=== PATIENT | male | born 1975 | race Caucasian/White ===

== ENCOUNTER 2018-12-19 12:33 | Day surgery (SDC) | payer OTHER ==
[~2018-12-19] VITALS: Ht 167.6 cm; Wt 71.2 kg
[2018-12-19] VITALS (10 sets, daily range): BP systolic 102–141; BP diastolic 62–93
[2018-12-19] MEDS ORDERED: NS IV 1000 ML 1,000 ML ONE (12:42)
[2018-12-19] MEDS ORDERED: LIDOCAINE 1% INJ 20 ML 20 ML VIAL ONE (12:42)
[2018-12-19] MEDS ORDERED: HEParin (CATH LAB) 2,000 ML IV ONE (12:42)
[2018-12-19] MEDS ORDERED: NS IV 1000 ML 1,000 ML IV SCH ×2 (13:07→16:00)
--- OUTSIDE RECORDS SUMMARY | 2018-12-19 13:07 | XMS REPORT ---
Author Author FRANCIS TOMER [facility] Address [address] [place] [address] Care Team Providers Care Colored Liquid Plastic Applier Name Role Phone TOMER BLANCO Unavailable PROBLEMS Type Condition ICD9-CM Code FQR19-OY Code Onset Dates Condition Status SNOMED Code Problem Pain in right leg M79.604 Active 77827016475858951 Problem Pain of left leg M79.605 Active 557157329 Problem Tachycardia with heart rate 100-120 beats per minute R00.0 Active 2896737 Problem Type 2 diabetes mellitus with hyperglycemia, without long-term current use of insulin E11.65 Active 75314501 Problem Essential hypertension I10 Active 77777786 Problem Hyperlipidemia LDL goal <100 E78.5 Active [id number] ALLERGIES No Information ENCOUNTERS Encounter Location Date Diagnosis [facility] [id number], [place] [id number] Sep, [facility] [address] [id number], [place] [phone] Sep, Type 2 diabetes mellitus with hyperglycemia, without long-term current use of insulin E11.65 [facility] [address] [id number], [place] [id number] Aug, [facility] [id number][place] [id number] Aug, [facility] [id number], [place] [address] Aug, Type 2 diabetes mellitus with hyperglycemia, without long-term current use of insulin E11.65 ; Pain of left leg M79.605 and Pain in right leg M79.604 [facility] [address] [id number], [place] [address] Jul, Dental examination Z01.[address] [id number], [place] [address] Jul, Type 2 diabetes mellitus with hyperglycemia, without long-term current use of insulin E11.65 and Essential hypertension I10 [facility] [address] [facility] [id number] [place] [address] Jun, Type 2 diabetes mellitus with hyperglycemia, without long- term current use of insulin E11.[address] [id number], [place] [id number] Jun, Type 2 diabetes mellitus with hyperglycemia, without long-term current use of insulin E11.[address] [id number], [place] [address] Jun, Type 2 diabetes mellitus with hyperglycemia, without long-term current use of insulin E11.[address] [id number], [place] [id number] Jun, Type 2 diabetes mellitus with hyperglycemia, without long-term current use of insulin E11.65 and Noncompliance Z91.[address] [id number], [place] [id number] Oct, Hyperlipidemia LDL goal <[address] [id number], [place] [id number] Oct, Type 2 diabetes mellitus with hyperglycemia, without long-term current use of insulin E11.65 and Tachycardia with heart rate 100-120 beats per minute R00.[address] [id number], [place] [address] Oct, IMMUNIZATIONS No Known Immunizations SOCIAL HISTORY Never Assessed REASON FOR VISIT pals PLAN OF CARE VITAL SIGNS MEDICATIONS Medication Instructions Dosage Frequency Start Date End Date Duration Status Toueduardo SoloStar 300 UNIT/ML Subcutaneous daily Inject 25 units 24h Jun, 90 days Active NovoLog 100 UNIT/ML Subcutaneous 3 times a day Inject 6 units 8h Jun, 90 days Active RESULTS No Results PROCEDURES No Known procedures INSTRUCTIONS MEDICATIONS ADMINISTERED No Known Medications MEDICAL (GENERAL) HISTORY Type Description Date Medical History type 2 DM Medical History hyperlipidemia Medical History hypertension Medical History CAD Surgical History left knee surgery 1988 Surgical History open heart surgery 05/06/2017 Hospitalization History salmonells poisoning- [place], [place] 2004 Hospitalization History diabetic ketoacidosis
--- OUTSIDE RECORDS SUMMARY | 2018-12-19 13:07 | XMS REPORT ---
Author Author CHRISTIANAIDA TOMER [facility] Networks[facility]OD[facility]IG[facility]Z Address [address] [place] [address] Care Team Providers Care Selector Packer Name Role Phone TOMER BLANCO Unavailable PROBLEMS Type Condition ICD9-CM Code XSZ95-IC Code Onset Dates Condition Status SNOMED Code Problem Pain in right leg M79.604 Active [id number] Problem Pain of left leg M79.605 Active 945268242 Problem Tachycardia with heart rate 100-120 beats per minute R00.0 Active 8678721 Problem Type 2 diabetes mellitus with hyperglycemia, without long-term current use of insulin E11.65 Active 81923737 Problem Essential hypertension I10 Active 56723061 Problem Hyperlipidemia LDL goal <100 E78.5 Active 68135477 ALLERGIES No Information ENCOUNTERS Encounter Location Date Diagnosis [facility] [address] [id number] [place] [id number] Sep, [facility]ITALEccentex CorporationDANIEL[facility] [place] [address] [facility] [address] [id number] [place] [phone] Aug, [facility] [id number] [place] [phone] Aug, [facility] [id number] [place] [address] Aug, Type 2 diabetes mellitus with hyperglycemia, without long-term current use of insulin E11.65 ; Pain of left leg M79.605 and Pain in right leg M79.604 [facility]ITALEccentex CorporationDANIEL[place] [address] [facility] [address] [id number] [place] [phone] Jul, Dental examination Z01.20 [facility]ITALPrestaShop0 [facility] [address] [id number] [place] [id number] Jul, Type 2 diabetes mellitus with hyperglycemia, without long-term current use of insulin E11.65 and Essential hypertension I10 [facility] [address] [facility] [id number] [place] [address] Jun, Type 2 diabetes mellitus with hyperglycemia, without long- term current use of insulin E11.65 [place] [address] [facility] [address] [id number] [place] [phone] Jun, Type 2 diabetes mellitus with hyperglycemia, without long-term current use of insulin E11.[address] [id number] [place] [address] Jun, Type 2 diabetes mellitus with hyperglycemia, without long-term current use of insulin E11.[address] [id number] [place] [phone] Jun, Type 2 diabetes mellitus with hyperglycemia, without long-term current use of insulin E11.65 and Noncompliance Z91.[address] [id number] [place] [id number] Oct, Hyperlipidemia LDL goal <[address] [id number] [place] [address] Oct, Type 2 diabetes mellitus with hyperglycemia, without long-term current use of insulin E11.65 and Tachycardia with heart rate 100-120 beats per minute R00.[address] [id number] [place] [phone] Oct, IMMUNIZATIONS No Known Immunizations SOCIAL HISTORY Never Assessed REASON FOR VISIT phone call PLAN OF CARE VITAL SIGNS MEDICATIONS Medication Instructions Dosage Frequency Start Date End Date Duration Status Gabapentin 100 mg Orally Three times a day 1 capsule 8h Aug, 30 day(s) Active Vitamin B-12 ER 1000 mcg Orally Once a day 1 tablet 24h Aug, Aug, 90 days Active RESULTS No Results PROCEDURES No Known procedures INSTRUCTIONS MEDICATIONS ADMINISTERED No Known Medications MEDICAL (GENERAL) HISTORY Type Description Date Medical History type 2 DM Medical History hyperlipidemia Medical History hypertension Medical History CAD Surgical History left knee surgery 1988 Surgical History open heart surgery 05/06/2017 Hospitalization History salmonells poisoning- [place], [place] 2004 Hospitalization History diabetic ketoacidosis
--- OUTSIDE RECORDS SUMMARY | 2018-12-19 13:07 | XMS REPORT ---
Author Author FRANCIS TOMER [facility] Address [address] [place] [address] Care Team Providers Care Proposal Editor Name Role Phone TOMER BLANCO Unavailable PROBLEMS Type Condition ICD9-CM Code [id number] Code Onset Dates Condition Status SNOMED Code Problem Pain in right leg M79.604 Active 60028343062283404 Problem Pain of left leg M79.605 Active 836814063 Problem Tachycardia with heart rate 100-120 beats per minute R00.0 Active 1431987 Problem Type 2 diabetes mellitus with hyperglycemia, without long-term current use of insulin E11.65 Active 15407165 Problem Essential hypertension I10 Active 31272939 Problem Hyperlipidemia LDL goal <100 E78.5 Active 25695456 ALLERGIES No Information ENCOUNTERS Encounter Location Date Diagnosis [facility] [address] [id number], [place] [phone] Oct, [facility] [address] [address] [id number], [place] [id number] Sep, Essential hypertension I10 [facility] [address] [facility] [address] [id number], [place] [id number] Sep, Type 2 diabetes mellitus with hyperglycemia, without long-term current use of insulin E11.65 [facility] [address] [id number], [place] [phone] Aug, [facility] [address] [id number], [place] [id number] Aug, [facility] [address] [id number], [place] [phone] Aug, Type 2 diabetes mellitus with hyperglycemia, without long-term current use of insulin E11.65 ; Pain of left leg M79.605 and Pain in right leg M79.[address] [id number], [place] [id number] Jul, Dental examination Z01.[address] [id number], [place] [id number] Jul, Type 2 diabetes mellitus with hyperglycemia, without long-term current use of insulin E11.65 and Essential hypertension I10 [facility] [address] [facility] [id number] B[place] [address] Jun, Type 2 diabetes mellitus with hyperglycemia, without long- term current use of insulin E11.[address] [id number], [place] [id number] Jun, Type 2 diabetes mellitus with hyperglycemia, without long-term current use of insulin E11.[address] [id number], [place] [id number] Jun, Type 2 diabetes mellitus with hyperglycemia, without long-term current use of insulin E11.[address] [id number], [place] [id number] Jun, Type 2 diabetes mellitus with hyperglycemia, without long-term current use of insulin E11.65 and Noncompliance Z91.[address] [id number], [place] [id number] Oct, Hyperlipidemia LDL goal <[address] [id number], [place] [id number] Oct, Type 2 diabetes mellitus with hyperglycemia, without long-term current use of insulin E11.65 and Tachycardia with heart rate 100-120 beats per minute R00.[address] [id number], [place] [id number] Oct, IMMUNIZATIONS No Known Immunizations SOCIAL HISTORY Never Assessed REASON FOR VISIT Repository Medication/samples PLAN OF CARE VITAL SIGNS MEDICATIONS Medication Instructions Dosage Frequency Start Date End Date Duration Status Gabapentin 100 mg Orally Three times a day 1 capsule 8h Aug, 30 day(s) Active Metoprolol Succinate ER 25 MG Orally Once a day 1 tablet 24h Jul, 90 days Active Lisinopril 5 mg Orally Once a day 1 tablet-kidney protection 24h 15 Jun, 2018 Active Atorvastatin Calcium 40 mg Orally Once a day 1 tablet 24h Oct, Active RESULTS No Results PROCEDURES No Known procedures INSTRUCTIONS MEDICATIONS ADMINISTERED No Known Medications MEDICAL (GENERAL) HISTORY Type Description Date Medical History type 2 DM Medical History hyperlipidemia Medical History hypertension Medical History CAD Surgical History left knee surgery 1988 Surgical History open heart surgery 05/06/2017 Hospitalization History salmonells poisoning- [place], [place] 2004 Hospitalization History diabetic ketoacidosis
--- OUTSIDE RECORDS SUMMARY | 2018-12-19 13:07 | XMS REPORT ---
Author Author TOMER BLANCO [facility] Address [address] [place] [address] Care Team Providers Care Medical Manager Name Role Phone TOMER BLANCO Unavailable PROBLEMS Type Condition ICD9-CM Code [id number] Code Onset Dates Condition Status SNOMED Code Problem Essential hypertension I10 Active 80868466 Problem Hyperlipidemia LDL goal <100 E78.5 Active 75585558 Problem Tachycardia with heart rate 100-120 beats per minute R00.0 Active 3674252 Problem Type 2 diabetes mellitus with hyperglycemia, without long-term current use of insulin E11.65 Active 51231966 ALLERGIES Substance Reaction Event Type Date Status shellfish stomach gets pumped Non Drug Allergy Jul, Active ENCOUNTERS Encounter Location Date Diagnosis [facility] ROD[address] [id number], [place] [id number] Aug, [facility] [address] [id number], [place] [phone] Jul, Dental examination Z01.[address] [id number], [place] [id number] Jul, Type 2 diabetes mellitus with hyperglycemia, without long-term current use of insulin E11.65 and Essential hypertension I10 [facility] [address] [facility] [id number] [place] [address] Jun, Type 2 diabetes mellitus with hyperglycemia, without long- term current use of insulin E11.65 [facility] [address] [id number], [place] [phone] Jun, Type 2 diabetes mellitus with hyperglycemia, without long-term current use of insulin E11.65 [facility] [address] [id number], [place] [id number] Jun, Type 2 diabetes mellitus with hyperglycemia, without long-term current use of insulin E11.65 [facility] [address] [id number] [place] [address] Jun, Type 2 diabetes mellitus with hyperglycemia, without long-term current use of insulin E11.65 and Noncompliance Z91.19 [facility] [address] [id number], [place] [id number] Oct, Hyperlipidemia LDL goal <[address] [id number], [place] [id number] Oct, Type 2 diabetes mellitus with hyperglycemia, without long-term current use of insulin E11.65 and Tachycardia with heart rate 100-120 beats per minute R00.0 [facility] [address] [id number], [place] [id number] Oct, IMMUNIZATIONS No Known Immunizations SOCIAL HISTORY Never Assessed REASON FOR VISIT Diabetes. blood sugar follow up. brought log. SP LIM PLAN OF CARE Activity Details Follow Up 4 Weeks Reason:DM with sugar log VITAL SIGNS Height 67 in 2018-07-23 Weight 139.6 lbs 2018-07-23 Temperature 98.1 degrees Fahrenheit 2018-07-23 Heart Rate 83 bpm 2018-07-23 Respiratory Rate 18 2018-07-23 BMI 21.86 kg/m2 2018-07-23 Blood pressure systolic 124 mmHg 2018-07-23 Blood pressure diastolic 82 mmHg 2018-07-23 MEDICATIONS Medication Instructions Dosage Frequency Start Date End Date Duration Status Edilbertomaykeleduardo CheRohan 300 UNIT/ML Subcutaneous daily Inject 25 units 24h Jun, 30 days Active Metformin HCl 1000 MG Orally Twice a day with food 1 tablet Oct, Active NovoLog 100 UNIT/ML Subcutaneous 3 times a day Inject 6 units 8h Jun, Active Atorvastatin Calcium 40 mg Orally Once a day 1 tablet 24h Oct, Active Aspirin 81 MG Orally Once a day 1 tablet 24h Active Lisinopril 5 mg Orally Once a day 1 tablet-kidney protection 24h Jun, Active Metoprolol Succinate ER 25 MG Orally Once a day 1 tablet 24h Jul, 90 days Active Glucagon Emergency 1 MG Active Glimepiride 2 MG Orally Once a day 1 tablet with breakfast or the first main meal of the day 24h Jul, 90 days Active RESULTS No Results PROCEDURES No Known procedures INSTRUCTIONS MEDICATIONS ADMINISTERED No Known Medications MEDICAL (GENERAL) HISTORY Type Description Date Medical History type 2 DM Medical History hyperlipidemia Medical History hypertension Medical History CAD Surgical History left knee surgery 1988 Surgical History open heart surgery 05/06/2017 Hospitalization History salmonells poisoning- [place], [place] 2004 Hospitalization History diabetic ketoacidosis
--- OUTSIDE RECORDS SUMMARY | 2018-12-19 13:07 | XMS REPORT ---
Author Author TOMER BLANCO [facility] RODRIGEZ Address [address] [place] [address] Care Team Providers Care Parts Sales Manager Name Role Phone TOMER BLANCO Unavailable PROBLEMS Type Condition ICD9-CM Code WUZ53-SI Code Onset Dates Condition Status SNOMED Code Problem Essential hypertension I10 Active 10078122 Problem Hyperlipidemia LDL goal <100 E78.5 Active 39475983 Problem Tachycardia with heart rate 100-120 beats per minute R00.0 Active 2432230 Problem Type 2 diabetes mellitus with hyperglycemia, without long-term current use of insulin E11.65 Active 29145711 ALLERGIES No Information ENCOUNTERS Encounter Location Date Diagnosis [facility] [id number], [place] [phone] Aug, [facility] [id number], [place] [phone] Jul, Dental examination Z01.20 [facility] [id number], [place] [id number] Jul, Type 2 diabetes mellitus with hyperglycemia, without long-term current use of insulin E11.65 and Essential hypertension I10 [facility] [address] [facility] [id number] [place] [address] Jun, Type 2 diabetes mellitus with hyperglycemia, without long- term current use of insulin E11.65 [facility] [id number], [place] [id number] Jun, Type 2 diabetes mellitus with hyperglycemia, without long-term current use of insulin E11.65 [facility]ENTERLocalLuxSHAWNA [place] [address] [facility] [id number], [place] [id number] Jun, Type 2 diabetes mellitus with hyperglycemia, without long-term current use of insulin E11.65 [facility]Local[facility] [id number] [place] [address] Jun, Type 2 diabetes mellitus with hyperglycemia, without long-term current use of insulin E11.65 and Noncompliance Z91.19 [facility] RODRIGEZ [address] [facility] [address] [id number] [place] [id number] Oct, Hyperlipidemia LDL goal <100 E78.5 [facility] RODRIGEZ [address] [facility] [address] [id number], [place] [id number] Oct, Type 2 diabetes mellitus with hyperglycemia, without long-term current use of insulin E11.65 and Tachycardia with heart rate 100-120 beats per minute R00.0 [facility] [facility] [address] [facility] [address] [id number] [place] [id number] Oct, IMMUNIZATIONS No Known Immunizations SOCIAL HISTORY Never Assessed REASON FOR VISIT Blood sugars PLAN OF CARE VITAL SIGNS MEDICATIONS Medication Instructions Dosage Frequency Start Date End Date Duration Status NovoLog 100 UNIT/ML Subcutaneous 3 times a day Inject 6 units 8h Jun, Active RESULTS No Results PROCEDURES No Known procedures INSTRUCTIONS MEDICATIONS ADMINISTERED No Known Medications MEDICAL (GENERAL) HISTORY Type Description Date Medical History type 2 DM Medical History hyperlipidemia Medical History hypertension Medical History CAD Surgical History left knee surgery 1988 Surgical History open heart surgery 05/06/2017 Hospitalization History salmonells poisoning- [place], [place] 2004 Hospitalization History diabetic ketoacidosis
--- OUTSIDE RECORDS SUMMARY | 2018-12-19 13:07 | XMS REPORT ---
Author Author MERLINE ESPINAL [facility] Address [address] [place] [address] Care Team Providers Care Needle Valve Operator Name Role Phone MERLINE ESPINAL Unavailable PROBLEMS ALLERGIES No Information ENCOUNTERS IMMUNIZATIONS No Known Immunizations SOCIAL HISTORY No smoking Hx information available REASON FOR VISIT PLAN OF CARE VITAL SIGNS MEDICATIONS Unknown Medications RESULTS No Results PROCEDURES INSTRUCTIONS MEDICATIONS ADMINISTERED No Known Medications MEDICAL (GENERAL) HISTORY
--- OUTSIDE RECORDS SUMMARY | 2018-12-19 13:07 | XMS REPORT ---
Author Author TOMER BLNACO [facility] Address [address] [place] [address] Care Team Providers Care Camp Manager Name Role Phone TOMER BLANCO Unavailable PROBLEMS Type Condition ICD9-CM Code [id number] Code Onset Dates Condition Status SNOMED Code Problem Pain in right leg M79.604 Active 04122123432112168 Problem Pain of left leg M79.605 Active 069957798 Problem Tachycardia with heart rate 100-120 beats per minute R00.0 Active 2680696 Problem Type 2 diabetes mellitus with hyperglycemia, without long-term current use of insulin E11.65 Active 38447327 Problem Essential hypertension I10 Active 25639084 Problem Hyperlipidemia LDL goal <100 E78.5 Active 09804030 ALLERGIES Substance Reaction Event Type Date Status shellfish stomach gets pumped Non Drug Allergy Aug, Active ENCOUNTERS Encounter Location Date Diagnosis [facility] [address] [place] [address] [id number][place] [id number] Sep, [address] [id number], [place] [id number] Aug, Type 2 diabetes mellitus with hyperglycemia, without long-term current use of insulin E11.65 ; Pain of left leg M79.605 and Pain in right leg M79.[address] [id number], [place] [id number] Jul, Dental examination Z01.[address] [id number], [place] [address] Jul, Type 2 diabetes mellitus with hyperglycemia, without long-term current use of insulin E11.65 and Essential hypertension I10 [facility] [address] [facility] [id number] [place] [address] Jun, Type 2 diabetes mellitus with hyperglycemia, without long- term current use of insulin E11.65 [facility] [address] [id number], [place] [id number] Jun, Type 2 diabetes mellitus with hyperglycemia, without long-term current use of insulin E11.[address] [id number], [place] [id number] Jun, Type 2 diabetes mellitus with hyperglycemia, without long-term current use of insulin E11.[address] [id number], [place] [id number] Jun, Type 2 diabetes mellitus with hyperglycemia, without long-term current use of insulin E11.65 and Noncompliance Z91.[address] [id number], [place] [id number] Oct, Hyperlipidemia LDL goal <[address] [id number], [place] [id number] Oct, Type 2 diabetes mellitus with hyperglycemia, without long-term current use of insulin E11.65 and Tachycardia with heart rate 100-120 beats per minute R00.[address] [id number], [place] [id number] Oct, IMMUNIZATIONS No Known Immunizations SOCIAL HISTORY Never Assessed REASON FOR VISIT Diabetes with blood sugar logs, concerned about weight gain. aneesh harp PLAN OF CARE Activity Details Follow Up 6 Weeks Reason:DM Pending Test IRON, TIBC, FERRITIN PANEL Pending Test CMP Pending Test MAGNESIUM SERUM Pending Test CBC Pending Test VITAMIN B12/FOLATE, SERUM PANEL VITAL SIGNS Height 67 in 2018-08-20 Weight 153.9 lbs 2018-08-20 Temperature 97.7 degrees Fahrenheit 2018-08-20 Heart Rate 75 bpm 2018-08-20 Respiratory Rate 18 2018-08-20 Oximetry 99 % 2018-08-20 BMI 24.10 kg/m2 2018-08-20 Blood pressure systolic 128 mmHg 2018-08-20 Blood pressure diastolic 82 mmHg 2018-08-20 MEDICATIONS Medication Instructions Dosage Frequency Start Date End Date Duration Status Aspirin 81 MG Orally Once a day 1 tablet 24h Active Atorvastatin Calcium 40 mg Orally Once a day 1 tablet 24h Oct, Active Metformin HCl 1000 MG Orally Twice a day with food 1 tablet Oct, Active Glucagon Emergency 1 MG Active Glimepiride 2 MG Orally Once a day 1 tablet with breakfast or the first main meal of the day 24h Jul, 90 days Active Metoprolol Succinate ER 25 MG Orally Once a day 1 tablet 24h Jul, 90 days Active Lisinopril 5 mg Orally Once a day 1 tablet-kidney protection 24h Jun, Active NovoLog 100 UNIT/ML Subcutaneous 3 times a day Inject 6 units 8h Jun, 30 days Active Toujeo SoloStar 300 UNIT/ML Subcutaneous daily Inject 25 units 24h Jun, Active RESULTS No Results PROCEDURES Procedure Date Ordered Result Body Site COMPLETE CBC W/AUTO DIFF WBC Aug 20, 2018 COMPREHEN METABOLIC PANEL Aug 20, 2018 VITAMIN B-12 Aug 20, 2018 BLOOD FOLIC ACID SERUM Aug 20, 2018 VENIPUNCT, ROUTINE* Aug 20, 2018 IRON BINDING TEST Aug 20, 2018 ASSAY OF MAGNESIUM Aug 20, 2018 ASSAY OF FERRITIN Aug 20, 2018 ASSAY OF IRON Aug 20, 2018 INSTRUCTIONS MEDICATIONS ADMINISTERED No Known Medications MEDICAL (GENERAL) HISTORY Type Description Date Medical History type 2 DM Medical History hyperlipidemia Medical History hypertension Medical History CAD Surgical History left knee surgery 1988 Surgical History open heart surgery 05/06/2017 Hospitalization History salmonells poisoning- [place], [place] 2004 Hospitalization History diabetic ketoacidosis
--- OUTSIDE RECORDS SUMMARY | 2018-12-19 13:08 | XMS REPORT ---
Author Author RUKHSANA RIVERA [facility] Address Unknown Phone Unavailable Care Team Providers Care Beehive Kiln Charcoal Burner Name Role Phone RUKHSANA RIVERA Unavailable Unavailable PROBLEMS Type Condition ICD9-CM Code [id number] Code Onset Dates Condition Status SNOMED Code Problem Type 2 diabetes mellitus with hyperglycemia, without long-term current use of insulin E11.65 Active 75977418 Problem Tachycardia with heart rate 100-120 beats per minute R00.0 Active 9152788 ALLERGIES Unknown Allergies SOCIAL HISTORY No smoking Hx information available PLAN OF CARE VITAL SIGNS MEDICATIONS Unknown Medications RESULTS No Results PROCEDURES No Known procedures IMMUNIZATIONS No Known Immunizations
--- OUTSIDE RECORDS SUMMARY | 2018-12-19 13:08 | XMS REPORT ---
Author Author TOMER BLANCO [facility] RODRIGEZ Address [address] [place] [address] Care Team Providers Care Script Supervisor Name Role Phone TOMER BLANCO Unavailable PROBLEMS Type Condition ICD9-CM Code LUK24-SU Code Onset Dates Condition Status SNOMED Code Problem Essential hypertension I10 Active 75968556 Problem Hyperlipidemia LDL goal <100 E78.5 Active 24801389 Problem Tachycardia with heart rate 100-120 beats per minute R00.0 Active 2543316 Problem Type 2 diabetes mellitus with hyperglycemia, without long-term current use of insulin E11.65 Active 38075686 ALLERGIES No Information ENCOUNTERS Encounter Location Date [facility] [id number] [place] [id number] Aug, [facility] [id number] [place] [id number] Jul, [facility] [id number] [place] [id number] Jul, Type 2 diabetes mellitus with hyperglycemia, without long-term current use of insulin E11.65 and Essential hypertension I10 [facility] [address] [facility] [id number], [place] [address] Jun, Type 2 diabetes mellitus with hyperglycemia, without long- term current use of insulin E11.65 [facility] [id number] [place] [id number] Jun, Type 2 diabetes mellitus with hyperglycemia, without long-term current use of insulin E11.65 [facility] [id number] [place] [id number] Jun, Type 2 diabetes mellitus with hyperglycemia, without long-term current use of insulin E11.65 [facility] [id number] [place] [id number] Jun, Type 2 diabetes mellitus with hyperglycemia, without long-term current use of insulin E11.65 and Noncompliance Z91.19 [facility] RODRIG[facility]Z [address] [id number] [place] [id number] Oct, Hyperlipidemia LDL goal <100 E78.5 [facility] RODRIG[facility]Z [address] [id number] [place] [id number] Oct, Type 2 diabetes mellitus with hyperglycemia, without long-term current use of insulin E11.65 and Tachycardia with heart rate 100-120 beats per minute R00.0 [facility] RODRIG[facility]Z [address] [id number] [place] [phone] Oct, IMMUNIZATIONS No Known Immunizations SOCIAL HISTORY Never Assessed REASON FOR VISIT phone call PLAN OF CARE VITAL SIGNS MEDICATIONS Medication Instructions Dosage Frequency Start Date End Date Duration Status NovoLog 100 UNIT/ML Subcutaneous 3 times a day Inject 5 units 8h Jun, 30 days Active Toujeo SoloStar 300 UNIT/ML Subcutaneous daily Inject 20 units 24h Jun, 30 days Active RESULTS No Results PROCEDURES No Known procedures INSTRUCTIONS MEDICATIONS ADMINISTERED No Known Medications MEDICAL (GENERAL) HISTORY Type Description Date Medical History type 2 DM Medical History hyperlipidemia Medical History hypertension Medical History CAD Surgical History left knee surgery 1988 Surgical History open heart surgery 05/06/2017 Hospitalization History salmonells poisoning- [place], [place] 2004 Hospitalization History diabetic ketoacidosis
--- OUTSIDE RECORDS SUMMARY | 2018-12-19 13:08 | XMS REPORT ---
Author Author TOMER BLANCO [facility] Address [address] [place] [address] Care Team Providers Care American Sign Language Teacher Name Role Phone TOMER BLANCO Unavailable PROBLEMS Type Condition ICD9-CM Code VMZ97-QL Code Onset Dates Condition Status SNOMED Code Problem Type 2 diabetes mellitus with hyperglycemia, without long-term current use of insulin E11.65 Active 37001471 Problem Tachycardia with heart rate 100-120 beats per minute R00.0 Active 2047243 Assessment Type 2 diabetes mellitus with hyperglycemia, without long-term current use of insulin E11.65 Oct, Active 54184961 ALLERGIES Substance Reaction Event Type Date Status N.K.D.A. Unknown Non Drug Allergy Oct, Unknown SOCIAL HISTORY No smoking Hx information available PLAN OF CARE VITAL SIGNS Height 67 in 2016-10-16 Weight 148.5 lbs 2016-10-16 Heart Rate 110 bpm 2016-10-16 Respiratory Rate 18 2016-10-16 BMI 23.26 kg/m2 2016-10-16 Blood pressure systolic 118 mmHg 2016-10-16 Blood pressure diastolic 82 mmHg 2016-10-16 MEDICATIONS Medication Instructions Dosage Frequency Start Date End Date Duration Status Metformin HCl 1000 MG Orally Twice a day with food 1/2 pill Oct, Active Propranolol HCl 10 mg Orally Twice a day 1 tablet 12h Oct, Active RESULTS Name Result Date Reference Range TSH W/ FREE T4 2016-10-16 TSH 2.190 0.450-4.500 T4,Free(Direct) 1.31 0.82-1.77 CBC 2016-10-16 WBC 12.3 3.4-10.8 RBC 4.79 4.14-5.80 Hemoglobin 14.7 12.6-17.7 Hematocrit 42.8 37.5-51.0 MCV 89 79-97 MCH 30.7 26.6-33.0 MCHC 34.3 31.5-35.7 RDW 13.0 12.3-15.4 Platelets 314 150-379 Neutrophils 79 Lymphs 16 Monocytes 5 Eos 0 Basos 0 Immature Cells Neutrophils (Absolute) 9.7 1.4-7.0 Lymphs (Absolute) 1.9 0.7-3.1 Monocytes(Absolute) 0.6 0.1-0.9 Eos (Absolute) 0.0 0.0-0.4 Baso (Absolute) 0.0 0.0-0.2 Immature Granulocytes 0 Immature Grans (Abs) 0.0 0.0-0.1 NRBC Hematology Comments: LIPID PANEL 2016-10-16 Cholesterol, Total 269 100-199 Triglycerides 187 0-149 HDL Cholesterol 43 >39 VLDL Cholesterol Gordon 37 5-40 LDL Cholesterol Calc 189 0-99 Comment: CMP 2016-10-16 Glucose, Serum 446 65-99 BUN 5 6-24 Creatinine, Serum 0.84 0.76-1.27 eGFR If NonAfricn Am 108 >59 eGFR If Africn Am 125 >59 BUN/Creatinine Ratio 6 9-20 Sodium, Serum 136 136-144 Potassium, Serum 4.1 3.5-5.2 Chloride, Serum 96 97-106 Carbon Dioxide, Total 21 18-29 Calcium, Serum 9.3 8.7-10.2 Protein, Total, Serum 7.1 6.0-8.5 Albumin, Serum 4.7 3.5-5.5 Globulin, Total 2.4 1.5-4.5 A/G Ratio 2.0 1.1-2.5 Bilirubin, Total 0.5 0.0-1.2 Alkaline Phosphatase, S 74 39-117 AST (SGOT) 9 0-40 ALT (SGPT) 7 0-44 A1C (IN HOUSE) 2016-10-16 A1C IN HOUSE 9.6 4.3 - 5.6 % Previous A1c Lot [id number] Exp date 06/28 PROCEDURES Procedure Date Ordered Related Diagnosis Body Site Office Visit, New Pt., Level 3 Oct 16, 2016 VENIPUNCT, ROUTINE* Oct 16, 2016 EKG, TRACING (IN-HOUSE) 2016-10-16 N/A ROUTINE VENIPUNCTURE 2016-10-16 N/A LIPID PANEL Oct 16, 2016 COMPLETE CBC W/AUTO DIFF WBC Oct 16, 2016 GLYCATED HEMOGLOBIN TEST Oct 16, 2016 ASSAY THYROID STIM HORMONE Oct 16, 2016 ELECTROCARDIOGRAM, TRACING Oct 16, 2016 COMPREHEN METABOLIC PANEL Oct 16, 2016 ASSAY OF FREE THYROXINE Oct 16, 2016 IMMUNIZATIONS No Known Immunizations
--- OUTSIDE RECORDS SUMMARY | 2018-12-19 13:08 | XMS REPORT ---
Author Author TOMER BLANCO [facility] RODRIGEZ Address [address] [place] [address] Care Team Providers Care On Site Wastewater Systems Technician Name Role Phone TOMER BLANCO Unavailable PROBLEMS Type Condition ICD9-CM Code OSQ49-GH Code Onset Dates Condition Status SNOMED Code Problem Essential hypertension I10 Active 14870478 Problem Hyperlipidemia LDL goal <100 E78.5 Active 89063860 Problem Tachycardia with heart rate 100-120 beats per minute R00.0 Active 0817385 Problem Type 2 diabetes mellitus with hyperglycemia, without long-term current use of insulin E11.65 Active 44311468 ALLERGIES No Information ENCOUNTERS Encounter Location Date Diagnosis [facility] [address] [id number], [place] [phone] Aug, [facility] [address] [id number], [place] [id number] Jul, [facility] [address] [id number], [place] [phone] Jul, Type 2 diabetes mellitus with hyperglycemia, without long-term current use of insulin E11.65 and Essential hypertension I10 [facility] [address] [facility] [id number], [place] [address] Jun, Type 2 diabetes mellitus with hyperglycemia, without long- term current use of insulin E11.65 [facility] [address] [id number], [place] [id number] Jun, Type 2 diabetes mellitus with hyperglycemia, without long-term current use of insulin E11.65 [facility] [id number], [place] [id number] Jun, Type 2 diabetes mellitus with hyperglycemia, without long-term current use of insulin E11.65 [facility] [id number], [place] [id number] Jun, Type 2 diabetes mellitus with hyperglycemia, without long-term current use of insulin E11.65 and Noncompliance Z91.[address] [id number] [place] [id number] Oct, Hyperlipidemia LDL goal <[address] [id number], [place] [id number] Oct, Type 2 diabetes mellitus with hyperglycemia, without long-term current use of insulin E11.65 and Tachycardia with heart rate 100-120 beats per minute R00.0 [facility] RODRIGEZ [employer] [place] [address] AVE [id number] [place] [phone] Oct, IMMUNIZATIONS No Known Immunizations SOCIAL HISTORY Never Assessed REASON FOR VISIT PLAN OF CARE VITAL SIGNS MEDICATIONS Medication Instructions Dosage Frequency Start Date End Date Duration Status Atorvastatin Calcium 40 mg Orally Once a day 1 tablet 24h Oct, Active Metformin HCl 1000 MG Orally Twice a day with food 1 tablet Oct, Active RESULTS No Results PROCEDURES No Known procedures INSTRUCTIONS MEDICATIONS ADMINISTERED No Known Medications MEDICAL (GENERAL) HISTORY Type Description Date Medical History type 2 DM Medical History hyperlipidemia Medical History hypertension Medical History CAD Surgical History left knee surgery 1988 Surgical History open heart surgery 05/06/2017 Hospitalization History salmonells poisoning- [place], [place] 2004 Hospitalization History diabetic ketoacidosis
--- OUTSIDE RECORDS SUMMARY | 2018-12-19 13:08 | XMS REPORT ---
Author Author TOMER BLANCO [facility] Address [address] [place] [address] Care Team Providers Care Performance Management Consultant Name Role Phone TOMER BLANCO Unavailable PROBLEMS Type Condition ICD9-CM Code EOP11-ED Code Onset Dates Condition Status SNOMED Code Problem Essential hypertension I10 Active 49493744 Problem Hyperlipidemia LDL goal <100 E78.5 Active 87323945 Problem Tachycardia with heart rate 100-120 beats per minute R00.0 Active 7866379 Problem Type 2 diabetes mellitus with hyperglycemia, without long-term current use of insulin E11.65 Active 53882291 ALLERGIES Substance Reaction Event Type Date Status shellfish stomach gets pumped Non Drug Allergy Jun, Active ENCOUNTERS Encounter Location Date Diagnosis [facility] [address] [facility] [address] [id number], [place] [id number] Aug, [facility] [place] [address] [facility] [id number], [place] [id number] Jul, [facility] [address] [facility] [id number], [place] [phone] Jul, Type 2 diabetes mellitus with hyperglycemia, without long-term current use of insulin E11.65 and Essential hypertension I10 [facility] [address] [facility] [id number] JO[place] [address] Jun, Type 2 diabetes mellitus with hyperglycemia, without long- term current use of insulin E11.65 [facility] [address] [facility] [id number], [place] [id number] Jun, Type 2 diabetes mellitus with hyperglycemia, without long-term current use of insulin E11.65 [facility] [address] [facility] [id number], [place] [id number] Jun, Type 2 diabetes mellitus with hyperglycemia, without long-term current use of insulin E11.65 [facility] [place] [address] [place] [address] AVE [id number] [place] [id number] Jun, Type 2 diabetes mellitus with hyperglycemia, without long-term current use of insulin E11.65 and Noncompliance Z91.19 [facility] RODRIGEZ [employer] [facility] [address] [id number], [place] [phone] Oct, Hyperlipidemia LDL goal <100 E78.5 [facility] RODRIGEZ [employer] [place] [address] AVE [id number], [place] [id number] Oct, Type 2 diabetes mellitus with hyperglycemia, without long-term current use of insulin E11.65 and Tachycardia with heart rate 100-120 beats per minute R00.0 [facility] [employer] [facility] [address] [id number], [place] [phone] Oct, IMMUNIZATIONS No Known Immunizations SOCIAL HISTORY Never Assessed REASON FOR VISIT ER f/u-was in er on saturday was told hyperglycemia and dehydration. Lee cedeno PLAN OF CARE Activity Details Follow Up 4 Weeks Reason:DM VITAL SIGNS Height 67 in 2018-06-25 Weight 123.1 lbs 2018-06-25 Temperature 97.3 degrees Fahrenheit 2018-06-25 Heart Rate 100 bpm 2018-06-25 Respiratory Rate 18 2018-06-25 BMI 19.28 kg/m2 2018-06-25 Blood pressure systolic 140 mmHg 2018-06-25 Blood pressure diastolic 82 mmHg 2018-06-25 MEDICATIONS Medication Instructions Dosage Frequency Start Date End Date Duration Status Lisinopril 5 mg Orally Once a day 1 tablet-kidney protection 24h Jun, 30 day(s) Active Metformin HCl 1000 MG Orally Twice a day with food 1 tablet Oct, Active NovoLog 100 UNIT/ML Subcutaneous 3 times a day Inject 10 units 8h Jun, 30 days Active Atorvastatin Calcium 40 mg Orally Once a day 1 tablet 24h Oct, Active Toujeo SoloStar 300 UNIT/ML Subcutaneous daily Inject 30 units 24h Jun, 30 days Active Aspirin 81 MG Orally Once a day 1 tablet 24h Active Glucagon Emergency 1 MG Active Metoprolol Tartrate 25 MG Orally Twice a day 1 tablet with food 12h Active RESULTS No Results PROCEDURES Procedure Date Ordered Result Body Site VENIPUNCT, ROUTINE* Jun 25, 2018 ASSAY OF URINE CREATININE Jun 25, 2018 MICROALBUMIN, QUANTITATIVE Jun 25, 2018 GLYCATED HEMOGLOBIN TEST Jun 25, 2018 MICROALBUMIN, SEMIQUANT Jun 25, 2018 ASSAY OF FREE THYROXINE Jun 25, 2018 COMPLETE CBC W/AUTO DIFF WBC Jun 25, 2018 LIPID PANEL Jun 25, 2018 URINALYSIS, AUTO, W/O SCOPE Jun 25, 2018 ASSAY THYROID STIM HORMONE Jun 25, 2018 COMPREHEN METABOLIC PANEL Jun 25, 2018 INSTRUCTIONS MEDICATIONS ADMINISTERED No Known Medications MEDICAL (GENERAL) HISTORY Type Description Date Medical History type 2 DM Medical History hyperlipidemia Medical History hypertension Medical History CAD Surgical History left knee surgery 1988 Surgical History open heart surgery 05/06/2017 Hospitalization History salmonells poisoning- [place], [place] 2004 Hospitalization History diabetic ketoacidosis
[2018-12-19 13:14] LABS: HEMOGLOBIN 14.7 G/DL (13.3-17.7); MEAN PLATELET VOLUME 9.7 FL (7.4-10.4); RED CELL DISTRIBUTION WIDTH 12.4 % (10.0-14.5)
[2018-12-19 13:26] LABS: PROTHROMBIN TIME PATIENT 12.9 SEC (12.2-14.7)
[2018-12-19 13:33] LABS: ALANINE AMINOTRANSFERASE 40 U/L (0-55); ALBUMIN 4.6 GM/DL (3.2-4.5); ALKALINE PHOSPHATASE 92 U/L (40-136); BILIRUBIN,TOTAL 0.8 MG/DL (0.1-1.0); BUN/CREATININE RATIO 17; CALCIUM 9.7 MG/DL (8.5-10.1); CARBON DIOXIDE 21 MMOL/L (21-32); CHLORIDE 104 MMOL/L (98-107); CREATININE SERUM 1.01 MG/DL (0.60-1.30); GFR ESTIMATED > 60; GLUCOSE 261 MG/DL (70-105); POTASSIUM 4.1 MMOL/L (3.6-5.0); SODIUM 138 MMOL/L (135-145)
[2018-12-19] MEDS ORDERED: INSU300I3 SQ (13:44)
[2018-12-19] MEDS ORDERED: LISI40TA PO (13:44)
[2018-12-19] MEDS ORDERED: METF-399 PO (13:44)
[2018-12-19] MEDS ORDERED: ATOR40TA70 PO (13:44)
[2018-12-19] MEDS ORDERED: METO-387 PO (13:44)
[2018-12-19] MEDS ORDERED: CYAN100088 PO (13:44)
[2018-12-19] MEDS ORDERED: ASPI-586 PO (13:44)
[2018-12-19] MEDS ORDERED: GABA-488 PO (13:44)
[2018-12-19] MEDS ORDERED: INSU100I14 SQ (13:44)
[2018-12-19] MEDS ORDERED: GLIM2TAB PO (13:44)
[2018-12-19] MEDS ORDERED: fentaNYL INJECTION 100 MCG/2 ML AMP ONE (13:45)
[2018-12-19] MEDS ORDERED: MIDAZOLAM 5 MG/5 ML (VERSED) VIAL ONE (13:45)
[2018-12-19] MEDS ORDERED: diphenhydrAMINE 50 MG/ML INJ (BENADRYL) ONE (13:45)
[2018-12-19] MEDS ORDERED: FLU QUADRIvalent (5+ YOA) 2018-2019 (AFLURIA) 0.5 ML IM ONE (14:30)
[2018-12-19] MEDS ORDERED: PATIENT MAY USE OWN MEDS, ALL PO SCH (16:00)
--- NOTE | 2018-12-19 16:01 | Cardiac Procedure Note-CS/ASA ---
Pre-Procedure Note Pre-Op Procedure Note H&P Reviewed The H&P was reviewed, patient examined and no changes noted. Date H&P Reviewed: Dec 19, 2018 Time H&P Reviewed: 14:50 Conscious Sedation Pre-Proced Time 14:50 ASA Score 3 For ASA 3 and 4: Consider anesthesia and medical clearance. Also, for patients with a history of failed moderate sedation consider anesthesia. Airway Lungs Heart ASA score ASA 1: a normal healthy patient ASA 2: a patient with a mild systemic disease (mid diabetes, controlled hypertension, obesity ASA 3: a patient with a severe systemic disease that limits activity (angina , COPD, prior Myocardial infarction) ASA 4: a patient with an incapacitating disease that is a constant threat to life (CHF, renal failure) ASA 5: a moribund patient not expected to survive 24 hrs. (ruptured aneurysm) ASA 6: a declared brain- patient whose organs are being harvested. For emergent operations, add the letter E after the classification Mallampati Classification Grade 2 Sedation Plan Analgesia, Amnesia, Plan communicated to team members, Discussed options with patient/fam, Discussed risks with patient/fam The patient is an appropriate candidate to undergo the planned procedure, sedation, and anesthesia. The patient immediately re-assessed prior to indication. ALVARO SUAREZ MD FACP FAC CCDS Dec 19, 2018 16:01
--- NOTE | 2018-12-19 16:04 | Discharge Inst-Post CATH ---
Discharge Inst-CATH/EP Post Cardiac Cath/EP D/C Inst Follow Up/Plan F/u with Dr Christiansen in 2 weeks CARDIAC CATH DISCHARGE INSTRUCTIONS *Hold Metformin for 48 hours post heart cath. ACTIVITY * Go Home directly and rest. * Limit activity of the leg (or wrist if it was used) for 7 days including aerobics, swimming, jogging, bicycling, etc. * Restrict stair-climbing for 7 days if possible, if not, climb up with your non -cath leg, then bring together on the same step. * Avoid lifting, pushing, pulling or excessive movement of the affected extremity for 7 days. * Customary sexual activity may be resumed after 2 days-use caution not to use a position that strains or causes pain to the affected extremity. * No driving for 24 hours. * NO SMOKING. * Avoid straining for bowel movements for 7 days. * Gentle walking on level ground is allowed. * Returning to work will depend on the type of procedure and the results. Your doctor will discuss this with you. CALL YOUR DOCTOR FOR ANY OF THE FOLLOWING: *If bleeding from the puncture site occurs- Apply gentle pressure to site with clean cloth and call your doctor or EMS. * If a knot or lump forms under the skin, increases in size, or causes pain. * If bruising appears to be worsening or moving further down your leg instead of disappearing. * Temperature above 101 F. CARE OF YOUR GROIN INCISION; * Bruising or purple discoloration of the skin near the puncture site is common. * You may shower only, no bathtub bathing for 5 days. Be careful to avoid slipping as your leg may feel stiff. * If a closure device was used on your femoral artery, please see the attached guide regarding care of the device and your leg. * Leave the dressing on, until removed by office staff. CARE OF YOUR WRIST INCISION; * Bruising or purple discoloration of the skin near the puncture site is common. * You may shower. * DO NOT submerge wrist. * Leave dressing on, until removed by office staff.. ALVARO CHRISTIANSEN MD [facility] CCDS Dec 19, 2018 16:04
--- NOTE | 2018-12-19 16:06 | Discharge Inst-Cardiology ---
Discharge Inst-Cardiac Discharge Medications Continued Medications: Aspirin (Aspir 81) 81 Mg Tablet.dr 81 MG PO DAILY, TAB Atorvastatin Calcium (Atorvastatin Calcium) 40 Mg Tablet 40 MG PO DAILY, TAB Cyanocobalamin (Vitamin B-12) (B-12) 1,000 Mcg Tablet 1000 MCG PO DAILY, TAB Gabapentin (Gabapentin) 300 Mg Capsule 300 MG PO TID, CAP Glimepiride (Glimepiride) 2 Mg Tablet 2 MG PO DAILY, TAB Insulin Aspart (Novolog Flexpen) 300 Units/3 Ml Solution 20 UNITS SQ TIDAC, EA Insulin Glargine,Hum.rec.anlog (Toujeo Max Solostar) 300 Unit/1 Ml Insuln.pen 40 UNIT SQ HS, EA Lisinopril (Lisinopril) 40 Mg Tablet 40 MG PO DAILY, TAB Metoprolol Succinate (Metoprolol Succinate) 25 Mg Tab.er.24h 50 MG PO DAILY, TAB Discontinued Medications: Metformin HCl (Metformin HCl) 1,000 Mg Tablet 1000 MG PO BID, TAB Patient Instructions Patient Instructions: Hold METFOMIN until the morning of 12/22/18; then resume previous home dose ALVARO SUAREZ MD FACP FAC CCDS Dec 19, 2018 16:06
--- NOTE | 2018-12-19 23:18 | CARDIAC CATHETERIZATION ---
DATE OF SERVICE: 12/19/2018 CARDIAC CATHETERIZATION REPORT The patient is a 43-year-old man who is known to have coronary artery disease and has had coronary artery bypass surgery in 2017. He has had symptoms of chest discomfort and shortness of breath. Cardiac catheterization was carried out today after having obtained an informed consent. PROCEDURE: He was brought to the cardiac catheterization laboratory in a fasting state. Right groin was prepared and draped in usual sterile fashion. Lidocaine 1% for local anesthesia. Modified Seldinger technique was used to advance a 5-Polish sheath in right femoral artery. Angiography of the right femoral artery was carried out through the sheath. A 5-Polish JL4 catheter was used for left coronary angiography, 5-Polish JR4 catheter was used for right coronary angiography and coronary angiography of the saphenous vein graft to an obtuse marginal artery. A 5-Polish IM catheter was used for angiography of the left internal mammary artery graft to the left anterior descending artery. A 5-Polish right coronary bypass catheter was used for angiography of the saphenous vein graft to the right coronary artery. A 5-Polish pigtail catheter was used for left heart catheterization and left ventricular coronary angiography. A 5-Polish pigtail catheter was used for aortic root angiography. Aortic root angiography was performed because the right coronary graft was difficult to find and angiography helped in locating and engaging the graft. At the end of the procedure, following removal of the diagnostic catheters, Mynx was used to achieve hemostasis following sheath removal. HEMODYNAMICS: Left ventricular end-diastolic pressure following coronary angiography was 12 mmHg. There is no significant pressure gradient on pullback across the aortic valve. Ascending aortic pressure was 116/79 with a mean of 96 mmHg. CORONARY ANGIOGRAPHY: Left main coronary artery is short. It does not exhibit significant disease. Left anterior descending artery appears to be occluded in its mid portion following the origin of the first septal home visitor and the first diagonal branch. The left circumflex artery has a 60% bifurcation stenosis in its terminal obtuse marginal branch. There appears to be proximal occlusion of a high obtuse marginal branch, which is not seen on antegrade injection, but was seen on injection of the saphenous vein graft to the obtuse marginal. The right coronary artery has 90% proximal stenosis and appears to be occluded in its mid portion. Faint retrograde filling was seen of the saphenous vein graft to the posterior descending branch of the right coronary artery. SAPHENOUS VEIN GRAFT ANGIOGRAPHY: Saphenous vein graft to an obtuse marginal was patent and free of significant disease. Saphenous vein graft to the posterior descending branch of the right coronary is patent and free of significant disease. The posterior descending branch of the right coronary and the posterolateral branch of the right coronary have diffuse moderate to moderately severe disease. LEFT INTERNAL MAMMARY ARTERY GRAFT ANGIOGRAPHY: Left internal mammary artery graft to the mid left anterior descending artery is patent and free of significant disease with good runoff. AORTIC ROOT ANGIOGRAPHY: Aortic root angiography did not indicate any significant thoracic aortic aneurysm or dissection, to the extent visualized. Aortic valve leaflets show good leaflet excursion. There does not appear to be significant aortic regurgitation. The aortic coronary artery bypass grafts were identified on this angiogram and this was helpful in selectively cannulating the right coronary graft. LEFT VENTRICULAR ANGIOGRAPHY: Left ventricular angiography was carried out in the right anterior oblique projection. Global left ventricular systolic function normal. No regional wall motion abnormality was seen. Left ventricular ejection fraction approximately 60%. CONCLUSIONS: 1. [place] coronary artery disease consisting of mid vessel occlusion of the left anterior descending, proximal occlusion of a high obtuse marginal, 60% bifurcation stenosis of a distal obtuse marginal branch of left circumflex, 90% proximal stenosis of the right coronary artery, and mid vessel occlusion of the right coronary. 2. Patent aortocoronary graft to an obtuse marginal artery. 3. Patent aortocoronary graft to the posterior descending branch of the right coronary. 4. Patent left internal mammary artery graft to the mid to distal left anterior descending. 5. Normal left ventricular end-diastolic pressure. 6. Normal global left ventricular systolic function with ejection fraction approximately 60%. DISCUSSION AND RECOMMENDATIONS: Based on results of the study, it appears appropriate to continue a conservative approach. Risk factor modification was reviewed with him at length. Outpatient followup is advised. Job ID: [id number] DocumentID: [id number] Dictated Date: 12/19/2018 15:52:18 Clinical Laboratory Aide Date: 12/19/2018 23:17:07 Dictated By: ALVARO SUAREZ MD, MA, FACP, FACC, MTDD
== END 2018-12-19 21:00 | disposition home or self-care (01) ==
LOC: CATH 12:33 → ICU 15:45 → CATH 21:00
PROVIDERS: ATTEND Internal Medicine Cardiovascular Disease
DX: I25.10 Atherosclerotic heart disease of native coronary artery without angina pectoris (principal); I10 Essential (primary) hypertension; E78.2 Mixed hyperlipidemia; E11.43 Type 2 diabetes mellitus with diabetic autonomic (poly)neuropathy; R06.09 Other forms of dyspnea; Z82.49 Family history of ischemic heart disease and other diseases of the circulatory system; Z79.4 Long term (current) use of insulin; Z79.899 Other long term (current) drug therapy; Z95.1 Presence of aortocoronary bypass graft
CPT/HCPCS: 36415; 80053; 85027; 85610; 85730; 87081; 93459; 93567

== ENCOUNTER → 2019-01-05 | Outpatient (CLI) | payer OTHER ==
[~2019-01-05] MED LIST: ASPI-586 PO; ATOR40TA70 PO; CYAN100088 PO; GABA-488 PO; GLIM2TAB PO; INSU100I14 SQ; INSU300I3 SQ; LISI40TA PO; METF-399 PO; METO-387 PO
== END ==
LOC: CARD 11:00 → EDUNIT# 11:00
PROVIDERS: ATTEND Nurse Practitioner Family
DX: R06.09 Other forms of dyspnea (principal); I20.8 Other forms of angina pectoris; E78.2 Mixed hyperlipidemia; I10 Essential (primary) hypertension
CPT/HCPCS: 93306

== ENCOUNTER 2019-01-28 10:06 | Outpatient (CLI) | payer OTHER ==
[2019-01-28] MEDS ORDERED: RT-ALBUTEROL SULF 2.5 MG/3 ML PRE-MIX VIAL INH ONE (10:30)
== END 2019-01-28 11:30 | disposition home or self-care (01) ==
LOC: RT 10:06
PROVIDERS: ATTEND Internal Medicine Critical Care Medicine
DX: G47.10 Hypersomnia, unspecified (principal); R06.00 Dyspnea, unspecified
CPT/HCPCS: 94060; 94726; 94729

== ENCOUNTER → 2019-02-10 | Outpatient (CLI) | payer OTHER | LOC: RAD 12:01 | PROVIDERS: ATTEND Internal Medicine Cardiovascular Disease | DX: I25.10 Atherosclerotic heart disease of native coronary artery without angina pectoris (principal); E11.9 Type 2 diabetes mellitus without complications; E78.49 Other hyperlipidemia; I10 Essential (primary) hypertension; I65.23 Occlusion and stenosis of bilateral carotid arteries | CPT/HCPCS: 93923 ==

== ENCOUNTER 2019-03-14 18:26 | Outpatient (CLI) | payer SELFPAY | END 2019-03-15 06:20 | disposition home or self-care (01) | LOC: SLEEP 18:26 | PROVIDERS: ATTEND Nurse Practitioner Family | DX: G47.10 Hypersomnia, unspecified (principal); J45.998 Other asthma | CPT/HCPCS: 95810 ==

== ENCOUNTER 2020-11-28 19:48 | Emergency (ER) | payer SELFPAY ==
[~2020-11-28] VITALS: Ht 170 cm; Wt 72.5 kg
[~2020-11-28 19:48] MED LIST changes: -GLIM2TAB PO; +GLIM2TAB4 PO; -METO-387 PO; +MTP25TSR PO
--- NOTE | 2020-11-28 20:10 | ED Syncope ---
General Stated Complaint: SYNCOPE/VOMITING Source of Information: Patient Exam Limitations: No Limitations History of Present Illness Date Seen by Provider: Nov 28, 2020 Time Seen by Provider: 19:51 Initial Comments Patient presents to the ER by private conveyance with family and chief complaint that he was standing in his living room when he started to feel flush and then passed out to the floor. He denies that he was out for more than a second or 2. He is having some chest pain however he says is no worse than his usual chest pain related to his sternotomy secondary to triple bypass. He does not follow with a chief of party presently. He does not know who his primary care doctor is but they are at [facility]. Patient denies any fevers vomiting or recent diarrhea. He denies smoking but he is diabetic and his blood sugar was 93 before coming in. Symptoms started just prior to arrival. He has a history of hypertension and hyperlipidemia. No palpitations or chest flutters. No shortness of air cough or sick contacts. Allergies and Home Medications Allergies Coded Allergies: iodine (Verified Allergy, Unknown, 12/19/18) shellfish derived (Verified Allergy, Unknown, 12/19/18) Home Medications Aspirin 81 Mg Tablet.dr, 81 MG PO DAILY, (Reported) Atorvastatin Calcium 40 Mg Tablet, 40 MG PO DAILY, (Reported) Cyanocobalamin (Vitamin B-12) 1,000 Mcg Tablet, 1,000 MCG PO DAILY, (Reported) Gabapentin 300 Mg Capsule, 300 MG PO TID, (Reported) Glimepiride 2 Mg Tablet, 2 MG PO DAILY, (Reported) Insulin Aspart 300 Units/3 Ml Solution, 20 UNITS SQ TIDAC, (Reported) Insulin Glargine,Hum.rec.anlog 300 Unit/1 Ml Insuln.pen, 40 UNIT SQ HS, (Reported) Lisinopril 40 Mg Tablet, 40 MG PO DAILY, (Reported) Metoprolol Succinate 25 Mg Tab.er.24h, 50 MG PO DAILY, (Reported) Patient Home Medication List Home Medication List Reviewed: Yes Review of Systems Constitutional: No chills, No fever, No malaise; weakness EENTM: No eye pain, No vision loss Respiratory: No cough, No short of breath Cardiovascular: No chest pain, No edema Gastrointestinal: No abdominal pain, No constipation, No diarrhea, No nausea, No vomiting Genitourinary: No discharge, No dysuria Musculoskeletal: No back pain, No joint pain All Other Systems Reviewed Negative Unless Noted: Yes Past Yapqzwg-Tewhmn-Mjseoc Hx Patient Social History Alcohol Use: Occasionally Uses Alcohol Beverage of Choice: Beer Drug of Choice: Denies Smoking Status: Never a Smoker Type Used: Smokeless Tobacco (Occasional use) Recent Hopitalizations: No Past Medical History CABG, Orthopedic Respiratory: No Cardiac: Yes Coronary Artery Disease, High Cholesterol, Hypertension Neurological: Yes (WITH DIABETES) Seizure Disorder Genitourinary: No Gastrointestinal: No Cancer: No Blood Disorders: Yes Adverse Reaction/Blood Tranf: No Physical Exam Vital Signs Vital Signs - First Documented 11/28/20 19:55 Temp 35.4 Pulse 87 Resp 14 B/P (MAP) 103/68 (80) O2 Delivery Room Air Capillary Refill : Height, Weight, BMI Height: 5'6.00" Weight: 157lbs. 0.0oz. 71.018692ny; 25.3 BMI Method: General Appearance: Mild Distress, Other (Unkempt) HEENT: PERRL/EOMI; No Pharynx Normal, No Moist Mucous Membranes Neck: Full Range of Motion, Normal Inspection, Non Tender, Supple Cardiovascular: Regular Rate, Rhythm, No Edema, Normal Peripheral Pulses Respiratory: Lungs Clear, Normal Breath Sounds, No Accessory Muscle Use, No Respiratory Distress Gastrointestinal: Normal Bowel Sounds, No Organomegaly, Soft, Tenderness (Mild epigastric without mesenteric signs McBurney's point tenderness or Curtis sign) Neurologic/Psychiatric: Alert, Oriented x3, No Motor/Sensory Deficits Skin: Normal Color, Warm/Dry Progress/Results/Core Measures Results/Orders Lab Results Laboratory Tests Test 11/28/20 20:05 11/28/20 20:30 11/28/20 20:41 11/28/20 22:15 Range/Units Glucometer 75 70-110 MG/DL Coronavirus 2019 (DAVE) Negative Negative White Blood Count 12.8 H 4.3-11.0 10^3/uL Red Blood Count 4.83 4.30-5.52 10^6/uL Hemoglobin 15.0 13.3-17.7 g/dL Hematocrit 45 40-54 % Mean Corpuscular Volume 94 80-99 fL Mean Corpuscular Hemoglobin 31 25-34 pg Mean Corpuscular Hemoglobin Concent 33 32-36 g/dL Red Cell Distribution Width 12.3 10.0-14.5 % Platelet Count 410 H 130-400 10^3/uL Mean Platelet Volume 9.0 9.0-12.2 fL Immature Granulocyte % (Auto) 1 % Neutrophils (%) (Auto) 74 42-75 % Lymphocytes (%) (Auto) 21 12-44 % Monocytes (%) (Auto) 4 0-12 % Eosinophils (%) (Auto) 1 0-10 % Basophils (%) (Auto) 0 0-10 % Neutrophils # (Auto) 9.4 H 1.8-7.8 10^3/uL Lymphocytes # (Auto) 2.7 1.0-4.0 10^3/uL Monocytes # (Auto) 0.5 0.0-1.0 10^3/uL Eosinophils # (Auto) 0.1 0.0-0.3 10^3/uL Basophils # (Auto) 0.0 0.0-0.1 10^3/uL Immature Granulocyte # (Auto) 0.1 0.0-0.1 10^3/uL Sodium Level 136 135-145 MMOL/L Potassium Level 3.9 3.6-5.0 MMOL/L Chloride Level 102 98-107 MMOL/L Carbon Dioxide Level 22 21-32 MMOL/L Anion Gap 12 5-14 MMOL/L Blood Urea Nitrogen 20 H 7-18 MG/DL Creatinine 1.21 0.60-1.30 MG/DL Estimat Glomerular Filtration Rate > 60 BUN/Creatinine Ratio 17 Glucose Level 97 70-105 MG/DL Calcium Level 8.8 8.5-10.1 MG/DL Corrected Calcium 8.6 8.5-10.1 MG/DL Magnesium Level 2.4 1.6-2.4 MG/DL Total Bilirubin 0.3 0.1-1.0 MG/DL Aspartate Amino Transf (AST/SGOT) 14 5-34 U/L Alanine Aminotransferase (ALT/SGPT) 21 0-55 U/L Alkaline Phosphatase 78 40-136 U/L Myoglobin 18.8 10.0-92.0 NG/ML Troponin I < 0.028 <0.028 NG/ML B-Type Natriuretic Peptide < 10.0 <100.0 PG/ML Total Protein 7.6 6.4-8.2 GM/DL Albumin 4.3 3.2-4.5 GM/DL Lipase 13 8-78 U/L Serum Alcohol 147 H <10 MG/DL Urine Color YELLOW Urine Clarity CLEAR Urine pH 5.0 5-9 Urine Specific [place] 1.015 L 1.016-1.022 Urine Protein NEGATIVE NEGATIVE Urine Glucose (UA) 3+ H NEGATIVE Urine Ketones NEGATIVE NEGATIVE Urine Nitrite NEGATIVE NEGATIVE Urine Bilirubin NEGATIVE NEGATIVE Urine Urobilinogen 0.2 < = 1.0 MG/DL Urine Leukocyte Esterase NEGATIVE NEGATIVE Urine RBC (Auto) NEGATIVE NEGATIVE Urine RBC NONE /HPF Urine WBC RARE /HPF Urine Squamous Epithelial Cells RARE /HPF Urine Crystals PRESENT H /LPF Urine Amorphous Sediment FEW FRACISCO URATES H /LPF Urine Bacteria NEGATIVE /HPF Urine Casts PRESENT /LPF Urine Hyaline Casts 2-5 H /LPF Urine Mucus NEGATIVE /LPF Urine Culture Indicated NO Urine Opiates Screen NEGATIVE NEGATIVE Urine Oxycodone Screen NEGATIVE NEGATIVE Urine Methadone Screen NEGATIVE NEGATIVE Urine Propoxyphene Screen NEGATIVE NEGATIVE Urine Barbiturates Screen NEGATIVE NEGATIVE Ur Tricyclic Antidepressants Screen NEGATIVE NEGATIVE Urine Phencyclidine Screen NEGATIVE NEGATIVE Urine Amphetamines Screen NEGATIVE NEGATIVE Urine Methamphetamines Screen NEGATIVE NEGATIVE Urine Benzodiazepines Screen NEGATIVE NEGATIVE Urine Cocaine Screen NEGATIVE NEGATIVE Urine Cannabinoids Screen NEGATIVE NEGATIVE Test 11/28/20 23:00 11/29/20 00:13 Range/Units Glucometer 62 L 72 70-110 MG/DL Troponin I < 0.028 <0.028 NG/ML Micro Results Microbiology 11/28/20 Influenza Types A,B Antigen (ALEJO) - Final, Complete My Orders Orders - BELLA MCDANIEL Ekg Tracing (11/28/20 19:57) Continuous Ekg Monitoring (11/28/20 19:57) Cbc With Automated Diff (11/28/20 20:01) Magnesium (11/28/20 20:01) Chest 1 View, Ap/Pa Only (11/28/20 20:01) Comprehensive Metabolic Panel (11/28/20 20:01) Myoglobin Serum (11/28/20 20:01) Protime With Inr (11/28/20 20:01) Partial Thromboplastin Time (11/28/20 20:01) O2 (11/28/20 20:01) Lipid Panel (11/29/20 06:00) Ed Iv/Invasive Line Start (11/28/20 20:01) Lipase (11/28/20 20:01) BNP (11/28/20 20:01) Troponin I (11/28/20 20:01) Aspirin Chewable Tablet (Baby Aspirin Ch (11/28/20 20:15) Accucheck Stat ONCE (11/28/20 20:03) Ua Culture If Indicated (11/28/20 20:03) Drug Screen Stat (Urine) (11/28/20 20:03) Alcohol (11/28/20 20:15) Fibrin Degradation Products (11/28/20 20:15) Covid 19 Inhouse Test (11/28/20 20:15) Influenza A And B Antigens (11/28/20 20:15) Ed Iv/Invasive Line Start (11/28/20 20:15) Lactated Ringers (Lr 1000 Ml Iv Solution (11/28/20 20:15) Lactated Ringers (Lr 1000 Ml Iv Solution (11/28/20 20:13) Ekg Tracing (11/28/20 21:23) Accucheck Stat ONCE (11/28/20 22:24) Troponin I (11/28/20 22:45) Ed Iv/Invasive Line Start (11/28/20 22:24) Ns Iv 1000 Ml (Sodium Chloride 0.9%) (11/28/20 22:30) General/Regular (11/28/20 Dinner) Medications Given in ED Current Medications Medications Dose Ordered Sig/Francia Route Start Time Stop Time Status Last Admin Dose Admin Aspirin 324 mg ONCE ONCE PO 11/28/20 20:15 11/28/20 20:16 DC 11/28/20 20:24 324 MG Lactated Ringer's 1,000 ml @ 0 mls/hr Q0M ONCE IV 11/28/20 20:15 11/28/20 20:17 DC 11/28/20 20:24 999 MLS/HR Vital Signs/I&O 11/28/20 11/28/20 19:55 19:55 Temp 35.4 Pulse 87 Resp 14 B/P (MAP) 103/68 (80) O2 Delivery Room Air Room Air 11/29/20 00:00 Intake Total 1000 ml Balance 1000 ml Progress Progress Note #1: Time: 20:11 Progress Note Patient gives a difficult history of syncopal episode while standing just prior to arrival. He does have a history of coronary disease. Plan to get some urine. His blood pressure soft and his blood sugar is soft at 75. He does rely on insulin for his diabetes. Plan to recheck an insulin and give him some lactated Ringer's. He is a little bit tender in his epigastric region so we will get a lipase. Drug screen and alcohol level. Clinically he appears quite dry and was unable to complete a set of orthostatic blood pressure as he became very woozy when the nursing staff stood him up. Infection is a less likely but we will go ahead and swab him for flu and COVID-19. Progress Note #2: Time: 23:44 Progress Note The patient is resting comfortably feeling a little better than before after a liter of fluids in. We are going to do a second liter of fluids. A repeat troponin was obtained. His blood sugar was 65 so we offered him something to eat to see if this was also contributing to his symptoms and will recheck his blood sugar afterwards. Progress Note #3: Time: 00:23 Progress Note Second troponin is negative. The patient's had 2 L of fluids. He says he is feeling much better so he can have staff get him up to walk. His blood sugar has improved up to 72 which she says is lower than usual. He has dealt with hypoglycemia in the past and says he will be with his girlfriend who knows what to do. We did offer him a stay in the hospital overnight to manage his relative hypoglycemia but he declines that he would prefer to go home. We have encouraged him to follow-up with his primary care doctor for his hypoglycemia and follow-up with Dr. Christiansen by calling for an appointment tomorrow. Initial ECG Impression Date: Nov 28, 2020 Initial ECG Impression Time: 19:56 Initial ECG Rate: 84 Initial ECG Rhythm: Normal Sinus Initial ECG Intervals: Normal Initial ECG Impression: Normal, Nonspecific Changes Initial ECG Comparisson: No Previous ECG Available Comment Marginal 1/2-1 block of elevation of the ST segment and anterior lateral leads V4 and V5 as well as 2, 3 and aVF of uncertain clinical significance. No prior EKG to compare to. Sinus rhythm EKG : EKG Time: 21:27 Rate: 81 Rhythm: Normal Sinus Intervals: Normal ECG Comparisson: Unchanged ECG Impression: Normal Comment Unchanged from previous EKG. No clinically relevant ST changes. Half block ST elevation in the inferior and lateral leads Diagnostic Imaging Diagonstic Imaging: Xray Plain Films/CT/US/NM/MRI: chest Comments NAME: ADRIAN ROLON [facility] REC#: [id number] PT STATUS: REG ER : 1975 PHYSICIAN: BELLA MCDANIEL MD ADMIT DATE: 11/28/20/ER Signed Date of Exam:11/28/20 CHEST 1 VIEW, AP/PA ONLY INDICATION: Chest pain FINDINGS: Frontal view of the chest demonstrates the lungs to be clear. The heart, mediastinum and pulmonary vascularity and the visualized bony thorax are normal. Coronary artery bypass graft changes are present. IMPRESSION: There are no acute findings. Dictated by: Dictated on workstation # [id number] Dict: 11/28/202020 Trans: 11/28/202030 [facility] [id number] Interpreted by: KINJAL WATERS MD Electronically signed by: KINJAL WATERS MD 11/28/202030 Reviewed: Reviewed by Me Consults : Consulting Physician: ALVARO CHRISTIANSEN MD [facility] Consults Notes Discussed the case and he says it we can do a repeat troponin since he is never had any chest pains that are new a couple hours after the first 1 and it still negative as long as the patient is feeling better he can go home. He is okay with consulting if the patient needs observed. Follow-up with cardiology tomorrow morning. Departure Impression Primary Impression: Syncope Qualified Codes: R55 - Syncope and collapse Additional Impression: Hypoglycemia associated with type 2 diabetes mellitus Disposition: HOME, SELF-CARE Condition: Stable Departure-Patient Inst. Decision time for Depature: 00:24 Referrals: ALVARO CHRISTIANSEN MD [facility] YARELIS MALAVE MD (PCP/Family) Primary Care Physician Patient Instructions: Blood Glucose Monitoring, Syncope (Fainting) (DC) Add. Discharge Instructions: If you have headache, sweating, confusion then you need to check your blood sugar and address it immediately. Return to the ER for worsening symptoms. Return to the ER for continued syncope and chest pain. Tomorrow morning call Dr. Christiansen, cardiology and follow-up within the next 1 to 2 days in the clinic if possible. Copy Copies To 1: AL[facility]ANSEN [facility] Nov 28, 2020 20:10
[2020-11-28] MEDS ORDERED: LACTATED RINGERS 1,000 ML IV ONE ×2 (20:13→20:15)
[2020-11-28] MEDS ORDERED: ASPIRIN 81 MG CHEW (CHILDREN'S ASA) PO ONE (20:15)
--- NOTE | 2020-11-28 20:26 | Diagnostic Imaging Report ---
INDICATION: Chest pain FINDINGS: Frontal view of the chest demonstrates the lungs to be clear. The heart, mediastinum and pulmonary vascularity and the visualized bony thorax are normal. Coronary artery bypass graft changes are present. IMPRESSION: There are no acute findings. Dictated by: Dictated on workstation # [id number]
[2020-11-28 20:48] LABS: BASOPHILS % (AUTO) 0 % (0-10); EOSINOPHILS # (AUTO) 0.1 10^3/uL (0.0-0.3); EOSINOPHILS % (AUTO) 1 % (0-10); HEMATOCRIT 45 % (40-54); LYMPHOCYTES # (AUTO) 2.7 10^3/uL (1.0-4.0); LYMPHOCYTES % (AUTO) 21 % (12-44); MEAN CORPUSCULAR HEMOGLOBIN 31 pg (25-34); MEAN CORPUSCULAR HGB CONC 33 g/dL (32-36); MEAN CORPUSCULAR VOLUME 94 fL (80-99); MONOCYTES # (AUTO) 0.5 10^3/uL (0.0-1.0); MONOCYTES % (AUTO) 4 % (0-12); NEUTROPHILS # (AUTO) 9.4 10^3/uL (1.8-7.8); NEUTROPHILS % (AUTO) 74 % (42-75); PLATELET COUNT 410 10^3/uL (130-400); WHITE BLOOD COUNT 12.8 10^3/uL (4.3-11.0)
[2020-11-28 20:59] LABS: ALBUMIN 4.3 GM/DL (3.2-4.5); CHLORIDE 102 MMOL/L (98-107); POTASSIUM 3.9 MMOL/L (3.6-5.0); SODIUM 136 MMOL/L (135-145)
[2020-11-28 21:00] LABS: CALCIUM 8.8 MG/DL (8.5-10.1)
--- NOTE | 2020-11-28 21:00 | NUR ---
Tam MANRIQUE APRN SPOKE WITH PT HYGIENE TEACHER MICHELE AND UPDATED ON CURRENT CONDITION AND THAT WE ARE STILL WAITING ON SEVERAL RESULTS AT THIS TIME. WILL UPDATE WITH FURTHER INFORMATION AVAILABLE.
[2020-11-28 21:01] LABS: GLUCOSE 97 MG/DL (70-105); TOTAL PROTEIN 7.6 GM/DL (6.4-8.2)
[2020-11-28 21:02] LABS: CARBON DIOXIDE 22 MMOL/L (21-32)
[2020-11-28 21:03] LABS: BILIRUBIN,TOTAL 0.3 MG/DL (0.1-1.0)
[2020-11-28 21:04] LABS: ALKALINE PHOSPHATASE 78 U/L (40-136)
[2020-11-28 21:05] LABS: CREATININE SERUM 1.21 MG/DL (0.60-1.30); GFR ESTIMATED > 60
[2020-11-28 21:06] LABS: BUN/CREATININE RATIO 17
[2020-11-28 21:08] LABS: ALANINE AMINOTRANSFERASE 21 U/L (0-55); MAGNESIUM 2.4 MG/DL (1.6-2.4)
[2020-11-28 21:09] LABS: LIPASE 13 U/L (8-78)
[2020-11-28 22:26] LABS: BILIRUBIN,URINE NEGATIVE (NEGATIVE); CLARITY,URINE CLEAR; COLOR,URINE YELLOW; GLUCOSE, URINE (UA) 3+ (NEGATIVE); KETONES,URINE NEGATIVE (NEGATIVE); LEUKOCYTE ESTERASE ,URINE NEGATIVE (NEGATIVE); NITRITE,URINE NEGATIVE (NEGATIVE); PROTEIN,URINE NEGATIVE (NEGATIVE)
[2020-11-28] MEDS ORDERED: NS IV 1000 ML 1,000 ML IV SCH (22:30)
[2020-11-28 22:38] LABS: BACTERIA,URINE NEGATIVE /HPF; SQUAMOUS EPITHELIAL CELL,UR RARE /HPF; WBC,URINE RARE /HPF
[2020-11-28 22:39] LABS: AMORPHOUS SEDIMENT,UR FEW AMOR URATES /LPF
[2020-11-28 22:45] LABS: AMPHETAMINE SCREEN, URINE NEGATIVE (NEGATIVE); BARBITURATE SCREEN URINE NEGATIVE (NEGATIVE); BENZODIAZEPINES SCREEN URINE NEGATIVE (NEGATIVE); CANNABINOID SCREEN, URINE NEGATIVE (NEGATIVE); COCAINE SCREEN URINE NEGATIVE (NEGATIVE); METHADONE STAT NEGATIVE (NEGATIVE); METHAMPHETAMINE SCREEN URINE S NEGATIVE (NEGATIVE); OPIATE SCREEN URINE NEGATIVE (NEGATIVE); OXYCODONE STAT NEGATIVE (NEGATIVE); PROPOXYPHENE STAT NEGATIVE (NEGATIVE); TRICYCLIC ANTIDEPRESSANTS SCRE NEGATIVE (NEGATIVE)
--- NOTE | 2020-11-28 23:00 | NUR ---
ACCUCHECK 62 MG/DL. SANDWHICH COLD TRAY GIVEN TO PT AT THIS TIME PER DR. MCDANIEL ORDERS.
[2020-11-29 00:40] VITALS: BP 136/97
== END 2020-11-29 00:40 | disposition home or self-care (01) ==
LOC: EDUNIT# 19:48 → ER 19:50
DX: R55 Syncope and collapse (principal); E11.649 Type 2 diabetes mellitus with hypoglycemia without coma; E78.00 Pure hypercholesterolemia, unspecified; I10 Essential (primary) hypertension; G40.909 Epilepsy, unspecified, not intractable, without status epilepticus; Z20.828 Contact with and (suspected) exposure to other viral communicable diseases; Z95.1 Presence of aortocoronary bypass graft; Z91.041 Radiographic dye allergy status; Z79.82 Long term (current) use of aspirin
CPT/HCPCS: 71045; 80053; 80306; 81000; 82962; 83690; 83735; 83874; 83880; 84484; 87804; G0480; U0002; 80320; 85025; 87635; 93005

== ENCOUNTER → 2021-01-04 | Outpatient (CLI) | payer SELFPAY ==
[~2021-01-04] VITALS: Ht 167 cm; Wt 69.0 kg
[~2021-01-04] MED LIST changes: +CATHETER FLUSH 10 ML SYR IV PRN; -LISI40TA PO; +LISI40TA9 PO; +NS IV 1000 ML 1,000 ML IV SCH; +NS IV 1000 ML 1,000 ML ONE; +REGADENOSON 0.4 MG/5 ML SYR (LEXISCAN) IV ONE; +inSUlin ASPART (NovoLOG) 1 UNIT/0.01 ML (CHARGE PER UNIT) SC ONE
[2021-01-04 07:42] LABS: HEMOGLOBIN 13.8 g/dL (13.3-17.7); MEAN PLATELET VOLUME 9.6 fL (9.0-12.2); WHITE BLOOD COUNT 6.9 10^3/uL (4.3-11.0)
[2021-01-04 07:57] LABS: ALBUMIN 4.3 GM/DL (3.2-4.5); BILIRUBIN,TOTAL 0.5 MG/DL (0.1-1.0); CALCIUM 9.1 MG/DL (8.5-10.1); CREATININE SERUM 1.45 MG/DL (0.60-1.30); POTASSIUM 4.3 MMOL/L (3.6-5.0); TOTAL PROTEIN 7.5 GM/DL (6.4-8.2)
[2021-01-04 09:30] VITALS: BP 92/65
--- NOTE | 2021-01-04 13:29 | Cardiology Stress Test Report ---
Stress Test Report Date of Procedure/Referring: Date of Procedure: Jan 04, 2021 PCP Breonna Melgar MD Admitting Physician Martín Miramontes MD Indications: Hypertension Baseline Heart Rate: 87 Baseline Blood Pressure: Blood Pressure Systolic: 92 Blood Pressure Diastolic: 65 Baseline Vitals Vital Signs Date Time Temp Pulse Resp B/P (MAP) Pulse Ox O2 Delivery O2 Flow Rate FiO2 01/04/21 09:30 83 92/65 (74) Baseline EKG: Baseline EKG: normal sinus rhythm Summary After explaining the procedure to the patient, he signed a consent and then brought to the stress nuclear laboratory. Patient received 0.4 mg Lexiscan for stress test, ECG, heart rate and blood pressure were monitored continuously. Resting and stress dose of radio tracer were injected, imaging was acquired and reviewed in short axis, horizontal long axis and vertical long axis views. TID: 7.04 SSS: 12 SDS: 6 EF: 73 1. Patient was hyperglycemic prior to the test and during test received NovoLog 10 units prior to the test 2. Patient tolerated test well 3. Diaphragmatic attenuation with decreased uptake involving the mid to apical inferior wall and inferoseptum with mild reversibility 4. Normal left ventricular size, EF 73 percent BREONNA MELGAR MD Jan 04, 2021 13:29
== END ==
LOC: CARD 07:10
PROVIDERS: ATTEND Internal Medicine Cardiovascular Disease
DX: R07.9 Chest pain, unspecified (principal); I10 Essential (primary) hypertension
CPT/HCPCS: 78452; 80053; 80061; 82962; 83036; 84443; 85027; 93017; A9502; 36415

== ENCOUNTER 2021-01-09 06:29 | Day surgery (SDC) | payer SELFPAY ==
[2021-01-09] VITALS (9 sets, daily range): BP systolic 96–121; BP diastolic 60–80
[~2021-01-09] VITALS: Ht 167 cm; Wt 69.0 kg
[~2021-01-09 06:29] MED LIST changes: -CATHETER FLUSH 10 ML SYR IV PRN; -NS IV 1000 ML 1,000 ML IV SCH; -NS IV 1000 ML 1,000 ML ONE; -REGADENOSON 0.4 MG/5 ML SYR (LEXISCAN) IV ONE; -inSUlin ASPART (NovoLOG) 1 UNIT/0.01 ML (CHARGE PER UNIT) SC ONE
[2021-01-09] MEDS ORDERED: methylPREDNISolone 125 MG (Solu-MEDROL) VIAL ONE (06:42)
[2021-01-09] MEDS ORDERED: diphenhydrAMINE 50 MG/ML INJ (BENADRYL) ONE (06:42)
[2021-01-09] MEDS ORDERED: HEParin (CATH LAB) 2,000 ML IV ONE (06:48)
[2021-01-09] MEDS ORDERED: NS IV 1000 ML 1,000 ML ONE (06:48)
[2021-01-09] MEDS ORDERED: LIDOCAINE 1% INJ 20 ML 20 ML VIAL ONE (06:48)
[2021-01-09] MEDS ORDERED: NS IV 1000 ML 1,000 ML IV SCH ×2 (07:00→09:15)
--- NOTE | 2021-01-09 07:31 | Diagnostic Imaging Report ---
INDICATION: Preoperative evaluation prior to coronary angiography AP view of the chest is obtained with comparison made to study of 11/28/2020. FINDINGS: Heart size and pulmonary vascularity are within normal limits, and the lungs are clear, bilaterally. Median sternotomy wires and coronary ostial markers have a stable appearance. IMPRESSION: Unremarkable chest. Dictated by: Dictated on workstation # [id number]
[2021-01-09] MEDS ORDERED: DICL75TA2 PO (07:35)
[2021-01-09] MEDS ORDERED: GLIM4TAB5 PO (07:35)
[2021-01-09] MEDS ORDERED: ERGOCALCIFEROL PO (07:35)
[2021-01-09] MEDS ORDERED: DAPA5TAB PO (07:35)
[2021-01-09] MEDS ORDERED: GABA-726 PO (07:35)
[2021-01-09] MEDS ORDERED: METO50TA7 PO (07:35)
[2021-01-09] MEDS ORDERED: LISI10TA25 PO (07:35)
[2021-01-09] MEDS ORDERED: METF-399 PO ×2 (07:35→09:17)
[2021-01-09] MEDS ORDERED: DULA0.75 SQ (07:35)
[2021-01-09] MEDS ORDERED: SERT-413 PO (07:35)
[2021-01-09 07:39] LABS: HEMOGLOBIN 13.4 g/dL (13.3-17.7); MEAN PLATELET VOLUME 9.5 fL (9.0-12.2); WHITE BLOOD COUNT 7.6 10^3/uL (4.3-11.0)
[2021-01-09 07:41] LABS: BILIRUBIN,URINE NEGATIVE (NEGATIVE); CLARITY,URINE CLEAR; COLOR,URINE YELLOW; GLUCOSE, URINE (UA) 3+ (NEGATIVE); KETONES,URINE NEGATIVE (NEGATIVE); LEUKOCYTE ESTERASE ,URINE NEGATIVE (NEGATIVE); NITRITE,URINE NEGATIVE (NEGATIVE); PH,URINE 5.5 (5-9); PROTEIN,URINE NEGATIVE (NEGATIVE)
[2021-01-09 07:53] LABS: PROTHROMBIN TIME PATIENT 13.6 SEC (12.2-14.7)
[2021-01-09 07:54] LABS: BACTERIA,URINE NEGATIVE /HPF
[2021-01-09 08:03] LABS: ALANINE AMINOTRANSFERASE 29 U/L (0-55); ALBUMIN 4.1 GM/DL (3.2-4.5); ALKALINE PHOSPHATASE 69 U/L (40-136); BILIRUBIN,TOTAL 0.4 MG/DL (0.1-1.0); BUN/CREATININE RATIO 20; CALCIUM 8.9 MG/DL (8.5-10.1); CARBON DIOXIDE 22 MMOL/L (21-32); CHLORIDE 104 MMOL/L (98-107); CHOLESTEROL 164 MG/DL (< 200); CREATININE SERUM 1.04 MG/DL (0.60-1.30); GFR ESTIMATED > 60; GLUCOSE 229 MG/DL (70-105); HDL CHOLESTEROL 40 MG/DL (40-60); POTASSIUM 4.5 MMOL/L (3.6-5.0); SODIUM 137 MMOL/L (135-145); TOTAL PROTEIN 6.9 GM/DL (6.4-8.2); TRIGLYCERIDES 163 MG/DL (<150); VLDL CHOLESTEROL 33 MG/DL (5-40)
[2021-01-09] MEDS ORDERED: fentaNYL INJECTION 100 MCG/2 ML AMP ONE (08:26)
[2021-01-09] MEDS ORDERED: MIDAZOLAM 5 MG/5 ML (VERSED) VIAL ONE (08:26)
[2021-01-09] MEDS ORDERED: PATIENT MAY USE OWN MEDS, ALL PO SCH (09:15)
--- NOTE | 2021-01-09 09:15 | Cardiac Procedure Note-CS/ASA ---
Pre-Procedure Note Pre-Op Procedure Note H&P Reviewed The H&P was reviewed, patient examined and no changes noted. Date H&P Reviewed: Jan 09, 2021 Time H&P Reviewed: 08:00 Conscious Sedation Pre-Proced Time 08:00 ASA Score 3 For ASA 3 and 4: Consider anesthesia and medical clearance. Also, for patients with a history of failed moderate sedation consider anesthesia. Airway Lungs Heart ASA score ASA 1: a normal healthy patient ASA 2: a patient with a mild systemic disease (mid diabetes, controlled hypertension, obesity x ASA 3: a patient with a severe systemic disease that limits activity (angina, COPD, prior Myocardial infarction) ASA 4: a patient with an incapacitating disease that is a constant threat to life (CHF, renal failure) ASA 5: a moribund patient not expected to survive 24 hrs. (ruptured aneurysm) ASA 6: a declared brain- patient whose organs are being harvested. For emergent operations, add the letter E after the classification Mallampati Classification Grade 3 Sedation Plan Analgesia, Amnesia, Plan communicated to team members, Discussed options with patient/fam, Discussed risks with patient/fam The patient is an appropriate candidate to undergo the planned procedure, sedation, and anesthesia. The patient immediately re-assessed prior to indication. BREONNA SILVERMAN MD Jan 09, 2021 9:15 am
[2021-01-09] MEDS ORDERED: EZET10TA17 PO (09:17)
--- NOTE | 2021-01-09 09:18 | Discharge Inst-Post CATH ---
Discharge Inst-CATH/EP Problems Reviewed?: Yes Post Cardiac Cath/EP D/C Inst Follow Up/Plan Hold metformin for [address] SILVERMAN's office in 2-4 weeks <b>CARDIAC CATH/EP PROCEDURE DISCHARGE INSTRUCTIONS</b> ACTIVITY * Go Home directly and rest. * Limit activity of the leg (or wrist if it was used) for 7 days including aerobics, swimming, jogging, bicycling, etc. * Restrict stair-climbing for 7 days if possible, if not, climb up with your non-cath leg, then bring together on the same step. * Avoid lifting, pushing, pulling or excessive movement of the affected extremity for 7 days. * Customary sexual activity may be resumed after 2 days-use caution not to use a position that strains or causes pain to the affected extremity. * No driving for 24 hours. * NO SMOKING. * Avoid straining for bowel movements for 7 days. * Gentle walking on level ground is allowed. * Returning to work will depend on the type of procedure and the results. Your doctor will discuss this with you. CALL YOUR DOCTOR FOR ANY OF THE FOLLOWING: *If bleeding from the puncture site occurs- Apply gentle pressure to site with clean cloth and call your doctor or EMS. * If a knot or lump forms under the skin, increases in size, or causes pain. * If bruising appears to be worsening or moving further down your leg instead of disappearing. * Temperature above 101 F. CARE OF YOUR GROIN INCISION; * Bruising or purple discoloration of the skin near the puncture site is common. * You may shower only, no bathtub bathing for 5 days. Be careful to avoid slipping as your leg may feel stiff. * If a closure device was used on your femoral artery, please see the attached guide regarding care of the device and your leg. * Leave dressing on FOR 24 hours. CARE OF YOUR WRIST INCISION; * Bruising or purple discoloration of the skin near the puncture site is common. * You may shower. * DO NOT submerge wrist. * Leave dressing on FOR 24 hours. BREONNA SILVERMAN MD Jan 09, 2021 9:18 am
--- NOTE | 2021-01-09 09:22 | Cardiac Cath Report ---
Cardiac Cath Report Physician (s)/Aeronautical Design Engineer (s) Physician BREONNA SILVERMAN MD Pre-Procedure Diagnosis Pre-Procedure Diagnosis: coronary artery disease Post-Procedure Note Procedure Start Date: Jan 09, 2021 Name of Procedure: Left heart catheterization Vein graft angiogram URRUTIA angiogram Findings/Procedure Note PROCEDURE NOTE: 45 years old gentleman with history of coronary artery disease, history of CABG 3, had an abnormal stress test, scheduled for cardiac catheterization possible PTCA After explaining the procedure to the patient, all pros and cons were explained, all questions were answered. The patient signed the consent and then he was placed on the cardiac catheterization laboratory. Groin was prepped SL fashion local anesthesia was used. Sheath placed in the artery. Marilin right and left catheter were used to access the coronary system.Vein Graft evaluated. URRUTIA evaluated. Pigtail was used to access the left ventricular cavity. Left ventriculogram was not done, pressure was measured At the end of the procedure the sheath was removed. Closure device was deployed FINDINGS: Hemodynamics LV 118/17, end-diastolic pressure of 17 Aorta 127/68 mean of 95 ANATOMY: Left Main is free of obstructive disease Left Anterior Descending is occluded at the midportion, URRUTIA to LAD is patent with good flow at the distal LAD Left Circumflex is moderate in size with no obstructive disease in the cowlitz circumflex, the first obtuse marginal branch is occluded with patent vein graft to the OM with good flow distally Right Coronory Artery is occluded proximally, the vein graft to the right PDA is patent, the cowlitz PDA after the anastomosis point is very small artery with small flow due to small vessel disease URRUTIA to LAD is patent with good flow distally Vein Graft evaluation showed 2 vein graft Vein graft to the first obtuse marginal branch is patent with excellent flow distally Vein graft to the right PDA is patent, then cowlitz right PDA beyond the anastomosis point is very small artery with small vessel disease, slow flow distally LV Gram was not done, pressure was measured CONCLUSION: 1. Patent vein graft to the right PDA with severe small vessel disease beyond the anastomosis point causing slow flow distally, not amendable to intervention 2. Patent URRUTIA to LAD and vein graft to the first obtuse marginal branch 3. The proper circumflex artery is patent with no significant obstructive disease DISCUSSION AND RECOMMENDATION: Will continue maximizing medical therapy, no intervention is needed, LDL is 102, I am adding Zetia to Lipitor 40 mg daily Anesthesia Type: Conscious Sedation Estimated blood loss (mL): 25 ml Contrast Amount: 54 ml Total Radiation Dose: 306 mGy Post-Procedure Diagnosis Post-operative diagnosis: Chest pain Coronary artery disease Hypertension Hyperlipidemia BREONNA SILVERMAN MD Jan 09, 2021 9:22 am
== END 2021-01-09 13:30 | disposition home or self-care (01) ==
LOC: CATH 06:29 → SDC 09:31 → CATH 13:30
PROVIDERS: ATTEND Internal Medicine Cardiovascular Disease
DX: I25.10 Atherosclerotic heart disease of native coronary artery without angina pectoris (principal); J44.9 Chronic obstructive pulmonary disease, unspecified; I10 Essential (primary) hypertension; E11.9 Type 2 diabetes mellitus without complications; E78.5 Hyperlipidemia, unspecified; I65.23 Occlusion and stenosis of bilateral carotid arteries; Z91.013 Allergy to seafood; Z88.8 Allergy status to other drugs, medicaments and biological substances; Z79.82 Long term (current) use of aspirin; Z79.4 Long term (current) use of insulin; Z79.899 Other long term (current) drug therapy; Z95.1 Presence of aortocoronary bypass graft; Z82.3 Family history of stroke
CPT/HCPCS: 71045; 80053; 80061; 81000; 85027; 85610; 85730; 87081; 93459; C1760; C1894; 36415

== ENCOUNTER → 2021-10-10 | Outpatient (CLI) | payer SELFPAY ==
[~2021-10-10] MED LIST changes: +DAPA5TAB PO; +DICL75TA2 PO; +DULA0.75 SQ; +ERGOCALCIFEROL PO; +EZET10TA17 PO; +GABA-726 PO; +GLIM4TAB5 PO; +LISI10TA25 PO; +METO50TA7 PO; +SERT-413 PO
--- NOTE | 2021-10-10 08:26 | Diagnostic Imaging Report ---
PROCEDURE: CT head without contrast. TECHNIQUE: Multiple contiguous axial images were obtained through the brain without the use of intravenous contrast. Auto Exposure Controls were utilized during the CT exam to meet ALARA standards for radiation dose reduction. INDICATION: Frequent falls, difficulty walking COMPARISON: None available. FINDINGS: No intracranial hemorrhage. No intracranial mass, mass effect, midline shift, herniation, hydrocephalus, or extra-axial fluid collection. No CT evidence of an acute ischemic infarction. The orbits are unremarkable. The paranasal sinuses are clear. The calvarium and extracalvarial soft tissues are unremarkable. IMPRESSION: Unremarkable examination without acute intracranial abnormality. Dictated by: Dictated on workstation # [id number]
== END ==
LOC: RAD 07:54
PROVIDERS: ATTEND Pediatrics
DX: R29.6 Repeated falls (principal)
CPT/HCPCS: 70450

== ENCOUNTER → 2022-04-04 | Outpatient (CLI) | payer OTHER ==
--- NOTE | 2022-04-04 12:54 | Diagnostic Imaging Report ---
Indication: Left knee pain. Time of Exam: 12:26 PM 2 views left knee were obtained. Joint spaces are well maintained. Articular surfaces are smooth. No fracture, dislocation or effusion is identified. IMPRESSION: No acute abnormality is detected. Dictated by: Dictated on workstation # [id number]
--- NOTE | 2022-04-04 13:20 | Diagnostic Imaging Report ---
INDICATION: Frequent falls. TIME OF EXAM: 12:23 p.m. FINDINGS: AP view of the pelvis and two views of the right hip demonstrate severe osteoarthritic changes to the right hip with superior and medial joint space narrowing. There is spurring at the femoral head-neck junction. Milder degenerative changes in the left hip are noted. There are no fractures identified. Rami are intact. IMPRESSION: Severe osteoarthritic changes to the right hip. No acute bony abnormality is detected. Dictated by: Dictated on workstation # [id number]
== END ==
LOC: RAD 11:57
PROVIDERS: ATTEND Internal Medicine Pulmonary Disease
DX: Z02.71 Encounter for disability determination (principal)
CPT/HCPCS: 73560

== ENCOUNTER → 2022-06-27 | Outpatient (CLI) | payer OTHER ==
[~2022-06-27] MED LIST changes: +ASPI-1238 PO; +CATHETER FLUSH 10 ML SYR IVP PRN; +DULA3PEN SQ; +EZET10TA49 PO; +FLUT1AER IH; +RANO500T3 PO; +REGADENOSON 0.4 MG/5 ML SYR (LEXISCAN) IV ONE; +RT-ALBUINH IH
[2022-06-27 09:33] VITALS: BP 112/68
[2022-06-27 09:38] VITALS: BP 112/68
--- NOTE | 2022-06-27 11:50 | Cardiology Stress Test Report ---
Stress Test Report Date of Procedure/Referring: Date of Procedure: Jun 27, 2022 PCP Martín Miramontes MD Admitting Physician Admitting Physician: Attending Physician: Breonna Melgar MD Indications: CP Baseline Heart Rate: 73 Baseline Blood Pressure: Blood Pressure Systolic: 112 Blood Pressure Diastolic: 68 Baseline Vitals Vital Signs Date Time Temp Pulse Resp B/P (MAP) Pulse Ox O2 Delivery O2 Flow Rate FiO2 06/27/22 09:33 65 17 112/68 (83) 99 Room Air Baseline EKG: Baseline EKG: NSR Summary After explaining the procedure to the patient, he signed a consent and then brought to the stress nuclear laboratory. Patient received 0.4 mg Lexiscan for stress test, ECG, heart rate and blood pressure were monitored continuously. Resting and stress dose of radio tracer were injected, imaging was acquired and reviewed in short axis, horizontal long axis and vertical long axis views. TID: 1.08 SSS: 0 SDS: 0 EF: 73 1. Patient tolerated Lexiscan well 2. No significant ischemia or infarction on SPECT images 3. Normal left ventricular size, ejection fraction 73% Copy Copies To 1: [facility] [place] MELGAR MD Jun 27, 2022 11:50
== END ==
LOC: CARD 07:58
PROVIDERS: ATTEND Internal Medicine Cardiovascular Disease
DX: R07.9 Chest pain, unspecified (principal)
CPT/HCPCS: 78452; 93017; A9502

== ENCOUNTER 2022-07-08 02:45 | Inpatient (IN) | payer MEDICAID, OTHER ==
[2022-07-08] VITALS (8 sets, daily range): BP systolic 70–111; BP diastolic 36–68
[~2022-07-08] VITALS: Ht 172.7 cm; Wt 79.1 kg
[2022-07-08] MEDS: 1/2 NS IV SOLUTION 1,000 ML IV SCH ×11 (02:30→22:45)
[~2022-07-08 02:45] MED LIST changes: -CATHETER FLUSH 10 ML SYR IVP PRN; -REGADENOSON 0.4 MG/5 ML SYR (LEXISCAN) IV ONE
[2022-07-08] MEDS ORDERED: NS IV 1000 ML 1,000 ML IV SCH ×6 (03:00→17:15)
[2022-07-08] MEDS ORDERED: ONDANSETRON 4 MG/2 ML (SDV) Z0FRAN IVP ONE (03:00)
[2022-07-08] MEDS ORDERED: NS IV 1000 ML 0 ML ONE (03:02)
[2022-07-08] MEDS ORDERED: ONDANSETRON 4 MG/2 ML (SDV) Z0FRAN ONE (03:02)
[2022-07-08 03:17] LABS: BASOPHILS % (AUTO) 0 % (0-10); EOSINOPHILS # (AUTO) 0.1 10^3/uL (0.0-0.3); EOSINOPHILS % (AUTO) 1 % (0-10); HEMATOCRIT 43 % (40-54); HEMOGLOBIN 14.8 g/dL (13.3-17.7); LYMPHOCYTES # (AUTO) 0.4 10^3/uL (1.0-4.0); LYMPHOCYTES % (AUTO) 3 % (12-44); MEAN CORPUSCULAR HEMOGLOBIN 33 pg (25-34); MEAN CORPUSCULAR HGB CONC 35 g/dL (32-36); MEAN CORPUSCULAR VOLUME 96 fL (80-99); MEAN PLATELET VOLUME 10.5 fL (9.0-12.2); MONOCYTES # (AUTO) 1.9 10^3/uL (0.0-1.0); MONOCYTES % (AUTO) 14 % (0-12); NEUTROPHILS # (AUTO) 10.5 10^3/uL (1.8-7.8); NEUTROPHILS % (AUTO) 80 % (42-75); PLATELET COUNT 252 10^3/uL (130-400)
[2022-07-08] MEDS ORDERED: NOREPINEPHRINE 8 MG/250 ML 250 ML IV ONE (03:23)
[2022-07-08] MEDS ORDERED: EPINEPHrine INJECTION 1 MG/ML AMP ONE (03:23)
[2022-07-08 03:26] LABS: ALBUMIN 3.8 GM/DL (3.2-4.5)
[2022-07-08 03:27] LABS: CHLORIDE 78 MMOL/L (98-107); POTASSIUM 5.4 MMOL/L (3.6-5.0); PROTHROMBIN TIME PATIENT 13.8 SEC (12.2-14.7)
[2022-07-08] MEDS ORDERED: EPINEPHrine INJECTION 1 MG/ML AMP IV STA (03:27)
[2022-07-08 03:28] LABS: CALCIUM 7.8 MG/DL (8.5-10.1)
[2022-07-08 03:29] LABS: TOTAL PROTEIN 6.7 GM/DL (6.4-8.2)
[2022-07-08] MEDS ORDERED: LACTATED RINGERS 1,000 ML IV SCH (03:30)
[2022-07-08 03:31] LABS: BILIRUBIN,TOTAL 0.6 MG/DL (0.1-1.0)
[2022-07-08] MEDS: NOREPINEPHRINE 8 MG/250 ML 250 ML IV SCH ×5 (03:31→22:24)
[2022-07-08 03:33] LABS: ALKALINE PHOSPHATASE 123 U/L (40-136); CREATININE SERUM 4.43 MG/DL (0.60-1.30); GFR ESTIMATED 16
[2022-07-08 03:34] LABS: BUN/CREATININE RATIO 19
[2022-07-08 03:36] LABS: NEUTROPHILS % (MANUAL) 60 %
[2022-07-08 03:37] LABS: ALANINE AMINOTRANSFERASE 19 U/L (0-55); BAND NEUTROPHILS 17 %; LYMPHOCYTES % (MANUAL) 5 %; MONOCYTES % (MANUAL) 18 %; RBC MORPH NORMAL
[2022-07-08 03:47] LABS: BILIRUBIN,URINE NEGATIVE (NEGATIVE); CLARITY,URINE CLEAR; COLOR,URINE YELLOW; GLUCOSE, URINE (UA) 3+ (NEGATIVE); KETONES,URINE 1+ (NEGATIVE); LEUKOCYTE ESTERASE ,URINE NEGATIVE (NEGATIVE); NITRITE,URINE NEGATIVE (NEGATIVE); PH,URINE 5.5 (5-9); PROTEIN,URINE NEGATIVE (NEGATIVE)
[2022-07-08 03:52] LABS: CARBON DIOXIDE < 5 MMOL/L (21-32); GLUCOSE 1125 MG/DL (70-105); SODIUM 118 MMOL/L (135-145)
[2022-07-08 03:56] LABS: AMPHETAMINE SCREEN, URINE NEGATIVE (NEGATIVE); BACTERIA,URINE FEW /HPF; BARBITURATE SCREEN URINE NEGATIVE (NEGATIVE); BENZODIAZEPINES SCREEN URINE NEGATIVE (NEGATIVE); CANNABINOID SCREEN, URINE NEGATIVE (NEGATIVE); COCAINE SCREEN URINE NEGATIVE (NEGATIVE); METHADONE STAT NEGATIVE (NEGATIVE); OPIATE SCREEN URINE NEGATIVE (NEGATIVE); OXYCODONE STAT NEGATIVE (NEGATIVE); PROPOXYPHENE STAT NEGATIVE (NEGATIVE); SQUAMOUS EPITHELIAL CELL,UR 0-2 /HPF; TRICYCLIC ANTIDEPRESSANTS SCRE NEGATIVE (NEGATIVE)
--- NOTE | 2022-07-08 04:13 | ED General ---
General Chief Complaint: Unresponsive Stated Complaint: VOMITING,UNRESPONSIVE Nursing Triage Note: TO ED VIA [facility] EMS FROM HOME. PER EMS PT HAD VOMITED COFFEE GROUND EMESIS, ACCUCHECK MACHINE READ "HI" PER S/O TO EMS. BP 57/38 EN ROUTE VIA EMS, PT ON 15L VIA NRB WITH SATS AT 88%. PT MOANS WHEN SPOKEN TO ON ARRIVAL TO ER. Source of Information: EMS, Family Exam Limitations: Other History of Present Illness Date Seen by Provider: Jul 08, 2022 Time Seen by Provider: 02:50 Initial Comments Patient to the ER by EMS from home with chief complaint that his noted that he is having some black coffee-ground emesis and not responding. His sugar has read high the last several times that she checked it. He has a history of diabetes. He also has a history of coronary disease status post CABG. He has been sick for the past several days and tonight he was becoming unresponsive so his called EMS. EMS remarked when he arrived that he was not responsive had a low blood pressure of 80 systolic and a blood sugar that read high. His temperature read very low and their thermometer would not pick it up. He was indoors laying in his bed. The reveals that he has not been feeling well since Saturday, 3 days ago and so he has been drinking Coca-Cola. Not diet or Coke 0. She says she thinks he has a history of stomach ulcers but he is never had endoscopy that she is aware of. Three-vessel CABG but no other surgeries. Allergies and Home Medications Allergies Coded Allergies: iodine (Verified Allergy, Unknown, 12/19/18) shellfish derived (Verified Allergy, Unknown, 12/19/18) Patient Home Medication List Home Medication List Reviewed: Yes Albuterol Sulfate (Proair Hfa) 1 Puff Puff, 2 PUFF IH Q4H PRN for SHORTNESS OF BREATH, (Reported) Entered as Reported by: CARISA ALMONTE on 05/23/22 1147 Aspirin (Aspirin EC) 81 Mg Tablet.dr, 81 MG PO DAILY, (Reported) Entered as Reported by: CARISA ALMONTE on 05/23/22 1147 Atorvastatin Calcium (Atorvastatin Calcium) 40 Mg Tablet, 80 MG PO HS, (Reported) Entered as Reported by: VALERIY TOBAR on 12/19/18 1344 Dapagliflozin Propanediol (Farxiga) 5 Mg Tablet, 5 MG PO HS, (Reported) Entered as Reported by: DEYANIRA PEREZ on 01/09/21 07 Diclofenac Sodium (Diclofenac Sodium) 75 Mg Tablet.dr, 75 MG PO BID, (Reported) Entered as Reported by: DEYANIRA PEREZ on 01/09/21734 Dulaglutide (Trulicity) 3 Mg/0.5 Ml Pen.injctr, 3 MG SQ WED, (Reported) Entered as Reported by: CARISA ALMONTE on 05/23/22 114 Ezetimibe (Ezetimibe) 10 Mg Tablet, 10 MG PO DAILY, (Reported) Entered as Reported by: CARISA ALMONTE on 05/23/22 114 Fluticasone/Vilanterol (Breo Ellipta 100-25 Mcg INH) 100 Mcg-25 Mcg/Dose Blst.w.dev, 1 EACH IH DAILY, (Reported) Entered as Reported by: CARISA ALMONTE on 05/23/22 114 Gabapentin Enacarbil (Horizant) 600 Mg Tablet.er, 600 MG PO BID, (Reported) Entered as Reported by: DEYANIRA PEREZ on 01/09/21734 Insulin Aspart (Novolog Flexpen) 100 Unit/Ml (3 Ml) Solution, 12 UNITS SQ TIDAC, (Reported) Entered as Reported by: VALERIY TOBAR on 12/19/181343 Insulin Glargine,Hum.rec.anlog (Toujeo Max Solostar) 300 Unit/1 Ml Insuln.pen, 60 UNIT SQ HS, (Reported) Entered as Reported by: VALERIY TOBAR on 12/19/181343 Lisinopril (Lisinopril) 10 Mg Tablet, 10 MG PO DAILY, (Reported) Entered as Reported by: DEYANIRA PEREZ on 01/09/21734 Metformin HCl (Metformin HCl) 1,000 Mg Tablet, 1,000 MG PO BID, (Reported) Entered as Reported by: CARISA ALMONTE on 05/23/22 114 Metoprolol Succinate (Metoprolol Succinate) 50 Mg Tab.er.24h, 50 MG PO HS, (Reported) Entered as Reported by: DEYANIRA PEREZ on 01/09/21734 Ranolazine (Ranexa) 500 Mg Tab.er.12h, 1,000 MG PO BID, (Reported) Entered as Reported by: CARISA ALMONTE on 05/23/22 2597 Review of Systems Review of Systems Constitutional: see HPI (Unable to obtain a review of systems secondary to low GCS.) All Other Systems Reviewed Negative Unless Noted: Yes Past Orxorhs-Emnlry-Doyezb Hx Past Medical History Surgeries: Yes CABG, Orthopedic Respiratory: Yes Asthma, COPD Currently Using CPAP: No Currently Using BIPAP: No Cardiac: Yes Coronary Artery Disease, High Cholesterol, Hypertension Neurological: Yes Seizure Disorder Genitourinary: No Gastrointestinal: No Musculoskeletal: No Endocrine: Yes (INSULIN AND PO) Cancer: No Nursing Suicide Risk Notes: PT AMS/UNRESPONSIVE SO ASSUMED NO SI AT THIS TIME. Integumentary: No Blood Disorders: Yes Adverse Reaction/Blood Tranf: No Physical Exam Vital Signs Vital Signs - First Documented 07/08/22 04:26 FiO2 100 Capillary Refill : Less Than 3 Seconds Height, Weight, BMI Height: 5'6.00" Weight: 157lbs. 0.0oz. 71.799089ih; BMI Method: General Appearance: WD/WN, Severe Distress Eyes: Bilateral Eye Normal Inspection (3 mm reactive bilateral), Bilateral Eye PERRL HEENT: PERRL/EOMI, TMs Normal (Negative for hemotympanum or louis sign, atraumatic head), Pharynx Normal (Dry with blackish brown emesis.); No Moist Mucous Membranes Neck: Full Range of Motion, Normal Inspection Respiratory: Lungs Clear, Normal Breath Sounds, No Accessory Muscle Use, Respiratory Distress (Increased respiratory rate, Kussmaul) Cardiovascular: Normal Peripheral Pulses, Tachycardia Gastrointestinal: Normal Bowel Sounds, Non Tender, Soft Extremity: Normal Inspection, No Pedal Edema, Slow Capillary Refill Neurologic/Psychiatric: Other (GCS of 8, will open eyes briefly if given noxious or verbal stimuli. Does not follow commands. Flexes on noxious stimuli.) Skin: Cool, Pallor Focused Exam Lactate Level 07/08/22 03:02: Lactic Acid Level 1.84 Lactic Acid Level Laboratory Tests Test 07/08/22 03:02 Lactic Acid Level 1.84 MMOL/L (0.50-2.00) Procedures/Interventions Lumen: triple Central Line Procedure: betadine prep, sterile drapes applied, sterile dressing applied Position: internal jugular (R) Anesthesia: Lidocaine Volume Anesthetic (ccs): 2 Complications: none Post Position: sutured, good blood return, position confirmed w/ CXR Risks, benefits and alternatives were discussed with the patient and the patient consented to the procedure. The patient was positioned in the usual format and using the usual sterile garments and drapes the patient was dressed out. The skin was thoroughly cleaned with the supplied chlorhexidine prep. After the prep had dried a sterile drape was placed. The 16 cm 7 [place] Citizen triple-lumen catheter was flushed with sterile saline. We used ultrasound guidance to pass the introducer needle into the right internal jugular without difficulty. A guidewire was placed easily without difficulty. No ectopy was seen on the monitor. The supplied 11 blade scalpel was used to make a 2 mm incision at the inferior portion of the introducer needle. The introducer needle was replaced with the dilator. The dilator was taken out and the patient had the central lumen of the triple lumen catheter threaded over the guidewire and placed at 13.5 cm. The guidewire was removed and the triple-lumen catheter was stitched in place using the supplied braided stitch at 2 different points. The catheter withdrew blood and flushed easily. A sterile dressing was placed over the catheter. The patient tolerated the procedure well. A chest x-ray was obtained that demonstrated no pneumothorax and a new interval central catheter over the shadow of the right internal jugular down the superior vena cava and terminating just proximal to the right atria. Reason for Intubation: Failure to protect airway, GCS less than 8 Date of ETT Placement: Jul 08, 2022 Time of ETT Placement: 03:00 Intubation Method: orotracheal Tube Size: 7.5 Medications: Etomidate (20 mg), Rocuronium (50 mg) Positive End Tide CO2: Yes Breath Sounds after Intubation: bilateral-equal Intubation Complications: no complications (Oxygen saturations never went below 100%.) Post Intubation Xray: Yes Good ET tube position. Use video laryngoscope Progress/Results/Core Measures Suspected Sepsis SIRS Temperature: Pulse: 89 Respiratory Rate: 12 Laboratory Tests 07/08/22 03:02: White Blood Count 13.0H Blood Pressure 111 /60 Mean: 77 07/08/22 03:02: Lactic Acid Level 1.84 Laboratory Tests 07/08/22 03:02: INR Comment 1.0, Platelet Count 252, Total Bilirubin 0.6 Results/Orders Lab Results Laboratory Tests Test 07/08/22 02:58 07/08/22 03:02 07/08/22 03:38 07/08/22 04:05 Range/Units Phosphorus Level 8.7 H 2.3-4.7 MG/DL Magnesium Level 2.8 H 1.6-2.4 MG/DL Troponin I < 0.028 <0.028 NG/ML Serum Alcohol < 10 <10 MG/DL White Blood Count 13.0 H 4.3-11.0 10^3/uL Red Blood Count 4.43 4.30-5.52 10^6/uL Hemoglobin 14.8 13.3-17.7 g/dL Hematocrit 43 40-54 % Mean Corpuscular Volume 96 80-99 fL Mean Corpuscular Hemoglobin 33 25-34 pg Mean Corpuscular Hemoglobin Concent 35 32-36 g/dL Red Cell Distribution Width 12.7 10.0-14.5 % Platelet Count 252 130-400 10^3/uL Mean Platelet Volume 10.5 9.0-12.2 fL Immature Granulocyte % (Auto) 2 % Neutrophils (%) (Auto) 80 H 42-75 % Lymphocytes (%) (Auto) 3 L 12-44 % Monocytes (%) (Auto) 14 H 0-12 % Eosinophils (%) (Auto) 1 0-10 % Basophils (%) (Auto) 0 0-10 % Neutrophils # (Auto) 10.5 H 1.8-7.8 10^3/uL Lymphocytes # (Auto) 0.4 L 1.0-4.0 10^3/uL Monocytes # (Auto) 1.9 H 0.0-1.0 10^3/uL Eosinophils # (Auto) 0.1 0.0-0.3 10^3/uL Basophils # (Auto) 0.0 0.0-0.1 10^3/uL Immature Granulocyte # (Auto) 0.3 H 0.0-0.1 10^3/uL Neutrophils % (Manual) 60 % Lymphocytes % (Manual) 5 % Monocytes % (Manual) 18 % Band Neutrophils 17 % Blood Morphology Comment NORMAL Prothrombin Time 13.8 12.2-14.7 SEC INR Comment 1.0 0.8-1.4 Activated Partial Thromboplast Time 30 24-35 SEC Sodium Level 118 *L 135-145 MMOL/L Potassium Level 5.4 H 3.6-5.0 MMOL/L Chloride Level 78 L 98-107 MMOL/L Carbon Dioxide Level < 5 *L 21-32 MMOL/L Anion Gap 35 H 5-14 MMOL/L Blood Urea Nitrogen 86 H 7-18 MG/DL Creatinine 4.43 H 0.60-1.30 MG/DL Estimat Glomerular Filtration Rate 16 BUN/Creatinine Ratio 19 Glucose Level 1125 *H 70-105 MG/DL Lactic Acid Level 1.84 0.50-2.00 MMOL/L Calcium Level 7.8 L 8.5-10.1 MG/DL Corrected Calcium 8.0 L 8.5-10.1 MG/DL Total Bilirubin 0.6 0.1-1.0 MG/DL Aspartate Amino Transf (AST/SGOT) 12 5-34 U/L Alanine Aminotransferase (ALT/SGPT) 19 0-55 U/L Alkaline Phosphatase 123 40-136 U/L Total Protein 6.7 6.4-8.2 GM/DL Albumin 3.8 3.2-4.5 GM/DL Urine Color YELLOW Urine Clarity CLEAR Urine pH 5.5 5-9 Urine Specific Lanse 1.010 L 1.016-1.022 Urine Protein NEGATIVE NEGATIVE Urine Glucose (UA) 3+ H NEGATIVE Urine Ketones 1+ H NEGATIVE Urine Nitrite NEGATIVE NEGATIVE Urine Bilirubin NEGATIVE NEGATIVE Urine Urobilinogen 0.2 < = 1.0 MG/DL Urine Leukocyte Esterase NEGATIVE NEGATIVE Urine RBC (Auto) NEGATIVE NEGATIVE Urine RBC NONE /HPF Urine WBC NONE /HPF Urine Squamous Epithelial Cells 0-2 /HPF Urine Crystals NONE /LPF Urine Bacteria FEW H /HPF Urine Casts NONE /LPF Urine Mucus SMALL H /LPF Urine Culture Indicated CULTURE PENDING Urine Opiates Screen NEGATIVE NEGATIVE Urine Oxycodone Screen NEGATIVE NEGATIVE Urine Methadone Screen NEGATIVE NEGATIVE Urine Propoxyphene Screen NEGATIVE NEGATIVE Urine Barbiturates Screen NEGATIVE NEGATIVE Ur Tricyclic Antidepressants Screen NEGATIVE NEGATIVE Urine Phencyclidine Screen NEGATIVE NEGATIVE Urine Amphetamines Screen NEGATIVE NEGATIVE Urine Methamphetamines Screen NEGATIVE NEGATIVE Urine Benzodiazepines Screen NEGATIVE NEGATIVE Urine Cocaine Screen NEGATIVE NEGATIVE Urine Cannabinoids Screen NEGATIVE NEGATIVE Blood Gas Puncture Site RIGHT RADIAL Blood Gas Patient Temperature 35.0 Arterial Blood pH 7.06 *L 7.37-7.43 Arterial Blood Partial Pressure CO2 25 L 35-45 MMHG Arterial Blood Partial Pressure O2 143 H 79-93 MMHG Arterial Blood HCO3 7 *L 23-27 MMOL/L Arterial Blood Total CO2 8.0 *L 21.0-31.0 MMOL/L Arterial Blood Oxygen Saturation 99 94-100 % Arterial Blood Base Excess -21.4 L -2.5-2.5 MMOL/L Luis Miguel Test YES-POS Blood Gas Ventilator Setting YES Blood Gas Inspired Oxygen 40% Influenza Type A (RT-PCR) Not Detected Not Detecte Influenza Type B (RT-PCR) Not Detected Not Detecte SARS-CoV-2 RNA (RT-PCR) Not Detected Not Detecte My Orders Orders - BELLA MCDANIEL Ns Iv 1000 Ml (Sodium Chloride 0.9%) (07/08/22 03:00) Ondansetron Injection (Zofran Injectio (07/08/22 03:00) Ondansetron Injection (Zofran Injectio (07/08/22 03:02) Ns Iv 1000 Ml (Sodium Chloride 0.9%) (07/08/22 03:02) Cbc With Automated Diff (07/08/22 03:08) Comprehensive Metabolic Panel (07/08/22 03:08) Blood Culture (07/08/22 03:08) Sputum Culture (07/08/22 03:08) Urinalysis (07/08/22 03:08) Urine Culture (07/08/22 03:08) Protime With Inr (07/08/22 03:08) Partial Thromboplastin Time (07/08/22 03:08) Chest 1 View, Ap/Pa Only (07/08/22 03:08) Ed Iv/Invasive Line Start (07/08/22 03:08) Ed Iv/Invasive Line Start (07/08/22 03:08) Vital Signs Adult Sepsis Patie Q15M (07/08/22 03:08) O2 (07/08/22 03:08) Remove Rings In Anticipation O (07/08/22 03:08) Lactic Acid Analyzer (07/08/22 03:08) Type And Screen (07/08/22 03:08) Nicholson Cath (07/08/22 03:08) Og Tube Insertion (07/08/22 03:08) Drug Screen Stat (Urine) (07/08/22 03:08) Manual Differential (07/08/22 03:02) Lactated Ringers (Lr 1000 Ml Iv Solution (07/08/22 03:30) Epinephrine 1 Mg Injection (Adrenalin I (07/08/22 03:23) Norepinephrine 8 Mg/250 Ml (Norepinephri (07/08/22 03:23) Epinephrine 1 Mg Injection (Adrenalin I (07/08/22 03:27) Norepinephrine 8 Mg/250 Ml (Norepinephri (07/08/22 03:30) Propofol Drip (Icu) (Diprivan Drip (Icu) (07/08/22 04:15) Cefepime Injection (Maxipime Injection) (07/08/22 04:15) Vancomycin Injection (Vancomycin Injecti (07/08/22 04:15) Vancomycin Injection (Vancomycin Injecti (07/08/22 05:15) Covid 19 Inhouse Test (07/08/22 04:04) Influenza A And B By Pcr (07/08/22 04:04) Ns Iv 1000 Ml (Sodium Chloride 0.9%) (07/08/22 04:15) Magnesium (07/08/22 04:09) Phosphorus (07/08/22 04:09) Insulin (Regular) Human (Novolin R (Per (07/08/22 04:15) Arterial Blood Gas (07/08/22 04:13) Silvino Beauer (07/08/22 04:13) Ed Iv/Invasive Line Start (07/08/22 04:13) Ns Iv 1000 Ml (Sodium Chloride 0.9%) (07/08/22 04:15) Continuous Ekg Monitoring (07/08/22 04:24) Ekg Tracing (07/08/22 04:24) Troponin I Fatoumata (07/08/22 04:24) Pantoprazole Injection (Protonix Injecti (07/08/22 04:30) Ns (Ivpb) (Sodium C... W/Pantoprazole In (07/08/22 04:30) Alcohol (07/08/22 04:25) Sodium Bicarbonate 8.4% Syr (Sodium Bica (07/08/22 04:30) Ekg Tracing (07/08/22 04:50) Vasopressin Injection (Pitressin Injecti (07/08/22 05:00) Ns (Ivpb) (Sodium Chloride 0.9% Ivpb Bag (07/08/22 05:02) Medications Given in ED Vital Signs/I&O 07/08/22 07/08/22 07/08/22 07/08/22 02:50 02:50 03:31 04:26 Pulse 89 123 Resp 12 18 B/P (MAP) 113/94 (100) 111/60 Pulse Ox 100 100 O2 Delivery Non Rebreather Non Rebreather O2 Flow Rate 15.00 15.00 FiO2 100 07/08/22 05:14 B/P (MAP) 106/64 Capillary Refill : Less Than 3 Seconds Blood Pressure Mean: 77 Point of Care Testing Blood Glucose Action Taken: READS "HI". DR. MCDANIEL NOTIFIED. Progress Note #1: Time: 04:41 Progress Note 450 tidal volume, 18 breaths per minute, FiO2 40% maintaining oxygen sats of 100%, rate of 18. Because of the significant low pH of 7 we will give an amp of bicarb and another liter of fluids. Using Levophed to maintain blood pressure. Broad-spectrum antibiotics cefepime and vancomycin. Check for COVID and flu. Progress Note #2: Time: 04:56 Progress Note Patient had some A. fib RVR into the 160 range. We will put him in Trendelenburg and backed off on his Levophed. We can supplement BARREL FILLER instead. The copious brackish black fluids there we are pulling out his abdomen and upper airway are suspected to be Coca-Cola. ECG Initial ECG Impression Date: Jul 08, 2022 Initial ECG Impression Time: 04:31 Initial ECG Rate: 114 Initial ECG Rhythm: A Fib/Flutter Initial ECG Intervals: QT (413) Initial ECG Impression: Nonspecific Changes, Atrial Fibrillation Comment Sinus dysrhythmia with tachycardia versus A. fib with RVR. No clinically relevant ST elevation or depression. EKG : EKG Time: 04:53 Rate: 152 Rhythm: A Fib/Flutter Intervals: QT (363) ECG Comparisson: Changed ECG Impression: Atrial Fibrillation, Atrial Fibrillation w/RVR Comment A. fib with RVR. ST depression in the lateral leads half a block. Diagnostic Imaging Diagonstic Imaging: Xray Plain Films/CT/US/NM/MRI: chest Comments Good placement of the ET tube 3 to 4 cm above the aurora. The lungs appear well aerated without infiltrate. The central catheter does not cross the midline and appears to terminate in the low superior vena cava at the level of the right atria. No pneumothorax is seen. [facility] [place], [place] NAME: ADRIAN ROLON [facility] REC#: [id number] PT STATUS: ADM IN : 1975 PHYSICIAN: BELLA MCDANIEL MD ADMIT DATE: 07/08/22/ICU Signed Date of Exam:07/08/22 CHEST 1 VIEW, AP/PA ONLY EXAM: CHEST 1 VIEW, AP/PA ONLY INDICATION: Intubation. COMPARISON: 05/22/2022. FINDINGS: ETT tip at the level of the clavicles. Right IJ CVC tip mid SVC. NG tube tip and side-port in the stomach. Sternotomy. Normal heart size and central pulmonary vascularity. Low lung volumes. No focal focal pulmonary opacity. No pleural effusion or pneumothorax. No acute osseous findings. IMPRESSION: 1. New ETT, right IJ CVC and NGT in expected positions. 2. No acute cardiopulmonary findings. Dictated by: Dictated on workstation # [id number] Dict: 07/08/22 0655 Trans: 07/08/22 0943 CVB [id number] Interpreted by: MAYRA DUNAWAY MD Electronically signed by: MAYRA DUNAWAY MD 07/08/22 0943 Critical Care Note Critical Care Start Time: 02:50 Stop Time: 05:52 Total Time (minutes) 182 minutes Progress I attest to at least 100 minutes of critical care time outside of procedures. The patient presented obtunded, not protecting his airway with copious amounts of thin brown brackish foul-smelling secretions with concern for a GI bleed. He also had a blood sugar reading high and DKA was in the differential. He had Kussmaul breathing so he was determined to protect his airway we would put an ET tube in. He had brown brackish secretions all throughout his upper airway on use of a video laryngoscope. We suctioned out about 400 cc of this fluid while intubating. After we intubated him and secured the airway RT suctioned out his respiratory secretions were a sputum sample and there were no similar brown brackish secretions in his airway secretions indicating that he may not have aspirated much. We put a NG/OG to drain his abdomen. We gave 10 units of insulin based on his 1100+ blood glucose and good potassium. We started off with 2 L of fluid and a 3rd L at 250 cc an hour. His blood pressure continued to be a difficult issue. We gave him 1/2 mg IV epinephrine initially and then initiated a Levophed drip which continued to escalate. Next we will add BARREL FILLER if necessary. We are getting 1/3 L of fluids bolused and. He was difficult to obtain IV access and using ultrasound we are able to quickly drop a left AC peripheral IV but his veins were very flaccid. By time he got a liter and him the ultrasound revealed a little more fluid in his right IJ however this was in Trendelenburg. We brought his back and communicate with him as well as communicated with critical care team and primary care team. Interpreted studies, EKGs and labs. We will use propofol for sedation if and when necessary. Departure Communication (Admissions) Time/Spoke to Admitting Phy: 05:20 Discussed the case with Dr. Umanzor who agrees with ICU placement. Time/Spoke to Consulting Phy: 05:25 Discussed the case with Mal[facility] stopperer assembler on-call who agrees to consult on the case. Impression Primary Impression: DKA, type 1, not at goal Additional Impression: Suspected GI bleed Disposition: ADMITTED INPATIENT Condition: Critical Admissions Decision to Admit Reason: Admit from ER (General) Decision to Admit/Date: Jul 08, 2022 Time/Decision to Admit Time: 05:00 Departure-Patient Inst. Referrals: YARELIS MALAVE MD (PCP/Family) Primary Care Physician BELLA MCDANIEL Jul 08, 2022 04:12
[2022-07-08] MEDS ORDERED: VANCOMYCIN INJECTION 750 MG in NS (IVPB) 100 ML IV ONE (04:15)
[2022-07-08] MEDS ORDERED: inSUlin (REGULAR) HUMAN 1 UNIT/0.01 ML (CHARGE PER UNIT) IV ONE (04:15)
[2022-07-08] MEDS ORDERED: CEFEPIME INJECTION 1,000 MG in NS (IVPB) 50 ML IV ONE (04:15)
[2022-07-08 04:23] LABS: ABG BASE EXCESS -21.4 MMOL/L (-2.5-2.5); ABG OXYGEN SATURATION 99 % (94-100); ABG PCO2 25 MMHG (35-45); ABG PO2 143 MMHG (79-93)
[2022-07-08 04:27] LABS: ABG PH 7.06 (7.37-7.43); ALLENS TEST YES-POS; INSPIRED O2 40%; VENTILATOR YES
[2022-07-08] MEDS ORDERED: SODIUM BICARB 8.4% 50 MEQ/50 ML (ABBOTT) SYR IV ONE (04:30)
[2022-07-08] MEDS ORDERED: PANTOPRAZOLE 40 MG (PROTONIX) VIAL IV ONE (04:30)
[2022-07-08] MEDS ORDERED: PANTOPRAZOLE INJECTION 200 MG in NS (IVPB) 100 ML IV SCH (04:30)
[2022-07-08 04:32] LABS: PHOSPHORUS 8.7 MG/DL (2.3-4.7)
[2022-07-08 04:34] LABS: MAGNESIUM 2.8 MG/DL (1.6-2.4)
[2022-07-08] MEDS ORDERED: NS (IVPB) 0 ML ONE (05:02)
[2022-07-08] MEDS: VASOPRESSIN INJECTION 20 UNIT in NS (IVPB) 100 ML IV SCH ×3 (05:14→23:02)
[2022-07-08] MEDS ORDERED: VANCOMYCIN INJECTION 500 MG in NS (IVPB) 100 ML IV ONE (05:15)
[2022-07-08] MEDS ORDERED: 1/2 NS W/KCL 20 MEQ/L 1,000 ML IV SCH (05:45)
[2022-07-08] MEDS: NS IV 1000 ML 1,000 ML IV SCH ×3 (05:50→12:49)
--- NOTE | 2022-07-08 06:11 | Tele-ICU Consult ---
History of Present Illness History of Present Illness Date Seen by Provider: Jul 08, 2022 Time Seen by Provider: 06:06 History of Present Illness 47 yo M known to have DM1, has also CABG in past, came to ED for obtundation, found to have a glu 1100. Also vomited coffee ground material and may have aspirated, Was intubated for airway protection. Started on DKA protocol, started on IVF, no sign of UTI, no skin lesions, LA is 1.84 Initial ABG 7.06/25/143 initial HCO3 < 5 In ED initial SBP 60 Other PMH ? Hx of PUD, Allergies and Home Medications Allergies Coded Allergies: iodine (Verified Allergy, Unknown, 12/19/18) shellfish derived (Verified Allergy, Unknown, 12/19/18) Home Medications Albuterol Sulfate 1 Puff Puff, 2 PUFF IH Q4H PRN for SHORTNESS OF BREATH, (Reported) Aspirin 81 Mg Tablet.dr, 81 MG PO DAILY, (Reported) Atorvastatin Calcium 40 Mg Tablet, 80 MG PO HS, (Reported) TAKES 2 (40MG) TABS Dapagliflozin Propanediol 5 Mg Tablet, 5 MG PO HS, (Reported) Diclofenac Sodium 75 Mg Tablet.dr, 75 MG PO BID, (Reported) Dulaglutide 3 Mg/0.5 Ml Pen.injctr, 3 MG SQ WED, (Reported) Ezetimibe 10 Mg Tablet, 10 MG PO DAILY, (Reported) Fluticasone/Vilanterol 100 Mcg-25 Mcg/Dose Blst.w.dev, 1 EACH IH DAILY, (Reported) Gabapentin Enacarbil 600 Mg Tablet.er, 600 MG PO BID, (Reported) Insulin Aspart 100 Unit/Ml (3 Ml) Solution, 12 UNITS SQ TIDAC, (Reported) Insulin Glargine,Hum.rec.anlog 300 Unit/1 Ml Insuln.pen, 60 UNIT SQ HS, (Reported) Lisinopril 10 Mg Tablet, 10 MG PO DAILY, (Reported) Metformin HCl 1,000 Mg Tablet, 1,000 MG PO BID, (Reported) Metoprolol Succinate 50 Mg Tab.er.24h, 50 MG PO HS, (Reported) Ranolazine 500 Mg Tab.er.12h, 1,000 MG PO BID, (Reported) TAKES 2 (500MG) TABS Past Medical/Social/Family Hx Immunizations Up To Date Tetanus Booster (TDap): Unknown Hepatitis A: Yes Hepatitis B: Yes Current Status Primary Language: Gibralt[place] Preferred Spoken Language: [place] Review of Systems Constitutional: see HPI EENTM: see HPI Respiratory: see HPI Cardiovascular: see HPI Gastrointestinal: see HPI Genitourinary: see HPI Musculoskeletal: see HPI Skin: see HPI Psychiatric/Neurological: See HPI Focused Exam Lactate Level 07/08/22 03:02: Lactic Acid Level 1.84 Height, Weight, BMI Height: 5'6.00" Weight: 157lbs. 0.0oz. 71.502824sw; BMI Method: Lactic Acid Level Laboratory Tests Test 07/08/22 03:02 Lactic Acid Level 1.84 MMOL/L (0.50-2.00) Exam Exam Patient acknowledged, consented, and participated in this virtual visit which was conducted using real time audio/video Vital Signs Date Time Temp Pulse Resp B/P (MAP) Pulse Ox O2 Delivery O2 Flow Rate FiO2 07/08/22 05:46 34.4 131 18 108/76 100 Non Rebreather 40.00 07/08/22 05:14 106/64 07/08/22 04:26 123 18 100 100 07/08/22 03:31 111/60 07/08/22 02:50 Non Rebreather 15.00 07/08/22 02:50 89 12 113/94 (100) 100 Non Rebreather 15.00 I & O 07/08/22 07:00 Intake Total 3150 ml Balance 3150 ml Height & Weight Height: 5'6.00" Weight: 157lbs. 0.0oz. 71.262681dg; BMI Method: General Appearance: WD/WN, Severe Distress HEENT: PERRL/EOMI, TMs Normal (Negative for hemotympanum or louis sign, atraumatic head), Pharynx Normal (Dry with blackish brown emesis.); No Moist Mucous Membranes Neck: Full Range of Motion, Normal Inspection Respiratory: Lungs Clear, Normal Breath Sounds, No Accessory Muscle Use, Respiratory Distress (Increased respiratory rate, Kussmaul) Cardiovascular: Normal Peripheral Pulses, Tachycardia Capillary Refill: Less Than 3 Seconds Gastrointestinal: normal bowel sounds, non tender, soft Extremity: Normal Inspection, No Pedal Edema, Slow Capillary Refill Neurologic/Psychiatric: Other (GCS of 8, will open eyes briefly if given noxious or verbal stimuli. Does not follow commands. Flexes on noxious stimuli.) Skin: Cool, Pallor Results Lab Laboratory Tests 07/08/22 03:02 Assessment/Plan Assessment/Plan severe DKA, continue on DKA protocol Intubated for airway protection, will get ABG CXR does not show aspiration, ET position looks ok Started on IV Vancomycin, Cefepime Critical Care: Ventilator Management Time spent with patient (mins): 35 CHRIS SANDERS MD Jul 08, 2022 06:11
[2022-07-08] MEDS ORDERED: MIDAZOLAM 5 MG/5 ML (VERSED) VIAL IVP ONE (06:15)
[2022-07-08] MEDS ORDERED: polyethylene glycoL POWDER 17 GM (MIRALAX) PACK PO PRN (06:30)
[2022-07-08] MEDS ORDERED: MILK OF MAGNESIA 400 MG/5 ML 30 ML UDC PO PRN (06:30)
[2022-07-08] MEDS ORDERED: CALCIUM CARBONATE 500 MG (TUMS) TAB.CHEW PO PRN (06:30)
[2022-07-08] MEDS ORDERED: morphine IMMEDIATE RELEASE 15 MG TABLET PO PRN (06:30)
[2022-07-08] MEDS ORDERED: BISACODYL 10 MG SUPP (DULCOLAX) PR PRN (06:30)
[2022-07-08] MEDS ORDERED: POTASSIUM CL 10MEQ/50ML IVPB 50 ML IV SCH ×2 (06:30→06:45)
[2022-07-08] MEDS ORDERED: ONDANSETRON 4 MG/2 ML (SDV) Z0FRAN IV PRN (06:30)
[2022-07-08] MEDS ORDERED: diphenhydrAMINE 25 MG TAB (BENADRYL) PO PRN (06:30)
[2022-07-08] MEDS ORDERED: MELATONIN 3 MG TABLET PO PRN (06:30)
[2022-07-08] MEDS ORDERED: ONDANSETRON 4 MG (ZOFRAN) ORAL DISSOLVE TAB PO PRN (06:30)
[2022-07-08] MEDS ORDERED: ANTACID SUSP 30 ML UDC (MYLANTA) PO PRN (06:30)
[2022-07-08] MEDS ORDERED: LACTULOSE SYRUP 10GM/15ML (ENULOSE) 30ML UDC PO PRN (06:30)
[2022-07-08] MEDS ORDERED: NS IV 500 ML 500 ML IV PRN (06:30)
[2022-07-08] MEDS ORDERED: diphenhydrAMINE 50 MG/ML INJ (BENADRYL) IVP PRN (06:30)
[2022-07-08] MEDS ORDERED: D5 1/2 NS 1000 ML IV SOLUTION 1,000 ML IV SCH (06:45)
--- NOTE | 2022-07-08 06:58 | Diagnostic Imaging Report ---
EXAM: CHEST 1 VIEW, AP/PA ONLY INDICATION: Intubation. COMPARISON: 05/22/2022. FINDINGS: ETT tip at the level of the clavicles. Right IJ CVC tip mid SVC. NG tube tip and side-port in the stomach. Sternotomy. Normal heart size and central pulmonary vascularity. Low lung volumes. No focal focal pulmonary opacity. No pleural effusion or pneumothorax. No acute osseous findings. IMPRESSION: 1. New ETT, right IJ CVC and NGT in expected positions. 2. No acute cardiopulmonary findings. Dictated by: Dictated on workstation # [id number]
[2022-07-08] MEDS: PROPOFOL DRIP (ICU) 100 ML IV SCH ×3 (07:21→16:57)
[2022-07-08] MEDS ORDERED: PROPOFOL DRIP (ICU) 100 ML IV SCH (07:30)
[2022-07-08] MEDS ORDERED: VANCOMYCIN INJECTION 0.1 MG in NS (IVPB) 250 ML IV SCH (07:30)
[2022-07-08 07:32] LABS: POTASSIUM 3.6 MMOL/L (3.6-5.0)
[2022-07-08 07:33] LABS: CALCIUM 7.7 MG/DL (8.5-10.1)
--- NOTE | 2022-07-08 07:33 | History & Physical-Hospitalist ---
History of Present Illness HPI/Chief Complaint Chief complaint: Acute decompensation HPI: This is a 47-year-old male of [facility] with past medical history of type 1 diabetes who apparently presented to the ER with altered mental status was found to be obtunded requiring intubation and aspiration of gastric contents occurred. Patient was found to be in multisystem organ failure with creatinine of 4.4 blood sugar 1100 range and sodium level 118. Patient was admitted to the ICU with aggressive IV fluid resuscitation and insulin drip orders along with eICU and girlfriend at the bedside was updated on the critical nature of his illness. Source: RN/MD Exam Limitations: clinical condition Date Seen 07/08/22 Time Seen by a Provider: 11:00 Attending Physician Wei Soto DO PCP Admitting Physician: Barbie Umanzor DO Attending Physician: Barbie Umanzor DO Referring Physician Date of Admission Jul 08, 2022 at 05:30 Home Medications & Allergies Home Medications Reviewed patient Home Medication Reconciliation performed by pharmacy medication reconciliations oncology technician and/or nursing. Patients Allergies have been reviewed. Allergies Allergies Coded Allergies iodine (Verified Allergy, Unknown, 12/19/18) shellfish derived (Verified Allergy, Unknown, 12/19/18) Past Lvooxbz-Qtsksr-Mmnqby Hx Patient Social History Marrital Status: cohabiting Smoking Status: Unknown if Ever Smoked Immunizations Up To Date Tetanus Booster (TDap): Unknown Hepatitis A: Yes Hepatitis B: Yes Current Status Primary Language: Armenian Preferred Spoken Language: Armenian Past Medical History Surgeries: CABG, Orthopedic Asthma, COPD Currently Using CPAP: No Currently Using BIPAP: No Coronary Artery Disease, High Cholesterol, Hypertension Seizure Disorder Nursing Suicide Risk Notes: PT AMS/UNRESPONSIVE SO ASSUMED NO SI AT THIS TIME. Blood Disorders: Yes Adverse Reaction/Blood Tranf: No Review of Systems ROS-Unable to Obtain: Intubated Constitutional: see HPI Physical Exam Physical Exam Vital Signs Vital Signs - First Documented 07/08/22 07/08/22 04:26 05:46 Temp 34.4 FiO2 100 Capillary Refill : Less Than 3 Seconds Height, Weight, BMI Height: 5'6.00" Weight: 157lbs. 0.0oz. [id number]; BMI Method: General Appearance: No Apparent Distress, Chronically ill, Thin, Other (Sedated and intubated) Respiratory: Accessory Muscle Use, Decreased Breath Sounds Cardiovascular: Regular Rate, Rhythm Results Results/Procedures Labs Laboratory Tests 07/08/22 03:02 07/08/22 07:12 07/08/22 09:26 07/08/22 15:05 Patient resulted labs reviewed. Assessment/Plan Admission Diagnosis Assessment: DKA Sepsis Acute respiratory failure requiring intubation Aspiration pneumonitis placed on antibiotics empirically Acute kidney injury creatinine 4.4 Leukocytosis bandemia Type 1 diabetes Plan: ICU Aggressive IV fluid Monitor creatinine Nicholson catheter Intubation Supportive care Admission Status: Inpatient Order (span 2 midnights) Reason for Inpatient Admission: Multisystem organ failure Diagnosis/Problems Diagnosis/Problems (1) Ketoacidosis due to type 1 diabetes mellitus BARBIE UMANZOR DO Jul 08, 2022 07:33
[2022-07-08 07:37] LABS: CREATININE SERUM 3.14 MG/DL (0.60-1.30)
[2022-07-08] MEDS: POTASSIUM CL 10MEQ/50ML IVPB 50 ML IV SCH ×7 (07:58→23:40)
[2022-07-08] MEDS ORDERED: PIPERACILLIN SODIUM/TAZOBACTAM 4.5 GM in NS (IVPB) 100 ML IV NR (08:00)
[2022-07-08 08:26] LABS: ABG BASE EXCESS -16.2 MMOL/L (-2.5-2.5); ABG OXYGEN SATURATION 95 % (94-100); ABG PO2 63 MMHG (79-93)
[2022-07-08 08:27] LABS: ABG PCO2 18 MMHG (35-45); ABG PH 7.32 (7.37-7.43)
[2022-07-08 08:28] LABS: ALLENS TEST YES-POS; INSPIRED O2 40%; PATIENT TEMP 34.4; VENTILATOR NO
[2022-07-08] MEDS: DOCUSATE SODIUM 100 MG (COLACE) CAP PO SCH ×2 (09:00→21:09)
[2022-07-08] MEDS: PANTOPRAZOLE 40 MG (PROTONIX) VIAL IV SCH (09:00)
[2022-07-08] MEDS: SENNOSIDES 8.6 MG (SENOKOT) TAB PO SCH ×2 (09:00→21:13)
[2022-07-08] MEDS: dilTIAZem DRIP PRE-MIX 125 ML IV SCH ×2 (09:06→17:49)
[2022-07-08] MEDS: ENOXAPARIN INJECTION 30 MG/0.3 ML SYR SC SCH (09:07)
[2022-07-08 09:48] LABS: CALCIUM 7.3 MG/DL (8.5-10.1); CREATININE SERUM 3.27 MG/DL (0.60-1.30); POTASSIUM 3.1 MMOL/L (3.6-5.0)
[2022-07-08] MEDS: fentaNYL DRIP PRE-MIX 250 ML IV SCH ×3 (10:02→17:47)
[2022-07-08] MEDS: DexMEDEtomidine 250 ML DRIP 250 ML IV SCH (10:07)
[2022-07-08] MEDS ORDERED: ADENOSINE 6 MG/2 ML (ADENOCARD) VIAL IV NR (11:00)
[2022-07-08] MEDS ORDERED: ADENOSINE 6 MG/2 ML (ADENOCARD) VIAL IV ONE (11:22)
[2022-07-08] MEDS ORDERED: ETOMIDATE IV SOLN 20 MG/10 ML VIAL IV ONE (12:12)
[2022-07-08] MEDS ORDERED: MIDAZOLAM 5 MG/5 ML (VERSED) VIAL IJ ONE (12:12)
[2022-07-08] MEDS ORDERED: ROCURONIUM 10 MG/ML 5 ML SYRINGE IV ONE (12:12)
[2022-07-08] MEDS: PIPERACILLIN SODIUM/TAZOBACTAM 4.5 GM in NS (IVPB) 100 ML IV SCH ×2 (14:13→21:50)
--- NOTE | 2022-07-08 14:13 | Consultation-Cardiology ---
HPI-Cardiology Cardiology Consultation: Date of Consultation 07/08/22 Time Seen by a Provider: 11:30 Date of Admission Attending Physician Carisa Soto DO Admitting Physician Admitting Physician: Barbie Umanzor DO Attending Physician: Barbie Umanzor DO Consulting Physician ALVARO SUAREZ MD, MA, FACP, FACC, [facility] [place], CCDS Physician requesting consult: Dr Umanzor Primary beamer hand: Dr Melgar HPI: Chief Complaint: Reason for consultation: Tachycardia 47 yo man admitted to Dr Umanzor with severe DKA. He had been brought in by his significant other for vomiting and poor responsiveness. Was found to be hypotensive and with very low body temp at adm. Currently on mech vent and unresponsive. Has needed iv pressors, in addition to iv fluids, for maintenance of bp. Heart rate has climbed and Dr Umanzor was suspecting A Fl and we were asked to see him Review of Systems-Cardiology Review of Systems Constitutional: other (he is unresponsive, on mech vent, and unable to provide any history or ROS) All Other Systems Reviewed Negative Unless Noted: Yes GVD-Nozkxg-Xlbqaz Hx Patient Social History Smoking Status: Unknown if Ever Smoked 2nd Hand Smoke Exposure: Yes Have you traveled recently?: No Pt feels they are or have been: Unable to obtain Past Medical History PMH As described under Assessment. Family Medical History Family Medical History: Documented family h/o father, sister, brother with CAD and HTN. Father has h/o CVA. Allergies and Home Medications Allergies Coded Allergies: iodine (Verified Allergy, Unknown, 12/19/18) shellfish derived (Verified Allergy, Unknown, 12/19/18) Patient Home Medication List Home Medication List Reviewed: Yes Albuterol Sulfate (Proair Hfa) 1 Puff Puff, 2 PUFF IH Q4H PRN for SHORTNESS OF BREATH, (Reported) Entered as Reported by: CARISA ALMONTE on 05/23/22 1147 Aspirin (Aspirin EC) 81 Mg Tablet., 81 MG PO DAILY, (Reported) Entered as Reported by: CARISA ALMONTE on 05/23/22 1147 Atorvastatin Calcium (Atorvastatin Calcium) 40 Mg Tablet, 80 MG PO HS, (Reported) Entered as Reported by: VALERIY TOBAR on 12/19/18 1344 Dapagliflozin Propanediol (Farxiga) 5 Mg Tablet, 5 MG PO HS, (Reported) Entered as Reported by: DEYANIRA PEREZ on 01/09/21 07 Diclofenac Sodium (Diclofenac Sodium) 75 Mg Tablet.dr, 75 MG PO BID, (Reported) Entered as Reported by: DEYANIRA PEREZ on 01/09/21 07 Dulaglutide (Trulicity) 3 Mg/0.5 Ml Pen.injctr, 3 MG SQ WED, (Reported) Entered as Reported by: CARISA ALMONTE on 05/23/22 114 Ezetimibe (Ezetimibe) 10 Mg Tablet, 10 MG PO DAILY, (Reported) Entered as Reported by: CARISA ALMONTE on 05/23/22 114 Fluticasone/Vilanterol (Breo Ellipta 100-25 Mcg INH) 100 Mcg-25 Mcg/Dose Blst.w.dev, 1 EACH IH DAILY, (Reported) Entered as Reported by: CARISA ALMONTE on 05/23/22 114 Gabapentin Enacarbil (Horizant) 600 Mg Tablet.er, 600 MG PO BID, (Reported) Entered as Reported by: DEYANIRA PEREZ on 01/09/21734 Insulin Aspart (Novolog Flexpen) 100 Unit/Ml (3 Ml) Solution, 12 UNITS SQ TIDAC, (Reported) Entered as Reported by: VALERIY TOBAR on 12/19/181343 Insulin Glargine,Hum.rec.anlog (Toujeo Max Solostar) 300 Unit/1 Ml Insuln.pen, 60 UNIT SQ HS, (Reported) Entered as Reported by: VALERIY TOBAR on 12/19/181343 Lisinopril (Lisinopril) 10 Mg Tablet, 10 MG PO DAILY, (Reported) Entered as Reported by: DEYANIRA PEREZ on 01/09/21 07 Metformin HCl (Metformin HCl) 1,000 Mg Tablet, 1,000 MG PO BID, (Reported) Entered as Reported by: CARISA ALMONTE on 05/23/22 114 Metoprolol Succinate (Metoprolol Succinate) 50 Mg Tab.er.24h, 50 MG PO HS, (Reported) Entered as Reported by: DEYANIRA PEREZ on 01/09/21 07 Ranolazine (Ranexa) 500 Mg Tab.er.12h, 1,000 MG PO BID, (Reported) Entered as Reported by: CARISA ALMONTE on 05/23/22 1147 Physical Exam-Cardiology Physical Exam Vital Signs/I&O 07/08/22 07/08/22 07/08/22 07/08/22 02:50 02:50 03:31 04:26 Pulse 89 123 Resp 12 18 B/P (MAP) 113/94 (100) 111/60 Pulse Ox 100 100 O2 Delivery Non Rebreather Non Rebreather O2 Flow Rate 15.00 15.00 FiO2 100 07/08/22 07/08/22 07/08/22 07/08/22 05:14 05:46 06:00 06:10 Temp 34.4 Pulse 131 133 130 Resp 18 23 B/P (MAP) 106/64 108/76 83/56 Pulse Ox 100 96 O2 Delivery Non Rebreather Mechanical Ventilator O2 Flow Rate 40.00 40.00 07/08/22 07/08/22 07/08/22 07/08/22 06:11 06:15 06:30 07:00 Pulse 133 133 130 138 Resp 23 23 24 35 B/P (MAP) 90/57 87/56 91/68 Pulse Ox 96 96 98 95 O2 Delivery Mechanical Ventilator Mechanical Ventilator Mechanical Ventilator O2 Flow Rate 40.00 40.00 40.00 FiO2 40 07/08/22 07/08/22 07/08/22 07/08/22 07:05 07:16 07:21 08:00 Pulse 137 139 140 134 Resp 29 30 B/P (MAP) 91/68 101/57 Pulse Ox 99 99 O2 Delivery Mechanical Ventilator O2 Flow Rate 40.00 FiO2 40 07/08/22 07/08/22 07/08/22 07/08/22 08:00 08:01 09:00 09:43 Temp 34.4 Pulse 140 151 146 Resp 34 23 B/P (MAP) 88/52 Pulse Ox 99 98 95 O2 Delivery Mechanical Ventilator Mechanical Ventilator O2 Flow Rate 40.00 FiO2 40 40 07/08/22 07/08/22 07/08/22 07/08/22 10:00 10:02 10:07 11:00 Pulse 149 146 146 149 Resp 26 21 B/P (MAP) 88/52 74/44 74/44 96/53 Pulse Ox 95 98 O2 Delivery Mechanical Ventilator Mechanical Ventilator O2 Flow Rate 40.00 40.00 07/08/22 07/08/22 07/08/22 07/08/22 11:21 11:59 12:00 12:00 Pulse 143 142 142 Resp 19 B/P (MAP) 87/53 96/60 87/53 Pulse Ox 98 O2 Delivery Mechanical Ventilator Mechanical Ventilator O2 Flow Rate 40.00 FiO2 40 07/08/22 07/08/22 07/08/22 12:42 12:48 13:00 Pulse 143 143 137 Resp 19 B/P (MAP) 87/53 88/59 Pulse Ox 99 O2 Delivery Mechanical Ventilator O2 Flow Rate 40.00 Capillary Refill : Less Than 3 Seconds Constitutional: other (on mech vent, unresponsive) HEENT: PERRL; No xanthelasmas are seen Neck: carotid pulses are 2 + bilaterally Respiratory: No accessory muscle use; other (fair to good, bilateral air entry) Cardiovascular: regular rate-rhythm, tachycardia, systolic murmur (soft LYDIA at card base) Gastrointestinal: soft; No guarding; audible bowel sounds Extremities: No clubbing, No cyanosis, No significant edema Neurologic/Psychiatric: other (unresponsive) Skin: No rash on exposed areas, No ulcerations on exposed areas Data Review Labs Laboratory Tests 07/08/22 02:58: Phosphorus Level 8.7H, Magnesium Level 2.8H, Troponin I < 0.028, Serum Alcohol < 10 07/08/22 03:02: White Blood Count 13.0H, Red Blood Count 4.43, Hemoglobin 14.8, Hematocrit 43, Mean Corpuscular Volume 96, Mean Corpuscular Hemoglobin 33, Mean Corpuscular Hemoglobin Concent 35, Red Cell Distribution Width 12.7, Platelet Count 252, Mean Platelet Volume 10.5, Immature Granulocyte % (Auto) 2, Neutrophils (%) (Auto) 80H, Lymphocytes (%) (Auto) 3L, Monocytes (%) (Auto) 14H, Eosinophils (%) (Auto) 1, Basophils (%) (Auto) 0, Neutrophils # (Auto) 10.5H, Lymphocytes # (Auto) 0.4L, Monocytes # (Auto) 1.9H, Eosinophils # (Auto) 0.1, Basophils # (Auto) 0.0, Immature Granulocyte # (Auto) 0.3H, Neutrophils % (Manual) 60, Lymphocytes % (Manual) 5, Monocytes % (Manual) 18, Band Neutrophils 17, Blood Morphology Comment NORMAL, Prothrombin Time 13.8, INR Comment 1.0, Activated Partial Thromboplast Time 30, Sodium Level 118*L, Potassium Level 5.4H, Chloride Level 78L, Carbon Dioxide Level < 5*L, Anion Gap 35H, Blood Urea Nitrogen 86H, Creatinine 4.43H, Estimat Glomerular Filtration Rate 16, BUN/Creatinine Ratio 19, Glucose Level 1125*H, Lactic Acid Level 1.84, Calcium Level 7.8L, Corrected Calcium 8.0L, Total Bilirubin 0.6, Aspartate Amino Transf (AST/SGOT) 12, Alanine Aminotransferase (ALT/SGPT) 19, Alkaline Phosphatase 123, Total Protein 6.7, Albumin 3.8 07/08/22 03:38: Urine Color YELLOW, Urine Clarity CLEAR, Urine pH 5.5, Urine Specific Harmon 1.010L, Urine Protein NEGATIVE, Urine Glucose (UA) 3+H, Urine Ketones 1+H, Urine Nitrite NEGATIVE, Urine Bilirubin NEGATIVE, Urine Urobilinogen 0.2, Urine Leukocyte Esterase NEGATIVE, Urine RBC (Auto) NEGATIVE, Urine RBC NONE, Urine WBC NONE, Urine Squamous Epithelial Cells 0-2, Urine Crystals NONE, Urine Bacteria FEWH, Urine Casts NONE, Urine Mucus SMALLH, Urine Culture Indicated CULTURE PENDING, Urine Opiates Screen NEGATIVE, Urine Oxycodone Screen NEGATIVE, Urine Methadone Screen NEGATIVE, Urine Propoxyphene Screen NEGATIVE, Urine Barbiturates Screen NEGATIVE, Ur Tricyclic Antidepressants Screen NEGATIVE, Urine Phencyclidine Screen NEGATIVE, Urine Amphetamines Screen NEGATIVE, Urine Methamphetamines Screen NEGATIVE, Urine Benzodiazepines Screen NEGATIVE, Urine Cocaine Screen NEGATIVE, Urine Cannabinoids Screen NEGATIVE 07/08/22 04:05: Blood Gas Puncture Site RIGHT RADIAL, Blood Gas Patient Temperature 35.0, Arterial Blood pH 7.06*L, Arterial Blood Partial Pressure CO2 25L, Arterial Blood Partial Pressure O2 143H, Arterial Blood HCO3 7*L, Arterial Blood Total CO2 8.0*L, Arterial Blood Oxygen Saturation 99, Arterial Blood Base Excess - 21.4L, Luis Miguel Test YES-POS, Blood Gas Ventilator Setting YES, Blood Gas Inspired Oxygen 40%, Influenza Type A (RT-PCR) Not Detected, Influenza Type B (RT-PCR) Not Detected, SARS-CoV-2 RNA (RT-PCR) Not Detected 07/08/22 07:12: Sodium Level 136, Potassium Level 3.6, Chloride Level 96L, Carbon Dioxide Level 8*L, Anion Gap 32H, Blood Urea Nitrogen 75H, Creatinine 3.14#H, Estimat Glomerular Filtration Rate 24, BUN/Creatinine Ratio 24, Glucose Level 690*H, Calcium Level 7.7L, Triglycerides Level 366H, Beta-Hydroxybutyrate (Chem panel) 12.46H 07/08/22 08:12: Blood Gas Puncture Site RT RAD, Blood Gas Patient Temperature 34.4, Arterial Blood pH 7.32*L, Arterial Blood Partial Pressure CO2 18*L, Arterial Blood Partial Pressure O2 63L, Arterial Blood HCO3 9*L, Arterial Blood Total CO2 10.0L , Arterial Blood Oxygen Saturation 95, Arterial Blood Base Excess -16.2L, Luis Miguel Test YES-POS, Blood Gas Ventilator Setting NO, Blood Gas Inspired Oxygen 40% 07/08/22 08:49: Glucometer 539*H 07/08/22 09:26: Sodium Level 138, Potassium Level 3.1L, Chloride Level 99, Carbon Dioxide Level 11L, Anion Gap 28H, Blood Urea Nitrogen 73H, Creatinine 3.27H, Estimat Glomerular Filtration Rate 22, BUN/Creatinine Ratio 22, Glucose Level 495*H, Calcium Level 7.3L 07/08/22 10:50: Glucometer 452*H 07/08/22 12:04: Glucometer 261H 07/08/22 12:57: Glucometer 248H Laboratory Tests 07/08/22 03:02 07/08/22 07:12 07/08/22 09:26 A/P-Cardiology Assessment/Admission Diagnosis Severe DKA, septic shock, and acute renal failure - managed by Dr Umanzor and the ICU service - echo on 07/08/22: technically difficult study; hyperdynamic LV seen on Definity contrast injection with LVEF approx 60% Sinus tachycardia due to severe acute illness and use of beta-agonist pressors - proven by administration of iv adenosine during tachycardia on 07/08/22: it did not show any atrial flutter during transient, complete heart block (induced for a few seconds by adenosine) CAD - History of CABG x3 done by Dr. Justin in April 2017: URRUTIA to LAD, reverse vein graft to the right PDA and reverse vein graft to the OM1, - Last cath 01/09/[address] Melgar: LMCA Ok. LAD occlude in mid portion. URRUTIA to distal LAD patent. OM1 of LCX occluede. SVG to OM patent. RCA occlude SVG to PDA patent, but PDA small and with slow distal flow - Last MPI 06/27/[address] Melgar: no ischemia or infarction, LVEF 73% H/o chronic chest wall pain with occasional feeling of numbness in his arm Hyperlipidemia for which he has been on statins COPD Diabetes mellitus, poorly controlled Nonobstructive carotid artery stenosis per carotid duplex done Dec [address] Melgar H/o recurrent headache, managed by primary care physician Discussion and Recomendations * Complex management to multiple comorbidities and presentation in extremis * Continue fluid and pressor support as needed * Monitor labs closely * Correct electrolyte and acid-base abnormalities ALVARO SUAREZ MD FACP [facility] CCDS Jul 08, 2022 14:13
[2022-07-08 15:28] LABS: CALCIUM 6.7 MG/DL (8.5-10.1); CREATININE SERUM 2.71 MG/DL (0.60-1.30); POTASSIUM 3.1 MMOL/L (3.6-5.0)
[2022-07-08] MEDS: D5 1/2 NS 1000 ML IV SOLUTION 1,000 ML IV SCH ×2 (16:57→23:10)
[2022-07-08] MEDS: PANTOPRAZOLE INJECTION 200 MG in NS (IVPB) 100 ML IV SCH (16:59)
[2022-07-08] MEDS ORDERED: NS IV 1000 ML 1,000 ML ONE (17:14)
[2022-07-08] MEDS ORDERED: EPINEPHrine (PYXIS DRIP KIT ONLY) 1 MG/ML X 4 AMPS ONE (17:14)
[2022-07-08] MEDS ORDERED: NS (IVPB) 250 ML ONE (17:14)
[2022-07-08] MEDS: EPINEPHrine 1 MG INJECTION 4 MG in NS (IVPB) 246 ML IV SCH ×2 (17:47→23:01)
[2022-07-08 23:02] LABS: POTASSIUM 2.9 MMOL/L (3.6-5.0)
[2022-07-08 23:03] LABS: CALCIUM 6.7 MG/DL (8.5-10.1)
[2022-07-08 23:07] LABS: CREATININE SERUM 2.37 MG/DL (0.60-1.30)
[2022-07-09] VITALS (7 sets, daily range): BP systolic 87–150; BP diastolic 34–96
[2022-07-09] MEDS: POTASSIUM CL 10MEQ/50ML IVPB 50 ML IV SCH ×15 (00:10→22:31)
[2022-07-09] MEDS: NOREPINEPHRINE 8 MG/250 ML 250 ML IV SCH ×4 (00:47→07:45)
[2022-07-09] MEDS: PANTOPRAZOLE INJECTION 200 MG in NS (IVPB) 100 ML IV SCH (02:03)
[2022-07-09] MEDS: DexMEDEtomidine 250 ML DRIP 250 ML IV SCH ×2 (02:04→16:21)
[2022-07-09] MEDS: 1/2 NS IV SOLUTION 1,000 ML IV SCH ×11 (02:45→23:42)
[2022-07-09] MEDS ORDERED: EPINEPHrine (PYXIS DRIP KIT ONLY) 1 MG/ML X 4 AMPS ONE (03:30)
[2022-07-09] MEDS ORDERED: NS (IVPB) 250 ML ONE (03:31)
[2022-07-09] MEDS: EPINEPHrine 1 MG INJECTION 4 MG in NS (IVPB) 246 ML IV SCH ×2 (03:38→08:38)
[2022-07-09] MEDS: D5 1/2 NS 1000 ML IV SOLUTION 1,000 ML IV SCH ×5 (03:59→20:30)
[2022-07-09 04:04] LABS: ABG BASE EXCESS -12.4 MMOL/L (-2.5-2.5); ABG OXYGEN SATURATION 99 % (94-100); ABG PCO2 29 MMHG (35-45); ABG PO2 105 MMHG (79-93); ABG TCO2 14.2 MMOL/L (21.0-31.0)
[2022-07-09 04:08] LABS: ABG PH 7.27 (7.37-7.43); INSPIRED O2 40%; PATIENT TEMP 36.2; VENTILATOR YES
[2022-07-09 04:25] LABS: BASOPHILS # (AUTO) 0.1 10^3/uL (0.0-0.1); BASOPHILS % (AUTO) 1 % (0-10); EOSINOPHILS % (AUTO) 0 % (0-10); HEMATOCRIT 34 % (40-54); HEMOGLOBIN 12.6 g/dL (13.3-17.7); LYMPHOCYTES # (AUTO) 0.7 10^3/uL (1.0-4.0); LYMPHOCYTES % (AUTO) 4 % (12-44); MEAN CORPUSCULAR HEMOGLOBIN 34 pg (25-34); MEAN CORPUSCULAR HGB CONC 37 g/dL (32-36); MEAN CORPUSCULAR VOLUME 92 fL (80-99); MEAN PLATELET VOLUME 10.3 fL (9.0-12.2); MONOCYTES # (AUTO) 1.3 10^3/uL (0.0-1.0); MONOCYTES % (AUTO) 7 % (0-12); NEUTROPHILS % (AUTO) 88 % (42-75); PLATELET COUNT 159 10^3/uL (130-400); WHITE BLOOD COUNT 18.3 10^3/uL (4.3-11.0)
[2022-07-09 04:34] LABS: ALBUMIN 2.4 GM/DL (3.2-4.5); POTASSIUM 3.7 MMOL/L (3.6-5.0)
[2022-07-09 04:35] LABS: CALCIUM 6.9 MG/DL (8.5-10.1)
[2022-07-09] MEDS: PROPOFOL DRIP (ICU) 100 ML IV SCH ×2 (04:35→18:41)
[2022-07-09 04:36] LABS: TOTAL PROTEIN 4.7 GM/DL (6.4-8.2)
[2022-07-09 04:38] LABS: BILIRUBIN,TOTAL 0.4 MG/DL (0.1-1.0)
[2022-07-09 04:40] LABS: CREATININE SERUM 1.95 MG/DL (0.60-1.30); PHOSPHORUS 1.5 MG/DL (2.3-4.7)
[2022-07-09 04:43] LABS: MAGNESIUM 1.2 MG/DL (1.6-2.4)
[2022-07-09] MEDS ORDERED: VANCOMYCIN 1 GM/NS 250 ML IVPB IV SCH ×2 (05:00)
[2022-07-09] MEDS ORDERED: MAGNESIUM 1 GM/100 ML IVPB 100 ML IV SCH (05:15)
[2022-07-09] MEDS: KCL 20 MEQ TAB (K-DUR) PO SCH (05:39)
[2022-07-09] MEDS: MAGNESIUM 1 GM/100 ML IVPB 100 ML IV SCH ×3 (05:47→06:58)
[2022-07-09] MEDS: PIPERACILLIN SODIUM/TAZOBACTAM 4.5 GM in NS (IVPB) 100 ML IV SCH ×3 (05:47→21:41)
--- NOTE | 2022-07-09 06:47 | Occ Therapy Progress Note ---
Therapy Progress Note OT orders received. OT to monitor pt's status then will initiate treatment when pt is medically stable and able to actively participate in skilled therapy. JASON WALTERS Jul 09, 2022 06:47
--- NOTE | 2022-07-09 07:37 | Physical Therapy Progress Note ---
Therapy Progress Note Patient is currently sedated and intubated. PT will monitor patient status and initiate skilled therapy when patient is able to actively participate. EDENILSON CASTILLO PT Jul 09, 2022 07:37
[2022-07-09] MEDS ORDERED: SODIUM PHOSPHATE INJ 30 MM in NS (IVPB) 250 ML INJ ONE (08:30)
--- NOTE | 2022-07-09 08:38 | Diagnostic Imaging Report ---
Indication: Respiratory failure. Frontal chest obtained at 0453 a.m. compared to yesterday. Heart is borderline in size. Mediastinal silhouette is unremarkable. The lungs are clear. There is no pneumothorax or pleural fluid. ET tube tip overlies mid trachea. Right IJ central catheter tip overlies upper SVC. NG tube tip overlies gastric fundus. IMPRESSION: Life support lines are unchanged compared to the prior study. The lungs appear clear, with improved aeration of the left base compared to the previous study. Dictated by: Dictated on workstation # [id number]
--- NOTE | 2022-07-09 08:55 | Tele-ICU Progress Note ---
Subjective Date Seen by a Provider: Jul 09, 2022 Time Seen by a Provider: 08:55 Subjective/Events-last exam (Tele-ICU Physician , Progress Note ) Available chart/ vitals / labs / Images reviewed Video assessment done using teleICU camera, rest of exam as per RN Discussed with RN Events overnight : Afebrile hemodynamically stable Respiratory - 30% I/O = pos 2 l Drips: insulin Pressors- vaso levo 0.8 , epi 0.2 VENT SETTINGS and ABG reviewed Sedation: RASS -1 precedex 1 . propofol 15 Not candidate for SBTContraindications : Cardiovascular Stability /Sedation Score / FI02/PEEP / ABG / CXR Consultants: gabino Hospital course: 07-08: 47 y/o M - Unresponsive at home - Not well since Saturday. ?Asp Pneumonia - DKA Hypothermic - Intubated in ER - Pressors started. 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 s/p CABG 2016 - ECHO 07/08 - EF 55% ( technically difficult study; hyperdynamic LV - cards follow Tachycardia - Sinus ( confirmed in after adenosine ) h/o COPD - cont nebs Lines : R IJ , (Central Line Necessity Reviewed) Nicholson: + OG: Nutrition: Analgesia: Anxiety/ delirium VTE Prophylaxis: jeff 30 Stress Ulcer Prophylaxis: ppi Plans in collaboration with bedside consultants and IM MDs. Discussed with RN to reach out if any questions or concerns A total of 35 minutes of critical care time was devoted to this patient today, required to treat and/or prevent further deterioration of critical care condition ( as above ) . Sepsis Event Evaluation Height, Weight, BMI Height: 5'6.00" Weight: 157lbs. 0.0oz. 71.704397we; 26.68 BMI Method: Focused Exam Lactate Level 07/08/22 03:02: Lactic Acid Level 1.84 Exam Exam Patient acknowledged, consented, and participated in this virtual visit which was conducted using real time audio/video Vital Signs Date Time Temp Pulse Resp B/P (MAP) Pulse Ox O2 Delivery O2 Flow Rate FiO2 07/09/22 08:00 36.3 114 10 99/65 95 Mechanical Ventilator 30.00 07/09/22 07:45 112 105/70 07/09/22 07:12 Mechanical Ventilator 30.00 07/09/22 07:11 36.1 112 98 40 07/09/22 07:08 30 07/09/22 07:00 36.1 114 9 105/72 96 Mechanical Ventilator 30.00 07/09/22 07:00 114 07/09/22 06:50 112 20 98 40 07/09/22 06:04 111 106/71 07/09/22 06:00 36.3 111 15 106/71 99 Mechanical Ventilator 40.00 07/09/22 05:15 113 87/63 07/09/22 05:00 36.4 113 20 84/52 99 Mechanical Ventilator 40.00 07/09/22 04:35 113 87/63 07/09/22 04:00 36.2 113 20 104/57 99 Mechanical Ventilator 40.00 07/09/22 04:00 Mechanical Ventilator 40 07/09/22 03:13 113 87/63 07/09/22 03:00 35.9 112 18 97/60 99 Mechanical Ventilator 40.00 07/09/22 02:39 113 18 98 40 07/09/22 02:04 122 84/57 07/09/22 02:00 35.8 113 21 106/47 98 Mechanical Ventilator 40.00 07/09/22 01:00 36.0 113 18 101/64 98 Mechanical Ventilator 40.00 07/09/22 01:00 113 07/09/22 00:47 122 84/57 07/09/22 00:00 36.4 122 22 84/57 98 Mechanical Ventilator 40.00 07/08/22 23:59 Mechanical Ventilator 40 07/08/22 23:15 135 20 97 40 07/08/22 23:02 150 75/44 07/08/22 23:00 37.0 125 17 89/52 98 Mechanical Ventilator 40.00 07/08/22 22:24 150 75/44 07/08/22 22:00 37.2 138 19 82/48 97 Mechanical Ventilator 40.00 07/08/22 21:47 150 75/44 07/08/22 21:00 37.5 149 19 90/70 97 Mechanical Ventilator 40.00 07/08/22 20:57 150 75/44 07/08/22 20:57 150 75/44 07/08/22 20:00 Mechanical Ventilator 40 07/08/22 20:00 37.4 147 21 93/61 96 Mechanical Ventilator 40.00 07/08/22 19:53 150 75/44 07/08/22 19:00 37.2 147 18 91/60 97 Mechanical Ventilator 40.00 07/08/22 19:00 150 07/08/22 18:45 144 18 100 40 07/08/22 18:12 150 75/44 07/08/22 18:07 141 17 75/44 98 Mechanical Ventilator 40.00 07/08/22 17:47 135 85/42 07/08/22 17:00 141 18 97/56 98 Mechanical Ventilator 40.00 07/08/22 16:58 135 85/42 07/08/22 16:57 135 85/42 07/08/22 16:57 135 85/42 07/08/22 16:00 135 18 85/42 97 Mechanical Ventilator 40.00 07/08/22 15:36 Mechanical Ventilator 40 07/08/22 15:00 134 17 90/42 97 Mechanical Ventilator 40.00 07/08/22 14:25 139 18 100 40 07/08/22 14:12 137 88/59 07/08/22 14:02 134 90/42 07/08/22 14:02 134 90/42 07/08/22 14:00 137 17 85/52 98 Mechanical Ventilator 40.00 07/08/22 13:00 137 19 88/59 99 Mechanical Ventilator 40.00 07/08/22 12:48 143 87/53 07/08/22 12:42 143 07/08/22 12:00 142 19 87/53 98 Mechanical Ventilator 40.00 07/08/22 12:00 Mechanical Ventilator 40 07/08/22 11:59 142 96/60 07/08/22 11:21 143 87/53 07/08/22 11:00 149 21 96/53 98 Mechanical Ventilator 40.00 07/08/22 10:07 146 74/44 07/08/22 10:02 146 74/44 07/08/22 10:00 149 26 88/52 95 Mechanical Ventilator 40.00 07/08/22 09:43 146 23 95 40 07/08/22 09:00 151 34 88/52 98 Mechanical Ventilator 40.00 I & O 07/09/22 07:00 Intake Total 5000 ml Output Total 7000 ml Balance -2000 ml Height & Weight Height: 5'6.00" Weight: 157lbs. 0.0oz. 71.818793sj; 26.68 BMI Method: General Appearance: WD/WN, Severe Distress HEENT: PERRL/EOMI, TMs Normal (Negative for hemotympanum or louis sign, atraumatic head), Pharynx Normal (Dry with blackish brown emesis.); No Moist Mucous Membranes Neck: Full Range of Motion, Normal Inspection Respiratory: Lungs Clear, Normal Breath Sounds, No Accessory Muscle Use, Respiratory Distress (Increased respiratory rate, Kussmaul) Cardiovascular: Normal Peripheral Pulses, Tachycardia Capillary Refill: Less Than 3 Seconds Gastrointestinal: normal bowel sounds, non tender, soft Extremity: Normal Inspection, No Pedal Edema, Slow Capillary Refill Neurologic/Psychiatric: Other (GCS of 8, will open eyes briefly if given noxious or verbal stimuli. Does not follow commands. Flexes on noxious stim shadi.) Skin: Cool, Pallor Results Lab Laboratory Tests 07/08/22 03:02 07/08/22 07:12 07/08/22 09:26 07/08/22 15:05 07/08/22 22:45 07/09/22 04:19 Assessment/Plan Assessment/Plan 1 MAYANK CHILDERS MD Jul 09, 2022 08:55
[2022-07-09] MEDS: VASOPRESSIN INJECTION 20 UNIT in NS (IVPB) 100 ML IV SCH ×2 (08:56→20:30)
[2022-07-09] MEDS: PANTOPRAZOLE 40 MG (PROTONIX) VIAL IV SCH (08:58)
[2022-07-09] MEDS: ENOXAPARIN INJECTION 30 MG/0.3 ML SYR SC SCH (08:58)
[2022-07-09] MEDS: ASPIRIN 81 MG CHEW (CHILDREN'S ASA) PO SCH (08:58)
[2022-07-09] MEDS: SENNOSIDES 8.6 MG (SENOKOT) TAB PO SCH ×2 (08:58→21:32)
[2022-07-09] MEDS: DOCUSATE SODIUM 100 MG (COLACE) CAP PO SCH ×2 (09:00→21:32)
[2022-07-09] MEDS: RT-ALBUTEROL/IPRATROPIUM 3 ML (DUONEB) VIAL INH SCH ×3 (10:40→20:56)
[2022-07-09] MEDS ORDERED: RT-ALBUTEROL/IPRATROPIUM 3 ML (DUONEB) VIAL INH PRN (11:00)
--- NOTE | 2022-07-09 11:19 | Progress Note ---
Subjective Subjective/Events-last exam Patient intubated and sedated Review of Systems Unable to determine due to sedation and intubation Focused Exam Lactate Level 07/08/22 03:02: Lactic Acid Level 1.84 Objective Exam Last Set of Vital Signs Vital Signs Date Time Temp Pulse Resp B/P (MAP) Pulse Ox O2 Delivery O2 Flow Rate FiO2 07/09/22 11:00 36.7 120 22 107/81 97 Mechanical Ventilator 30.00 07/09/22 10:40 30 Capillary Refill : Less Than 3 Seconds I&O Intake and Output 07/09/22 00:00 Intake Total 5000 ml Output Total 3100 ml Balance 1900 ml Intake Oral 100 ml IV Total 4900 ml Output Urine Total 3100 ml Daily Weight Change No General: Other (Intubated and sedated) HEENT: Other (Clear NG drainage) Lungs: Other (Coursed breath sounds with diminished bases) Heart: No Murmurs, Other (tachycardic rate) Abdomen: Soft Extremities: No Edema, No Tenderness/Swelling Results/Procedures Lab Laboratory Tests 07/08/22 12:04: Glucometer 261H 07/08/22 12:57: Glucometer 248H 07/08/22 14:11: Glucometer 260H 07/08/22 15:00: Glucometer 240H 07/08/22 15:05: Sodium Level 141, Potassium Level 3.1L, Chloride Level 109H, Carbon Dioxide Level 16L, Anion Gap 16H, Blood Urea Nitrogen 60H, Creatinine 2.71#H, Estimat Glomerular Filtration Rate 28, BUN/Creatinine Ratio 22, Glucose Level 271H, Calcium Level 6.7L 07/08/22 16:20: Glucometer 220H 07/08/22 17:35: Glucometer 248H 07/08/22 18:25: Glucometer 230H 07/08/22 19:28: Glucometer 281H 07/08/22 20:33: Glucometer 254H 07/08/22 21:32: Glucometer 217H 07/08/22 22:34: Glucometer 230H 07/08/22 22:45: Sodium Level 141, Potassium Level 2.9L, Chloride Level 111H, Carbon Dioxide Level 13L, Anion Gap 17H, Blood Urea Nitrogen 47H, Creatinine 2.37H, Estimat Glomerular Filtration Rate 33, BUN/Creatinine Ratio 20, Glucose Level 271H, Calcium Level 6.7L 07/08/22 23:20: Glucometer 203H 07/09/22 00:17: Glucometer 303H 07/09/22 00:22: Glucometer 226H 07/09/22 01:21: Glucometer 233H 07/09/22 02:18: Glucometer 253H 07/09/22 03:17: Glucometer 229H 07/09/22 04:00: Blood Gas Puncture Site LEFT BRACHIAL, Blood Gas Patient Temperature 36.2, Arterial Blood pH 7.27*L, Arterial Blood Partial Pressure CO2 29L, Arterial Blood Partial Pressure O2 105H, Arterial Blood HCO3 13*L, Arterial Blood Total CO2 14.2L, Arterial Blood Oxygen Saturation 99, Arterial Blood Base Excess - 12.4L, Luis Miguel Test NA, Blood Gas Ventilator Setting YES, Blood Gas Inspired Oxygen 40% 07/09/22 04:19: White Blood Count 18.3H, Red Blood Count 3.74L, Hemoglobin 12.6L, Hematocrit 34L , Mean Corpuscular Volume 92, Mean Corpuscular Hemoglobin 34, Mean Corpuscular Hemoglobin Concent 37H, Red Cell Distribution Width 13.2, Platelet Count 159, Mean Platelet Volume 10.3, Immature Granulocyte % (Auto) 1, Neutrophils (%) (Auto) 88H, Lymphocytes (%) (Auto) 4L, Monocytes (%) (Auto) 7, Eosinophils (%) (Auto) 0, Basophils (%) (Auto) 1, Neutrophils # (Auto) 16.0H, Lymphocytes # (Auto) 0.7L, Monocytes # (Auto) 1.3H, Eosinophils # (Auto) 0.0, Basophils # (Auto) 0.1, Immature Granulocyte # (Auto) 0.1, Sodium Level 138, Potassium Level 3.7, Chloride Level 110H, Carbon Dioxide Level 12L, Anion Gap 16H, Blood Urea Nitrogen 38H, Creatinine 1.95H, Estimat Glomerular Filtration Rate 42, BUN/Creatinine Ratio 19, Glucose Level 243H, Calcium Level 6.9L, Corrected Calcium 8.2L, Phosphorus Level 1.5L, Magnesium Level 1.2L, Total Bilirubin 0.4, Aspartate Amino Transf (AST/SGOT) 37H, Alanine Aminotransferase (ALT/SGPT) 16, Alkaline Phosphatase 73, Total Protein 4.7L, Albumin 2.4L, Beta-Hydroxybutyrate (Chem panel) 0.05 07/09/22 04:29: Glucometer 191H 07/09/22 05:26: Glucometer 225H 07/09/22 06:20: Glucometer 185H 07/09/22 07:50: Glucometer 182H 07/09/22 08:36: Glucometer 223H 07/09/22 09:30: Glucometer 193H 07/09/22 10:17: Glucometer 187H Microbiology 07/08/22 MRSA Screen - Final, Complete MRSA not isolated Assessment/Plan Assessment/Plan (1) Acute respiratory failure with hypoxia Status: Acute Assessment & Plan: 07/09: Intubated and sedated, managed per eICU, not candidate for SBT (2) Septic shock Status: Acute Assessment & Plan: 07/09: Aggressive IVFs, currently on 3 pressors, placing arterial line today, continues to have good UOP (3) Type 1 diabetes mellitus Status: Chronic Assessment & Plan: 07/09: Continue on insulin gtts, BMP q 8hrs Qualifiers: Qualified Codes: E10.69 - Type 1 diabetes mellitus with other specified complication (4) Ketoacidosis due to type 1 diabetes mellitus Status: Acute Qualifiers: Qualified Codes: E10.10 - Type 1 diabetes mellitus with ketoacidosis without coma (5) PNA (pneumonia) Status: Acute Assessment & Plan: 07/09: most likely aspiration PNA, intubated, on Zosyn, D/c Vancomycin today, MRSA screen negative Qualifiers: Qualified Codes: J69.0 - Pneumonitis due to inhalation of food and vomit (6) Acute renal failure Status: Acute Assessment & Plan: 07/09: Improving with aggressive IVFs, will continue to monitor, likely secondary to DKA and dehydration Qualifiers: Qualified Codes: N17.9 - Acute kidney failure, unspecified (7) Sinus tachycardia Status: Acute Assessment & Plan: 07/09: Cardiology consulted, appreciate recommendations, likely 2/2 to acidosis and illness severity, continue to monitor (8) CAD (coronary artery disease) Status: Chronic Qualifiers: Qualified Codes: I25.10 - Atherosclerotic heart disease of [place] coronary artery without angina pectoris AD MON[place] MD Jul 09, 2022 11:18
[2022-07-09] MEDS: NOREPINEPHRINE 16 MG/250 ML DRIP IV SCH ×6 (12:42→22:17)
[2022-07-09 13:01] LABS: POTASSIUM 3.4 MMOL/L (3.6-5.0)
[2022-07-09 13:02] LABS: CALCIUM 7.1 MG/DL (8.5-10.1)
[2022-07-09 13:06] LABS: CREATININE SERUM 1.4 MG/DL (0.60-1.30)
--- NOTE | 2022-07-09 13:22 | Cardiology Progress Note ---
Subjective Date Seen by Provider: Jul 09, 2022 Time Seen by Provider: 10:00 Subjective/Events-last exam Patient was seen at bedside, sedated and intubated Unable to provide any history History was obtained by reviewing his record Review of Systems General: Other (Unable to provide review of system) Focused Exam Lactate Level 07/08/22 03:02: Lactic Acid Level 1.84 Objective-Cardiology Exam Last Set of Vital Signs Vital Signs 07/09/22 07/09/22 12:00 12:38 Temp 36.9 Pulse 120 Resp 18 B/P (MAP) 110/70 (83) Pulse Ox 97 O2 Delivery Mechanical Ventilator O2 Flow Rate 30.00 FiO2 40 I&O Intake and Output 07/09/22 00:00 Intake Total 5000 ml Output Total 3100 ml Balance 1900 ml Intake Oral 100 ml IV Total 4900 ml Output Urine Total 3100 ml Daily Weight Change No General: Other (Intubated and sedated) HEENT: Other (Clear NG drainage) Lungs: Other (Coursed breath sounds with diminished bases) Heart: Normal S1, Normal S2, No Murmurs, Other (tachycardic rate) Abdomen: Soft Extremities: No Clubbing, No Edema, No Tenderness/Swelling Skin: No Rashes Neuro: Other (Sedated and intubated) Psych/Mental Status: Other (Sedated and intubated) Results Lab Laboratory Tests 07/08/22 15:05 07/08/22 22:45 07/09/22 04:19 07/09/22 12:30 A/P-Cardiology Admission Diagnosis Septic shock DKA Coronary artery disease Sinus tachycardia Assessment/Plan Hypotensive shock, on multiple pressors. I will start weaning him off the pressors and started fluid bolus and monitor tolerance and response Severe DKA, managed by primary care physician Septic shock, pneumonia or aspiration, managed by primary care physician Echo on 07/08/22: technically difficult study; hyperdynamic LV seen on Definity contrast injection with LVEF approx 60% Sinus tachycardia due to severe acute illness and use of beta-agonist pressors - proven by administration of iv adenosine during tachycardia on 07/08/22: it did not show any atrial flutter during transient, complete heart block (induced for a few seconds by adenosine) CAD - History of CABG x3 done by Dr. Justin in April 2017: URRUTIA to LAD, reverse vein graft to the right PDA and reverse vein graft to the OM1, - Last cath 01/09/[address] Melgar: LMCA Ok. LAD occlude in mid portion. URRUTIA to distal LAD patent. OM1 of LCX occluede. SVG to OM patent. RCA occlude SVG to PDA patent, but PDA small and with slow distal flow - Last MPI 06/27/[address] Melgar: no ischemia or infarction, LVEF 73% H/o chronic chest wall pain with occasional feeling of numbness in his arm Hyperlipidemia for which he has been on statins COPD Diabetes mellitus, poorly controlled Nonobstructive carotid artery stenosis per carotid duplex done Dec [address] Melgar H/o recurrent headache, managed by primary care physician BREONNA MELGAR MD Jul 09, 2022 13:22
[2022-07-09] MEDS ORDERED: DULA1.5P2 SQ (15:03)
[2022-07-09] MEDS ORDERED: DAPA10TA PO (15:03)
[2022-07-09] MEDS ORDERED: RANO10005 PO (15:03)
[2022-07-09] MEDS ORDERED: SERT-413 PO (15:22)
[2022-07-09] MEDS ORDERED: NS IV 1000 ML 1,000 ML ONE (15:42)
[2022-07-09] MEDS ORDERED: NS IV 1000 ML 1,000 ML IV SCH (15:45)
[2022-07-09 21:24] LABS: CALCIUM 7.5 MG/DL (8.5-10.1); CREATININE SERUM 1.2 MG/DL (0.60-1.30); PHOSPHORUS 2.6 MG/DL (2.3-4.7); POTASSIUM 3.5 MMOL/L (3.6-5.0)
[2022-07-10] VITALS (7 sets, daily range): BP systolic 89–146; BP diastolic 58–91
[2022-07-10] MEDS: POTASSIUM CL 10MEQ/50ML IVPB 50 ML IV SCH ×11 (00:09→18:34)
[2022-07-10] MEDS: D5 1/2 NS 1000 ML IV SOLUTION 1,000 ML IV SCH ×6 (00:09→22:25)
[2022-07-10] MEDS: 1/2 NS IV SOLUTION 1,000 ML IV SCH ×12 (02:04→22:40)
[2022-07-10] MEDS: RT-ALBUTEROL/IPRATROPIUM 3 ML (DUONEB) VIAL INH SCH ×4 (02:09→18:49)
[2022-07-10] MEDS: NOREPINEPHRINE 16 MG/250 ML DRIP IV SCH ×4 (03:32→11:36)
[2022-07-10 03:46] LABS: BASOPHILS % (AUTO) 0 % (0-10); EOSINOPHILS % (AUTO) 0 % (0-10); HEMATOCRIT 34 % (40-54); HEMOGLOBIN 12.2 g/dL (13.3-17.7); LYMPHOCYTES # (AUTO) 0.4 10^3/uL (1.0-4.0); LYMPHOCYTES % (AUTO) 2 % (12-44); MEAN CORPUSCULAR HEMOGLOBIN 33 pg (25-34); MEAN CORPUSCULAR HGB CONC 36 g/dL (32-36); MEAN CORPUSCULAR VOLUME 92 fL (80-99); MEAN PLATELET VOLUME 10.3 fL (9.0-12.2); MONOCYTES # (AUTO) 1.2 10^3/uL (0.0-1.0); MONOCYTES % (AUTO) 6 % (0-12); NEUTROPHILS # (AUTO) 18.5 10^3/uL (1.8-7.8); NEUTROPHILS % (AUTO) 90 % (42-75); PLATELET COUNT 107 10^3/uL (130-400); WHITE BLOOD COUNT 20.5 10^3/uL (4.3-11.0)
[2022-07-10 03:54] LABS: ABG BASE EXCESS -10.3 MMOL/L (-2.5-2.5); ABG OXYGEN SATURATION 98 % (94-100); ABG PCO2 24 MMHG (35-45); ABG PH 7.38 (7.37-7.43); ABG PO2 78 MMHG (79-93); ABG TCO2 14.9 MMOL/L (21.0-31.0)
[2022-07-10] MEDS: morphine INJ 4 MG/ML 1 ML (VIAL/SYRINGE) IV PRN ×2 (03:56→10:43)
[2022-07-10 03:57] LABS: ALBUMIN 2.4 GM/DL (3.2-4.5); POTASSIUM 3.2 MMOL/L (3.6-5.0)
[2022-07-10 03:58] LABS: CALCIUM 7.6 MG/DL (8.5-10.1)
[2022-07-10] MEDS ORDERED: TROUGH ORDER-PHARMACY XX NR (04:00)
[2022-07-10 04:01] LABS: BILIRUBIN,TOTAL 0.6 MG/DL (0.1-1.0)
[2022-07-10 04:01] LABS: ALLENS TEST YES-POS; INSPIRED O2 40%; PATIENT TEMP 36.2; VENTILATOR YES
[2022-07-10 04:03] LABS: CREATININE SERUM 1.15 MG/DL (0.60-1.30); PHOSPHORUS 2.8 MG/DL (2.3-4.7)
[2022-07-10 04:06] LABS: MAGNESIUM 1.3 MG/DL (1.6-2.4)
[2022-07-10] MEDS: KCL 20 MEQ TAB (K-DUR) PO SCH (04:09)
[2022-07-10] MEDS: PROPOFOL DRIP (ICU) 100 ML IV SCH ×2 (04:27→16:12)
[2022-07-10] MEDS: MAGNESIUM 1 GM/100 ML IVPB 100 ML IV SCH ×5 (04:28→08:13)
[2022-07-10] MEDS: PIPERACILLIN SODIUM/TAZOBACTAM 4.5 GM in NS (IVPB) 100 ML IV SCH ×3 (04:29→22:25)
[2022-07-10] MEDS: DexMEDEtomidine 250 ML DRIP 250 ML IV SCH (04:39)
[2022-07-10] MEDS: VASOPRESSIN INJECTION 20 UNIT in NS (IVPB) 100 ML IV SCH ×2 (06:16→18:43)
--- NOTE | 2022-07-10 06:41 | Occ Therapy Progress Note ---
Therapy Progress Note Pt is currently intubated. OT to monitor pt's status then will initiate treatment when pt is medically stable and able to actively participate in skilled therapy. JASON WALTERS Jul 10, 2022 06:41
--- NOTE | 2022-07-10 07:11 | Diagnostic Imaging Report ---
Indication: Respiratory failure Portable chest 5:01 AM There is ET tube projects over the trachea. NG tube projects over the stomach. Right IJ central line tip projects over the SVC. There are postoperative changes from CABG surgery. Heart size and pulmonary vascularity are normal. Lungs are clear. There are no effusions or pneumothoraces. IMPRESSION: Postsurgical changes in the chest. No acute abnormality seen. No significant change compared to the previous day. Dictated by: Dictated on workstation # [id number]
--- NOTE | 2022-07-10 07:11 | Physical Therapy Progress Note ---
Therapy Progress Note Patient is currently sedated and intubated. PT will monitor patient status and initiate skilled therapy when patient is able to actively participate. Per report, my trial extubation on this date. EDENILSON CASTILLO PT Jul 10, 2022 07:11
--- NOTE | 2022-07-10 07:42 | Cardiology Progress Note ---
Subjective Date Seen by Provider: Jul 10, 2022 Time Seen by Provider: 07:41 Subjective/Events-last exam Patient is sedated and intubated. Review of Systems General: Other (Unable to provide review of system) Focused Exam Lactate Level 07/08/22 03:02: Lactic Acid Level 1.84 Objective-Cardiology Exam Last Set of Vital Signs Vital Signs 07/10/22 07/10/22 07/10/22 04:00 06:00 06:16 Temp 36.5 Pulse 120 Resp 18 B/P (MAP) 97/72 Pulse Ox 100 O2 Delivery Mechanical Ventilator O2 Flow Rate 21.00 FiO2 21 I&O Intake and Output 07/10/22 00:00 Intake Total 4560 ml Output Total 84385 ml Balance -9920 ml Intake Oral 60 ml IV Total 4500 ml Output Urine Total 11966 ml Gastric Drainage Total 230 ml General: Other (Intubated and sedated) HEENT: Other (Clear NG drainage) Lungs: Normal Air Movement, Other (Coursed breath sounds with diminished bases) Heart: Normal S1, Normal S2, No Murmurs, Other (tachycardic rate) Abdomen: Soft Extremities: No Clubbing, No Edema, No Tenderness/Swelling Skin: No Rashes Neuro: Other (Sedated and intubated) Psych/Mental Status: Other (Sedated and intubated) Results Lab Laboratory Tests 07/09/22 12:30 07/09/22 21:04 07/10/22 03:36 A/P-Cardiology Admission Diagnosis Septic shock DKA Coronary artery disease Sinus tachycardia Assessment/Plan Hypotensive shock, on multiple pressors. We will continue with weaning off pressors as much as he can tolerate it Currently being sedated, will try to wean him off sedation Ventilatory dependent respiratory failure, managed by medical team Recommend starting weaning Severe DKA, managed by primary care physician Septic shock, pneumonia or aspiration, managed by primary care physician Echo on 07/08/22: technically difficult study; hyperdynamic LV seen on Definity contrast injection with LVEF approx 60% Sinus tachycardia due to severe acute illness and use of beta-agonist pressors - proven by administration of iv adenosine during tachycardia on 07/08/22: it did not show any atrial flutter during transient, complete heart block (induced for a few seconds by adenosine) CAD - History of CABG x3 done by Dr. Justin in April 2017: URRUTIA to LAD, reverse vein graft to the right PDA and reverse vein graft to the OM1, - Last cath 01/09/[address] Melgar: LMCA Ok. LAD occlude in mid portion. URRUTIA to distal LAD patent. OM1 of LCX occluede. SVG to OM patent. RCA occlude SVG to PDA patent, but PDA small and with slow distal flow - Last MPI 06/27/[address] Melgar: no ischemia or infarction, LVEF 73% H/o chronic chest wall pain with occasional feeling of numbness in his arm Hyperlipidemia for which he has been on statins COPD Diabetes mellitus, poorly controlled Nonobstructive carotid artery stenosis per carotid duplex done Dec [address] Melgar H/o recurrent headache, managed by primary care physician BREONNA MELGAR MD Jul 10, 2022 07:42
[2022-07-10] MEDS: dilTIAZem DRIP PRE-MIX 125 ML IV SCH (07:50)
[2022-07-10] MEDS: EPINEPHrine 1 MG INJECTION 4 MG in NS (IVPB) 246 ML IV SCH ×2 (07:50→16:13)
[2022-07-10] MEDS: DOCUSATE SODIUM 100 MG (COLACE) CAP PO SCH ×2 (07:52→22:26)
[2022-07-10] MEDS: ASPIRIN 81 MG CHEW (CHILDREN'S ASA) PO SCH (08:13)
[2022-07-10] MEDS: ENOXAPARIN 40 MG/0.4 ML (LOVENOX) SYR SC SCH (08:13)
[2022-07-10] MEDS: SENNOSIDES 8.6 MG (SENOKOT) TAB PO SCH ×2 (08:13→22:26)
[2022-07-10] MEDS: PANTOPRAZOLE 40 MG (PROTONIX) VIAL IV SCH (08:13)
--- NOTE | 2022-07-10 09:49 | Tele-ICU Progress Note ---
Subjective Date Seen by a Provider: Jul 10, 2022 Time Seen by a Provider: 09:49 Subjective/Events-last exam (Tele-ICU Physician , Progress Note ) Available chart/ vitals / labs / Images reviewed Video assessment done using teleICU camera, rest of exam as per RN Discussed with RN Events overnight : Afebrile hemodynamically stable Respiratory - 21 % I/O = neg 1 L Drips: insulin gtt Pressors- vaso 0.03 levo 0.02 , epi OFF VENT SETTINGS and ABG reviewed Sedation: RASS -1 precedex 1. 2 . propofol 5 candidate for SBTContraindications : Cardiovascular Stability /Sedation Score / FI02/PEEP / ABG / CXR Consultants: gabino Hospital course: 07-08: 47 y/o M - Unresponsive at home - Not well since Saturday. ?Asp Pneumonia - DKA Hypothermic - Intubated in ER - Pressors started. A/P Acute resp fail;ure =- intubated 07/08 for airway protection - AC 18 450 21 % + 5 -candidate for SBT - will decrease sedation , hope to extubate today DKA - insulin gtt , AG improved , still in mod acidosis - to cont Shock - to wean off pressors , cont hydration , check CVP ID - UA neg 07/08 - NEG covid , flu - leukocytosis PNA suspected , aspiration -Started on IV Vancomycin, zosyn 07/08 - cxr is not impressive , follow , consider very [facility] administrator course abx - -yeast in sputum cx - most likely oral , nit invasive pulm infection - doubt need for systemic antifungal ARIE - resolved Anemia - mild , delutional , no active bleeding - PPI IV H/o CAD. s/p CABG 2016 - ECHO 07/08 - EF 55% ( technically difficult study; hyperdynamic LV - cards follow Tachycardia - Sinus ( confirmed in after adenosine ) - will try adress possible pain - follow h/o COPD - cont nebs Thrombocytopenia - PLT dropped to 107 from 252- ? delutional - monitor Lines : R IJ , (Central Line Necessity Reviewed) Nicholson: + OG: Nutrition: NPO Analgesia: Anxiety/ delirium VTE Prophylaxis: jeff 30 Stress Ulcer Prophylaxis: ppi Plans in collaboration with bedside consultants and IM MDs. Discussed with RN to reach out if any questions or concerns A total of 35 minutes of critical care time was devoted to this patient today, required to treat and/or prevent further deterioration of critical care condition ( as above ) . Sepsis Event Evaluation Height, Weight, BMI Height: 5'6.00" Weight: 157lbs. 0.0oz. 71.701981qr; 26.42 BMI Method: Focused Exam Lactate Level 07/08/22 03:02: Lactic Acid Level 1.84 Exam Exam Patient acknowledged, consented, and participated in this virtual visit which was conducted using real time audio/video Vital Signs Date Time Temp Pulse Resp B/P (MAP) Pulse Ox O2 Delivery O2 Flow Rate FiO2 07/10/22 09:12 112 110/84 07/10/22 08:00 36.3 124 8 100/71 (81) 100 Mechanical Ventilator 21.00 07/10/22 08:00 36.3 07/10/22 08:00 Mechanical Ventilator 21 07/10/22 07:10 112 07/10/22 07:00 36.4 112 17 96/72 (80) 100 Mechanical Ventilator 21.00 07/10/22 07:00 109 18 100 21 07/10/22 06:16 120 97/72 07/10/22 06:00 36.5 123 18 97/72 (80) 100 Mechanical Ventilator 21.00 07/10/22 05:00 36.6 140 19 108/97 (101) 98 Mechanical Ventilator 21.00 07/10/22 04:00 Mechanical Ventilator 21 07/10/22 04:00 36.0 131 20 92/69 (77) 100 Mechanical Ventilator 21.00 07/10/22 03:00 36.0 126 17 103/78 (86) 100 Mechanical Ventilator 21.00 07/10/22 02:15 Mechanical Ventilator 21.00 07/10/22 02:09 121 20 100 21 07/10/22 02:00 36.4 108 18 120/87 (98) 100 Mechanical Ventilator 30.00 07/10/22 01:00 129 07/10/22 01:00 36.7 129 18 124/96 (105) 100 Mechanical Ventilator 30.00 07/10/22 00:00 36.9 100 Mechanical Ventilator 30.00 07/10/22 00:00 37.0 115 18 107/84 (92) 100 Mechanical Ventilator 30.00 07/09/22 23:30 Mechanical Ventilator 30 07/09/22 23:00 37.1 122 18 135/98 (110) 100 Mechanical Ventilator 30.00 07/09/22 22:00 37.1 125 16 111/95 (100) 100 Mechanical Ventilator 30.00 07/09/22 21:00 37.0 122 20 102/86 (91) 100 Mechanical Ventilator 30.00 07/09/22 20:56 122 20 99 30 07/09/22 20:30 118 76/49 07/09/22 20:00 Mechanical Ventilator 30 07/09/22 20:00 36.7 07/09/22 20:00 36.7 118 18 137/92 (107) 100 Mechanical Ventilator 30.00 07/09/22 19:00 116 07/09/22 19:00 36.8 116 19 101/80 (87) 97 Mechanical Ventilator 30.00 07/09/22 18:41 117 150/34 07/09/22 18:24 117 22 97 30 07/09/22 18:00 36.8 114 23 126/71 (89) 98 Mechanical Ventilator 30.00 07/09/22 17:00 36.8 114 21 102/73 (83) 97 Mechanical Ventilator 30.00 07/09/22 16:21 124 114/52 07/09/22 16:00 Mechanical Ventilator 30 07/09/22 16:00 37.2 115 22 117/84 (95) 98 Mechanical Ventilator 30.00 07/09/22 15:09 124 24 97 30 07/09/22 15:00 37.2 125 21 79/59 (66) 97 Mechanical Ventilator 30.00 07/09/22 14:00 37.1 123 25 106/73 (84) 97 Mechanical Ventilator 30.00 07/09/22 13:00 37.1 122 24 111/72 (85) 93 Mechanical Ventilator 30.00 07/09/22 12:38 120 07/09/22 12:00 Mechanical Ventilator 40 07/09/22 12:00 36.9 120 18 110/70 (83) 97 Mechanical Ventilator 30.00 07/09/22 11:00 36.7 120 22 107/81 97 Mechanical Ventilator 30.00 07/09/22 10:40 117 23 97 30 07/09/22 10:00 36.7 117 24 97/74 97 Mechanical Ventilator 30.00 I & O 07/10/22 07:00 Intake Total 4360 ml Output Total 41870 ml Balance -9220 ml Height & Weight Height: 5'6.00" Weight: 157lbs. 0.0oz. 71.229465cn; 26.42 BMI Method: General Appearance: WD/WN, Severe Distress HEENT: PERRL/EOMI, TMs Normal (Negative for hemotympanum or louis sign, atraumatic head), Pharynx Normal (Dry with blackish brown emesis.); No Moist Mucous Membranes Neck: Full Range of Motion, Normal Inspection Respiratory: Lungs Clear, Normal Breath Sounds, No Accessory Muscle Use, Respiratory Distress (Increased respiratory rate, Kussmaul) Cardiovascular: Normal Peripheral Pulses, Tachycardia Capillary Refill: Less Than 3 Seconds Gastrointestinal: normal bowel sounds, non tender, soft Extremity: Normal Inspection, No Pedal Edema, Slow Capillary Refill Neurologic/Psychiatric: Other (GCS of 8, will open eyes briefly if given noxious or verbal stimuli. Does not follow commands. Flexes on noxious stimuli.) Skin: Cool, Pallor Results Lab Laboratory Tests 07/08/22 15:05 07/08/22 22:45 07/09/22 04:19 07/09/22 12:30 07/09/22 21:04 07/10/22 03:36 Assessment/Plan Assessment/Plan 1 MAYANK CHILDERS MD Jul 10, 2022 09:49
[2022-07-10] MEDS: LACTATED RINGERS 1,000 ML IV SCH ×2 (10:15→15:52)
[2022-07-10] MEDS ORDERED: NS IV 1000 ML 1,000 ML ONE (12:14)
[2022-07-10 14:12] LABS: CALCIUM 7.7 MG/DL (8.5-10.1); CREATININE SERUM 0.95 MG/DL (0.60-1.30); POTASSIUM 3.1 MMOL/L (3.6-5.0)
[2022-07-10] MEDS ORDERED: LACTATED RINGERS 1,000 ML IV SCH ×2 (15:30→21:00)
[2022-07-10] MEDS ORDERED: KCL 20 MEQ TAB (K-DUR) PO NR (15:30)
[2022-07-10 18:12] LABS: ABG BASE EXCESS -4.7 MMOL/L (-2.5-2.5); ABG OXYGEN SATURATION 84 % (94-100); ABG PCO2 29 MMHG (35-45); ABG PH 7.42 (7.37-7.43); ABG PO2 42 MMHG (79-93)
[2022-07-10 18:15] LABS: INSPIRED O2 21%; PATIENT TEMP 36.1; VENTILATOR YES
[2022-07-10 20:42] LABS: CALCIUM 7.4 MG/DL (8.5-10.1); CREATININE SERUM 0.99 MG/DL (0.60-1.30); POTASSIUM 3.9 MMOL/L (3.6-5.0)
--- NOTE | 2022-07-10 21:49 | Diagnostic Imaging Report ---
PROCEDURE: CT head without contrast. TECHNIQUE: Multiple contiguous axial images were obtained through the brain without the use of intravenous contrast. Auto Exposure Controls were utilized during the CT exam to meet ALARA standards for radiation dose reduction. DATE: July 10, 2022. COMPARISON: CT head May 22, 2022. INDICATION: 47-year-old male, unresponsive. History of diabetic ketoacidosis. FINDINGS: The ventricles and cerebral spinal fluid spaces are of normal size and configuration for the patient's age. There is no mass effect or midline shift. There is no acute intracranial hemorrhage. There is no abnormal extra-axial fluid collection. There is mucosal thickening of the paranasal sinuses. There is a small amount of nonspecific opacification in the right frontal sinus. IMPRESSION: 1. No identified acute intracranial abnormality. Dictated by: Dictated on workstation # [id number]
--- NOTE | 2022-07-10 22:45 | Progress Note ---
Subjective Subjective/Events-last exam Intubated and Sedated No New ON events Review of Systems Unable to determine due to sedation and intubation Focused Exam Lactate Level 07/08/22 03:02: Lactic Acid Level 1.84 Objective Exam Last Set of Vital Signs Vital Signs Date Time Temp Pulse Resp B/P (MAP) Pulse Ox O2 Delivery O2 Flow Rate FiO2 07/10/22 19:00 123 07/10/22 18:49 19 100 21 07/10/22 18:43 110/78 07/10/22 18:00 36.1 Mechanical Ventilator 21.00 Capillary Refill : Less Than 3 Seconds I&O Intake and Output 07/10/22 00:00 Intake Total 4560 ml Output Total 87458 ml Balance -9920 ml Intake Oral 60 ml IV Total 4500 ml Output Urine Total 71736 ml Gastric Drainage Total 230 ml General: Other (Intubated and sedated) Lungs: Clear to Auscultation, Normal Air Movement Heart: No Murmurs, Other (tachycardic rate) Abdomen: Soft Extremities: No Edema, No Tenderness/Swelling Results/Procedures Lab Laboratory Tests 07/09/22 23:21: Glucometer 151H 07/10/22 00:12: Glucometer 152H 07/10/22 01:07: Glucometer 156H 07/10/22 02:10: Glucometer 161H 07/10/22 03:05: Glucometer 174H 07/10/22 03:36: White Blood Count 20.5H, Red Blood Count 3.71L, Hemoglobin 12.2L, Hematocrit 34L , Mean Corpuscular Volume 92, Mean Corpuscular Hemoglobin 33, Mean Corpuscular Hemoglobin Concent 36, Red Cell Distribution Width 13.3, Platelet Count 107L, Mean Platelet Volume 10.3, Immature Granulocyte % (Auto) 2, Neutrophils (%) (Auto) 90H, Lymphocytes (%) (Auto) 2L, Monocytes (%) (Auto) 6, Eosinophils (%) (Auto) 0, Basophils (%) (Auto) 0, Neutrophils # (Auto) 18.5H, Lymphocytes # (Auto) 0.4L, Monocytes # (Auto) 1.2H, Eosinophils # (Auto) 0.0, Basophils # (Auto) 0.0, Immature Granulocyte # (Auto) 0.4H, Sodium Level 132L, Potassium Level 3.2L, Chloride Level 103, Carbon Dioxide Level 15L, Anion Gap 14, Blood Urea Nitrogen 14, Creatinine 1.15, Estimat Glomerular Filtration Rate 79, BUN/Creatinine Ratio 12, Glucose Level 206H, Calcium Level 7.6L, Corrected Calcium 8.9, Phosphorus Level 2.8, Magnesium Level 1.3L, Total Bilirubin 0.6, Aspartate Amino Transf (AST/SGOT) 53H, Alanine Aminotransferase (ALT/SGPT) 24, Alkaline Phosphatase 97, Total Protein 5.0L, Albumin 2.4L, Triglycerides Level 435#H, Beta-Hydroxybutyrate (Chem panel) 0.05 07/10/22 03:47: Blood Gas Puncture Site RIGHT RADIAL, Blood Gas Patient Temperature 36.2, Arterial Blood pH 7.38, Arterial Blood Partial Pressure CO2 24L, Arterial Blood Partial Pressure O2 78L, Arterial Blood HCO3 14*L, Arterial Blood Total CO2 14.9L, Arterial Blood Oxygen Saturation 98, Arterial Blood Base Excess -10.3L, Luis Miguel Test YES-POS, Blood Gas Ventilator Setting YES, Blood Gas Inspired Oxygen 40% 07/10/22 04:52: Glucometer 121H 07/10/22 06:03: Glucometer 147H 07/10/22 06:49: Glucometer 180H 07/10/22 08:00: Glucometer 207H 07/10/22 09:01: Glucometer 181H 07/10/22 10:13: Glucometer 146H 07/10/22 10:57: Glucometer 161H 07/10/22 12:03: Glucometer 128H 07/10/22 13:06: Glucometer 147H 07/10/22 13:42: Sodium Level 129L, Potassium Level 3.1L, Chloride Level 100, Carbon Dioxide Level 18L, Anion Gap 11, Blood Urea Nitrogen 9, Creatinine 0.95, Estimat Glomerular Filtration Rate 99, BUN/Creatinine Ratio 9, Glucose Level 176H, Calcium Level 7.7L 07/10/22 14:00: Glucometer 146H 07/10/22 15:22: Glucometer 161H 07/10/22 15:56: Glucometer 151H 07/10/22 16:53: Glucometer 128H 07/10/22 18:04: Glucometer 118H 07/10/22 18:05: Blood Gas Puncture Site UNK, Blood Gas Patient Temperature 36.1, Arterial Blood pH 7.42, Arterial Blood Partial Pressure CO2 29L, Arterial Blood Partial Pressure O2 42L, Arterial Blood HCO3 19L, Arterial Blood Total CO2 20.0L, Arterial Blood Oxygen Saturation 84L, Arterial Blood Base Excess -4.7L, Luis Miguel Test UNK, Blood Gas Ventilator Setting YES, Blood Gas Inspired Oxygen 21% 07/10/22 18:57: Glucometer 95 07/10/22 18:58: Glucometer 106 07/10/22 19:57: Glucometer 121H 07/10/22 20:22: Sodium Level 128L, Potassium Level 3.9, Chloride Level 99, Carbon Dioxide Level 18L, Anion Gap 11, Blood Urea Nitrogen 8, Creatinine 0.99, Estimat Glomerular Filtration Rate 94, BUN/Creatinine Ratio 8, Glucose Level 138H, Calcium Level 7.4L 07/10/22 22:05: Glucometer 144H Microbiology 07/08/22 MRSA Screen - Final, Complete MRSA not isolated 07/08/22 Blood Culture - Preliminary, Resulted No growth 07/08/22 Urine Culture - Final, Complete NO GROWTH Assessment/Plan Assessment/Plan (1) Acute respiratory failure with hypoxia Status: Acute Assessment & Plan: 07/09: Intubated and sedated, managed per eICU, not candidate for SBT 07/10: Weaning sedation and hopeful for SBT today (2) Leukocytosis Status: Acute Assessment & Plan: 07/10: No clear sign of infection, CXR not impressive, continue Zosyn Qualifiers: Qualified Codes: D72.829 - Elevated white blood cell count, unspecified (3) Septic shock Status: Acute Assessment & Plan: 07/09: Aggressive IVFs, currently on 3 pressors, placing arterial line today, continues to have good UOP 07/10: weaning pressors (4) Type 1 diabetes mellitus Status: Chronic Assessment & Plan: 07/09: Continue on insulin gtts, BMP q 8hrs 07/10: Continues to be acidotic, continue insulin gtts Qualifiers: Qualified Codes: E10.69 - Type 1 diabetes mellitus with other specified complication (5) Ketoacidosis due to type 1 diabetes mellitus Status: Acute Qualifiers: Qualified Codes: E10.10 - Type 1 diabetes mellitus with ketoacidosis without coma (6) PNA (pneumonia) Status: Acute Assessment & Plan: 07/09: most likely aspiration PNA, intubated, on Zosyn, D/c Vancomycin today, MRSA screen negative Qualifiers: Qualified Codes: J69.0 - Pneumonitis due to inhalation of food and vomit (7) Acute renal failure Status: Resolved Assessment & Plan: 07/09: Improving with aggressive IVFs, will continue to monitor, likely secondary to DKA and dehydration Qualifiers: Qualified Codes: N17.9 - Acute kidney failure, unspecified (8) Sinus tachycardia Status: Acute Assessment & Plan: 07/09: Cardiology consulted, appreciate recommendations, likely 2/2 to acidosis and illness severity, continue to monitor (9) CAD (coronary artery disease) Status: Chronic Qualifiers: Qualified Codes: I25.10 - Atherosclerotic heart disease of havasupai coronary artery without angina pectoris AD MONTANA MD Jul 10, 2022 22:45
[2022-07-11] VITALS (7 sets, daily range): BP systolic 88–137; BP diastolic 60–82
[2022-07-11] MEDS: D5 1/2 NS 1000 ML IV SOLUTION 1,000 ML IV SCH ×2 (01:29→06:55)
[2022-07-11] MEDS: RT-ALBUTEROL/IPRATROPIUM 3 ML (DUONEB) VIAL INH SCH ×3 (02:41→15:04)
[2022-07-11] MEDS: EPINEPHrine 1 MG INJECTION 4 MG in NS (IVPB) 246 ML IV SCH ×3 (02:41→21:51)
[2022-07-11] MEDS: 1/2 NS IV SOLUTION 1,000 ML IV SCH ×12 (02:42→21:52)
[2022-07-11 04:22] LABS: EOSINOPHILS % (AUTO) 0 % (0-10); MEAN PLATELET VOLUME 10.2 fL (9.0-12.2)
[2022-07-11 04:24] LABS: BASOPHILS # (AUTO) 0.1 10^3/uL (0.0-0.1); BASOPHILS % (AUTO) 1 % (0-10); HEMATOCRIT 26 % (40-54); HEMOGLOBIN 9.6 g/dL (13.3-17.7); LYMPHOCYTES # (AUTO) 0.2 10^3/uL (1.0-4.0); LYMPHOCYTES % (AUTO) 3 % (12-44); MEAN CORPUSCULAR HEMOGLOBIN 33 pg (25-34); MEAN CORPUSCULAR HGB CONC 36 g/dL (32-36); MEAN CORPUSCULAR VOLUME 90 fL (80-99); MONOCYTES # (AUTO) 0.7 10^3/uL (0.0-1.0); MONOCYTES % (AUTO) 8 % (0-12); NEUTROPHILS # (AUTO) 7.4 10^3/uL (1.8-7.8); NEUTROPHILS % (AUTO) 87 % (42-75); PLATELET COUNT 73 10^3/uL (130-400); WHITE BLOOD COUNT 8.5 10^3/uL (4.3-11.0)
[2022-07-11 04:32] LABS: ALBUMIN 2.1 GM/DL (3.2-4.5)
[2022-07-11 04:33] LABS: POTASSIUM 3.3 MMOL/L (3.6-5.0)
[2022-07-11 04:34] LABS: CALCIUM 7.2 MG/DL (8.5-10.1)
[2022-07-11 04:35] LABS: TOTAL PROTEIN 4.4 GM/DL (6.4-8.2)
[2022-07-11 04:37] LABS: BILIRUBIN,TOTAL 0.9 MG/DL (0.1-1.0)
[2022-07-11 04:39] LABS: CREATININE SERUM 0.91 MG/DL (0.60-1.30)
[2022-07-11 04:42] LABS: MAGNESIUM 1.2 MG/DL (1.6-2.4)
[2022-07-11] MEDS: PROPOFOL DRIP (ICU) 100 ML IV SCH ×2 (04:48→15:55)
[2022-07-11 04:49] LABS: ABG BASE EXCESS -4.1 MMOL/L (-2.5-2.5); ABG OXYGEN SATURATION 95 % (94-100); ABG PCO2 26 MMHG (35-45); ABG PH 7.47 (7.37-7.43); ABG PO2 61 MMHG (79-93); ABG TCO2 19.8 MMOL/L (21.0-31.0); ALLENS TEST YES-POS; INSPIRED O2 21%; PATIENT TEMP 37.1; VENTILATOR YES
[2022-07-11] MEDS ORDERED: MAGNESIUM 1 GM/100 ML IVPB 400 ML IV ONE (04:54)
[2022-07-11] MEDS ORDERED: POTASSIUM CL 10MEQ/50ML IVPB 200 ML IV ONE (04:54)
[2022-07-11] MEDS: MAGNESIUM 1 GM/100 ML IVPB 100 ML IV SCH ×5 (05:01→08:36)
[2022-07-11] MEDS: POTASSIUM CL 10MEQ/50ML IVPB 50 ML IV SCH ×8 (05:02→22:36)
[2022-07-11] MEDS: KCL 20 MEQ TAB (K-DUR) PO SCH (05:25)
[2022-07-11] MEDS: PIPERACILLIN SODIUM/TAZOBACTAM 4.5 GM in NS (IVPB) 100 ML IV SCH ×3 (05:37→21:37)
[2022-07-11] MEDS: LACTATED RINGERS 1,000 ML IV SCH ×2 (05:37→15:55)
--- NOTE | 2022-07-11 06:37 | Occ Therapy Progress Note ---
Therapy Progress Note Pt is currently intubated. OT to monitor pt's status then will initiate treatment when pt is medically stable and able to actively participate in skilled therapy. JASON WALTERS Jul 11, 2022 06:37
--- NOTE | 2022-07-11 06:45 | Diagnostic Imaging Report ---
Indication: Dyspnea AP view of chest is obtained with comparison made to study of one day earlier. Endotracheal tube and right jugular central venous catheter remain in stable position. The nasogastric tube has been partially withdrawn with tip just below the gastroesophageal junction. There has been worsening of patchy bilateral airspace disease which may represent pneumonitis or atypical pneumonia. There is no evidence of pneumothorax or significant pleural fluid. IMPRESSION: Worsening patchy bilateral airspace disease which could be due to pneumonitis or atypical pneumonia. Dictated by: Dictated on workstation # [id number]
[2022-07-11] MEDS: dilTIAZem DRIP PRE-MIX 125 ML IV SCH (07:33)
[2022-07-11] MEDS: SENNOSIDES 8.6 MG (SENOKOT) TAB PO SCH ×2 (07:34→21:51)
[2022-07-11] MEDS: DOCUSATE SODIUM 100 MG (COLACE) CAP PO SCH ×2 (07:34→21:51)
[2022-07-11] MEDS ORDERED: THIAMINE 100 MG/ML 2 ML (VITAMIN B-1) VIAL IV NR (08:00)
[2022-07-11] MEDS ORDERED: SODIUM PHOSPHATE INJ 30 MM in NS (IVPB) 250 ML INJ NR (08:00)
--- NOTE | 2022-07-11 08:17 | Tele-ICU Progress Note ---
Subjective Date Seen by a Provider: Jul 11, 2022 Time Seen by a Provider: 08:16 Subjective/Events-last exam (Tele-ICU Physician , Progress Note ) Available chart/ vitals / labs / Images reviewed Video assessment done using teleICU camera, rest of exam as per RN Discussed with RN Events overnight : Afebrile hemodynamically stable Respiratory - 21 % I/O = neg 1 L Drips: insulin gtt Pressors- vaso 0.03 levo 0.02 , epi OFF VENT SETTINGS and ABG reviewed Sedation: RASS -1 precedex 1. 2 . propofol 5 candidate for SBTContraindications : Cardiovascular Stability /Sedation Score / FI02/PEEP / ABG / CXR Consultants: gabino Hospital course: 07-08: 47 y/o M - Unresponsive at home - Not well since Saturday. ?Asp Pneumonia - DKA Hypothermic - Intubated in ER - Pressors started. A/P Acute resp fail;ure =- intubated 07/08 for airway protection - AC 18 450 21 % + 5 -candidate for SBT - OFF sedation since yesterday , follow commands ? , will keep off any sedation - do SBP again , hope to extubate today DKA - insulin gtt to stop today Shock - off pressors , stop hydration ID - UA neg 07/08 - NEG covid , flu - leukocytosis PNA suspected , aspiration -Started on IV Vancomycin, zosyn 07/08 - cxr is not impressive , follow , consider very short course abx - TODASY LAS T DAY SIGGESTED - -yeast in sputum cx - most likely oral , nit invasive pulm infection - doubt need for systemic antifungal ARIE - resolved Anemia - mild , delutional , no active bleeding - PPI IV H/o CAD. s/p CABG 2016 - ECHO 07/08 - EF 55% ( technically difficult study; hyperdynamic LV - cards follow Tachycardia - Sinus ( confirmed in after adenosine ) - will try adress possible pain - follow - added beta blockers IV - will refer to cardiology h/o COPD - cont nebs Thrombocytopenia - PLT dropped to 73 from 252- ? delutional - monitor ( on lovenox Encephalopathy - CTH 07/11 - negative Weakness - replace phos Will start TF today if not extubated Lines : R IJ , (Central Line Necessity Reviewed) Nicholson: + OG: Nutrition: NPO Analgesia: Anxiety/ delirium VTE Prophylaxis: jeff 30 Stress Ulcer Prophylaxis: ppi Plans in collaboration with bedside consultants and IM MDs. Discussed with RN to reach out if any questions or concerns A total of 35 minutes of critical care time was devoted to this patient today, required to treat and/or prevent further deterioration of critical care condition ( as above ) . Sepsis Event Evaluation Height, Weight, BMI Height: 5'6.00" Weight: 157lbs. 0.0oz. [id number]; 26.65 BMI Method: Exam Exam Patient acknowledged, consented, and participated in this virtual visit which was conducted using real time audio/video Vital Signs Date Time Temp Pulse Resp B/P (MAP) Pulse Ox O2 Delivery O2 Flow Rate FiO2 07/11/22 07:46 134 07/11/22 07:16 135 24 100 21 07/11/22 07:00 135 46 138/65 (89) 100 Mechanical Ventilator 21.00 07/11/22 06:00 134 21 103/54 (70) 100 Mechanical Ventilator 21.00 07/11/22 05:00 133 21 116/65 (82) 100 Mechanical Ventilator 21.00 07/11/22 04:00 100 Mechanical Ventilator 21 07/11/22 04:00 37.6 130 22 129/74 (92) 100 Mechanical Ventilator 21.00 07/11/22 03:00 131 20 128/63 (84) 100 Mechanical Ventilator 21.00 07/11/22 02:37 120 18 100 21 07/11/22 02:00 37.0 131 20 110/65 (80) 100 Mechanical Ventilator 21.00 07/11/22 01:00 134 19 107/65 (79) 100 Mechanical Ventilator 21.00 07/11/22 01:00 134 07/11/22 00:00 36.3 131 18 111/64 (80) 100 Mechanical Ventilator 21.00 07/11/22 00:00 100 Mechanical Ventilator 21 07/10/22 23:00 36.3 135 16 116/62 (80) 100 Mechanical Ventilator 21.00 07/10/22 22:45 137 21 100 21 07/10/22 22:00 36.7 140 20 102/58 (73) 100 Mechanical Ventilator 21.00 07/10/22 21:00 36.6 137 18 96/55 (69) 100 Mechanical Ventilator 21.00 07/10/22 20:00 100 Mechanical Ventilator 21 07/10/22 20:00 36.5 141 18 99/63 (75) 100 Mechanical Ventilator 21.00 07/10/22 19:00 36.3 123 16 103/65 (78) 100 Mechanical Ventilator 21.00 07/10/22 19:00 123 07/10/22 18:49 121 19 100 21 07/10/22 18:43 118 110/78 07/10/22 18:00 36.1 125 22 91/60 (70) 100 Mechanical Ventilator 21.00 07/10/22 17:00 35.8 130 24 90/63 (72) 100 Mechanical Ventilator 21.00 07/10/22 16:05 127 14 100 07/10/22 16:00 35.4 116 29 127/86 (100) 100 Mechanical Ventilator 21.00 07/10/22 16:00 Mechanical Ventilator 21 07/10/22 15:07 108 19 100 07/10/22 15:00 35.1 110 18 108/75 (86) 100 Mechanical Ventilator 21.00 07/10/22 14:00 35.3 111 18 114/81 (92) 100 Mechanical Ventilator 21.00 07/10/22 13:05 112 07/10/22 13:00 35.5 112 19 107/74 (85) 100 Mechanical Ventilator 21.00 07/10/22 12:08 Mechanical Ventilator 21 07/10/22 12:00 36.7 112 9 131/86 (101) 100 Mechanical Ventilator 21.00 07/10/22 12:00 36.6 07/10/22 11:00 36.5 138 22 135/89 (104) 99 Mechanical Ventilator 21.00 07/10/22 10:00 36.1 111 22 102/74 (83) 100 Mechanical Ventilator 21.00 07/10/22 10:00 137 18 100 21 07/10/22 09:12 112 110/84 07/10/22 09:00 35.8 112 41 96/79 (85) 100 Mechanical Ventilator 21.00 I & O 07/11/22 07:00 Intake Total 7400 ml Output Total 7160 ml Balance 240 ml Height & Weight Height: 5'6.00" Weight: 157lbs. 0.0oz. 71.716775hk; 26.65 BMI Method: General Appearance: WD/WN, Severe Distress HEENT: PERRL/EOMI, TMs Normal (Negative for hemotympanum or louis sign, atraumatic head), Pharynx Normal (Dry with blackish brown emesis.); No Moist Mucous Membranes Neck: Full Range of Motion, Normal Inspection Respiratory: Lungs Clear, Normal Breath Sounds, No Accessory Muscle Use, Respiratory Distress (Increased respiratory rate, Kussmaul) Cardiovascular: Normal Peripheral Pulses, Tachycardia Capillary Refill: Less Than 3 Seconds Gastrointestinal: normal bowel sounds, non tender, soft Extremity: Normal Inspection, No Pedal Edema, Slow Capillary Refill Neurologic/Psychiatric: Other (GCS of 8, will open eyes briefly if given noxious or verbal stimuli. Does not follow commands. Flexes on noxious stimuli.) Skin: Cool, Pallor Results Lab Laboratory Tests 07/09/22 12:30 07/09/22 21:04 07/10/22 03:36 07/10/22 13:42 07/10/22 20:22 07/11/22 04:14 Assessment/Plan Assessment/Plan 1 MAYANK CHILDERS MD Jul 11, 2022 08:17
[2022-07-11] MEDS: PANTOPRAZOLE 40 MG (PROTONIX) VIAL IV SCH (08:43)
[2022-07-11] MEDS: ASPIRIN 81 MG CHEW (CHILDREN'S ASA) PO SCH (08:43)
[2022-07-11] MEDS: ENOXAPARIN 40 MG/0.4 ML (LOVENOX) SYR SC SCH (08:43)
--- NOTE | 2022-07-11 08:55 | Physical Therapy Progress Note ---
Therapy Progress Note Patient still intubated. Will follow and start when appropriate and patient can participate. OLLIE COOLEY PT Jul 11, 2022 08:55
[2022-07-11 12:06] LABS: ABG BASE EXCESS -3.8 MMOL/L (-2.5-2.5); ABG OXYGEN SATURATION 97 % (94-100); ABG PCO2 26 MMHG (35-45); ABG PH 7.48 (7.37-7.43); ABG PO2 72 MMHG (79-93)
[2022-07-11 12:07] LABS: ALLENS TEST YES-POS; INSPIRED O2 21%; PATIENT TEMP 36.7; VENTILATOR NO
[2022-07-11 12:28] LABS: POTASSIUM 3.7 MMOL/L (3.6-5.0)
[2022-07-11 12:29] LABS: CALCIUM 7.5 MG/DL (8.5-10.1)
[2022-07-11 12:33] LABS: CREATININE SERUM 0.95 MG/DL (0.60-1.30)
[2022-07-11 12:36] LABS: MAGNESIUM 2.2 MG/DL (1.6-2.4)
--- NOTE | 2022-07-11 13:42 | Cardiology Progress Note ---
Subjective Date Seen by Provider: Jul 11, 2022 Time Seen by Provider: 08:00 Subjective/Events-last exam Patient was seen at bedside, he was awake opening his eyes, answering by yes or no, still ventilator dependent. Review of Systems General: Other (Unable to provide review of system) Objective-Cardiology Exam Last Set of Vital Signs Vital Signs 07/11/22 07/11/22 07/11/22 08:00 11:00 11:20 Temp 36.0 Pulse 128 Resp 22 B/P (MAP) 92/51 (65) Pulse Ox 100 O2 Delivery Mechanical Ventilator O2 Flow Rate 21.00 FiO2 21 I&O Intake and Output 07/11/22 00:00 Intake Total 7900 ml Output Total 8760 ml Balance -860 ml Intake Oral 0 ml IV Total 7900 ml Output Urine Total 8760 ml General: Other (Ventilator dependent) HEENT: Other (Clear NG drainage) Lungs: Clear to Auscultation, Normal Air Movement Heart: Normal S1, Normal S2, No Murmurs, Other (tachycardic rate) Abdomen: Soft Extremities: No Edema, No Tenderness/Swelling Skin: No Rashes Neuro: Other (Ventilator dependent) Psych/Mental Status: Other (Ventilator dependent) Results Lab Laboratory Tests 07/10/22 13:42 07/10/22 20:22 07/11/22 04:14 07/11/22 11:59 A/P-Cardiology Admission Diagnosis Septic shock DKA Coronary artery disease Sinus tachycardia Assessment/Plan Hypotensive shock, on multiple pressors. We will continue with weaning off pressors as much as he can tolerate it Currently being sedated, will try to wean him off sedation Sinus tachycardia, worse today, patient is awake and ventilator dependent. Still hypotensive. Not receiving any pressors this morning but probably will be back on some Levophed Continue with weaning trial and monitor blood pressure We can use small dose of beta-blockers as needed Ventilatory dependent respiratory failure, managed by medical team Recommend starting weaning Severe DKA, managed by primary care physician Septic shock, pneumonia or aspiration, managed by primary care physician Echo on 07/08/22: technically difficult study; hyperdynamic LV seen on Definity contrast injection with LVEF approx 60% CAD - History of CABG x3 done by Dr. Justin in April 2017: URRUTIA to LAD, reverse vein graft to the right PDA and reverse vein graft to the OM1, - Last cath 01/09/[address] Melgar: LMCA Ok. LAD occlude in mid portion. URRUTIA to distal LAD patent. OM1 of LCX occluede. SVG to OM patent. RCA occlude SVG to PDA patent, but PDA small and with slow distal flow - Last MPI 06/27/[address] Melgar: no ischemia or infarction, LVEF 73% H/o chronic chest wall pain with occasional feeling of numbness in his arm Hyperlipidemia for which he has been on statins COPD Diabetes mellitus, poorly controlled Nonobstructive carotid artery stenosis per carotid duplex done Dec [address] Melgar H/o recurrent headache, managed by primary care physician BREONNA MELGAR MD Jul 11, 2022 13:42
--- NOTE | 2022-07-11 14:15 | Physical Therapy Evaluation ---
PT Evaluation-General Medical Diagnosis Admission Date Jul 08, 2022 at 05:30 Medical Diagnosis: DKA, sepsis Onset Date: Jul 08, 2022 Therapy Diagnosis Therapy Diagnosis: impaired mobility Height/Weight Height (Feet): 5 Height (Inches): 6.00 Weight (Pounds): 157 Weight (Ounces): 0.0 Precautions Precautions/Isolations: Aspiration, Fall Prevention, Standard Precautions Referral Physician: Michael Reason for Referral: Evaluation/Treatment Medical History Additional Medical History Past Medical History Surgeries: CABG, Orthopedic Asthma, COPD Currently Using CPAP: No Currently Using BIPAP: No Coronary Artery Disease, High Cholesterol, Hypertension Seizure Disorder Nursing Suicide Risk Notes: PT AMS/UNRESPONSIVE SO ASSUMED NO SI AT THIS TIME. Blood Disorders: Yes Adverse Reaction/Blood Tranf: No Reviewed History: Yes Social History Current Living Status: Significant Other Entry Into Home: Stairs With Railing PT Steps Into Home: 4 Prior Prior Level of Function SCALE: Activities may be completed with or without assistive devices. 0-Kraacwaxgl-oejjflq completes the activity by him/herself with no assistance from a helper. 5-Set-up or Clean-up Assistance-helper sets up or cleans up; patient completes activity. Follett assists only prior to or following the activity. 4-Supervision or Touching Assistance-helper provides verbal cues and/or touching/steadying and/or contact guard assistance as patient completes activity. Assistance may be provided throughout the activity or intermittently. 3-Partial/Moderate Assistance-helper does LESS THAN HALF the effort. Follett lifts, holds or supports trunk or limbs, but provides less than half the effort. 2-Substantial/Maximal Assistance-helper does MORE THAN HALF the effort. Follett lifts or holds trunk or limbs and provides more than half the effort. 7-Nwqcaisxn-mwdpyw does ALL the effort. Patient does none of the effort to complete the activity. Or, the assistance of 2 or more helpers is required for the patient to complete the activity. If activity was not attempted, code reason: 7-Patient Refused. 9-Not Applicable-not attempted and the patient did not perform the activity before the current illness, exacerbation or injury. 10-Not Attempted due to Environmental Limitations-(lack of equipment, weather restraints, etc.). 88-Not Attempted due to Medical Conditions or Safety Concerns. Bed Mobility: 6 Transfers (B,C,W/C): 6 Gait: 6 Stairs: 6 significant other states patient used a SPC on occasion PT Evaluation-Current Subjective Patient in bed pre tx, opens eyes, will sometimes slightly nod or shake head no at questions but not on a reliable basis. Patient is still intubated but is not sedated. Pt/Family Goals none stated Objective Patient Orientation: Person, Unable to Assess (intubated) Attachments: SCD's, Oxygen (intubated), Nicholson Catheter, IV heel protectors ROM/Strength ROM Lower Extremities WNL Strength Lower Extremities Patient will not follow directions for muscle testing Treatment Performed BLE PROM and stretching. Encouraged patient to participate but he was very drowsy. Assessment/Needs Patient in bed post tx with nurse call, phone, tray, all needs met. Patient is very drowsy and couldn't participate much in therapy. Improved alertness should improve patient participation. Rehab Potential: Guarded PT Penitentiary Goals Penitentiary Goals PT Penitentiary Goals Time Frame: Jul 18, 2022 Roll Left & Right (QC): 3 Sit to Lying (QC): 3 Lying-Sitting on Side/Bed(QC): 3 Sit to Stand (QC): 3 Chair/Nrf-cl-Qftss Xfer(QC): 3 PT Plan Problem List Problem List: Activity Tolerance, Functional Strength, Safety, Balance, Gait, Transfer, Bed Mobility, ROM Treatment/Plan Treatment Plan: Continue Plan of Care Treatment Plan: Bed Mobility, Education, Functional Activity Callum, Functional Strength, Gait, Safety, Therapeutic Exercise, Transfers Treatment Duration: Jul 18, 2022 Frequency: 6 times per week Estimated Hrs Per Day: .25 hour per day Patient and/or Family Agrees t: Yes Safety Risks/Education Patient Education: Correct Positioning, Safety Issues Teaching Recipient: Patient Teaching Methods: Handout, Discussion Response to Teaching: Reinforcement Needed Discharge Recommendations Plan Patient will perform bed mobility and transfer training, balance and endurance training, functional strengthening, stair training, gait training, and education, to improve functional mobility and independence at home. Therapy Discharge Recommendati: Other, See Comments (unsure at this time) Time/GCodes Time In: 1354 Time Out: 1404 Total Billed Treatment Time: 10 Total Billed Treatment 1 visit RANDALL AllanOLLIE SELLERS PT Jul 11, 2022 14:15
--- NOTE | 2022-07-11 14:17 | Occupational Therapy Eval ---
OT Evaluation-General/PLF Medical Diagnosis Admission Date Jul 08, 2022 at 05:30 Medical Diagnosis: DKA Onset Date: Jul 08, 2022 Therapy Diagnosis Therapy Diagnosis: reduced adl status Height/Weight Height (Feet): 5 Height (Inches): 6.00 Weight (Pounds): 157 Weight (Ounces): 0.0 Precautions Precautions/Isolations: Aspiration, Fall Prevention, Standard Precautions Referral Referral Reason: Evaluation/Treatment Medical History Pertinent Medical History: DM Current History Pt presented to ER with AMS. Found to be obtunded requiring intubation and a spiration. Pt also found to be in multisystem organ failure. Pt is currently intubated but not sedated. Per girlfriend, pt lives with girlfriend in a single story home. He was indep with adls prior to admission. He was using a walker and a cane at baseline. Reviewed History: Yes Social History Home: Single Level Current Living Status: Significant Other ADL-Prior Level of Function SCALE: Activities may be completed with or without assistive devices. 2-Avhbbtzuuu-mmylbur completes the activity by him/herself with no assistance from a helper. 5-Set-up or Clean-up Assistance-helper sets up or cleans up; patient completes activity. [place] assists only prior to or following the activity. 4-Supervision or Touching Assistance-helper provides verbal cues and/or touching/steadying and/or contact guard assistance as patient completes activity. Assistance may be provided throughout the activity or intermittently. 3-Partial/Moderate Assistance-helper does LESS THAN HALF the effort. [place] lifts, holds or supports trunk or limbs, but provides less than half the effort. 2-Substantial/Maximal Assistance-helper does MORE THAN HALF the effort. [place] lifts or holds trunk or limbs and provides more than half the effort. 4-Wnbyrxubv-mhtzzf does ALL the effort. Patient does none of the effort to complete the activity. Or, the assistance of 2 or more helpers is required for the patient to complete the activity. If activity was not attempted, code reason: 7-Patient Refused. 9-Not Applicable-not attempted and the patient did not perform the activity before the current illness, exacerbation or injury. 10-Not Attempted due to Environmental Limitations-(lack of equipment, weather restraints, etc.). 88-Not Attempted due to Medical Conditions or Safety Concerns. Self Care: Independent Functional Cognition: Unknown OT Current Status Subjective Pt intubated, unable to respond to yes/no questions despite cues to squeeze hand or shake head. Appearance Pt left supine in bed, girlfriend in room at therapy departure. Mental Status/Objective Patient Orientation: Unable to Assess Attachments: Drains, Nicholson Catheter, IV, Oxygen, Telemetry, Ventilator Current Upper Extremity ROM Very debilitated. Minimal active movement with finger flexion/extension on R hand only. Upper Extremity Strength 0/5 throughout ADL-Treatment Eating (QC): 88 Oral Hygiene (QC): 88 Shower/Bathe Self (QC): 1 Upper Body Dressing (QC): 1 Lower Body Dressing (QC): 1 On/Off Footwear (QC): 1 Toileting Hygiene (QC): 1 Pt currently on ventilator. Able to lightly squeeze therapist's hand with R hand only (poor foil wrapper). Unable to follow other simple commands. Grimacing noted with LE movement (R more than left). At this time, pt is dependent to complete all adls secondary to weakness and ventilator. He is unable to functionally participate at this time. He will benefit from PROM exercises that nursing staff can provide. OT to discharge until pt is medically stable and able to actively participate in skilled therapy. Education OT Patient Education: Correct positioning, Exercise program, Purpose of tx/functional activities, Safety issues Teaching Recipient: Patient, Family Teaching Methods: Demonstration, Discussion OT Instrument Lens Inspector Goals Mcfp Goals 1=Demonstrate adherence to instructed precautions during ADL tasks. 2=Patient will verbalize/demonstrate understanding of assistive devices/modifications for ADL. 3=Patient will improve strength/tolerance for activity to enable patient to perform ADL's. OT Education/Plan Problem List/Assessment Assessment: No Skilled OT Needs ID'd (Pt unable to actively participate in skilled therapy services at this time) Discharge Recommendations Plan/Recommendations: Discontinue OT Therapy Discharge Recommendati: Other, See Comments (unsure at this time) Treatment Plan/Plan of Care Treatment,Training & Education: Yes Patient would benefit from OT for education, treatment and training to promote independence in ADL's, mobility, safety and/or upper extremity function for ADL's. Plan of Care: Functional Mobility, UE Funct Exercise/Act Treatment Duration: Jul 11, 2022 Frequency: 1 time per week Estimated Hrs Per Day: .25 hour per day Rehab Potential: Poor Time/GCodes Start Time: 13:54 Stop Time: 14:05 Total Time Billed (hr/min): 11 Billed Treatment Time 1 visit Herminia Doll OT Jul 11, 2022 14:17
[2022-07-11] MEDS: meTOprolol 5 MG/5 ML (LOPRESSOR) VIAL IV SCH ×2 (15:54→19:04)
[2022-07-11] MEDS: NOREPINEPHRINE 16 MG/250 ML DRIP IV SCH ×2 (15:55)
[2022-07-11 20:46] LABS: POTASSIUM 3.4 MMOL/L (3.6-5.0)
[2022-07-11 20:47] LABS: CALCIUM 7.7 MG/DL (8.5-10.1)
[2022-07-11 20:51] LABS: CREATININE SERUM 0.98 MG/DL (0.60-1.30)
[2022-07-11 20:53] LABS: MAGNESIUM 2.3 MG/DL (1.6-2.4)
[2022-07-11] MEDS ORDERED: POTASSIUM CL 10MEQ/50ML IVPB 100 ML IV ONE (21:28)
--- NOTE | 2022-07-11 23:13 | Progress Note ---
Subjective Subjective/Events-last exam Intubated and Sedated Review of Systems Unable to determine due to sedation and intubation Objective Exam Last Set of Vital Signs Vital Signs Date Time Temp Pulse Resp B/P (MAP) Pulse Ox O2 Delivery O2 Flow Rate FiO2 07/11/22 21:36 108 22 100 21 07/11/22 20:00 Mechanical Ventilator 07/11/22 15:00 99/67 (78) 21.00 07/11/22 08:00 36.0 Capillary Refill : Less Than 3 Seconds I&O Intake and Output 07/11/22 00:00 Intake Total 7900 ml Output Total 8760 ml Balance -860 ml Intake Oral 0 ml IV Total 7900 ml Output Urine Total 8760 ml General: Other (Opens eyes to name, not following commads) Lungs: Clear to Auscultation, Normal Air Movement Heart: No Murmurs, Other (tachycardic rate) Abdomen: Soft Extremities: No Edema, No Tenderness/Swelling Results/Procedures Lab Laboratory Tests 07/11/22 00:15: Glucometer 145H 07/11/22 01:00: Glucometer 142H 07/11/22 02:05: Glucometer 164H 07/11/22 03:14: Glucometer 156H 07/11/22 04:03: Glucometer 164H 07/11/22 04:14: White Blood Count 8.5, Red Blood Count 2.92L, Hemoglobin 9.6#L, Hematocrit 26L, Mean Corpuscular Volume 90, Mean Corpuscular Hemoglobin 33, Mean Corpuscular Hemoglobin Concent 36, Red Cell Distribution Width 13.0, Platelet Count 73L, Mean Platelet Volume 10.2, Immature Granulocyte % (Auto) 1, Neutrophils (%) (Auto) 87H, Lymphocytes (%) (Auto) 3L, Monocytes (%) (Auto) 8, Eosinophils (%) (Auto) 0, Basophils (%) (Auto) 1, Neutrophils # (Auto) 7.4, Lymphocytes # (Auto) 0.2L, Monocytes # (Auto) 0.7, Eosinophils # (Auto) 0.0, Basophils # (Auto) 0.1, Immature Granulocyte # (Auto) 0.1, Percent Immature Platelet Fraction 7.6, Sodium Level 129L, Potassium Level 3.3L, Chloride Level 97L, Carbon Dioxide Level 18L, Anion Gap 14, Blood Urea Nitrogen 8, Creatinine 0.91, Estimat Glomerular Filtration Rate 104, BUN/Creatinine Ratio 9, Glucose Level 133H, Calcium Level 7.2L, Corrected Calcium 8.7, Phosphorus Level 2.0L, Magnesium Level 1.2L, Total Bilirubin 0.9, Aspartate Amino Transf (AST/SGOT) 36H, Alanine Aminotransferase (ALT/SGPT) 21, Alkaline Phosphatase 95, Total Protein 4.4L, Albumin 2.1L, Beta-Hydroxybutyrate (Chem panel) 0.04 07/11/22 04:41: Blood Gas Puncture Site LEFT RADIAL, Blood Gas Patient Temperature 37.1, Arterial Blood pH 7.47H, Arterial Blood Partial Pressure CO2 26L, Arterial Blood Partial Pressure O2 61L, Arterial Blood HCO3 19L, Arterial Blood Total CO2 19.8L , Arterial Blood Oxygen Saturation 95, Arterial Blood Base Excess -4.1L, Luis Miguel Test YES-POS, Blood Gas Ventilator Setting YES, Blood Gas Inspired Oxygen 21% 07/11/22 05:12: Glucometer 121H 07/11/22 05:58: Glucometer 177H 07/11/22 06:58: Glucometer 209H 07/11/22 08:00: Vitamin B12 Level >2000H 07/11/22 08:10: Glucometer 224H 07/11/22 09:09: Glucometer 209H 07/11/22 10:03: Glucometer 216H 07/11/22 10:59: Glucometer 190H 07/11/22 11:47: Blood Gas Puncture Site LR, Blood Gas Patient Temperature 36.7, Arterial Blood pH 7.48H, Arterial Blood Partial Pressure CO2 26L, Arterial Blood Partial Pressure O2 72L, Arterial Blood HCO3 19L, Arterial Blood Total CO2 20.0L, Arterial Blood Oxygen Saturation 97, Arterial Blood Base Excess -3.8L, Luis Miguel Test YES-POS, Blood Gas Ventilator Setting NO, Blood Gas Inspired Oxygen 21% 07/11/22 11:55: Glucometer 196H 07/11/22 11:59: Sodium Level 133L, Potassium Level 3.7, Chloride Level 102, Carbon Dioxide Level 19L, Anion Gap 12, Blood Urea Nitrogen 9, Creatinine 0.95, Estimat Glomerular Filtration Rate 99, BUN/Creatinine Ratio 9, Glucose Level 184H, Calcium Level 7.5L, Magnesium Level 2.2 07/11/22 13:24: Glucometer 175H 07/11/22 14:09: Glucometer 140H 07/11/22 14:54: Glucometer 135H 07/11/22 16:39: Glucometer 192H 07/11/22 17:42: Glucometer 191H 07/11/22 19:01: Glucometer 197H 07/11/22 20:15: Glucometer 166H 07/11/22 20:17: Sodium Level 139, Potassium Level 3.4L, Chloride Level 108H, Carbon Dioxide Lev el 21, Anion Gap 10, Blood Urea Nitrogen 11, Creatinine 0.98, Estimat Glomerular Filtration Rate 95, BUN/Creatinine Ratio 11, Glucose Level 162H, Calcium Level 7.7L, Magnesium Level 2.3 07/11/22 21:17: Glucometer 159H 07/11/22 22:03: Glucometer 168H Microbiology 07/08/22 MRSA Screen - Final, Complete MRSA not isolated 07/08/22 Blood Culture - Preliminary, Resulted No growth 07/08/22 Urine Culture - Final, Complete NO GROWTH Assessment/Plan Assessment/Plan (1) Acute respiratory failure with hypoxia Status: Acute Assessment & Plan: 07/09: Intubated and sedated, managed per eICU, not candidate for SBT 07/10: Weaning sedation and hopeful for SBT today 07/11: Patient doing well on breathing trial but not following commads well (2) Leukocytosis Status: Resolved Assessment & Plan: 07/10: No clear sign of infection, CXR not impressive, continue Zosyn Qualifiers: Qualified Codes: D72.829 - Elevated white blood cell count, unspecified (3) Septic shock Status: Resolved Assessment & Plan: 07/09: Aggressive IVFs, currently on 3 pressors, placing arterial line today, continues to have good UOP 07/10: weaning pressors (4) Type 1 diabetes mellitus Status: Chronic Assessment & Plan: 07/09: Continue on insulin gtts, BMP q 8hrs 07/10: Continues to be acidotic, continue insulin gtts 07/11: anion gap closed, continue insulin drip until extubated Qualifiers: Qualified Codes: E10.69 - Type 1 diabetes mellitus with other specified complication (5) Ketoacidosis due to type 1 diabetes mellitus Status: Resolved Qualifiers: Qualified Codes: E10.10 - Type 1 diabetes mellitus with ketoacidosis without coma (6) PNA (pneumonia) Status: Acute Assessment & Plan: 07/09: most likely aspiration PNA, intubated, on Zosyn, D/c Vancomycin today, MRSA screen negative Qualifiers: Qualified Codes: J69.0 - Pneumonitis due to inhalation of food and vomit (7) Acute renal failure Status: Resolved Assessment & Plan: 07/09: Improving with aggressive IVFs, will continue to monitor, likely secondary to DKA and dehydration Qualifiers: Qualified Codes: N17.9 - Acute kidney failure, unspecified (8) Sinus tachycardia Status: Acute Assessment & Plan: 07/09: Cardiology consulted, appreciate recommendations, likely 2/2 to acidosis and illness severity, continue to monitor (9) CAD (coronary artery disease) Status: Chronic Qualifiers: Qualified Codes: I25.10 - Atherosclerotic heart disease of [place] coronary artery without angina pectoris AD [place] MD Jul 11, 2022 23:13
[2022-07-12] MEDS: POTASSIUM CL 10MEQ/50ML IVPB 50 ML IV SCH ×4 (02:28→06:40)
[2022-07-12] MEDS: meTOprolol 5 MG/5 ML (LOPRESSOR) VIAL IV SCH ×4 (02:28→17:56)
[2022-07-12] MEDS: LACTATED RINGERS 1,000 ML IV SCH (02:28)
[2022-07-12] MEDS: 1/2 NS IV SOLUTION 1,000 ML IV SCH ×8 (02:33→13:37)
[2022-07-12] MEDS: PROPOFOL DRIP (ICU) 100 ML IV SCH ×2 (02:33→15:13)
[2022-07-12 02:35] VITALS: BP 120/82
[2022-07-12 04:50] LABS: EOSINOPHILS % (AUTO) 0 % (0-10); MEAN CORPUSCULAR VOLUME 93 fL (80-99)
[2022-07-12 04:52] LABS: BASOPHILS # (AUTO) 0.1 10^3/uL (0.0-0.1); BASOPHILS % (AUTO) 1 % (0-10); HEMATOCRIT 27 % (40-54); HEMOGLOBIN 9.7 g/dL (13.3-17.7); LYMPHOCYTES # (AUTO) 0.3 10^3/uL (1.0-4.0); LYMPHOCYTES % (AUTO) 4 % (12-44); MEAN CORPUSCULAR HEMOGLOBIN 33 pg (25-34); MEAN CORPUSCULAR HGB CONC 35 g/dL (32-36); MEAN PLATELET VOLUME 10.8 fL (9.0-12.2); MONOCYTES # (AUTO) 1.1 10^3/uL (0.0-1.0); MONOCYTES % (AUTO) 14 % (0-12); NEUTROPHILS # (AUTO) 6.6 10^3/uL (1.8-7.8); NEUTROPHILS % (AUTO) 81 % (42-75); PLATELET COUNT 94 10^3/uL (130-400); WHITE BLOOD COUNT 8.2 10^3/uL (4.3-11.0)
[2022-07-12 05:05] LABS: ALBUMIN 2.2 GM/DL (3.2-4.5); POTASSIUM 4.8 MMOL/L (3.6-5.0)
[2022-07-12 05:08] LABS: TOTAL PROTEIN 4.9 GM/DL (6.4-8.2)
[2022-07-12 05:09] LABS: BILIRUBIN,TOTAL 0.6 MG/DL (0.1-1.0)
[2022-07-12 05:11] LABS: CREATININE SERUM 0.92 MG/DL (0.60-1.30); PHOSPHORUS 3.7 MG/DL (2.3-4.7)
[2022-07-12 05:14] LABS: MAGNESIUM 2.2 MG/DL (1.6-2.4)
[2022-07-12 05:27] LABS: ABG BASE EXCESS -5.4 MMOL/L (-2.5-2.5); ABG OXYGEN SATURATION 94 % (94-100); ABG PCO2 29 MMHG (35-45); ABG PH 7.42 (7.37-7.43); ABG PO2 59 MMHG (79-93); ABG TCO2 19.4 MMOL/L (21.0-31.0)
[2022-07-12 05:29] LABS: ALLENS TEST YES-POS; INSPIRED O2 21%; VENTILATOR NO
[2022-07-12] MEDS: MAGNESIUM 1 GM/100 ML IVPB 100 ML IV SCH (05:55)
[2022-07-12] MEDS: KCL 20 MEQ TAB (K-DUR) PO SCH (05:55)
--- NOTE | 2022-07-12 06:19 | Diagnostic Imaging Report ---
INDICATION: 47-year-old male with diabetic ketoacidosis and shortness of breath on a ventilator, intubated. COMPARISONS: 07/11/2022 FINDINGS: Single view chest shows normal heart, pleura and diaphragms. There are patchy 5 lobe alveolar infiltrates suggesting changes of early ARDS. This pattern is similar to the previous study. ET tube tip overlies trachea just below level of clavicles. Right IJ central line is noted with tip projected over the upper SVC. There is a previous median sternotomy for CABG. External pacer pads are seen. Soft tissues and bony thorax are unremarkable. IMPRESSION: 1. Patchy 5 lobe alveolar infiltrates suggesting early ARDS. This pattern is similar to the previous study. 2. Stable support lines. Dictated by: Dictated on workstation # [id number]
[2022-07-12] MEDS: PIPERACILLIN SODIUM/TAZOBACTAM 4.5 GM in NS (IVPB) 100 ML IV SCH ×3 (06:26→22:42)
[2022-07-12 06:57] VITALS: BP 126/78
[2022-07-12] MEDS: EPINEPHrine 1 MG INJECTION 4 MG in NS (IVPB) 246 ML IV SCH ×2 (07:34→16:43)
[2022-07-12] MEDS: dilTIAZem DRIP PRE-MIX 125 ML IV SCH (07:34)
--- NOTE | 2022-07-12 08:11 | Cardiology Progress Note ---
Subjective Date Seen by Provider: Jul 12, 2022 Time Seen by Provider: 08:10 Subjective/Events-last exam Patient is laying down in bed, awake, receiving pain medication Ventilator dependent Heart rate is better Review of Systems General: Other (Unable to provide review of system) Objective-Cardiology Exam Last Set of Vital Signs Vital Signs 07/12/22 07/12/22 07/12/22 07/12/22 06:00 06:57 07:11 07:53 Temp 36.7 Pulse 96 Resp 21 B/P (MAP) 117/74 (88) Pulse Ox 100 O2 Delivery Mechanical Ventilator O2 Flow Rate 21.00 FiO2 21 I&O Intake and Output 07/12/22 00:00 Intake Total 2750 ml Output Total 6225 ml Balance -3475 ml Intake Oral 0 ml IV Total 2750 ml Output Urine Total 6225 ml General: Alert, Other (Opens eyes to name, not following commads) HEENT: Other (Clear NG drainage) Lungs: Clear to Auscultation, Normal Air Movement Heart: Regular Rate, Normal S1, Normal S2, No Murmurs Abdomen: Soft Extremities: No Clubbing, No Cyanosis, No Edema, No Tenderness/Swelling Skin: No Rashes Neuro: Other (Ventilator dependent) Psych/Mental Status: Other (Ventilator dependent) Results Lab Laboratory Tests 07/11/22 11:59 07/11/22 20:17 07/12/22 04:30 A/P-Cardiology Admission Diagnosis Septic shock DKA Coronary artery disease Sinus tachycardia Assessment/Plan Hypotensive shock, Blood pressure is better, currently off pressors Continue to monitor Acute respiratory failure, ventilator dependent Aspiration pneumonia Early ARDS on chest x-ray today. Managed by medical team. Sinus tachycardia, improved Heart rate is better at this point. Continue to monitor Severe DKA, managed by primary care physician Septic shock, pneumonia or aspiration, managed by primary care physician Echo on 07/08/22: technically difficult study; hyperdynamic LV seen on Definity contrast injection with LVEF approx 60% CAD - History of CABG x3 done by Dr. Justin in April 2017: URRUTIA to LAD, reverse vein graft to the right PDA and reverse vein graft to the OM1, - Last cath 01/09/[address] Melgar: LMCA Ok. LAD occlude in mid portion. URRUTIA to distal LAD patent. OM1 of LCX occluede. SVG to OM patent. RCA occlude SVG to PDA patent, but PDA small and with slow distal flow - Last MPI 06/27/[address] Melgar: no ischemia or infarction, LVEF 73% H/o chronic chest wall pain with occasional feeling of numbness in his arm Hyperlipidemia for which he has been on statins COPD Diabetes mellitus, poorly controlled Nonobstructive carotid artery stenosis per carotid duplex done Dec [address] Melgar H/o recurrent headache, managed by primary care physician BREONNA MELGAR MD Jul 12, 2022 08:11
[2022-07-12] MEDS: ASPIRIN 81 MG CHEW (CHILDREN'S ASA) PO SCH (08:26)
[2022-07-12] MEDS: ENOXAPARIN 40 MG/0.4 ML (LOVENOX) SYR SC SCH (08:26)
[2022-07-12] MEDS: PANTOPRAZOLE 40 MG (PROTONIX) VIAL IV SCH (08:26)
[2022-07-12] MEDS: SENNOSIDES 8.6 MG (SENOKOT) TAB PO SCH ×2 (08:26→20:44)
[2022-07-12] MEDS: DOCUSATE SODIUM 100 MG (COLACE) CAP PO SCH ×2 (08:38→20:44)
[2022-07-12] MEDS ORDERED: FUROSEMIDE 40 MG/4 ML INJ (LASIX) IVP ONE (08:45)
--- NOTE | 2022-07-12 08:48 | Tele-ICU Progress Note ---
Subjective Date Seen by a Provider: Jul 12, 2022 Time Seen by a Provider: 08:47 Subjective/Events-last exam (Tele-ICU Physician , Progress Note ) Available chart/ vitals / labs / Images reviewed Video assessment done using teleICU camera, rest of exam as per RN Discussed with RN Events overnight : Afebrile hemodynamically stable Respiratory - 21 % I/O = neg 3 l Drips: insulin gtt, propofol gtt Pressors- vaso 0.03 levo 0.02 , epi OFF VENT SETTINGS and ABG reviewed Sedation: RASS -1 precedex 1. 2 . propofol 5 candidate for SBTContraindications : Cardiovascular Stability /Sedation Score / FI02/PEEP / ABG / CXR Consultants: gabino Hospital course: 07-08: 47 y/o M - Unresponsive at home - Not well since Saturday. ?Asp Pneumonia - DKA Hypothermic - Intubated in ER - Pressors started. A/P Acute resp fail;ure =- intubated 07/08 for airway protection - AC 18 450 21 % + 5 -DID GOOD SBT yesterday - left on CPAP for airway protection given severe wekness - was onAC this am - WILL DO SBT AGAIN TODSY - he is BETTER _ moves upper extrimities and moved lowere extremities for me duriong " cameeta exam " - most likely will extubate today -- cxr is worse today - will try diuresis DKA - insulin gtt to STOP - start long acting latter today with starting feeding ( total 12 h shift insulin use 6 units overnignt Shock resolved ID - UA neg 07/08 - NEG covid , flu - empirically tx with abx x 5 days - cxr is worse today - attempt diuresis PNA suspected , aspiration -Started on IV Vancomycin, zosyn 07/08 - cxr is not impressive , follow , consider very vibration engineer course abx - -yeast in sputum cx - most likely oral , nit invasive pulm infection - doubt need for systemic antifungal ARIE - resolved Anemia - mild , delutional , no active bleeding - PPI IV H/o CAD. s/p CABG 2016 - ECHO 07/08 - EF 55% ( technically difficult study; hyperdynamic LV - cards follow Tachycardia - Sinus ( confirmed in after adenosine ) - will try adress possible pain - follow - beta blokers resumed h/o COPD - cont nebs Thrombocytopenia - PLT dropped to 107 from 252- ? delutional -IMPROVING Nutrition - need to start TF or PO today Profound wekness - improving -CTH negative , follows commands Lines : R IJ , (Central Line Necessity Reviewed) Nicholson: + OG: Nutrition: NPO Analgesia: Anxiety/ delirium VTE Prophylaxis: jeff 30 Stress Ulcer Prophylaxis: ppi Plans in collaboration with bedside consultants and IM MDs. Discussed with RN to reach out if any questions or concerns A total of 35 minutes of critical care time was devoted to this patient today, required to treat and/or prevent further deterioration of critical care condition ( as above ) . Sepsis Event Evaluation Height, Weight, BMI Height: 5'6.00" Weight: 157lbs. 0.0oz. 71.141108dc; 26.11 BMI Method: Exam Exam Patient acknowledged, consented, and participated in this virtual visit which was conducted using real time audio/video Vital Signs Date Time Temp Pulse Resp B/P (MAP) Pulse Ox O2 Delivery O2 Flow Rate FiO2 07/12/22 08:00 98 Mechanical Ventilator 21 07/12/22 07:53 36.7 07/12/22 07:11 96 07/12/22 06:57 99 21 100 21 07/12/22 06:00 102 20 117/74 (88) 100 Mechanical Ventilator 21.00 07/12/22 05:00 105 14 120/77 (92) 100 Mechanical Ventilator 21.00 07/12/22 04:40 36.0 07/12/22 04:00 100 Mechanical Ventilator 21 07/12/22 04:00 101 20 117/74 (89) 100 Mechanical Ventilator 21.00 07/12/22 03:00 101 20 114/71 (89) 100 Mechanical Ventilator 21.00 07/12/22 02:35 107 22 100 21 07/12/22 02:00 112 15 123/72 (90) 100 Mechanical Ventilator 21.00 07/12/22 01:00 112 14 127/75 (94) 100 Mechanical Ventilator 21.00 07/12/22 01:00 112 07/12/22 00:00 100 Mechanical Ventilator 21 07/12/22 00:00 113 14 128/78 (95) 100 Mechanical Ventilator 21.00 07/11/22 23:53 36.8 07/11/22 23:00 113 15 126/71 (90) 99 Mechanical Ventilator 21.00 07/11/22 22:00 114 17 126/72 (94) 100 Mechanical Ventilator 21.00 07/11/22 21:36 108 22 100 21 07/11/22 21:00 117 150/84 (117) 100 Mechanical Ventilator 21.00 07/11/22 20:00 113 16 126/76 (100) 100 Mechanical Ventilator 21.00 07/11/22 20:00 100 Mechanical Ventilator 21 07/11/22 19:00 122 16 116/68 (82) 100 Mechanical Ventilator 21.00 07/11/22 19:00 122 07/11/22 18:20 126 23 100 21 07/11/22 16:00 100 Mechanical Ventilator 21 07/11/22 15:05 123 25 100 21 07/11/22 15:00 124 20 99/67 (78) 100 Mechanical Ventilator 21.00 07/11/22 14:00 124 13 121/63 (82) 100 Mechanical Ventilator 21.00 07/11/22 13:52 128 07/11/22 13:00 131 23 110/65 (80) 100 Mechanical Ventilator 21.00 07/11/22 12:00 100 Mechanical Ventilator 21 07/11/22 12:00 129 22 92/61 (71) 100 Mechanical Ventilator 21.00 07/11/22 11:20 128 22 100 21 07/11/22 11:00 129 29 92/51 (65) 100 Mechanical Ventilator 21.00 07/11/22 10:00 135 35 103/62 (76) 100 Mechanical Ventilator 21.00 07/11/22 09:10 131 20 100 21 07/11/22 09:00 130 18 103/82 (89) 100 Mechanical Ventilator 21.00 I & O 07/12/22 07:00 Intake Total 500 ml Output Total 5850 ml Balance -5350 ml Height & Weight Height: 5'6.00" Weight: 157lbs. 0.0oz. 71.713825uc; 26.11 BMI Method: General Appearance: WD/WN, Severe Distress HEENT: PERRL/EOMI, TMs Normal (Negative for hemotympanum or louis sign, atraumatic head), Pharynx Normal (Dry with blackish brown emesis.); No Moist Mucous Membranes Neck: Full Range of Motion, Normal Inspection Respiratory: Lungs Clear, Normal Breath Sounds, No Accessory Muscle Use, Respiratory Distress (Increased respiratory rate, [place]) Cardiovascular: Normal Peripheral Pulses, Tachycardia Capillary Refill: Less Than 3 Seconds Gastrointestinal: normal bowel sounds, non tender, soft Extremity: Normal Inspection, No Pedal Edema, Slow Capillary Refill Neurologic/Psychiatric: Other (GCS of 8, will open eyes briefly if given noxious or verbal stimuli. Does not follow commands. Flexes on noxious stimuli.) Skin: Cool, Pallor Results Lab Laboratory Tests 07/10/22 13:42 07/10/22 20:22 07/11/22 04:14 07/11/22 11:59 07/11/22 20:17 07/12/22 04:30 Assessment/Plan Assessment/Plan 1 MAYANK CHILDERS MD Jul 12, 2022 08:48
[2022-07-12 08:51] VITALS: BP 110/65
[2022-07-12] MEDS: RT-ALBUTEROL/IPRATROPIUM 3 ML (DUONEB) VIAL INH SCH ×2 (08:51→19:58)
[2022-07-12] MEDS ORDERED: FUROSEMIDE 40 MG/4 ML INJ (LASIX) IVP NR (09:00)
--- NOTE | 2022-07-12 10:03 | Physical Therapy Daily Note ---
PT Daily Note-Current Subjective Patient intubated but awake. Transfers SCALE: Activities may be completed with or without assistive devices. 6-Mamrjkyowg-svsswpx completes the activity by him/herself with no assistance from a helper. 5-Set-up or Clean-up Assistance-helper sets up or cleans up; patient completes activity. [place] assists only prior to or following the activity. 4-Supervision or Touching Assistance-helper provides verbal cues and/or touching/steadying and/or contact guard assistance as patient completes activity. Assistance may be provided throughout the activity or intermittently. 3-Partial/Moderate Assistance-helper does LESS THAN HALF the effort. [place] lifts, holds or supports trunk or limbs, but provides less than half the effort. 2-Substantial/Maximal Assistance-helper does MORE THAN HALF the effort. [place] lifts or holds trunk or limbs and provides more than half the effort. 8-Yrqajkozj-idysnw does ALL the effort. Patient does none of the effort to complete the activity. Or, the assistance of 2 or more helpers is required for the patient to complete the activity. If activity was not attempted, code reason: 7-Patient Refused. 9-Not Applicable-not attempted and the patient did not perform the activity before the current illness, exacerbation or injury. 10-Not Attempted due to Environmental Limitations-(lack of equipment, weather restraints, etc.). 88-Not Attempted due to Medical Conditions or Safety Concerns. Exercises Supine Ex: Ankle pumps, Heel Slides, Straight leg raise, Hip abd/add Supine Reps: 15 (PROM bilateral LE) Assessment Patient is PROM with all bilateral LE exercises. PT to increase activity as tolerated by patient. PT Still Photographer Goals [facility] Goals PT Still Photographer Goals Time Frame: Jul 18, 2022 Roll Left & Right (QC): 3 Sit to Lying (QC): 3 Lying-Sitting on Side/Bed(QC): 3 Sit to Stand (QC): 3 Chair/Ywm-ek-Wkeqr Xfer(QC): 3 PT Plan Treatment/Plan Treatment Plan: Continue Plan of Care Treatment Plan: Bed Mobility, Education, Functional Activity [place], Functional Strength, Gait, Safety, Therapeutic Exercise, Transfers Treatment Duration: Jul 18, 2022 Frequency: 5 times per week Estimated Hrs Per Day: .25 hour per day Patient and/or Family Agrees t: Yes Time/GCodes Time In: 800 Time Out: 810 Total Billed Treatment Time: 10 Total Billed Treatment 1 visit EX 10 min EDENILSON CASTILLO PT Jul 12, 2022 10:03
[2022-07-12] MEDS: inSUlin ASPART (NovoLOG) 1 UNIT/0.01 ML (CHARGE PER UNIT) SC SCH ×2 (11:20→18:00)
--- NOTE | 2022-07-12 12:07 | ST Dysphagia Evaluation ---
Speech Evaluation-General Medical Diagnosis DKA Onset Date: Jul 08, 2022 Therapy Diagnosis Therapy Diagnosis: Suspected Oropharyngeal Dysphagia Precautions Precautions: Fall, Pressure Ulcer, Aspiration Precautions/Isolations: Aspiration, Fall Prevention, Standard Precautions Referral Referring Physician: Dr. Mary Rodriguez Reason for Referral: Evaluation/Treatment Medical History Pertinent Medical History: CAD, DM Current History The patient is a 47 year-old male with a history of diabetes and CAD, who presented to [facility] following coffee-ground emesis and altered mental status. The patient was intubated upon arrival and remained intubated until 07/12/2022. Reviewed History: Yes Social History Current Living Status: Significant Other Speech PLF/Current-Dysphagia Prior Level of Function Prior level of function (P.O. intake) is unknown to this clinician. Per chart review, the patient was tolerating "Coke" prior to admission. Subjective The patient was lying in bed with his eyes opened upon entrance to his room by the clinician. The patient visually tracks the clinician throughout the room, however, no attempts are made at verbalizations. The patient has two RN's present in the room. The patient is positioned upright in bed for safe swallowing. The patient has audible hypopharyngeal and laryngeal secretions present at baseline. The RN stated they attempted suctioning prior to clear the secretions. The patient is unable to complete a cued throat clear or cough. The patient currently is receiving 3L supplemental oxygen via nasal cannula with SpO2% at 100%. The patient appears to have rapid respirations, however, breath per minute reads at 18. Cognitive Status Patient Orientation: Unresponsive Oral Motor Skills Dentition: Natural Ability to Follow Directions: Poor The patient is asked to complete various oral mechanism movements for the evaluation. The patient shakes his head "no" to each request or direct modeling attempt. The patient does not attempt additional nonverbal communication with the clinician. Oral Expression Ability: Unable Observation: Excessive Excretion Hypopharynx Face Facial Symmetry: Symmetrical The patient does not participate in any requests or actions to complete the oral mechanism exam. Oral-Facial Assessment Oral-Facial Dentition: Normal Volitional Dry Swallow: No Voluntary Cough: No Can Clear Throat Volitionally: No Productive Cough: No Productive Throat Clear: No Dysphagia Evaluation Consistencies Presented: Thin Liquid (Via moist swab and ice chip.) The patient actively turns head away from all presentations of oral boluses by the clinician. The patient does not attempt a lingual sweep of moisture provided to the lower labial surface. Dietary Recommendations: NPO Liquid Recommendations: NPO Recommendations: - The patient should remain NPO. - Frequent and excellent oral care to reduce the transfer of oral bacteria to the lungs should aspiration of secretions occur. - Bedside suction available and completed frequently to aid the patient is clearance of audible hypopharyngeal secretions. - ST will continue oropharyngeal swallowing evaluation as the patient is able to participation and appropriate. Dysphagia Evaluation Summary At this time, the patient does not appear to be handling his own secretions or following verbal or direct modeling commands. The patient actively turns head away from an oral swab on multiple occasions and displays increasing respiratory pattern and fatigue. The patient is not deemed safe or appropriate for P.O. intake at this time. The speech pathologist will continue to evaluate the patient as able and appropriate. Speech Short Term Goals Short Term Goals Short Term Goals 1. The patient will tolerate trials of the least restrictive diet consistency without s/s of suspected aspiration. Time Frame-STG: Three Days. Speech Retirement Goals Granite Polisher Goals 1. The patient will tolerate the least restrictive diet consistency without s/s of suspected aspiration. Time Frame: One Week. Speech-Plan Treatment Plan Speech Therapy Treatment Plan: Continue Plan of Care Frequency: 5 times per week (Pending return to P.O. or nutrition source.) Estimated Hrs Per Day: .25 hour per day Rehab Potential: Guarded Safety Risks/Education Teaching Recipient: Patient Teaching Methods: Discussion Response to Teaching: Unable to Comprehend Education Topics Provided: Results, Recommendations Time Speech Therapy Time In: 11:30 Speech Therapy Time Out: 11:40 Total Billed Time: 10 Billed Treatment Time LenchoMOOKIE ELIZABETH ST Jul 12, 2022 12:07
[2022-07-12] MEDS: NOREPINEPHRINE 16 MG/250 ML DRIP IV SCH ×2 (13:00)
--- NOTE | 2022-07-12 22:04 | Progress Note ---
Subjective Subjective/Events-last exam Patient awake and answering questions appropriately. He is moving arms and feet. Review of Systems Unable to determine due to sedation and intubation Objective Exam Last Set of Vital Signs Vital Signs Date Time Temp Pulse Resp B/P (MAP) Pulse Ox O2 Delivery O2 Flow Rate FiO2 07/12/22 21:00 97 22 141/80 (111) 99 Room Air 07/12/22 17:00 3.00 07/12/22 15:34 36.5 07/12/22 08:51 30 Capillary Refill : Less Than 3 Seconds I&O Intake and Output 07/12/22 00:00 Intake Total 2750 ml Output Total 6225 ml Balance -3475 ml Intake Oral 0 ml IV Total 2750 ml Output Urine Total 6225 ml General: Other (Intubated, awakes to names and nods to answer) HEENT: Mucous Memb Moist/Mor[place] Lungs: Other (diffuse crackles) Heart: Regular Rate Extremities: Other (1+ pitting edema bilaterally) Results/Procedures Lab Laboratory Tests 07/11/22 22:03: Glucometer 168H 07/11/22 23:16: Glucometer 159H 07/12/22 00:04: Glucometer 164H 07/12/22 01:09: Glucometer 163H 07/12/22 02:19: Glucometer 146H 07/12/22 03:16: Glucometer 138H 07/12/22 04:08: Glucometer 156H 07/12/22 04:30: White Blood Count 8.2, Red Blood Count 2.94L, Hemoglobin 9.7L, Hematocrit 27L, Mean Corpuscular Volume 93, Mean Corpuscular Hemoglobin 33, Mean Corpuscular Hemoglobin Concent 35, Red Cell Distribution Width 13.9, Platelet Count 94L, Mean Platelet Volume 10.8, Immature Granulocyte % (Auto) 2, Neutrophils (%) (Auto) 81H, Lymphocytes (%) (Auto) 4L, Monocytes (%) (Auto) 14H, Eosinophils (%) (Auto) 0, Basophils (%) (Auto) 1, Neutrophils # (Auto) 6.6, Lymphocytes # (Auto) 0.3L, Monocytes # (Auto) 1.1H, Eosinophils # (Auto) 0.0, Basophils # (Auto) 0.1, Immature Granulocyte # (Auto) 0.1, Percent Immature Platelet Fraction 6.5, Sodium Level 141, Potassium Level 4.8, Chloride Level 110H, Carbon Dioxide Level 19L, Anion Gap 12, Blood Urea Nitrogen 13, Creatinine 0.92, Estimat Glomerular Filtration Rate 103, BUN/Creatinine Ratio 14, Glucose Level 146H, Calcium Level 8.0L, Corrected Calcium 9.4, Phosphorus Level 3.7, Magnesium Level 2.2, Total Bilirubin 0.6, Aspartate Amino Transf (AST/SGOT) 23, Alanine Aminotransferase (ALT/SGPT) 22, Alkaline Phosphatase 104, Total Protein 4.9L, Albumin 2.2L, Triglycerides Level 96 07/12/22 04:58: Blood Gas Puncture Site LRAD, Blood Gas Patient Temperature 36.0, Arterial Blood pH 7.42, Arterial Blood Partial Pressure CO2 29L, Arterial Blood Partial Pressure O2 59L, Arterial Blood HCO3 18L, Arterial Blood Total CO2 19.4L, Arterial Blood Oxygen Saturation 94, Arterial Blood Base Excess -5.4L, Luis Miguel Test YES-POS, Blood Gas Ventilator Setting NO, Blood Gas Inspired Oxygen 21% 07/12/22 05:22: Glucometer 139H 07/12/22 06:03: Glucometer 144H 07/12/22 06:59: Glucometer 152H 07/12/22 07:49: Glucometer 137H 07/12/22 08:59: Glucometer 132H 07/12/22 10:03: Glucometer 160H 07/12/22 11:04: Glucometer 187H 07/12/22 11:55: Glucometer 201H 07/12/22 12:59: Glucometer 188H 07/12/22 14:13: Glucometer 192H 07/12/22 16:16: Glucometer 198H 07/12/22 17:54: Glucometer 175H 07/12/22 20:25: Glucometer 168H Microbiology 07/08/22 MRSA Screen - Final, Complete MRSA not isolated 07/08/22 Blood Culture - Preliminary, Resulted No growth 07/08/22 Urine Culture - Final, Complete NO GROWTH Assessment/Plan Assessment/Plan (1) Acute respiratory failure with hypoxia Status: Acute Assessment & Plan: 07/09: Intubated and sedated, managed per eICU, not candidate for SBT 07/10: Weaning sedation and hopeful for SBT today 07/11: Patient doing well on breathing trial but not following commads well 07/12: CXR worse today but doing well on SBT, will try and extubate today (2) Leukocytosis Status: Resolved Assessment & Plan: 07/10: No clear sign of infection, CXR not impressive, continue Zosyn Qualifiers: Qualified Codes: D72.829 - Elevated white blood cell count, unspecified (3) Septic shock Status: Resolved Assessment & Plan: 07/09: Aggressive IVFs, currently on 3 pressors, placing arterial line today, continues to have good UOP 07/10: weaning pressors (4) Type 1 diabetes mellitus Status: Chronic Assessment & Plan: 07/09: Continue on insulin gtts, BMP q 8hrs 07/10: Continues to be acidotic, continue insulin gtts 07/11: anion gap closed, continue insulin drip until extubated 07/12: transitioning to subcutaneous insulin Qualifiers: Qualified Codes: E10.69 - Type 1 diabetes mellitus with other specified complication (5) Ketoacidosis due to type 1 diabetes mellitus Status: Resolved Qualifiers: Qualified Codes: E10.10 - Type 1 diabetes mellitus with ketoacidosis without coma (6) PNA (pneumonia) Status: Acute Assessment & Plan: 07/09: most likely aspiration PNA, intubated, on Zosyn, D/c Vancomycin today, MRSA screen negative Qualifiers: Qualified Codes: J69.0 - Pneumonitis due to inhalation of food and vomit (7) Acute renal failure Status: Resolved Assessment & Plan: 07/09: Improving with aggressive IVFs, will continue to monitor, likely secondary to DKA and dehydration Qualifiers: Qualified Codes: N17.9 - Acute kidney failure, unspecified (8) Sinus tachycardia Status: Acute Assessment & Plan: 07/09: Cardiology consulted, appreciate recommendations, likely 2/2 to acidosis and illness severity, continue to monitor (9) CAD (coronary artery disease) Status: Chronic Qualifiers: Qualified Codes: I25.10 - Atherosclerotic heart disease of [place] coronary artery without angina pectoris AD MONTA[place] MD Jul 12, 2022 22:04
[2022-07-13] MEDS: inSUlin ASPART (NovoLOG) 1 UNIT/0.01 ML (CHARGE PER UNIT) SC SCH ×4 (00:45→18:08)
[2022-07-13] MEDS: meTOprolol 5 MG/5 ML (LOPRESSOR) VIAL IV SCH ×4 (00:48→18:08)
[2022-07-13] MEDS: morphine INJ 4 MG/ML 1 ML (VIAL/SYRINGE) IV PRN (00:59)
[2022-07-13] MEDS: RT-ALBUTEROL/IPRATROPIUM 3 ML (DUONEB) VIAL INH SCH ×4 (03:22→20:38)
[2022-07-13 04:57] LABS: ABG BASE EXCESS -1.8 MMOL/L (-2.5-2.5); ABG OXYGEN SATURATION 89 % (94-100); ABG PCO2 34 MMHG (35-45); ABG PH 7.43 (7.37-7.43); ABG PO2 55 MMHG (79-93); ABG TCO2 22.9 MMOL/L (21.0-31.0); ALLENS TEST YES-POS
[2022-07-13 04:58] LABS: INSPIRED O2 40%; PATIENT TEMP 36.3; VENTILATOR NO
[2022-07-13 05:13] LABS: EOSINOPHILS % (AUTO) 0 % (0-10)
[2022-07-13 05:15] LABS: BASOPHILS # (AUTO) 0.1 10^3/uL (0.0-0.1); BASOPHILS % (AUTO) 1 % (0-10); HEMATOCRIT 29 % (40-54); LYMPHOCYTES # (AUTO) 0.3 10^3/uL (1.0-4.0); LYMPHOCYTES % (AUTO) 3 % (12-44); MEAN CORPUSCULAR HEMOGLOBIN 33 pg (25-34); MEAN CORPUSCULAR HGB CONC 35 g/dL (32-36); MEAN CORPUSCULAR VOLUME 94 fL (80-99); MEAN PLATELET VOLUME 10.7 fL (9.0-12.2); MONOCYTES # (AUTO) 1.3 10^3/uL (0.0-1.0); MONOCYTES % (AUTO) 13 % (0-12); NEUTROPHILS # (AUTO) 8.7 10^3/uL (1.8-7.8); NEUTROPHILS % (AUTO) 82 % (42-75); PLATELET COUNT 109 10^3/uL (130-400); WHITE BLOOD COUNT 10.7 10^3/uL (4.3-11.0)
[2022-07-13] MEDS: EPINEPHrine 1 MG INJECTION 4 MG in NS (IVPB) 246 ML IV SCH ×2 (05:19→11:37)
[2022-07-13] MEDS: PROPOFOL DRIP (ICU) 100 ML IV SCH ×2 (05:19→15:43)
[2022-07-13 05:29] LABS: ALBUMIN 2.4 GM/DL (3.2-4.5); POTASSIUM 2.9 MMOL/L (3.6-5.0)
[2022-07-13 05:30] LABS: CALCIUM 8.6 MG/DL (8.5-10.1)
[2022-07-13 05:32] LABS: TOTAL PROTEIN 5.5 GM/DL (6.4-8.2)
[2022-07-13 05:33] LABS: BILIRUBIN,TOTAL 0.6 MG/DL (0.1-1.0)
[2022-07-13 05:35] LABS: CREATININE SERUM 1.09 MG/DL (0.60-1.30); PHOSPHORUS 4.5 MG/DL (2.3-4.7)
[2022-07-13 05:38] LABS: MAGNESIUM 1.8 MG/DL (1.6-2.4)
[2022-07-13] MEDS: MAGNESIUM 1 GM/100 ML IVPB 100 ML IV SCH (06:18)
[2022-07-13] MEDS: KCL 20 MEQ TAB (K-DUR) PO SCH (06:18)
[2022-07-13] MEDS: POTASSIUM CL 10MEQ/50ML IVPB 50 ML IV SCH ×7 (06:36→13:21)
[2022-07-13] MEDS: dilTIAZem DRIP PRE-MIX 125 ML IV SCH (07:29)
[2022-07-13] MEDS: DOCUSATE SODIUM 100 MG (COLACE) CAP PO SCH ×2 (07:56→20:25)
[2022-07-13] MEDS: ASPIRIN 81 MG CHEW (CHILDREN'S ASA) PO SCH (07:56)
[2022-07-13] MEDS: SENNOSIDES 8.6 MG (SENOKOT) TAB PO SCH ×2 (07:57→20:25)
[2022-07-13] MEDS: ENOXAPARIN 40 MG/0.4 ML (LOVENOX) SYR SC SCH (08:08)
[2022-07-13] MEDS: PANTOPRAZOLE 40 MG (PROTONIX) VIAL IV SCH (08:08)
--- NOTE | 2022-07-13 08:17 | Diagnostic Imaging Report ---
Indication: Shortness of breath Portable chest 6:30 AM There are postoperative changes from CABG surgery. Right IJ central line tip projects over the SVC. There are small dense patchy opacities scattered throughout both lungs. There is no effusion or pneumothorax. There has been interval removal of ET tube since previous day. IMPRESSION: Patchy pulmonary infiltrates are unchanged from the previous day. Dictated by: Dictated on workstation # [id number]
--- NOTE | 2022-07-13 08:30 | Tele-ICU Progress Note ---
Subjective Date Seen by a Provider: Jul 13, 2022 Time Seen by a Provider: 08:24 Subjective/Events-last exam On vent did ok on SBT yesterday, extubated, not verbal, but will follow commands, very weak, now on high flow oxgyen @ 6 lpm NX, SpO2 high 90's, weak cough, with diffuse rhonchi, needs suctioning every 4 hours DKA has improved now on sliding scale insulin, got 7 Units of Levimer last night, last glu NPO as having difficulty doing swallow eval due to deficits, does have gag reflex, will try again today, may need NGT, getting normal saline, last glu 103, need to monitor closely Was on IV Vanco, Zosyn for possible asp PNA septic shock, all BC negative so far Sepsis Event Evaluation Height, Weight, BMI Height: 5'6.00" Weight: 157lbs. 0.0oz. [id number]; 26.11 BMI Method: Exam Exam Patient acknowledged, consented, and participated in this virtual visit which was conducted using real time audio/video Vital Signs Date Time Temp Pulse Resp B/P (MAP) Pulse Ox O2 Delivery O2 Flow Rate FiO2 07/13/22 08:13 36.4 07/13/22 08:00 96 21 117/83 (94) 96 High Flow N/C 6.00 07/13/22 07:32 High Flow N/C 6.00 07/13/22 07:07 100 High Flow N/C 4.00 07/13/22 07:00 89 17 125/79 (94) 99 High Flow N/C 5.00 07/13/22 07:00 92 07/13/22 06:00 95 18 114/77 (89) 98 High Flow N/C 5.00 07/13/22 05:00 93 20 126/79 (91) 95 High Flow N/C 5.00 07/13/22 04:12 96 30 87 High Flow N/C 12.00 07/13/22 04:00 100 High Flow N/C 6.00 07/13/22 04:00 93 29 137/87 (114) 94 High Flow N/C 4.00 07/13/22 03:22 95 High Flow N/C 4.00 07/13/22 03:00 89 20 147/85 (118) 97 High Flow N/C 4.00 07/13/22 02:00 89 18 143/83 (116) 92 Room Air 07/13/22 01:00 90 22 131/92 (114) 91 Room Air 07/13/22 01:00 90 07/13/22 00:00 94 26 139/106 (117) 95 Room Air 07/13/22 00:00 100 Room Air 07/12/22 23:00 96 22 142/84 (104) 97 Room Air 07/12/22 22:00 96 19 146/83 (105) 98 Room Air 07/12/22 21:00 97 22 141/80 (111) 99 Room Air 07/12/22 20:00 100 Room Air 07/12/22 20:00 96 12 149/83 (123) 98 Room Air 07/12/22 19:58 98 Room Air 07/12/22 19:00 101 07/12/22 19:00 101 24 146/90 (114) 98 Room Air 07/12/22 18:00 90 17 126/77 (93) 97 Room Air 07/12/22 17:30 Room Air 07/12/22 17:00 94 14 130/80 (97) 97 Nasal Cannula 3.00 07/12/22 16:00 98 17 110/80 (90) 98 Nasal Cannula 3.00 07/12/22 16:00 100 High Flow N/C 3.00 07/12/22 15:34 36.5 07/12/22 15:17 100 Room Air 07/12/22 15:00 96 33 122/78 (93) 100 Nasal Cannula 3.00 07/12/22 14:00 99 22 128/77 (94) 100 Nasal Cannula 3.00 07/12/22 13:28 101 07/12/22 13:00 99 22 117/74 (88) 100 Nasal Cannula 3.00 07/12/22 12:00 100 High Flow N/C 3.00 07/12/22 12:00 98 25 106/70 (82) 99 Nasal Cannula 3.00 07/12/22 11:35 37.1 07/12/22 11:15 104 25 101/59 (73) 100 Nasal Cannula 3.00 07/12/22 11:00 107 25 103/63 (76) 100 Mechanical Ventilator 21.00 07/12/22 10:00 108 24 121/63 (82) 100 Mechanical Ventilator 21.00 07/12/22 09:00 99 22 119/70 (86) 100 Mechanical Ventilator 21.00 07/12/22 08:51 99 12 100 30 I & O 07/13/22 07:00 Intake Total 575 ml Output Total 5600 ml Balance -5025 ml Height & Weight Height: 5'6.00" Weight: 157lbs. 0.0oz. 71.065336kl; 26.11 BMI Method: General Appearance: WD/WN, Severe Distress, Other (lethargic, looks weak) HEENT: PERRL/EOMI, TMs Normal (Negative for hemotympanum or louis sign, atraumatic head), Pharynx Normal (Dry with blackish brown emesis.); No Moist Mucous Membranes Neck: Full Range of Motion, Normal Inspection Respiratory: Lungs Clear, Normal Breath Sounds, No Accessory Muscle Use, Respiratory Distress (Increased respiratory rate, Kussmaul), Rhonci Cardiovascular: Regular Rate, Rhythm, Normal Peripheral Pulses, Tachycardia Capillary Refill: Less Than 3 Seconds Gastrointestinal: normal bowel sounds, non tender, soft Extremity: Normal Inspection, No Pedal Edema, Pedal Edema, Slow Capillary Refill, Other (left ankle has +1 pitting edema) Neurologic/Psychiatric: Other (GCS of 8, will open eyes briefly if given noxious or verbal stimuli. Does not follow commands. Flexes on noxious stimuli.) Skin: Cool, Pallor Results Lab Laboratory Tests 07/11/22 11:59 07/11/22 20:17 07/12/22 04:30 07/13/22 05:05 Assessment/Plan Assessment/Plan Acute resp fail;ure =-Exutbated but weak, cough not great, will await swallow exam and monitor closely, if can not handle secretions may need reintubation -- cxr is worse today - will try diuresis DKA Was NPO due to swallow concerns, on sliding scale, Will get liquids and to start Levimer 6 units ID - UA neg 07/08 - NEG covid , flu - empirically tx with abx x 5 days - cxr is worse today - attempt diuresis PNA suspected , aspiration -Started on IV Vancomycin, zosyn 07/08 now off, - ARIE - resolved Anemia - mild , delutional , no active bleeding - PPI IV H/o CAD. s/p CABG 2017 - ECHO 07/08 - EF 55% ( technically difficult study; hyperdynamic LV - cards follow Tachycardia - Sinus ( confirmed in after adenosine ) - will try adress possible pain - follow - beta blokers resumed h/o COPD - cont nebs Thrombocytopenia - PLT dropped to 107 from 252- ? delutional -IMPROVING Nutrition - need to start TF or PO today Profound wekness - improving -CTH negative , follows commands Lines : R IJ , (Central Line Necessity Reviewed) Nicholson: + OG: Nutrition: NPO Analgesia: Anxiety/ delirium VTE Prophylaxis: jeff 30 Stress Ulcer Prophylaxis: ppi Critical Care: Critically Ill Patient Time spent with patient (mins): 35 CHRIS SANDERS MD Jul 13, 2022 08:30
--- NOTE | 2022-07-13 08:37 | Cardiology Progress Note ---
Subjective Date Seen by Provider: Jul 13, 2022 Time Seen by Provider: 08:34 Subjective/Events-last exam Patient was seen at bedside, laying down comfortably Lethargic, opening his eyes, not following commands, not responding to questions Review of Systems General: Fatigue, Malaise, Other (Unable to provide review of system) Objective-Cardiology Exam Last Set of Vital Signs Vital Signs 07/12/22 07/13/22 07/13/22 08:51 08:00 08:13 Temp 36.4 Pulse 96 Resp 21 B/P (MAP) 117/83 (94) Pulse Ox 96 O2 Delivery High Flow N/C O2 Flow Rate 6.00 FiO2 30 I&O Intake and Output 07/13/22 00:00 Intake Total 775 ml Output Total 6075 ml Balance -5300 ml Intake Oral 0 ml IV Total 775 ml Output Urine Total 6075 ml General: Alert, No Acute Distress HEENT: Atraumatic, Mucous Memb Moist/[place] Neck: Supple, No JVD Lungs: Normal Air Movement Heart: Regular Rate, Normal S1, Normal S2 Abdomen: Normal Bowel Sounds, Soft Extremities: No Clubbing, No Cyanosis, Other (1+ pitting edema bilaterally) Skin: No Rashes Neuro: Other (Not following commands) Psych/Mental Status: Other (Opening his eyes and not responding to questions) Results Lab Laboratory Tests 07/13/22 05:05 A/P-Cardiology Admission Diagnosis Septic shock DKA Coronary artery disease Sinus tachycardia Assessment/Plan Status post hypotensive shock, sepsis Blood pressure and heart rate are better. Doing better today. Status post acute respiratory failure, extubated on July 12, 2022 Has aspiration pneumonia Early ARDS Improving, managed by medical team. Hypokalemia, replace and monitor Sinus tachycardia, improved Heart rate is better at this point. Continue to monitor Severe DKA, Improved, managed by primary care physician Echo on 07/08/22: technically difficult study; hyperdynamic LV seen on Definity contrast injection with LVEF approx 60% CAD - History of CABG x3 done by Dr. Justin in April 2017: URRUTIA to LAD, reverse vein graft to the right PDA and reverse vein graft to the OM1, - Last cath 01/09/[address] Melgar: LMCA Ok. LAD occlude in mid portion. URRUTIA to di stal LAD patent. OM1 of LCX occluede. SVG to OM patent. RCA occlude SVG to PDA patent, but PDA small and with slow distal flow - Last MPI 06/27/[address] Melgar: no ischemia or infarction, LVEF 73% H/o chronic chest wall pain with occasional feeling of numbness in his arm Hyperlipidemia for which he has been on statins COPD Diabetes mellitus, poorly controlled Nonobstructive carotid artery stenosis per carotid duplex done Dec [address] Melgar H/o recurrent headache, managed by primary care physician BREONNA MELGAR MD Jul 13, 2022 08:37
--- NOTE | 2022-07-13 09:01 | Physical Therapy Daily Note ---
PT Daily Note-Current Subjective Patient in bed, extubated, eyes open. Still nonverbal. Mental Status Patient Orientation: Eyes Open Attachments: Oxygen, Nicholson Catheter, IV Transfers SCALE: Activities may be completed with or without assistive devices. 5-Xvhjffvndm-qzmycvn completes the activity by him/herself with no assistance from a helper. 5-Set-up or Clean-up Assistance-helper sets up or cleans up; patient completes activity. Hammon assists only prior to or following the activity. 4-Supervision or Touching Assistance-helper provides verbal cues and/or touching/steadying and/or contact guard assistance as patient completes act ivity. Assistance may be provided throughout the activity or intermittently. 3-Partial/Moderate Assistance-helper does LESS THAN HALF the effort. Hammon lifts, holds or supports trunk or limbs, but provides less than half the effort. 2-Substantial/Maximal Assistance-helper does MORE THAN HALF the effort. Hammon lifts or holds trunk or limbs and provides more than half the effort. 7-Arewmbkqt-syhdvf does ALL the effort. Patient does none of the effort to complete the activity. Or, the assistance of 2 or more helpers is required for the patient to complete the activity. If activity was not attempted, code reason: 7-Patient Refused. 9-Not Applicable-not attempted and the patient did not perform the activity before the current illness, exacerbation or injury. 10-Not Attempted due to Environmental Limitations-(lack of equipment, weather restraints, etc.). 88-Not Attempted due to Medical Conditions or Safety Concerns. Roll Left & Right (QC): 1 (x 2) Exercises Supine Ex: Ankle pumps, Heel Slides, Straight leg raise, Hip abd/add Supine Reps: 15 (x 2 sets bilaterally PROM) Assessment Patient does not voluntarily initiate or move bilateral LE's or UE's. He was observed to spontaneously move bilateral LE with repositioning to side lying right with pillow placement for pressure relief of buttocks and bilateral heels. Noted left heel and lateral malleoli pressure wound with RN aware. PT Systems Checkout Mechanic Goals Systems Checkout Mechanic Goals PT Systems Checkout Mechanic Goals Time Frame: Jul 18, 2022 Roll Left & Right (QC): 3 Sit to Lying (QC): 3 Lying-Sitting on Side/Bed(QC): 3 Sit to Stand (QC): 3 Chair/Rub-cu-Eyeie Xfer(QC): 3 PT Plan Treatment/Plan Treatment Plan: Continue Plan of Care Treatment Plan: Bed Mobility, Education, Functional Activity Callum, Functional Strength, Gait, Safety, Therapeutic Exercise, Transfers Treatment Duration: Jul 18, 2022 Frequency: 5 times per week Estimated Hrs Per Day: .25 hour per day Patient and/or Family Agrees t: Yes Time/GCodes Time In: 735 Time Out: 745 Total Billed Treatment Time: 10 Total Billed Treatment 1 visit EX 10 min EDENILSON CASTILLO PT Jul 13, 2022 09:01
[2022-07-13] MEDS: NOREPINEPHRINE 16 MG/250 ML DRIP IV SCH ×2 (12:04)
--- NOTE | 2022-07-13 13:49 | Progress Note - Hospitalist ---
HARRISON JACQUES 07/13/22 1349: Subjective HPI/CC On Admission Date Seen by Provider: Jul 13, 2022 Time Seen by Provider: 13:43 Chief complaint: Acute decompensation HPI: This is a 47-year-old male of [facility] with past medical history of type 1 diabetes who apparently presented to the ER with altered mental status was found to be obtunded requiring intubation and aspiration of gastric contents occurred. Patient was found to be in multisystem organ failure with creatinine of 4.4 blood sugar 1100 range and sodium level 118. Patient was admitted to the ICU with aggressive IV fluid resuscitation and insulin drip orders along with eICU and girlfriend at the bedside was updated on the critical nature of his illness. Subjective/Events-last exam Patient still unable to speak today. Was extubated yesterday. Patient is still weak with labored breathing but able to nod head yes or no at times. Objective Exam Vital Signs Vital Signs Date Time Temp Pulse Resp B/P (MAP) Pulse Ox O2 Delivery O2 Flow Rate FiO2 07/13/22 13:00 96 21 125/81 (96) 99 High Flow N/C 6.00 07/13/22 11:44 36.4 07/12/22 08:51 30 Capillary Refill : Less Than 3 Seconds HEENT: PERRL/EOMI, Moist Mucous Membranes Respiratory: Accessory Muscle Use, Wheezing Cardiovascular: No Edema, No JVD Rectal: Deferred Extremity: No Pedal Edema Neurologic/Psychiatric: Disoriented, Motor Weakness Skin: Normal Color, Warm/Dry Lymphatic: No Adenopathy Results/Procedures Lab Laboratory Tests 07/13/22 05:05 07/13/22 11:22 Patient resulted labs reviewed. Assessment/Plan Assessment and Plan Assess & Plan/Chief Complaint 1. DKA continue IV Fluid Start insulin Detemir Continue to monitor kidney function 2. Hypokalemia On potassium replacement. 3. Aspiration pneumonitis Completed antibiotic regimen. Repeat CXR today unchanged from previous 4. Type 1 diabetes Continue supportive care [address] NG tube for enteral nutrition. PT, OT Critical Care: Critically Ill Patient TORRESLAWRENCE OSORIOHalle KEANE 07/14/22 0622: Subjective Subjective/Events-last exam Pt is doing a lot better Extubated early this morning In-patient rehab could be an option NG tube will be placed for feeds Potassium is 2.9 Hemoglobin is 10 Objective Exam General Appearance: No Apparent Distress, WD/WN, Chronically ill Respiratory: Lungs Clear, Normal Breath Sounds Cardiovascular: Regular Rate, Rhythm Supervisory-Addendum Brief Verification & Attestation Participated in pt care: history, MDM, physical Personally performed: exam, history, MDM, supervision of care Care discussed with: Medical Student Procedures: n/a Results interpretation: Verified all documentation Verification and Attestation of Medical Student E/M Service A medical student performed and documented this service in my presence. I reviewed and verified all information documented by the medical student and made modifications to such information, when appropriate. I personally performed the physical exam and medical decision making. Barbie Torres, Jul 14, 2022,06:21 HARRISON JACUQES Jul 13, 2022 13:49 BARBIE TORRES DO Jul 14, 2022 06:22
--- NOTE | 2022-07-13 13:54 | Speech Therapy Daily Note ---
Speech Daily Progress Note Subjective Date Seen by Provider: Jul 13, 2022 Time Seen by Provider: 12:30 The patient was lying in bed, eyes closed upon entrance to his room by the clinician. The patient made eye contact with the clinician when his name was spoken, however, does not verbalize throughout the treatment session. The patient was seated upright in bed for safe swallowing. The patient does not display the excessive hypopharyngeal secretions present in the previous session at this time. The patient is receiving supplemental oxygen of 6L HFNC with SpO2% at 100% with respirations at 19 bpm. Objective The prior date, the patient's yes and no responses appeared more appropriate and purposeful. On this date, the patient would nod a subtle yes, however, continue to complete the opposite behavior. The patient's eyes would widen when his name was spoken by the clinician. The clinician attempted a moist swab, ice chip, and 1/4 teaspoon of water. The patient displayed a facial grimace when the moist oral swab was placed on his lips. The clinician attempted to place the swab in the interior oral cavity, however, the patient clinched his teeth. The clinician attempted an ice chip and 1/4 teaspoon of water with the similar behavior displayed by the patient. The patient was unable to follow simple, one-step commands with maximum verbal repetition, prompting, and direct modeling. At this time, the re-assessment was ended. The RN was updated regarding the patient's results. The clinician continues to agree with the current plan of care. Assessment Assessment Current Status: Poor Progress Treatment Plan Continue Plan of Care Speech Short Term Goals Short Term Goals Short Term Goals 1. The patient will tolerate trials of the least restrictive diet consistency without s/s of suspected aspiration. Time Frame-STG: Three Days. Speech Manufacturing Teacher Goals Manufacturing Teacher Goals 1. The patient will tolerate the least restrictive diet consistency without s/s of suspected aspiration. Time Frame: One Week. Speech-Plan Treatment Plan Speech Therapy Treatment Plan: Continue Plan of Care Treatment Duration: Jul 19, 2022 Frequency: 5 times per week Estimated Hrs Per Day: .25 hour per day Rehab Potential: Guarded Safety Risks/Education Teaching Recipient: Patient Teaching Methods: Demonstration, Discussion Response to Teaching: Unable to Comprehend Education Topics Provided: Results, Recommendations, Plan of Care Time Speech Therapy Time In: 12:30 Speech Therapy Time Out: 12:40 Total Billed Time: 10 Billed Treatment Time 1, BETTY MCCARTY Jul 13, 2022 13:54
--- NOTE | 2022-07-13 14:09 | Diagnostic Imaging Report ---
Indication: NG tube placement Frontal chest obtained at 0140 p.m. compared to same day 0630 a.m. Right IJ catheter is unchanged. There is cardiomegaly with no change in patchy parenchymal opacities bilaterally. There is no pneumothorax or pleural fluid. NG tube is seen with tip overlying distal stomach. IMPRESSION: New NG tube tip overlies distal stomach. No change in diffuse bilateral parenchymal opacities compared to earlier today. Dictated by: Dictated on workstation # [id number]
[2022-07-14] MEDS: inSUlin ASPART (NovoLOG) 1 UNIT/0.01 ML (CHARGE PER UNIT) SC SCH ×4 (00:08→17:50)
[2022-07-14] MEDS: EPINEPHrine 1 MG INJECTION 4 MG in NS (IVPB) 246 ML IV SCH ×3 (00:09→16:15)
[2022-07-14] MEDS: meTOprolol 5 MG/5 ML (LOPRESSOR) VIAL IV SCH ×4 (00:24→17:26)
[2022-07-14] MEDS: RT-ALBUTEROL/IPRATROPIUM 3 ML (DUONEB) VIAL INH SCH ×4 (02:46→18:46)
[2022-07-14] MEDS: PROPOFOL DRIP (ICU) 100 ML IV SCH ×3 (03:35→15:30)
[2022-07-14 05:40] LABS: EOSINOPHILS % (AUTO) 0 % (0-10); MEAN CORPUSCULAR VOLUME 96 fL (80-99); MONOCYTES # (AUTO) 1.2 10^3/uL (0.0-1.0)
[2022-07-14 05:41] LABS: BASOPHILS # (AUTO) 0.1 10^3/uL (0.0-0.1); BASOPHILS % (AUTO) 0 % (0-10); HEMATOCRIT 29 % (40-54); HEMOGLOBIN 9.7 g/dL (13.3-17.7); LYMPHOCYTES # (AUTO) 0.6 10^3/uL (1.0-4.0); LYMPHOCYTES % (AUTO) 5 % (12-44); MEAN CORPUSCULAR HEMOGLOBIN 33 pg (25-34); MEAN CORPUSCULAR HGB CONC 34 g/dL (32-36); MEAN PLATELET VOLUME 11.5 fL (9.0-12.2); MONOCYTES % (AUTO) 9 % (0-12); NEUTROPHILS # (AUTO) 11.9 10^3/uL (1.8-7.8); NEUTROPHILS % (AUTO) 85 % (42-75); PLATELET COUNT 109 10^3/uL (130-400)
[2022-07-14 05:50] LABS: ALBUMIN 2.3 GM/DL (3.2-4.5); POTASSIUM 3.2 MMOL/L (3.6-5.0)
[2022-07-14 05:51] LABS: CALCIUM 8.3 MG/DL (8.5-10.1)
[2022-07-14 05:53] LABS: TOTAL PROTEIN 5.6 GM/DL (6.4-8.2)
[2022-07-14 05:54] LABS: BILIRUBIN,TOTAL 0.5 MG/DL (0.1-1.0)
[2022-07-14 05:56] LABS: CREATININE SERUM 0.98 MG/DL (0.60-1.30); PHOSPHORUS 3.2 MG/DL (2.3-4.7)
[2022-07-14] MEDS: POTASSIUM CL 10MEQ/50ML IVPB 50 ML IV SCH ×4 (06:25→08:30)
[2022-07-14] MEDS: KCL 20 MEQ TAB (K-DUR) PO SCH (06:31)
[2022-07-14] MEDS: MAGNESIUM 1 GM/100 ML IVPB 100 ML IV SCH (06:32)
[2022-07-14] MEDS: dilTIAZem DRIP PRE-MIX 125 ML IV SCH (07:30)
--- NOTE | 2022-07-14 08:09 | Progress Note - Hospitalist ---
Subjective HPI/CC On Admission Date Seen by Provider: Jul 14, 2022 Time Seen by Provider: 10:30 Chief complaint: Acute decompensation HPI: This is a 47-year-old male of [facility] with past medical history of type 1 diabetes who apparently presented to the ER with altered mental status was found to be obtunded requiring intubation and aspiration of gastric contents occurred. Patient was found to be in multisystem organ failure with creatinine of 4.4 blood sugar 1100 range and sodium level 118. Patient was admitted to the ICU with aggressive IV fluid resuscitation and insulin drip orders along with eICU and girlfriend at the bedside was updated on the critical nature of his illness. Subjective/Events-last exam Patient appears very declined Intubation indicated EICU and I conferred Weakness from neuro issues versus myopathy Patient will need to stabilize before transfer can be entertained Labs reviewed Objective Exam Vital Signs Vital Signs Date Time Temp Pulse Resp B/P (MAP) Pulse Ox O2 Delivery O2 Flow Rate FiO2 07/14/22 16:00 129 30 118/65 (82) 91 Mechanical Ventilator 80.00 07/14/22 14:38 70 07/14/22 12:35 37.7 Capillary Refill : Less Than 3 Seconds General Appearance: Anxious, Chronically ill, Moderate Distress Respiratory: Accessory Muscle Use, Crackles, Decreased Breath Sounds, Respiratory Distress Results/Procedures Lab Laboratory Tests 07/14/22 05:25 Patient resulted labs reviewed. Assessment/Plan Assessment and Plan Assess & Plan/Chief Complaint Assessment: s/p DKA s/p intubation then extubation now intubation again today Weakness from myopathy? Plan: Intubation Critical Care Critically Ill Patient Diagnosis/Problems Diagnosis/Problems (1) Ketoacidosis due to type 1 diabetes mellitus Status: Resolved Qualifiers: Diabetes mellitus complication detail: without coma Qualified Codes: E10.10 - Type 1 diabetes mellitus with ketoacidosis without coma Resolution Date/Time: 07/11/22 @ 23:13 KAREN TORRES DO Jul 14, 2022 08:09
[2022-07-14] MEDS: PANTOPRAZOLE 40 MG (PROTONIX) VIAL IV SCH (08:29)
[2022-07-14] MEDS: SENNOSIDES 8.6 MG (SENOKOT) TAB PO SCH ×2 (08:29→20:34)
[2022-07-14] MEDS: ASPIRIN 81 MG CHEW (CHILDREN'S ASA) PO SCH (08:29)
[2022-07-14] MEDS: DOCUSATE SODIUM 100 MG (COLACE) CAP PO SCH ×2 (08:30→20:34)
[2022-07-14] MEDS: ENOXAPARIN 40 MG/0.4 ML (LOVENOX) SYR SC SCH (08:30)
--- NOTE | 2022-07-14 08:33 | Diagnostic Imaging Report ---
EXAMINATION: Chest 1 view HISTORY: Dyspnea. COMPARISON: 07/13/2022. FINDINGS: Stable configuration of the enteric tube and right-sided central line. Patchy opacities are again visualized throughout both lungs, not significantly changed since the prior exam. No large pleural effusion or pneumothorax. Stable prominent cardiac silhouette with post CABG changes. IMPRESSION: 1. Stable patchy opacities in the lungs bilaterally, which may represent multifocal infection or edema. 2. Stable support devices. Dictated by: Dictated on workstation # [id number]
[2022-07-14 09:26] VITALS: BP 109/63
--- NOTE | 2022-07-14 10:36 | Tele-ICU Progress Note ---
Subjective Date Seen by a Provider: Jul 14, 2022 Time Seen by a Provider: 10:35 Subjective/Events-last exam (Tele-ICU Physician , Progress Note ) Available chart/ vitals / labs / Images reviewed Video assessment done using teleICU camera, rest of exam as per RN Discussed with RN Events overnight : Afebrile hemodynamically stable Respiratory - 2 l I/O = neg 1 l Drips: Pressors- vaso 0.03 levo 0.02 , epi OFF Consultants: gabino Hospital course: 07-08: 47 y/o M - Unresponsive at home - Not well since Saturday. ?Asp Pneumonia - DKA Hypothermic - Intubated in ER - Pressors started. 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 s/p CABG 2016 - ECHO 07/08 - EF 55% ( technically difficult study; hyperdynamic LV - cards follow Tachycardia - Sinus ( confirmed in after adenosine ) - will try adress possible pain - follow - beta blokers resumed h/o COPD - cont nebs Thrombocytopenia - PLT dropped to 107 from 252- ? delutional -IMPROVING , stable Nutrition , dysphagia - cont TF Hypernatremia - increase free water in TF Profound weakness -? CC myopaty , GB, other etiology - will discuss with IM -CTH negative , follows commands Lines : R IJ , (Central Line Necessity Reviewed) Nicholson: + OG: Nutrition: NPO Analgesia: Anxiety/ delirium VTE Prophylaxis: jeff 30 Stress Ulcer Prophylaxis: ppi Plans in collaboration with bedside consultants and IM MDs. Discussed with RN to reach out if any questions or concerns A total of 35 minutes of critical care time was devoted to this patient today, required to treat and/or prevent further deterioration of critical care condition ( as above ) . Sepsis Event Evaluation Height, Weight, BMI Height: 5'6.00" Weight: 157lbs. 0.0oz. 71.722199vj; 26.11 BMI Method: Exam Exam Patient acknowledged, consented, and participated in this virtual visit which was conducted using real time audio/video Vital Signs Date Time Temp Pulse Resp B/P (MAP) Pulse Ox O2 Delivery O2 Flow Rate FiO2 07/14/22 10:00 126 114/69 (84) 95 High Flow N/C 2.00 07/14/22 09:26 37.4 124 95 07/14/22 09:20 95 High Flow N/C 2.00 07/14/22 09:00 124 109/63 (78) 95 High Flow N/C 2.00 07/14/22 08:00 37.4 07/14/22 08:00 121 27 112/71 (85) 98 High Flow N/C 2.00 07/14/22 07:00 115 27 119/70 (86) 95 High Flow N/C 2.00 07/14/22 07:00 117 07/14/22 06:00 124 121/70 (87) 93 High Flow N/C 2.00 07/14/22 05:00 121 31 112/73 (84) 92 High Flow N/C 2.00 07/14/22 04:26 36.9 07/14/22 04:00 117 31 120/74 (85) 96 High Flow N/C 2.00 07/14/22 04:00 98 High Flow N/C 6.00 07/14/22 03:00 117 28 116/71 (84) 95 High Flow N/C 2.00 07/14/22 02:49 115 32 97 High Flow N/C 2.00 07/14/22 02:46 96 High Flow N/C 2.00 07/14/22 02:00 111 31 110/73 (86) 97 High Flow N/C 5.00 07/14/22 01:00 107 07/14/22 01:00 107 32 118/71 (85) 99 High Flow N/C 5.00 07/14/22 00:16 36.7 07/14/22 00:00 98 High Flow N/C 6.00 07/14/22 00:00 113 25 113/72 (84) 97 High Flow N/C 5.00 07/13/22 23:00 112 29 114/67 (79) 97 High Flow N/C 5.00 07/13/22 22:00 109 28 122/72 (89) 96 High Flow N/C 5.00 07/13/22 21:00 107 24 125/74 (93) 97 High Flow N/C 5.00 07/13/22 20:42 104 24 99 High Flow N/C 5.00 07/13/22 20:38 99 High Flow N/C 5.00 07/13/22 20:00 103 20 116/73 (84) 99 High Flow N/C 6.00 07/13/22 20:00 98 High Flow N/C 6.00 07/13/22 19:00 98 07/13/22 19:00 98 29 115/83 (92) 100 High Flow N/C 6.00 07/13/22 18:00 101 21 118/80 (93) 97 High Flow N/C 6.00 07/13/22 17:00 101 24 115/62 (79) 93 High Flow N/C 6.00 07/13/22 16:00 96 25 135/86 (102) 98 High Flow N/C 6.00 07/13/22 15:44 98 High Flow N/C 6.00 07/13/22 15:00 96 14 124/89 (101) 98 High Flow N/C 6.00 07/13/22 14:55 98 High Flow N/C 5.00 07/13/22 14:00 93 29 111/87 (95) 100 High Flow N/C 6.00 07/13/22 13:00 96 21 125/81 (96) 99 High Flow N/C 6.00 07/13/22 12:52 89 07/13/22 12:00 97 20 117/80 (92) 95 High Flow N/C 6.00 07/13/22 12:00 94 High Flow N/C 6.00 07/13/22 11:44 36.4 07/13/22 11:00 95 22 134/83 (100) 97 High Flow N/C 6.00 I & O 07/14/22 07:00 Intake Total 586 ml Output Total 1600 ml Balance -1014 ml Height & Weight Height: 5'6.00" Weight: 157lbs. 0.0oz. 71.200456gv; 26.11 BMI Method: General Appearance: No Apparent Distress, WD/WN, Chronically ill HEENT: PERRL/EOMI, Moist Mucous Membranes Neck: Full Range of Motion, Normal Inspection Respiratory: Lungs Clear, Normal Breath Sounds Cardiovascular: Regular Rate, Rhythm Capillary Refill: Less Than 3 Seconds Gastrointestinal: normal bowel sounds, non tender, soft Extremity: No Pedal Edema Neurologic/Psychiatric: Disoriented, Motor Weakness Skin: Normal Color, Warm/Dry Lymphatic: No Adenopathy Results Lab Laboratory Tests 07/13/22 05:05 07/13/22 11:22 07/14/22 05:25 Assessment/Plan Assessment/Plan 1 MAYANK CHILDERS MD Jul 14, 2022 10:35
[2022-07-14] MEDS ORDERED: NS (IVPB) 250 ML IV ONE ×2 (11:45)
--- NOTE | 2022-07-14 12:04 | Diagnostic Imaging Report ---
EXAMINATION: Chest 1 view HISTORY: Intubation. Follow-up. COMPARISON: Chest radiograph performed earlier the same date. FINDINGS: There has been interval intubation with the tip of the endotracheal tube overlying the trachea approximately 3 cm above the aurora. Stable right internal jugular central line and enteric tube. There is slight improved aeration in the lungs with persistent patchy opacities throughout both lungs. Stable cardiac silhouette with post CABG changes. No large pleural effusion or pneumothorax. IMPRESSION: 1. Interval intubation with the tip of the endotracheal tube approximately 3 cm above the aurora. Stable enteric tube and right internal jugular central line. 2. Slight improved widespread opacities throughout both lungs, concerning for multifocal infection or edema. Dictated by: Dictated on workstation # [id number]
--- NOTE | 2022-07-14 12:35 | Progress Note - Cardiology ---
Cardiology SO Progress Note Objective: I&O/Vital Signs 07/14/22 07/14/22 07/14/22 07/14/22 01:00 01:00 02:00 02:46 Pulse 107 107 111 Resp 32 31 B/P (MAP) 118/71 (85) 110/73 (86) Pulse Ox 99 97 96 O2 Delivery High Flow N/C High Flow N/C High Flow N/C O2 Flow Rate 5.00 5.00 2.00 07/14/22 07/14/22 07/14/22 07/14/22 02:49 03:00 04:00 04:00 Pulse 115 117 117 Resp 32 28 31 B/P (MAP) 116/71 (84) 120/74 (85) Pulse Ox 97 95 98 96 O2 Delivery High Flow N/C High Flow N/C High Flow N/C High Flow N/C O2 Flow Rate 2.00 2.00 6.00 2.00 07/14/22 07/14/22 07/14/22 07/14/22 04:26 05:00 06:00 07:00 Temp 36.9 Pulse 121 124 117 Resp 31 B/P (MAP) 112/73 (84) 121/70 (87) Pulse Ox 92 93 O2 Delivery High Flow N/C High Flow N/C O2 Flow Rate 2.00 2.00 07/14/22 07/14/22 07/14/22 07/14/22 07:00 08:00 08:00 09:00 Temp 37.4 Pulse 115 121 124 Resp 27 27 B/P (MAP) 119/70 (86) 112/71 (85) 109/63 (78) Pulse Ox 95 98 95 O2 Delivery High Flow N/C High Flow N/C High Flow N/C O2 Flow Rate 2.00 2.00 2.00 07/14/22 07/14/22 07/14/22 07/14/22 09:20 09:26 10:00 11:00 Temp 37.4 Pulse 124 126 129 B/P (MAP) 114/69 (84) 113/63 (80) Pulse Ox 95 95 95 89 O2 Delivery High Flow N/C High Flow N/C High Flow N/C O2 Flow Rate 2.00 2.00 2.00 07/14/22 12:00 Pulse 125 Resp 33 B/P (MAP) 92/54 (67) Pulse Ox 93 O2 Delivery Mechanical Ventilator O2 Flow Rate 80.00 07/14/22 00:00 Intake Total 236 ml Output Total 700 ml Balance -464 ml Weight (Pounds): 157 Weight (Ounces): 0.0 Weight (Calculated Kilograms): 71.605093 Constitutional: other (verbally unresponsive) Respiratory: No accessory muscle use; other (fair to good, bilateral air entry) Cardiovascular: regular rate-rhythm, tachycardia, systolic murmur (soft LYDIA at card base) Gastrointestional: soft; No guarding; audible bowel sounds Extremities: No clubbing, No cyanosis, No significant edema Neurologic/Psychiatric: other (moves all limbs equally) Skin: No rash on exposed areas, No ulcerations on exposed areas Results/Procedures: Labs Laboratory Tests 07/13/22 14:03: Glucometer 118H 07/13/22 16:09: Glucometer 127H 07/13/22 18:08: Glucometer 109 07/13/22 20:24: Glucometer 98 07/13/22 22:35: Glucometer 134H 07/14/22 00:08: Glucometer 131H 07/14/22 02:08: Glucometer 144H 07/14/22 04:07: Glucometer 178H 07/14/22 05:25: White Blood Count 14.0H, Red Blood Count 2.97L, Hemoglobin 9.7L, Hematocrit 29L, Mean Corpuscular Volume 96, Mean Corpuscular Hemoglobin 33, Mean Corpuscular Hemoglobin Concent 34, Red Cell Distribution Width 15.0H, Platelet Count 109L, Mean Platelet Volume 11.5, Immature Granulocyte % (Auto) 2, Neutrophils (%) (Auto) 85H, Lymphocytes (%) (Auto) 5L, Monocytes (%) (Auto) 9, Eosinophils (%) (Auto) 0, Basophils (%) (Auto) 0, Neutrophils # (Auto) 11.9H, Lymphocytes # (Auto) 0.6L, Monocytes # (Auto) 1.2H, Eosinophils # (Auto) 0.0, Basophils # (Auto) 0.1, Immature Granulocyte # (Auto) 0.2H, Percent Immature Platelet Fraction 7.3, Sodium Level 156H, Potassium Level 3.2L, Chloride Level 116H, Carbon Dioxide Level 20L, Anion Gap 20H, Blood Urea Nitrogen 26H, Creatinine 0.98, Estimat Glomerular Filtration Rate 95, BUN/Creatinine Ratio 27, Glucose Level 199H, Calcium Level 8.3L, Corrected Calcium 9.7, Phosphorus Level 3.2, Magnesium Level 2.0, Total Bilirubin 0.5, Aspartate Amino Transf (AST/SGOT) 22, Alanine Aminotransferase (ALT/SGPT) 23, Alkaline Phosphatase 197H, Total Protein 5.6L, Albumin 2.3L 07/14/22 05:57: Glucometer 192H 07/14/22 07:34: Glucometer 183H 07/14/22 09:54: Glucometer 189H 07/14/22 11:08: Bedside Blood Gas pH (LAB) 7.525H, Bedside Blood Gas pCO2 (LAB) 28.2L, Bedside Blood Gas pO2 (LAB) 40L, Bedside Blood Gas HCO3 (LAB) 23.3, POC Blood Gas Total CO2 Calc 24, Bedside Bl Gas O2 Saturation (Calc) 82L, Bedside Arterial Blood Base Excess 1 Microbiology 07/08/22 MRSA Screen - Final, Complete MRSA not isolated 07/08/22 Blood Culture - Final, Complete No growth 07/08/22 Urine Culture - Final, Complete NO GROWTH Laboratory Tests 07/13/22 05:05 07/13/22 11:22 07/14/22 05:25 A/P: Assessment: Severe DKA, septic shock, and acute renal failure - managed by Dr Umanzor and the ICU service - echo on 07/08/22: technically difficult study; hyperdynamic LV seen on Definity contrast injection with LVEF approx 60% - extubated on July 12, 2022 Sinus tachycardia due to severe acute illness - proven by administration of iv adenosine during tachycardia on 07/08/22: it did not show any atrial flutter during transient, complete heart block (induced for a few seconds by adenosine) CAD - History of CABG x3 done by Dr. Justin in April 2017: URRUTIA to LAD, reverse vein graft to the right PDA and reverse vein graft to the OM1, - Last cath 01/09/[address] Melgar: LMCA Ok. LAD occlude in mid portion. URRUTIA to distal LAD patent. OM1 of LCX occluede. SVG to OM patent. RCA occlude SVG to PDA patent, but PDA small and with slow distal flow - Last MPI 06/27/[address] Melgar: no ischemia or infarction, LVEF 73% H/o chronic chest wall pain with occasional feeling of numbness in his arm Hyperlipidemia for which he has been on statins COPD Diabetes mellitus, poorly controlled Nonobstructive carotid artery stenosis per carotid duplex done Dec [address] Meglar H/o recurrent headache, managed by primary care physician Plan: * Complex management to multiple comorbidities and presentation in extremis * Continue fluid support as needed * Monitor labs closely * Correct electrolyte and acid-base abnormalities ALVARO SUAREZ MD FACP FAC CCDS Jul 14, 2022 12:35
[2022-07-14] MEDS: NOREPINEPHRINE 16 MG/250 ML DRIP IV SCH ×2 (13:00)
[2022-07-14 14:38] VITALS: BP 100/61
[2022-07-14] MEDS ORDERED: proPOfol 200 MG/20 ML (DIPRIVAN) VIAL IV ONE (15:30)
[2022-07-14] MEDS: ACETAMINOPHEN 325 MG TABLET PO PRN (17:26)
[2022-07-14 18:01] LABS: ABG BASE EXCESS 0.5 MMOL/L (-2.5-2.5); ABG OXYGEN SATURATION 86 % (94-100); ABG PCO2 28 MMHG (35-45); ABG PH 7.53 (7.37-7.43); ABG PO2 52 MMHG (79-93); ABG TCO2 23.7 MMOL/L (21.0-31.0); ALLENS TEST POSITIVE
[2022-07-14 18:02] LABS: INSPIRED O2 80; VENTILATOR YES
[2022-07-14] MEDS: DexMEDEtomidine 250 ML DRIP 250 ML IV SCH (18:21)
[2022-07-14 18:46] VITALS: BP 83/50
[2022-07-14] MEDS ORDERED: NS IV 1000 ML 1,000 ML ONE (19:03)
[2022-07-14] MEDS ORDERED: ALBUMIN 5% 12.5 GM/250 ML 250 ML IV ONE ×2 (19:45→19:56)
[2022-07-14 22:56] VITALS: BP 82/49
[2022-07-14] MEDS: NOREPINEPHRINE 8 MG/250 ML 250 ML IV SCH (23:08)
[2022-07-15] MEDS: morphine INJ 4 MG/ML 1 ML (VIAL/SYRINGE) IV PRN ×3 (00:01→22:20)
[2022-07-15] MEDS: meTOprolol 5 MG/5 ML (LOPRESSOR) VIAL IV SCH ×4 (00:05→18:34)
[2022-07-15] MEDS: inSUlin ASPART (NovoLOG) 1 UNIT/0.01 ML (CHARGE PER UNIT) SC SCH ×4 (00:14→18:30)
[2022-07-15] MEDS: EPINEPHrine 1 MG INJECTION 4 MG in NS (IVPB) 246 ML IV SCH ×3 (01:47→20:51)
[2022-07-15 02:58] VITALS: BP 108/71
[2022-07-15] MEDS: RT-ALBUTEROL/IPRATROPIUM 3 ML (DUONEB) VIAL INH SCH ×4 (02:58→21:33)
[2022-07-15 04:33] LABS: ABG OXYGEN SATURATION 92 % (94-100); ABG PCO2 34 MMHG (35-45); ABG PH 7.47 (7.37-7.43); ABG PO2 58 MMHG (79-93); ABG TCO2 25.4 MMOL/L (21.0-31.0)
[2022-07-15 04:34] LABS: ALLENS TEST YES-POS; INSPIRED O2 40%
[2022-07-15 04:35] LABS: VENTILATOR NO
[2022-07-15 05:17] LABS: ALBUMIN 2.5 GM/DL (3.2-4.5)
[2022-07-15 05:18] LABS: POTASSIUM 3.4 MMOL/L (3.6-5.0)
[2022-07-15 05:19] LABS: CALCIUM 7.9 MG/DL (8.5-10.1)
[2022-07-15 05:20] LABS: TOTAL PROTEIN 5.4 GM/DL (6.4-8.2)
[2022-07-15 05:22] LABS: BILIRUBIN,TOTAL 0.5 MG/DL (0.1-1.0)
[2022-07-15 05:23] LABS: PHOSPHORUS 2.5 MG/DL (2.3-4.7)
[2022-07-15 05:24] LABS: CREATININE SERUM 1.01 MG/DL (0.60-1.30)
[2022-07-15 05:25] LABS: EOSINOPHILS % (AUTO) 0 % (0-10); HEMOGLOBIN 8.4 g/dL (13.3-17.7)
[2022-07-15 05:26] LABS: BASOPHILS # (AUTO) 0.1 10^3/uL (0.0-0.1); BASOPHILS % (AUTO) 1 % (0-10); HEMATOCRIT 26 % (40-54); LYMPHOCYTES % (AUTO) 8 % (12-44); MAGNESIUM 2.4 MG/DL (1.6-2.4); MEAN CORPUSCULAR HEMOGLOBIN 33 pg (25-34); MEAN CORPUSCULAR HGB CONC 33 g/dL (32-36); MEAN CORPUSCULAR VOLUME 99 fL (80-99); MEAN PLATELET VOLUME 11.9 fL (9.0-12.2); MONOCYTES # (AUTO) 0.6 10^3/uL (0.0-1.0); MONOCYTES % (AUTO) 5 % (0-12); NEUTROPHILS # (AUTO) 9.9 10^3/uL (1.8-7.8); NEUTROPHILS % (AUTO) 85 % (42-75); PLATELET COUNT 94 10^3/uL (130-400); WHITE BLOOD COUNT 11.6 10^3/uL (4.3-11.0)
[2022-07-15] MEDS: MAGNESIUM 1 GM/100 ML IVPB 100 ML IV SCH (05:51)
[2022-07-15] MEDS: POTASSIUM CL 10MEQ/50ML IVPB 50 ML IV SCH ×3 (05:51→06:49)
[2022-07-15] MEDS: KCL 20 MEQ TAB (K-DUR) PO SCH (05:52)
--- NOTE | 2022-07-15 06:50 | Progress Note - Hospitalist ---
Subjective HPI/CC On Admission Date Seen by Provider: Jul 15, 2022 Time Seen by Provider: 11:00 Chief complaint: Acute decompensation HPI: This is a 47-year-old male of [facility] with past medical history of type 1 diabetes who apparently presented to the ER with altered mental status was found to be obtunded requiring intubation and aspiration of gastric contents occurred. Patient was found to be in multisystem organ failure with creatinine of 4.4 blood sugar 1100 range and sodium level 118. Patient was admitted to the ICU with aggressive IV fluid resuscitation and insulin drip orders along with eICU and girlfriend at the bedside was updated on the critical nature of his illness. Subjective/Events-last exam Still on ventilator Severe myopathy required reintubation yesterday Yeast on sputum culture added Diflucan Sodium level 129 initiated on half-normal saline at 100 cc an hour Updated girlfriend at bedside Girlfriend did tell me he was pursuing disability due to severe debility prior to this issue Objective Exam Vital Signs Vital Signs Date Time Temp Pulse Resp B/P (MAP) Pulse Ox O2 Delivery O2 Flow Rate FiO2 07/15/22 17:00 117 24 102/54 (70) 97 Mechanical Ventilator 30.00 07/15/22 15:06 30 07/15/22 12:00 37.4 Capillary Refill : Less Than 3 Seconds General Appearance: No Apparent Distress, WD/WN, Chronically ill, Other (Sedated and intubated) Respiratory: Lungs Clear, Normal Breath Sounds Cardiovascular: Regular Rate, Rhythm Results/Procedures Lab Laboratory Tests 07/15/22 05:00 Patient resulted labs reviewed. Assessment/Plan Assessment and Plan Assess & Plan/Chief Complaint Assessment: s/p DKA s/p intubation then extubation now intubation again today Weakness from myopathy? Yeast pneumonitis Hypernatremia Plan: Re-intubation Diflucan 1/2 normal saline Critical Care Critically Ill Patient Diagnosis/Problems Diagnosis/Problems (1) Ketoacidosis due to type 1 diabetes mellitus Status: Resolved Qualifiers: Diabetes mellitus complication detail: without coma Qualified Codes: E10.10 - Type 1 diabetes mellitus with ketoacidosis without coma Resolution Date/Time: 07/11/22 @ 23:13 KAREN TORRES DO Jul 15, 2022 06:50
[2022-07-15 07:20] VITALS: BP 100/63
[2022-07-15] MEDS: dilTIAZem DRIP PRE-MIX 125 ML IV SCH (07:30)
--- NOTE | 2022-07-15 07:51 | Diagnostic Imaging Report ---
HISTORY: Dyspnea COMPARISON: 07/14/2022 TECHNIQUE: Frontal view of the chest FINDINGS: The endotracheal tube is about 4 cm above the aurora. Sternotomy wires and post-CABG changes are seen. The right central line tip projects over the mid SVC. An enteric tube projects over the stomach. There are patchy airspace opacities throughout the lungs bilaterally with a small left pleural effusion. Overall aeration appears mildly improved on the right and stable on the left. There is no pneumothorax. The cardiac silhouette is stable in size. IMPRESSION: 1. Bilateral airspace opacities, mildly improved on the right and stable on the left. 2. Small left pleural effusion. 3. Stable tubes and line. Dictated by: Dictated on workstation # [id number]
--- NOTE | 2022-07-15 08:22 | Tele-ICU Progress Note ---
Progress Note video rounds completed 47 y/o male brought to ED for AMS HAs hx of DM and was in DKA Intubated in ED on 07/08 Extubated on 07/12 but reintubated on 07/14 due to weaknes and ams Vent: 16/450/30%/5 PE: sedated and vented Pulse: 124 PLAN: continue mechanical ventilation and treatment for DKA Being considered for transfer to higher level of care May need trach /peg Focused Exam Height, Weight, BMI Height: 5'6.00" Weight: 157lbs. 0.0oz. [id number]; 25.34 BMI Method: Labs Laboratory Tests 07/15/22 05:00 Results Results/Procedures Labs Laboratory Tests 07/13/22 11:22 07/14/22 05:25 07/15/22 05:00 Patient resulted labs reviewed. Results Labs Labs Laboratory Tests 07/14/22 09:54: Glucometer 189H 07/14/22 11:08: Bedside Blood Gas pH (LAB) 7.525H, Bedside Blood Gas pCO2 (LAB) 28.2L, Bedside Blood Gas pO2 (LAB) 40L, Bedside Blood Gas HCO3 (LAB) 23.3, POC Blood Gas Total CO2 Calc 24, Bedside Bl Gas O2 Saturation (Calc) 82L, Bedside Arterial Blood Base Excess 1 07/14/22 12:31: Glucometer 184H 07/14/22 15:00: Glucometer 135H 07/14/22 17:30: Blood Gas Puncture Site L WRIST, Blood Gas Patient Temperature 38.0, Arterial Blood pH 7.53H, Arterial Blood Partial Pressure CO2 28L, Arterial Blood Partial Pressure O2 52L, Arterial Blood HCO3 23, Arterial Blood Total CO2 23.7, Arterial Blood Oxygen Saturation 86L, Arterial Blood Base Excess 0.5, Luis Miguel Test POSITIVE, Blood Gas Ventilator Setting YES, Blood Gas Inspired Oxygen 80 07/14/22 17:38: Glucometer 136H 07/14/22 20:08: Glucometer 187H 07/14/22 22:03: Glucometer 236H 07/15/22 00:09: Glucometer 266H 07/15/22 02:20: Glucometer 214H 07/15/22 04:12: Glucometer 204H 07/15/22 04:20: Blood Gas Puncture Site UNKNOWN, Blood Gas Patient Temperature UNKNOWN, Arterial Blood pH 7.47H, Arterial Blood Partial Pressure CO2 34L, Arterial Blood Partial Pressure O2 58L, Arterial Blood HCO3 24, Arterial Blood Total CO2 25.4, Arterial Blood Oxygen Saturation 92L, Arterial Blood Base Excess 1.0, Luis Miguel Test YES-POS, Blood Gas Ventilator Setting NO, Blood Gas Inspired Oxygen 40% 07/15/22 05:00: White Blood Count 11.6H, Red Blood Count 2.57L, Hemoglobin 8.4L, Hematocrit 26L, Mean Corpuscular Volume 99, Mean Corpuscular Hemoglobin 33, Mean Corpuscular Hemoglobin Concent 33, Red Cell Distribution Width 15.8H, Platelet Count 94L, Mean Platelet Volume 11.9, Immature Granulocyte % (Auto) 1, Neutrophils (%) (Auto) 85H, Lymphocytes (%) (Auto) 8L, Monocytes (%) (Auto) 5, Eosinophils (%) ( Auto) 0, Basophils (%) (Auto) 1, Neutrophils # (Auto) 9.9H, Lymphocytes # (Auto) 1.0, Monocytes # (Auto) 0.6, Eosinophils # (Auto) 0.0, Basophils # (Auto) 0.1, Immature Granulocyte # (Auto) 0.2H, Percent Immature Platelet Fraction 10.9H, Sodium Level 159H, Potassium Level 3.4L, Chloride Level 123H, Carbon Dioxide Level 20L, Anion Gap 16H, Blood Urea Nitrogen 26H, Creatinine 1.01, Estimat Glomerular Filtration Rate 92, BUN/Creatinine Ratio 26, Glucose Level 278H, Calcium Level 7.9L, Corrected Calcium 9.1, Phosphorus Level 2.5, Magnesium Level 2.4, Total Bilirubin 0.5, Aspartate Amino Transf (AST/SGOT) 17, Alanine Aminotransferase (ALT/SGPT) 22, Alkaline Phosphatase 140H, Total Protein 5.4L, Albumin 2.5L 07/15/22 06:00: Glucometer 247H 07/15/22 08:04: Glucometer 216H Microbiology 07/08/22 MRSA Screen - Final, Complete MRSA not isolated 07/08/22 Blood Culture - Final, Complete No growth 07/08/22 Urine Culture - Final, Complete NO GROWTH CHRIS RAMOS MD Jul 15, 2022 08:22
[2022-07-15] MEDS: ASPIRIN 81 MG CHEW (CHILDREN'S ASA) PO SCH (08:47)
[2022-07-15] MEDS: PANTOPRAZOLE 40 MG (PROTONIX) VIAL IV SCH (08:47)
[2022-07-15] MEDS: ENOXAPARIN 40 MG/0.4 ML (LOVENOX) SYR SC SCH (08:47)
[2022-07-15] MEDS: SENNOSIDES 8.6 MG (SENOKOT) TAB PO SCH ×2 (08:47→21:00)
[2022-07-15] MEDS: DOCUSATE SODIUM 100 MG (COLACE) CAP PO SCH ×2 (08:48→21:00)
[2022-07-15] MEDS: ACETAMINOPHEN 325 MG TABLET PO PRN (08:56)
[2022-07-15] MEDS: PROPOFOL DRIP (ICU) 100 ML IV SCH (09:10)
[2022-07-15] MEDS: fentaNYL INJ 100 MCG/2 ML AMP IVP PRN (10:07)
[2022-07-15 11:09] VITALS: BP 130/79
--- NOTE | 2022-07-15 11:14 | Diagnostic Imaging Report ---
EXAMINATION: CT head without contrast. TECHNIQUE: Multiple contiguous axial images were obtained through the brain without the use of intravenous contrast. All CT scans use one or more of the following dose optimizing techniques: automated exposure control, MA and/or KvP adjustment based on patient size and exam type or iterative reconstruction. HISTORY: Altered mental status. Intubated. COMPARISON: 07/10/2022. FINDINGS: No large acute territorial ischemia, mass, or hemorrhage. No midline shift or mass effect. The ventricles, cortical sulci, and basilar cisterns are patent and unremarkable. The orbits are normal. Retained secretions are seen in the paranasal sinuses. Mastoid air cells are clear. The patient is intubated. No soft tissue abnormality is seen. No osseus lesions or fractures are seen. IMPRESSION: 1. No large acute territorial ischemia, mass, or hemorrhage. Dictated by: Dictated on workstation # [id number]
[2022-07-15] MEDS: 1/2 NS IV SOLUTION 1,000 ML IV SCH ×2 (12:48→22:20)
[2022-07-15 15:06] VITALS: BP 129/82
--- NOTE | 2022-07-15 15:28 | Progress Note - Cardiology ---
Cardiology SOAP Progress Note Subjective: On mech vent again Objective: I&O/Vital Signs 07/15/22 07/15/22 07/15/22 07/15/22 04:00 04:00 05:00 06:00 Pulse 130 126 110 Resp 22 22 16 B/P (MAP) 87/59 (68) 145/85 (105) 100/63 (75) Pulse Ox 96 92 92 98 O2 Delivery Mechanical Ventilator Mechanical Ventilator Mechanical Ventilator Mechanical Ventilator O2 Flow Rate 30.00 30.00 30.00 FiO2 30 07/15/22 07/15/22 07/15/22 07/15/22 06:05 07:00 07:00 07:20 Pulse 125 123 121 120 Resp 24 21 B/P (MAP) 167/79 107/66 (80) Pulse Ox 97 97 O2 Delivery Mechanical Ventilator O2 Flow Rate 30.00 FiO2 30 07/15/22 07/15/22 07/15/22 07/15/22 07:59 08:00 08:00 08:56 Temp 37.8 37.8 Pulse 124 Resp 18 B/P (MAP) 110/70 (83) Pulse Ox 97 96 O2 Delivery Mechanical Ventilator Mechanical Ventilator O2 Flow Rate 30.00 FiO2 30 07/15/22 07/15/22 07/15/22 07/15/22 09:00 09:30 10:00 11:00 Temp 37.0 Pulse 123 131 125 Resp 19 23 B/P (MAP) 128/80 (96) 142/83 (102) 130/79 (96) Pulse Ox 98 94 96 O2 Delivery Mechanical Ventilator Mechanical Ventilator Mechanical Ventilator O2 Flow Rate 30.00 30.00 30.00 07/15/22 07/15/22 07/15/22 07/15/22 11:09 12:00 12:00 12:00 Temp 37.4 Pulse 126 117 Resp 22 18 B/P (MAP) 111/71 (84) Pulse Ox 90 98 95 O2 Delivery Mechanical Ventilator Mechanical Ventilator O2 Flow Rate 30.00 FiO2 30 30 07/15/22 07/15/22 07/15/22 07/15/22 12:33 13:00 14:00 15:00 Pulse 117 108 106 110 Resp 16 18 21 B/P (MAP) 126/79 (95) 126/80 (95) 130/83 (99) Pulse Ox 99 98 99 O2 Delivery Mechanical Ventilator Mechanical Ventilator Mechanical Ventilator O2 Flow Rate 30.00 30.00 30.00 07/15/22 15:06 Pulse 109 Resp 20 Pulse Ox 98 FiO2 30 07/15/22 00:00 Intake Total 1800 ml Output Total 950 ml Balance 850 ml Weight (Pounds): 157 Weight (Ounces): 0.0 Weight (Calculated Kilograms): 71.038061 Constitutional: other (verbally unresponsive, on mech vent) Respiratory: No accessory muscle use; other (fair to good, bilateral air entry) Cardiovascular: regular rate-rhythm, tachycardia, systolic murmur (soft LYDIA at card base) Gastrointestional: soft; No guarding; audible bowel sounds Extremities: No clubbing, No cyanosis, No significant edema Neurologic/Psychiatric: other (moves all limbs equally) Skin: No rash on exposed areas, No ulcerations on exposed areas Results/Procedures: Labs Laboratory Tests 07/14/22 17:30: Blood Gas Puncture Site L WRIST, Blood Gas Patient Temperature 38.0, Arterial Blood pH 7.53H, Arterial Blood Partial Pressure CO2 28L, Arterial Blood Partial Pressure O2 52L, Arterial Blood HCO3 23, Arterial Blood Total CO2 23.7, Arterial Blood Oxygen Saturation 86L, Arterial Blood Base Excess 0.5, Luis Miguel Test POSITIVE, Blood Gas Ventilator Setting YES, Blood Gas Inspired Oxygen 80 07/14/22 17:38: Glucometer 136H 07/14/22 20:08: Glucometer 187H 07/14/22 22:03: Glucometer 236H 07/15/22 00:09: Glucometer 266H 07/15/22 02:20: Glucometer 214H 07/15/22 04:12: Glucometer 204H 07/15/22 04:20: Blood Gas Puncture Site UNKNOWN, Blood Gas Patient Temperature UNKNOWN, Arterial Blood pH 7.47H, Arterial Blood Partial Pressure CO2 34L, Arterial Blood Partial Pressure O2 58L, Arterial Blood HCO3 24, Arterial Blood Total CO2 25.4, Arterial Blood Oxygen Saturation 92L, Arterial Blood Base Excess 1.0, Luis Miguel Test YES-POS, Blood Gas Ventilator Setting NO, Blood Gas Inspired Oxygen 40% 07/15/22 05:00: White Blood Count 11.6H, Red Blood Count 2.57L, Hemoglobin 8.4L, Hematocrit 26L, Mean Corpuscular Volume 99, Mean Corpuscular Hemoglobin 33, Mean Corpuscular Hemoglobin Concent 33, Red Cell Distribution Width 15.8H, Platelet Count 94L, Mean Platelet Volume 11.9, Immature Granulocyte % (Auto) 1, Neutrophils (%) (Auto) 85H, Lymphocytes (%) (Auto) 8L, Monocytes (%) (Auto) 5, Eosinophils (%) (Auto) 0, Basophils (%) (Auto) 1, Neutrophils # (Auto) 9.9H, Lymphocytes # (Auto) 1.0, Monocytes # (Auto) 0.6, Eosinophils # (Auto) 0.0, Basophils # (Auto) 0.1, Immature Granulocyte # (Auto) 0.2H, Percent Immature Platelet Fraction 10.9H, Sodium Level 159H, Potassium Level 3.4L, Chloride Level 123H, Carbon Dioxide Level 20L, Anion Gap 16H, Blood Urea Nitrogen 26H, Creatinine 1.01, Estimat Glomerular Filtration Rate 92, BUN/Creatinine Ratio 26, Glucose Level 278H, Calcium Level 7.9L, Corrected Calcium 9.1, Phosphorus Level 2.5, Magnesium Level 2.4, Total Bilirubin 0.5, Aspartate Amino Transf (AST/SGOT) 17, Alanine Aminotransferase (ALT/SGPT) 22, Alkaline Phosphatase 140H, Total Protein 5.4L, Albumin 2.5L 07/15/22 06:00: Glucometer 247H 07/15/22 08:04: Glucometer 216H 07/15/22 09:53: Glucometer 222H 07/15/22 12:39: Glucometer 169H Microbiology 07/14/22 Gram Stain - Final, Resulted 07/14/22 Sputum Culture - Preliminary, Resulted Yeast species Usual upper respiratory agus 07/08/22 Blood Culture - Final, Complete No growth 07/08/22 Urine Culture - Final, Complete NO GROWTH Laboratory Tests 07/14/22 05:25 07/15/22 05:00 A/P: Assessment: Severe DKA, septic shock, and acute resp failure - managed by Dr Umanzor and the ICU service - echo on 07/08/22: technically difficult study; hyperdynamic LV seen on Definity contrast injection with LVEF approx 60% - extubated on July 12, 2022 Sinus tachycardia due to severe acute illness - proven by administration of iv adenosine during tachycardia on 07/08/22: it did not show any atrial flutter during transient, complete heart block (induced for a few seconds by adenosine) CAD - History of CABG x3 done by Dr. Justin in April 2017: URRUTIA to LAD, reverse vein graft to the right PDA and reverse vein graft to the OM1, - Last cath 01/09/[address] Melgar: LMCA Ok. LAD occlude in mid portion. URRUTIA to distal LAD patent. OM1 of LCX occluede. SVG to OM patent. RCA occlude SVG to PDA patent, but PDA small and with slow distal flow - Last MPI 06/27/[address] Melgar: no ischemia or infarction, LVEF 73% H/o chronic chest wall pain with occasional feeling of numbness in his arm Hyperlipidemia for which he has been on statins COPD Diabetes mellitus, poorly controlled Nonobstructive carotid artery stenosis per carotid duplex done Dec [address] Melgar H/o recurrent headache, managed by primary care physician Plan: * Complex management to multiple comorbidities and presentation in extremis * Continue fluid and pressor support as needed * Monitor labs closely * Correct electrolyte and acid-base abnormalities ALVARO SUAREZ MD FACP FAC CCDS Jul 15, 2022 15:28
[2022-07-15] MEDS: DexMEDEtomidine 250 ML DRIP 250 ML IV SCH (15:31)
[2022-07-15] MEDS: NOREPINEPHRINE 8 MG/250 ML 250 ML IV SCH (16:10)
[2022-07-15 18:15] VITALS: BP 99/60
[2022-07-15] MEDS: FLUCONAZOLE 100 MG/50 ML 50 ML IV SCH (20:24)
[2022-07-15 21:33] VITALS: BP 93/52
[2022-07-16] VITALS (7 sets, daily range): BP systolic 88–112; BP diastolic 52–66
[2022-07-16] MEDS: meTOprolol 5 MG/5 ML (LOPRESSOR) VIAL IV SCH ×5 (00:10→23:44)
[2022-07-16] MEDS: RT-ALBUTEROL/IPRATROPIUM 3 ML (DUONEB) VIAL INH SCH ×6 (02:49→22:47)
[2022-07-16] MEDS: morphine INJ 4 MG/ML 1 ML (VIAL/SYRINGE) IV PRN (04:50)
[2022-07-16 05:40] LABS: NEUTROPHILS % (AUTO) 80 % (42-75)
[2022-07-16 05:42] LABS: BASOPHILS % (AUTO) 0 % (0-10); EOSINOPHILS % (AUTO) 0 % (0-10); HEMATOCRIT 25 % (40-54); LYMPHOCYTES # (AUTO) 1.3 10^3/uL (1.0-4.0); LYMPHOCYTES % (AUTO) 14 % (12-44); MEAN CORPUSCULAR HEMOGLOBIN 32 pg (25-34); MEAN CORPUSCULAR HGB CONC 32 g/dL (32-36); MEAN CORPUSCULAR VOLUME 100 fL (80-99); MEAN PLATELET VOLUME 11.9 fL (9.0-12.2); MONOCYTES # (AUTO) 0.3 10^3/uL (0.0-1.0); MONOCYTES % (AUTO) 4 % (0-12); NEUTROPHILS # (AUTO) 7.4 10^3/uL (1.8-7.8); PLATELET COUNT 120 10^3/uL (130-400); WHITE BLOOD COUNT 9.3 10^3/uL (4.3-11.0)
[2022-07-16 05:52] LABS: ALBUMIN 2.3 GM/DL (3.2-4.5); POTASSIUM 3.4 MMOL/L (3.6-5.0)
[2022-07-16 05:53] LABS: CALCIUM 7.8 MG/DL (8.5-10.1)
[2022-07-16 05:54] LABS: TOTAL PROTEIN 5.3 GM/DL (6.4-8.2)
[2022-07-16 05:56] LABS: BILIRUBIN,TOTAL 0.4 MG/DL (0.1-1.0)
[2022-07-16 05:58] LABS: CREATININE SERUM 0.85 MG/DL (0.60-1.30); PHOSPHORUS 1.8 MG/DL (2.3-4.7)
[2022-07-16] MEDS: MAGNESIUM 1 GM/100 ML IVPB 100 ML IV SCH (06:00)
[2022-07-16] MEDS: POTASSIUM CL 10MEQ/50ML IVPB 50 ML IV SCH ×3 (06:11→08:13)
[2022-07-16] MEDS: KCL 20 MEQ TAB (K-DUR) PO SCH (06:12)
[2022-07-16] MEDS: inSUlin ASPART (NovoLOG) 1 UNIT/0.01 ML (CHARGE PER UNIT) SC SCH ×4 (06:16→17:37)
[2022-07-16] MEDS: EPINEPHrine 1 MG INJECTION 4 MG in NS (IVPB) 246 ML IV SCH ×2 (06:23→13:56)
[2022-07-16] MEDS: PROPOFOL DRIP (ICU) 100 ML IV SCH (06:33)
--- NOTE | 2022-07-16 07:01 | Progress Note - Hospitalist ---
Subjective HPI/CC On Admission Date Seen by Provider: Jul 16, 2022 Time Seen by Provider: 11:00 Chief complaint: Acute decompensation HPI: This is a 47-year-old male of [facility] with past medical history of type 1 diabetes who apparently presented to the ER with altered mental status was found to be obtunded requiring intubation and aspiration of gastric contents occurred. Patient was found to be in multisystem organ failure with creatinine of 4.4 blood sugar 1100 range and sodium level 118. Patient was admitted to the ICU with aggressive IV fluid resuscitation and insulin drip orders along with eICU and girlfriend at the bedside was updated on the critical nature of his illness. Subjective/Events-last exam Patient remains critical but stable Follows commands and nods and shakes head appropriately SW will need to help with disposition CXR wore Diflucan maintained Objective Exam Vital Signs Vital Signs Date Time Temp Pulse Resp B/P (MAP) Pulse Ox O2 Delivery O2 Flow Rate FiO2 07/16/22 16:00 113 21 107/60 (76) 100 Mechanical Ventilator 30.00 07/16/22 16:00 37.8 07/16/22 14:20 30 Capillary Refill : Less Than 3 Seconds General Appearance: Chronically ill, Other (sedated and intubated) Respiratory: Decreased Breath Sounds Cardiovascular: Regular Rate, Rhythm Results/Procedures Lab Laboratory Tests 07/16/22 05:19 Patient resulted labs reviewed. Assessment/Plan Assessment and Plan Assess & Plan/Chief Complaint Assessment: s/p DKA s/p intubation then extubation now intubation again Saturday Weakness from myopathy? Yeast pneumonitis Hypernatremia Plan: Re-intubation Diflucan 1/2 normal saline Critical Care Critically Ill Patient Diagnosis/Problems Diagnosis/Problems (1) Ketoacidosis due to type 1 diabetes mellitus Status: Resolved Qualifiers: Diabetes mellitus complication detail: without coma Qualified Codes: E10.10 - Type 1 diabetes mellitus with ketoacidosis without coma Resolution Date/Time: 07/11/22 @ 23:13 KAREN TORRES DO Jul 16, 2022 07:01
[2022-07-16] MEDS: dilTIAZem DRIP PRE-MIX 125 ML IV SCH (07:24)
--- NOTE | 2022-07-16 07:25 | Diagnostic Imaging Report ---
Indication: Dyspnea. Comparison: 07/15/2022. Discussion: Single portable upright view of the chest was obtained. Normal heart size. Right IJ line, median sternotomy, endotracheal tube, enteric tube are stable. Stable normal heart size. Worsening pulmonary infiltrates, left greater than right, likely due to edema or pneumonia. No definite pleural fluid on today's exam. No pneumothorax or osseous abnormality. Impression: 1. Stable support lines and catheter. 2. Worsening pulmonary infiltrates. Dictated by: Dictated on workstation # [id number]
[2022-07-16] MEDS: NOREPINEPHRINE 8 MG/250 ML 250 ML IV SCH (07:27)
[2022-07-16] MEDS: SENNOSIDES 8.6 MG (SENOKOT) TAB PO SCH ×2 (08:13→20:03)
[2022-07-16] MEDS: 1/2 NS IV SOLUTION 1,000 ML IV SCH ×2 (08:13→17:18)
[2022-07-16] MEDS: ENOXAPARIN 40 MG/0.4 ML (LOVENOX) SYR SC SCH (08:13)
[2022-07-16] MEDS: PANTOPRAZOLE 40 MG (PROTONIX) VIAL IV SCH (08:13)
[2022-07-16] MEDS: ASPIRIN 81 MG CHEW (CHILDREN'S ASA) PO SCH (08:13)
[2022-07-16] MEDS: DOCUSATE SODIUM 100 MG (COLACE) CAP PO SCH ×2 (08:13→20:03)
[2022-07-16] MEDS: ACETAMINOPHEN 325 MG TABLET PO PRN ×2 (08:18→20:14)
[2022-07-16] MEDS ORDERED: SODIUM PHOSPHATE INJ 30 MM in NS (IVPB) 250 ML INJ ONE (08:45)
[2022-07-16] MEDS: fentaNYL INJ 100 MCG/2 ML AMP IVP PRN ×4 (10:07→23:44)
--- NOTE | 2022-07-16 11:25 | Tele-ICU Progress Note ---
Subjective Date Seen by a Provider: Jul 16, 2022 Time Seen by a Provider: 11:25 Subjective/Events-last exam (Tele-ICU Physician , Progress Note ) Available chart/ vitals / labs / Images reviewed Video assessment done using teleICU camera, rest of exam as per RN Discussed with RN Events overnight : febrile hemodynamically stable Respiratory - 2 l I/O = pos 800 ml Drips: Pressors- off Consultants: gabino Hospital course: 07-08: 47 y/o M - Unresponsive at home - Not well since Saturday. ?Asp Pneumonia - DKA Hypothermic - Intubated in ER - Pressors started. 07/10 - OFF pressors 07-12: Extubated 07/13 - NG placed 07/14 - reintubated for mental status A/P Acute resp fail;ure =- intubated 07/08 for airway protection , 07-12: Extubated =07/14 - reintubated for mental status DKA- reloved - iSS + long acting , ON TF up to goal ID -on admission : UA neg 07/08 - NEG covid , flu - empirically tx with abx x 6 days for PNA suspected , aspiration - febrile last 24 h - will repeat blood cx periph and line , check ddimer - -yeast in sputum cx x2 - most likely not an invasive pulm infection - started on fluconazole 07/15 ARIE - resolved Anemia - mild , delutional , no active bleeding - slow trending Hb down , will check iron - PPI IV H/o CAD. s/p CABG 2016 - ECHO 07/08 - EF 55% ( technically difficult study; hyperdynamic LV - cards follow Tachycardia - Sinus ( confirmed in after adenosine ) - will try adress possible pain - follow - beta blokers resumed h/o COPD - cont nebs Thrombocytopenia - PLT dropped to 107 from 252- ? delutional -IMPROVING , stable Nutrition , dysphagia when was extubated - cont TF now , at goal Hypernatremia - increase free water in TF Profound weakness -? CC myopaty other etiology ? Was re-intubated , but no CO2 retntion on a bg - doubt respiratiry muscle weakness. Metabolic/ endoctine/ infection ? Was not on steroids . -CTH negative , looks and nodding appropriatly for days , as per RN follows commands . Cam move upper extremity today - not able to lift agains gravity -replaceing phos , B12 was high , TSH pending Lines : R IJ , (Central Line Necessity Reviewed) Nicholson: + OG: Nutrition: NPO Analgesia: Anxiety/ delirium VTE Prophylaxis: jeff 30 Stress Ulcer Prophylaxis: ppi Plans in collaboration with bedside consultants and IM MDs. Discussed with RN to reach out if any questions or concerns A total of 35 minutes of critical care time was devoted to this patient today, required to treat and/or prevent further deterioration of critical care condition ( as above ) . Sepsis Event Evaluation Height, Weight, BMI Height: 5'6.00" Weight: 157lbs. 0.0oz. 71.088444uw; 25.31 BMI Method: Exam Exam Patient acknowledged, consented, and participated in this virtual visit which was conducted using real time audio/video Vital Signs Date Time Temp Pulse Resp B/P (MAP) Pulse Ox O2 Delivery O2 Flow Rate FiO2 07/16/22 10:12 113 20 95 30 07/16/22 10:00 120 21 111/56 (74) 97 Mechanical Ventilator 30.00 07/16/22 09:00 120 20 91/49 (63) 98 Mechanical Ventilator 30.00 07/16/22 08:00 38.4 07/16/22 08:00 115 17 96/53 (67) 98 Mechanical Ventilator 30.00 07/16/22 07:11 109 07/16/22 07:07 112 24 99 30 07/16/22 07:00 110 17 92/53 (66) 98 Mechanical Ventilator 30.00 07/16/22 06:27 36.4 116 96 07/16/22 06:00 116 17 91/52 (65) 96 Mechanical Ventilator 30.00 07/16/22 05:00 120 21 100/58 (72) 93 Mechanical Ventilator 30.00 07/16/22 04:00 110 19 97/58 (71) 97 Mechanical Ventilator 30.00 07/16/22 04:00 97 Mechanical Ventilator 30 07/16/22 03:00 109 22 86/68 (74) 98 Mechanical Ventilator 30.00 07/16/22 02:50 104 19 97 30 07/16/22 02:00 105 19 96/56 (69) 98 Mechanical Ventilator 30.00 07/16/22 01:00 105 19 93/55 (68) 99 Mechanical Ventilator 30.00 07/16/22 01:00 105 07/16/22 00:00 108 18 94/55 (68) 98 Mechanical Ventilator 30.00 07/15/22 23:59 99 Mechanical Ventilator 30 07/15/22 23:00 111 17 92/54 (67) 98 Mechanical Ventilator 30.00 07/15/22 22:00 109 23 109/62 (78) 97 Mechanical Ventilator 30.00 07/15/22 21:33 109 22 98 30 07/15/22 21:00 109 21 99/61 (74) 99 Mechanical Ventilator 30.00 07/15/22 20:00 111 21 86/48 (61) 97 Mechanical Ventilator 30.00 07/15/22 20:00 36.4 07/15/22 20:00 98 Mechanical Ventilator 30 07/15/22 19:00 110 19 90/56 (67) 96 Mechanical Ventilator 30.00 07/15/22 19:00 110 07/15/22 18:15 114 18 98 30 07/15/22 18:00 115 19 91/57 (68) 98 Mechanical Ventilator 30.00 07/15/22 17:00 117 24 102/54 (70) 97 Mechanical Ventilator 30.00 07/15/22 16:00 98 Mechanical Ventilator 30 07/15/22 16:00 121 21 92/53 (66) 96 Mechanical Ventilator 30.00 07/15/22 16:00 37.0 07/15/22 15:31 123 130/83 07/15/22 15:31 123 130/83 07/15/22 15:06 109 20 98 30 07/15/22 15:00 110 21 130/83 (99) 99 Mechanical Ventilator 30.00 07/15/22 14:00 106 18 126/80 (95) 98 Mechanical Ventilator 30.00 07/15/22 13:00 108 16 126/79 (95) 99 Mechanical Ventilator 30.00 07/15/22 12:33 117 07/15/22 12:00 37.4 07/15/22 12:00 117 18 111/71 (84) 95 Mechanical Ventilator 30.00 07/15/22 12:00 98 Mechanical Ventilator 30 I & O 07/16/22 07:00 Intake Total 3500 ml Output Total 2650 ml Balance 850 ml Height & Weight Height: 5'6.00" Weight: 157lbs. 0.0oz. 71.838684wt; 25.31 BMI Method: General Appearance: No Apparent Distress, WD/WN, Chronically ill, Other (Sedated and intubated) HEENT: PERRL/EOMI, Moist Mucous Membranes Neck: Full Range of Motion, Normal Inspection Respiratory: Lungs Clear, Normal Breath Sounds Cardiovascular: Regular Rate, Rhythm Capillary Refill: Less Than 3 Seconds Gastrointestinal: normal bowel sounds, non tender, soft Extremity: No Pedal Edema Neurologic/Psychiatric: Disoriented, Motor Weakness Skin: Normal Color, Warm/Dry Lymphatic: No Adenopathy Results Lab Laboratory Tests 07/15/22 05:00 07/16/22 05:19 Assessment/Plan Assessment/Plan 1 MAYANK CHILDERS MD Jul 16, 2022 11:25
--- NOTE | 2022-07-16 13:04 | Physical Therapy Progress Note ---
Therapy Progress Note Patient is currently sedated and intubated. He was placed on the vent again on 07-15-22. PT will monitor patient status and initiate skilled therapy when patient is able to actively participate. JIA ANDERSON PT Jul 16, 2022 13:04
[2022-07-16] MEDS: DexMEDEtomidine 250 ML DRIP 250 ML IV SCH ×2 (14:01→18:17)
--- NOTE | 2022-07-16 15:16 | Progress Note - Cardiology ---
Cardiology SOAP Progress Note Subjective: [facility] Objective: I&O/Vital Signs 07/16/22 07/16/22 07/16/22 07/16/22 04:00 04:00 05:00 06:00 Pulse 110 120 116 Resp 19 21 17 B/P (MAP) 97/58 (71) 100/58 (72) 91/52 (65) Pulse Ox 97 97 93 96 O2 Delivery Mechanical Ventilator Mechanical Ventilator Mechanical Ventilator Mechanical Ventilator O2 Flow Rate 30.00 30.00 30.00 FiO2 30 07/16/22 07/16/22 07/16/22 07/16/22 06:27 07:00 07:07 07:11 Temp 36.4 Pulse 116 110 112 109 Resp 17 24 B/P (MAP) 92/53 (66) Pulse Ox 96 98 99 O2 Delivery Mechanical Ventilator O2 Flow Rate 30.00 FiO2 30 07/16/22 07/16/22 07/16/22 07/16/22 08:00 08:00 08:00 09:00 Temp 38.4 Pulse 115 120 Resp 17 20 B/P (MAP) 96/53 (67) 91/49 (63) Pulse Ox 98 96 98 O2 Delivery Mechanical Ventilator Mechanical Ventilator Mechanical Ventilator O2 Flow Rate 30.00 30.00 FiO2 30 07/16/22 07/16/22 07/16/22 07/16/22 10:00 10:12 11:00 12:00 Pulse 120 113 115 109 Resp 21 20 18 19 B/P (MAP) 111/56 (74) 90/51 (64) 95/54 (68) Pulse Ox 97 95 98 99 O2 Delivery Mechanical Ventilator Mechanical Ventilator Mechanical Ventilator O2 Flow Rate 30.00 30.00 30.00 FiO2 30 07/16/22 07/16/22 07/16/22 07/16/22 12:00 12:08 12:45 13:00 Temp 37.9 Pulse 108 106 Resp 23 B/P (MAP) 103/58 (73) Pulse Ox 96 97 O2 Delivery Mechanical Ventilator Mechanical Ventilator O2 Flow Rate 30.00 FiO2 30 07/16/22 07/16/22 07/16/22 14:00 14:01 14:20 Pulse 109 109 115 Resp 19 23 B/P (MAP) 100/54 (69) 103/58 Pulse Ox 98 98 O2 Delivery Mechanical Ventilator O2 Flow Rate 30.00 FiO2 30 07/16/22 00:00 Intake Total 2250 ml Output Total 1225 ml Balance 1025 ml Weight (Pounds): 157 Weight (Ounces): 0.0 Weight (Calculated Kilograms): 71.325855 Constitutional: other (verbally unresponsive, on mech vent) Respiratory: No accessory muscle use; other (fair to good, bilateral air entry) Cardiovascular: regular rate-rhythm, tachycardia, systolic murmur (soft LYDIA at card base) Gastrointestional: soft; No guarding; audible bowel sounds Extremities: No clubbing, No cyanosis, No significant edema Neurologic/Psychiatric: other (moves all limbs equally) Skin: No rash on exposed areas, No ulcerations on exposed areas Results/Procedures: Labs Laboratory Tests 07/15/22 17:03: Glucometer 171H 07/15/22 18:27: Glucometer 148H 07/15/22 20:25: Glucometer 155H 07/15/22 22:02: Glucometer 161H 07/16/22 00:06: Glucometer 156H 07/16/22 02:06: Glucometer 185H 07/16/22 04:09: Glucometer 178H 07/16/22 04:41: Bedside Blood Gas pH (LAB) 7.514H, Bedside Blood Gas pCO2 (LAB) 30.9L, Bedside Blood Gas pO2 (LAB) 64L, Bedside Blood Gas HCO3 (LAB) 24.8, POC Blood Gas Total CO2 Calc 26, Bedside Bl Gas O2 Saturation (Calc) 94L, Bedside Arterial Blood Base Excess 2 07/16/22 05:19: White Blood Count 9.3, Red Blood Count 2.48L, Hemoglobin 8.0L, Hematocrit 25L, Mean Corpuscular Volume 100H, Mean Corpuscular Hemoglobin 32, Mean Corpuscular Hemoglobin Concent 32, Red Cell Distribution Width 15.9H, Platelet Count 120L, Mean Platelet Volume 11.9, Immature Granulocyte % (Auto) 2, Neutrophils (%) (Auto) 80H, Lymphocytes (%) (Auto) 14, Monocytes (%) (Auto) 4, Eosinophils (%) (Auto) 0, Basophils (%) (Auto) 0, Neutrophils # (Auto) 7.4, Lymphocytes # (Auto) 1.3, Monocytes # (Auto) 0.3, Eosinophils # (Auto) 0.0, Basophils # (Auto) 0.0, Immature Granulocyte # (Auto) 0.1, Percent Immature Platelet Fraction 8.8H, Sodium Level 155H, Potassium Level 3.4L, Chloride Level 119H, Carbon Dioxide Level 23, Anion Gap 13, Blood Urea Nitrogen 22H, Creatinine 0.85, Estimat Glomerular Filtration Rate 107, BUN/Creatinine Ratio 26, Glucose Level 207H, Calcium Level 7.8L, Corrected Calcium 9.2, Phosphorus Level 1.8L, Magnesium Level 2.0, Total Bilirubin 0.4, Aspartate Amino Transf (AST/SGOT) 19, Alanine Aminotransferase (ALT/SGPT) 20, Alkaline Phosphatase 109, Total Protein 5.3L, Albumin 2.3L 07/16/22 06:15: Glucometer 169H 07/16/22 07:27: Glucometer 186H 07/16/22 09:53: Glucometer 197H 07/16/22 10:45: D-Dimer 9.13H, Procalcitonin 1.02H, Thyroid Stimulating Hormone (TSH) 3.29 07/16/22 11:52: Glucometer 199H 07/16/22 13:43: Glucometer 151H Microbiology 07/14/22 Gram Stain - Final, Resulted 07/14/22 Sputum Culture - Preliminary, Resulted Yeast species Usual upper respiratory agus 07/08/22 Blood Culture - Final, Complete No growth 07/08/22 Urine Culture - Final, Complete NO GROWTH Laboratory Tests 07/15/22 05:00 07/16/22 05:19 A/P: Assessment: Severe DKA, septic shock, and acute resp failure - managed by Dr Umanzor and the ICU service - echo on 07/08/22: technically difficult study; hyperdynamic LV seen on Definity contrast injection with LVEF approx 60% - extubated on July 12, 2022 Sinus tachycardia due to severe acute illness - proven by administration of iv adenosine during tachycardia on 07/08/22: it did not show any atrial flutter during transient, complete heart block (induced for a few seconds by adenosine) CAD - History of CABG x3 done by Dr. Justin in April 2017: URRUTIA to LAD, reverse vein graft to the right PDA and reverse vein graft to the OM1, - Last cath 01/09/[address] Melgar: LMCA Ok. LAD occlude in mid portion. URRUTIA to distal LAD patent. OM1 of LCX occluede. SVG to OM patent. RCA occlude SVG to PDA patent, but PDA small and with slow distal flow - Last MPI 06/27/[address] Melgar: no ischemia or infarction, LVEF 73% H/o chronic chest wall pain with occasional feeling of numbness in his arm Hyperlipidemia for which he has been on statins COPD Diabetes mellitus, poorly controlled Nonobstructive carotid artery stenosis per carotid duplex done Dec [address] Melgar H/o recurrent headache, managed by primary care physician Plan: * Complex management to multiple comorbidities and presentation in extremis * Continue fluid and pressor support as needed * Monitor labs closely * Correct electrolyte and acid-base abnormalities ALVARO SUAREZ MD FACP [facility] Jul 16, 2022 15:16
[2022-07-16] MEDS: FLUCONAZOLE 100 MG/50 ML 50 ML IV SCH (20:16)
[2022-07-17] VITALS (7 sets, daily range): BP systolic 93–141; BP diastolic 55–78
[2022-07-17] MEDS: inSUlin ASPART (NovoLOG) 1 UNIT/0.01 ML (CHARGE PER UNIT) SC SCH ×4 (00:11→17:57)
[2022-07-17] MEDS: EPINEPHrine 1 MG INJECTION 4 MG in NS (IVPB) 246 ML IV SCH ×3 (01:37→21:51)
[2022-07-17] MEDS: morphine INJ 4 MG/ML 1 ML (VIAL/SYRINGE) IV PRN ×5 (01:37→21:23)
[2022-07-17] MEDS: RT-ALBUTEROL/IPRATROPIUM 3 ML (DUONEB) VIAL INH SCH ×6 (02:19→22:20)
[2022-07-17] MEDS: NOREPINEPHRINE 8 MG/250 ML 250 ML IV SCH ×2 (03:16→21:50)
[2022-07-17] MEDS: PROPOFOL DRIP (ICU) 100 ML IV SCH (03:16)
[2022-07-17] MEDS: 1/2 NS IV SOLUTION 1,000 ML IV SCH (03:19)
[2022-07-17] MEDS: fentaNYL INJ 100 MCG/2 ML AMP IVP PRN ×2 (04:47→16:41)
[2022-07-17 05:11] LABS: HEMOGLOBIN 7.6 g/dL (13.3-17.7); MEAN CORPUSCULAR HEMOGLOBIN 33 pg (25-34)
[2022-07-17 05:13] LABS: BASOPHILS % (AUTO) 1 % (0-10); EOSINOPHILS % (AUTO) 1 % (0-10); HEMATOCRIT 23 % (40-54); LYMPHOCYTES # (AUTO) 0.6 10^3/uL (1.0-4.0); LYMPHOCYTES % (AUTO) 10 % (12-44); MEAN CORPUSCULAR HGB CONC 33 g/dL (32-36); MEAN CORPUSCULAR VOLUME 99 fL (80-99); MEAN PLATELET VOLUME 12.3 fL (9.0-12.2); MONOCYTES # (AUTO) 0.2 10^3/uL (0.0-1.0); MONOCYTES % (AUTO) 3 % (0-12); NEUTROPHILS # (AUTO) 5.5 10^3/uL (1.8-7.8); NEUTROPHILS % (AUTO) 85 % (42-75); PLATELET COUNT 134 10^3/uL (130-400); WHITE BLOOD COUNT 6.4 10^3/uL (4.3-11.0)
[2022-07-17] MEDS: ACETAMINOPHEN 325 MG TABLET PO PRN ×3 (05:16→21:22)
[2022-07-17 05:23] LABS: ALBUMIN 2.2 GM/DL (3.2-4.5); POTASSIUM 3.3 MMOL/L (3.6-5.0)
[2022-07-17 05:24] LABS: CALCIUM 7.8 MG/DL (8.5-10.1)
[2022-07-17 05:26] LABS: TOTAL PROTEIN 5.5 GM/DL (6.4-8.2)
[2022-07-17 05:28] LABS: BILIRUBIN,TOTAL 0.5 MG/DL (0.1-1.0)
[2022-07-17 05:29] LABS: CREATININE SERUM 0.72 MG/DL (0.60-1.30); PHOSPHORUS 2.5 MG/DL (2.3-4.7)
[2022-07-17 05:32] LABS: MAGNESIUM 1.6 MG/DL (1.6-2.4)
[2022-07-17] MEDS ORDERED: POTASSIUM CL 10MEQ/50ML IVPB 200 ML IV ONE (06:12)
[2022-07-17] MEDS ORDERED: MAGNESIUM 1 GM/100 ML IVPB 200 ML IV ONE (06:12)
[2022-07-17] MEDS: meTOprolol 5 MG/5 ML (LOPRESSOR) VIAL IV SCH ×3 (06:13→17:55)
[2022-07-17] MEDS: POTASSIUM CL 10MEQ/50ML IVPB 50 ML IV SCH ×5 (06:14→08:05)
[2022-07-17] MEDS: MAGNESIUM 1 GM/100 ML IVPB 100 ML IV SCH ×3 (06:18→07:26)
[2022-07-17] MEDS: KCL 20 MEQ TAB (K-DUR) PO SCH (06:44)
--- NOTE | 2022-07-17 07:05 | Progress Note - Hospitalist ---
Subjective HPI/CC On Admission Date Seen by Provider: Jul 17, 2022 Time Seen by Provider: 09:00 Chief complaint: Acute decompensation HPI: This is a 47-year-old male of [facility] with past medical history of type 1 diabetes who apparently presented to the ER with altered mental status was found to be obtunded requiring intubation and aspiration of gastric contents occurred. Patient was found to be in multisystem organ failure with creatinine of 4.4 blood sugar 1100 range and sodium level 118. Patient was admitted to the ICU with aggressive IV fluid resuscitation and insulin drip orders along with eICU and girlfriend at the bedside was updated on the critical nature of his illness. Subjective/Events-last exam No major changes Answers questions Weaned off sedation and moving all extremities Objective Exam Vital Signs Vital Signs Date Time Temp Pulse Resp B/P (MAP) Pulse Ox O2 Delivery O2 Flow Rate FiO2 07/17/22 18:35 108 25 96 25 07/17/22 18:00 96/60 (72) Mechanical Ventilator 25.00 07/17/22 16:00 37.0 Capillary Refill : Less Than 3 Seconds General Appearance: No Apparent Distress, WD/WN, Chronically ill Respiratory: Crackles, Decreased Breath Sounds Cardiovascular: Regular Rate, Rhythm Neurologic/Psychiatric: Alert, Disoriented Results/Procedures Lab Laboratory Tests 07/17/22 04:50 Patient resulted labs reviewed. Assessment/Plan Assessment and Plan Assess & Plan/Chief Complaint Assessment: s/p DKA s/p intubation then extubation now intubation again Saturday Weakness from myopathy? Yeast pneumonitis Hypernatremia Plan: Re-intubation Diflucan 1/2 normal saline Critical Care Critically Ill Patient Diagnosis/Problems Diagnosis/Problems (1) Ketoacidosis due to type 1 diabetes mellitus Status: Resolved Qualifiers: Diabetes mellitus complication detail: without coma Qualified Codes: E10 .10 - Type 1 diabetes mellitus with ketoacidosis without coma Resolution Date/Time: 07/11/22 @ 23:13 KAREN TORRES DO Jul 17, 2022 07:05
--- NOTE | 2022-07-17 07:07 | Physical Therapy Progress Note ---
Therapy Progress Note Patient is currently sedated and intubated. He was placed on the vent again on 07-15-22. PT will monitor patient status and initiate skilled therapy when patient is able to actively participate. EDENILSON CASTILLO PT Jul 17, 2022 07:07
[2022-07-17] MEDS: dilTIAZem DRIP PRE-MIX 125 ML IV SCH (07:27)
[2022-07-17] MEDS ORDERED: SODIUM PHOSPHATE INJ 15 MM in D5W 100 ML IVPB 100 ML IV NR (08:00)
[2022-07-17] MEDS: DexMEDEtomidine 250 ML DRIP 250 ML IV SCH (08:08)
--- NOTE | 2022-07-17 08:10 | Diagnostic Imaging Report ---
INDICATION: Dyspnea. TECHNIQUE: Single view chest 2:23 AM. CORRELATION STUDY: 07/16/2022 FINDINGS: Endotracheal tube, nasogastric tube and right IJ central line all remain in place. Poststernotomy change. Heart size and mediastinum are stable. Extensive patchy bilateral infiltrate-like opacities particularly in the more central aspect lung ernandez left greater than right do persist overall slightly increased. Prominent gas-filled bowel noted in the upper abdomen, nonspecific. IMPRESSION: 1. Bilateral pulmonary infiltrate-like opacities left greater than right more pronounced central distribution overall appear increased and more consolidated. May reflect asymmetric edema versus multilobe pneumonia. Dictated by: Dictated on workstation # [id number]
[2022-07-17] MEDS: DOCUSATE SODIUM 100 MG (COLACE) CAP PO SCH ×2 (08:13→21:51)
[2022-07-17] MEDS ORDERED: PIPERACILLIN SODIUM/TAZOBACTAM 4.5 GM in NS (IVPB) 100 ML IV ONE (08:15)
--- NOTE | 2022-07-17 08:15 | Tele-ICU Progress Note ---
Subjective Date Seen by a Provider: Jul 17, 2022 Time Seen by a Provider: 08:14 Subjective/Events-last exam (Tele-ICU Physician , Progress Note ) Available chart/ vitals / labs / Images reviewed Video assessment done using teleICU camera, rest of exam as per RN Discussed with RN Events overnight : febrile hemodynamically stable Respiratory - 2 l I/O even Drips: Pressors- off Consultants: gabino Hospital course: 07-08: 47 y/o M - Unresponsive at home - Not well since Saturday. ?Asp Pneumonia - DKA Hypothermic - Intubated in ER - Pressors started. 07/10 - OFF pressors 07-12: Extubated 07/13 - NG placed 07/14 - reintubated for mental status 07/16 febrile - cx done 07/17 A/P Acute resp fail;ure =- intubated 07/08 for airway protection , 07-12: Extubated =07/14 - reintubated for mental status 07/16 persistent resp alcalosis with RR . 25 - will tr SIMV , and will do CPAP for resp muscles training DKA- reloved - iSS + long acting , ON TF up to goal ID -on admission : UA neg 07/08 - NEG covid , flu - empirically tx with abx x 6 days for PNA suspected , aspiration - febrile last 24 h with worsenign pilm infiltrates - - blood cx periph and line repeated , sputim repeates , ZOSYN started 07/17 - -yeast in sputum cx x2 - most likely not an invasive pulm infection - started on fluconazole 07/15 ARIE - resolved Anemia - no active bleeding - slow trending Hb down - iron=8 on 07/17 - started IV Fe for 5 doses - PPI IV H/o CAD. s/p CABG 2016 - ECHO 07/08 - EF 55% ( technically difficult study; hyperdynamic LV - cards follow Tachycardia - Sinus ( confirmed in after adenosine ) - will try adress possible pain - follow - beta blokers resumed h/o COPD - cont nebs Thrombocytopenia - PLT dropped to 107 from 252- ? delutional -IMPROVING Elevc Ddimer 07/17 - LE ordered Nutrition , dysphagia when was extubated - cont TF now , at goal Hypernatremia -improved , decrease free water in TF Profound weakness -? CC myopaty other etiology ? Was re-intubated , but no CO2 retntion on abg - doubt respiratiry muscle weakness. Metabolic/ endoctine/ infection ? Was not on steroids . -CTH negative , looks and nodding appropriatly for days , as per RN follows commands . Cam move upper extremity today - not able to lift agains gravity -replaceing phos , B12 was high , TSH WNL Lines : R IJ , (Central Line Necessity Reviewed) Nicholson: + OG: Nutrition: NPO Analgesia: Anxiety/ delirium VTE Prophylaxis: jeff 40 Stress Ulcer Prophylaxis: ppi Plans in collaboration with bedside consultants and IM MDs. Discussed with RN to reach out if any questions or concerns A total of 32 minutes of critical care time was devoted to this patient today, required to treat and/or prevent further deterioration of critical care condition ( as above ) . Sepsis Event Evaluation Height, Weight, BMI Height: 5'6.00" Weight: 157lbs. 0.0oz. 71.254055pt; 25.41 BMI Method: Exam Exam Patient acknowledged, consented, and participated in this virtual visit which was conducted using real time audio/video Vital Signs Date Time Temp Pulse Resp B/P (MAP) Pulse Ox O2 Delivery O2 Flow Rate FiO2 07/17/22 08:08 108 87/54 07/17/22 08:00 107 22 93/56 (68) 98 Mechanical Ventilator 21.00 07/17/22 07:49 37.3 07/17/22 07:40 Mechanical Ventilator 21.00 07/17/22 07:34 Mechanical Ventilator 21.00 07/17/22 07:13 108 07/17/22 07:00 111 22 87/54 (65) 100 Mechanical Ventilator 25.00 07/17/22 06:45 106 19 99 21 07/17/22 06:00 125 21 96/57 (70) 90 Mechanical Ventilator 25.00 07/17/22 05:46 38.1 07/17/22 05:16 38.9 07/17/22 05:00 122 18 120/68 (85) 97 Mechanical Ventilator 25.00 07/17/22 04:00 91 Mechanical Ventilator 30 07/17/22 04:00 120 21 116/71 (86) 98 Mechanical Ventilator 25.00 07/17/22 03:00 116 21 125/73 (90) 99 Mechanical Ventilator 25.00 07/17/22 02:23 117 27 95 25 07/17/22 02:00 112 20 121/78 (92) 98 Mechanical Ventilator 25.00 07/17/22 01:00 112 20 117/73 (88) 99 Mechanical Ventilator 25.00 07/17/22 01:00 112 07/17/22 00:16 98 Mechanical Ventilator 25 07/17/22 00:00 111 21 107/65 (79) 100 Mechanical Ventilator 25.00 07/16/22 23:00 117 20 104/60 (75) 100 Mechanical Ventilator 25.00 07/16/22 22:47 115 21 97 25 07/16/22 22:00 142 21 108/65 (79) 100 Mechanical Ventilator 25.00 07/16/22 21:00 112 22 118/70 (86) 100 Mechanical Ventilator 25.00 07/16/22 20:44 37.8 07/16/22 20:14 38.4 07/16/22 20:00 96 Mechanical Ventilator 25 07/16/22 20:00 114 17 122/67 (85) 100 Mechanical Ventilator 25.00 07/16/22 19:30 38.4 07/16/22 19:01 111 24 100 30 07/16/22 19:00 105 16 110/61 (77) 100 Mechanical Ventilator 30.00 07/16/22 19:00 105 07/16/22 18:18 112 07/16/22 18:00 111 18 109/62 (78) 100 Mechanical Ventilator 30.00 07/16/22 17:00 120 31 121/67 (85) 99 Mechanical Ventilator 30.00 07/16/22 16:00 113 21 107/60 (76) 100 Mechanical Ventilator 30.00 07/16/22 16:00 37.8 07/16/22 16:00 96 Mechanical Ventilator 30 07/16/22 15:00 118 20 111/59 (76) 100 Mechanical Ventilator 30.00 07/16/22 14:20 115 23 98 30 07/16/22 14:01 109 103/58 07/16/22 14:00 109 19 100/54 (69) 98 Mechanical Ventilator 30.00 07/16/22 13:00 106 23 103/58 (73) 97 Mechanical Ventilator 30.00 07/16/22 12:45 108 07/16/22 12:08 37.9 07/16/22 12:00 96 Mechanical Ventilator 30 07/16/22 12:00 109 19 95/54 (68) 99 Mechanical Ventilator 30.00 07/16/22 11:00 115 18 90/51 (64) 98 Mechanical Ventilator 30.00 07/16/22 10:12 113 20 95 30 07/16/22 10:00 120 21 111/56 (74) 97 Mechanical Ventilator 30.00 07/16/22 09:00 120 20 91/49 (63) 98 Mechanical Ventilator 30.00 I & O 07/17/22 07:00 Intake Total 3650 ml Output Total 3025 ml Balance 625 ml Height & Weight Height: 5'6.00" Weight: 157lbs. 0.0oz. 71.739561jh; 25.41 BMI Method: General Appearance: Chronically ill, Other (sedated and intubated) HEENT: PERRL/EOMI, Moist Mucous Membranes Neck: Full Range of Motion, Normal Inspection Respiratory: Decreased Breath Sounds Cardiovascular: Regular Rate, Rhythm Capillary Refill: Less Than 3 Seconds Gastrointestinal: normal bowel sounds, non tender, soft Extremity: No Pedal Edema Neurologic/Psychiatric: Disoriented, Motor Weakness Skin: Normal Color, Warm/Dry Lymphatic: No Adenopathy Results Lab Laboratory Tests 07/16/22 05:19 07/17/22 04:50 Assessment/Plan Assessment/Plan 1 MAYANK CHILDERS MD Jul 17, 2022 08:15
[2022-07-17] MEDS: IRON SUCROSE 200 MG/10 ML (VENOFER) VIAL IV SCH (08:20)
[2022-07-17] MEDS: ENOXAPARIN 40 MG/0.4 ML (LOVENOX) SYR SC SCH (08:20)
[2022-07-17] MEDS: ASPIRIN 81 MG CHEW (CHILDREN'S ASA) PO SCH (08:20)
[2022-07-17] MEDS: SENNOSIDES 8.6 MG (SENOKOT) TAB PO SCH ×2 (08:20→21:51)
[2022-07-17] MEDS: PANTOPRAZOLE 40 MG (PROTONIX) VIAL IV SCH (08:20)
--- NOTE | 2022-07-17 08:27 | Speech Therapy Progress Note ---
Therapy Progress Note The patient was re-intubated on 07/14/22. Speech pathology will sign off at this time. Please re-consult speech pathology once the patient is no longer intubated and appropriate for swallowing evaluation. Thank you. BETTY ACUNA Jul 17, 2022 08:27
--- NOTE | 2022-07-17 08:38 | Cardiology Progress Note ---
Subjective Date Seen by Provider: Jul 17, 2022 Time Seen by Provider: 08:36 Subjective/Events-last exam Patient is sedated and intubated. Events from the weekend were reviewed Review of Systems General: Other (Unable to provide review of system) Objective-Cardiology Exam Last Set of Vital Signs Vital Signs 07/17/22 07/17/22 07/17/22 07/17/22 06:45 07:49 08:00 08:08 Temp 37.3 Pulse 108 Resp 22 B/P (MAP) 87/54 Pulse Ox 98 O2 Delivery Mechanical Ventilator O2 Flow Rate 21.00 FiO2 21 I&O Intake and Output 07/17/22 00:00 Intake Total 2550 ml Output Total 2650 ml Balance -100 ml IV Total 50 ml Tube Feeding 2200 ml Other 300 ml Output Urine Total 2650 ml General: Other (Sedated and intubated) HEENT: Atraumatic, Mucous Memb Moist/[place] Neck: Supple, No JVD Lungs: Normal Air Movement Heart: Regular Rate, Normal S1, Normal S2 Abdomen: Normal Bowel Sounds, Soft Extremities: No Clubbing, No Cyanosis, Other (1+ pitting edema bilaterally) Skin: No Rashes Neuro: Other (Sedated and intubated) Psych/Mental Status: Other (Sedated and intubated) Results Lab Laboratory Tests 07/17/22 04:50 A/P-Cardiology Admission Diagnosis Septic shock DKA Coronary artery disease Sinus tachycardia Assessment/Plan Status post hypotensive shock, sepsis Borderline hypotensive at this time. Sinus tachycardia Receiving Lopressor IV, monitor blood pressure and heart rate. Status post acute respiratory failure, extubated on July 12, 2022 Has aspiration pneumonia Early ARDS Was reintubated on July 13, 2022. Ventilator dependent, managed by primary care team Sinus tachycardia, probably secondary to sepsis Started on Lopressor 5 mg IV every 6 hours Monitor heart rate and blood pressure closely Severe DKA, Improved, managed by primary care physician Echo on 07/08/22: technically difficult study; hyperdynamic LV seen on Definity contrast injection with LVEF approx 60% CAD - History of CABG x3 done by Dr. Justin in April 2017: URRUTIA to LAD, reverse vein graft to the right PDA and reverse vein graft to the OM1, - Last cath 01/09/[address] Melgar: LMCA Ok. LAD occlude in mid portion. URRUTIA to distal LAD patent. OM1 of LCX occluede. SVG to OM patent. RCA occlude SVG to PDA patent, but PDA small and with slow distal flow - Last MPI 06/27/[address] Melgar: no ischemia or infarction, LVEF 73% H/o chronic chest wall pain with occasional feeling of numbness in his arm Hyperlipidemia for which he has been on statins COPD Diabetes mellitus, poorly controlled Nonobstructive carotid artery stenosis per carotid duplex done Dec [address] Melgar H/o recurrent headache, managed by primary care physician BREONNA MELGAR MD Jul 17, 2022 08:38
--- NOTE | 2022-07-17 10:25 | Diagnostic Imaging Report ---
PROCEDURE: US Venous Lower Ext Harris. TECHNIQUE: Multiple real-time grayscale images were obtained over the lower extremities in various projections, bilaterally. Additional duplex Doppler and color Doppler images were also obtained. INDICATION: Lower extremity edema. There is no evidence of right or left lower extremity DVT. Both lower extremity deep venous systems demonstrate normal compressibility with normal response to augmentation and Valsalva. No fluid collection or mass is detected. IMPRESSION: No evidence of right or left lower extremity DVT. Dictated by: Dictated on workstation # [id number]
[2022-07-17] MEDS: PIPERACILLIN SODIUM/TAZOBACTAM 4.5 GM in NS (IVPB) 100 ML IV SCH (15:28)
[2022-07-17] MEDS: FLUCONAZOLE 100 MG/50 ML 50 ML IV SCH (21:21)
[2022-07-18] VITALS (7 sets, daily range): BP systolic 95–123; BP diastolic 58–74
[2022-07-18] MEDS: PIPERACILLIN SODIUM/TAZOBACTAM 4.5 GM in NS (IVPB) 100 ML IV SCH ×2 (00:20→07:46)
[2022-07-18] MEDS: meTOprolol 5 MG/5 ML (LOPRESSOR) VIAL IV SCH ×5 (00:20→23:56)
[2022-07-18] MEDS: fentaNYL INJ 100 MCG/2 ML AMP IVP PRN ×5 (00:21→18:10)
[2022-07-18] MEDS: inSUlin ASPART (NovoLOG) 1 UNIT/0.01 ML (CHARGE PER UNIT) SC SCH ×5 (02:00→23:55)
[2022-07-18] MEDS: morphine INJ 4 MG/ML 1 ML (VIAL/SYRINGE) IV PRN ×4 (02:01→16:32)
[2022-07-18] MEDS: DexMEDEtomidine 250 ML DRIP 250 ML IV SCH ×2 (02:01→13:39)
[2022-07-18] MEDS: PROPOFOL DRIP (ICU) 100 ML IV SCH ×2 (02:08→22:35)
[2022-07-18] MEDS: RT-ALBUTEROL/IPRATROPIUM 3 ML (DUONEB) VIAL INH SCH ×6 (02:54→23:03)
[2022-07-18 04:18] LABS: BASOPHILS % (AUTO) 0 % (0-10); EOSINOPHILS % (AUTO) 1 % (0-10); HEMATOCRIT 24 % (40-54); HEMOGLOBIN 7.9 g/dL (13.3-17.7); LYMPHOCYTES # (AUTO) 0.5 10^3/uL (1.0-4.0); LYMPHOCYTES % (AUTO) 9 % (12-44); MEAN CORPUSCULAR HEMOGLOBIN 33 pg (25-34); MEAN CORPUSCULAR HGB CONC 33 g/dL (32-36); MEAN CORPUSCULAR VOLUME 99 fL (80-99); MEAN PLATELET VOLUME 12.2 fL (9.0-12.2); MONOCYTES # (AUTO) 0.2 10^3/uL (0.0-1.0); MONOCYTES % (AUTO) 4 % (0-12); NEUTROPHILS # (AUTO) 4.2 10^3/uL (1.8-7.8); NEUTROPHILS % (AUTO) 83 % (42-75); PLATELET COUNT 159 10^3/uL (130-400)
[2022-07-18 04:21] LABS: ALBUMIN 2.2 GM/DL (3.2-4.5); POTASSIUM 3.6 MMOL/L (3.6-5.0)
[2022-07-18 04:24] LABS: TOTAL PROTEIN 5.9 GM/DL (6.4-8.2)
[2022-07-18 04:25] LABS: BILIRUBIN,TOTAL 0.5 MG/DL (0.1-1.0)
[2022-07-18 04:27] LABS: CREATININE SERUM 0.79 MG/DL (0.60-1.30); PHOSPHORUS 2.8 MG/DL (2.3-4.7)
[2022-07-18 04:30] LABS: MAGNESIUM 1.9 MG/DL (1.6-2.4)
[2022-07-18] MEDS: 1/2 NS IV SOLUTION 1,000 ML IV SCH (05:56)
[2022-07-18] MEDS ORDERED: POTASSIUM CL 10MEQ/50ML IVPB 100 ML IV ONE (06:05)
[2022-07-18] MEDS: POTASSIUM CL 10MEQ/50ML IVPB 50 ML IV SCH ×3 (06:07→07:18)
[2022-07-18 06:41] LABS: ABG OXYGEN SATURATION 82 % (94-100); ABG PCO2 40 MMHG (35-45); ABG PH 7.42 (7.37-7.43); ABG PO2 52 MMHG (79-93); ABG TCO2 25.7 MMOL/L (21.0-31.0); ALLENS TEST YES-POS; INSPIRED O2 NOT INDICATED; PATIENT TEMP 38.9; VENTILATOR NO
[2022-07-18] MEDS: KCL 20 MEQ TAB (K-DUR) PO SCH (07:18)
[2022-07-18] MEDS: MAGNESIUM 1 GM/100 ML IVPB 100 ML IV SCH (07:18)
[2022-07-18] MEDS: EPINEPHrine 1 MG INJECTION 4 MG in NS (IVPB) 246 ML IV SCH ×3 (07:19→23:20)
[2022-07-18] MEDS: ACETAMINOPHEN 325 MG TABLET PO PRN ×2 (07:27→18:19)
[2022-07-18] MEDS: dilTIAZem DRIP PRE-MIX 125 ML IV SCH (07:39)
[2022-07-18] MEDS ORDERED: VANCOMYCIN INJECTION 0.1 MG in NS (IVPB) 250 ML IV SCH (07:45)
[2022-07-18] MEDS: PANTOPRAZOLE 40 MG (PROTONIX) VIAL IV SCH (07:45)
[2022-07-18] MEDS: ASPIRIN 81 MG CHEW (CHILDREN'S ASA) PO SCH (07:46)
[2022-07-18] MEDS: DOCUSATE SODIUM 100 MG (COLACE) CAP PO SCH ×2 (07:46→20:15)
[2022-07-18] MEDS: SENNOSIDES 8.6 MG (SENOKOT) TAB PO SCH ×2 (07:46→20:15)
[2022-07-18] MEDS: ENOXAPARIN 40 MG/0.4 ML (LOVENOX) SYR SC SCH (07:46)
[2022-07-18] MEDS ORDERED: VANCOMYCIN 1500 MG/NS 500 ML IVPB IV SCH ×2 (08:00)
--- NOTE | 2022-07-18 08:04 | Physical Therapy Progress Note ---
Therapy Progress Note Patient is currently sedated and intubated. PT will monitor patient status and initiate skilled therapy when patient is able to actively participate. OLLIE COOLEY PT Jul 18, 2022 08:04
--- NOTE | 2022-07-18 08:19 | Diagnostic Imaging Report ---
Indication: Dyspnea. Time of Exam: 6:41 AM Correlation is made prior chest 1 day earlier. Changes of median sternotomy are noted. ET tube has tip above the aurora. NG tube passes in the stomach. Right IJ line with tip overlying the SVC. Bilateral airspace pulmonary infiltrates persist, greatest in the left lung. Infiltrates do appear to be increased when compared with yesterday. No effusion is seen. No pneumothorax. IMPRESSION: Increasing bilateral airspace opacities when compared to examination one day earlier. Dictated by: Dictated on workstation # [id number]
--- NOTE | 2022-07-18 08:21 | Tele-ICU Progress Note ---
Subjective Date Seen by a Provider: Jul 18, 2022 Time Seen by a Provider: 08:20 Subjective/Events-last exam Tele-ICU Physician , Progress Note ) Available chart/ vitals / labs / Images reviewed Video assessment done using teleICU camera, rest of exam as per RN Discussed with RN Events overnight : FEBRILE 39.7 hemodynamically stable Respiratory -25 % I/O + 1 L Drips:pecedex Pressors- off . VENT SETTINGS and ABG reviewed Sedation: RASS Not candidate for SBTContraindications : Cardiovascular Stability /Sedation Score / FI02/PEEP / ABG / CXR Consultants: gabino Hospital course: 07-08: 47 y/o M - Unresponsive at home - Not well since Saturday. ?Asp Pneumonia - DKA Hypothermic - Intubated in ER - Pressors started. 07/10 - OFF pressors 07-12: Extubated 07/13 - NG placed 07/14 - reintubated for mental status 07/16 febrile - cx done 07/18- FEBRILE 39.7, changed to Eraxis , started VANCO A/P Acute resp fail;ure =- intubated 07/08 for airway protection , 07-12: Extubated =07/14 - reintubated for mental status 07/16 persistent resp alcalosis with RR . 25 - did not tolerated SIMV , and will do CPAP for resp muscles training - tired after 30 min yesterday -++ secretions WILL NEED TRACHEOTOMY DKA- resolved - iSS + long acting , ON TF up to goal ID on admission - NEG covid , flu - empirically tx with abx x 6 days for PNA suspected , aspiration WORSENING PNA R>L -ZOSYN started 07/17 -yeast in sputum and blood 07/17 - - started on fluconazole 07/15- changed rto Eraxis 07/18 - presumed MRSA in sputum - resume MRSA coverage with vanco course ARIE - resolved Anemia - no active bleeding - slow trending Hb down - iron=8 on 07/17 - started IV Fe for 5 doses - PPI IV H/o CAD. s/p CABG 2016 - ECHO 07/08 - EF 55% ( technically difficult study; hyperdynamic LV - cards follow Tachycardia - Sinus ( confirmed in after adenosine ) - will try adress possible pain - follow - beta blockers resumed h/o COPD - cont nebs Thrombocytopenia - PLT dropped to 107 from 252- ? delutional -IMPROVING Elevc Ddimer 07/17 - US LE neg for DVT 07/17 Nutrition - cont TF now , at goal Hypernatremia -improved , decrease free water in TF Profound weakness -? CC myopaty other etiology ? Was re-intubated , but no CO2 retntion on abg - doubt respiratiry muscle weakness. Metabolic/ endoctine/ infection ? Was not on steroids . -CTH negative , looks and nodding appropriatly for days , as per RN follows commands . Can move upper extremity today - WAS able to lift agains gravity once during oral care -replacing phos , B12 was high , TSH WNL Lines : R IJ - to be removed 07/18 with fungemia , (Central Line Necessity Reviewed) Nicholson: + OG: Nutrition: TF Analgesia: Anxiety/ delirium VTE Prophylaxis: jeff 40 Stress Ulcer Prophylaxis: ppi Plans in collaboration with bedside consultants and IM MDs. Discussed with RN to reach out if any questions or concerns A total of 35 minutes of critical care time was devoted to this patient today, required to treat and/or prevent further deterioration of critical care condition ( as above ) . Sepsis Event Evaluation Height, Weight, BMI Height: 5'6.00" Weight: 157lbs. 0.0oz. 71.700990ug; 25.51 BMI Method: Exam Exam Patient acknowledged, consented, and participated in this virtual visit which was conducted using real time audio/video Vital Signs Date Time Temp Pulse Resp B/P (MAP) Pulse Ox O2 Delivery O2 Flow Rate FiO2 07/18/22 08:07 38.0 07/18/22 08:06 38.0 07/18/22 08:00 39.7 07/18/22 07:27 39.7 07/18/22 06:22 111 22 98 25 07/18/22 06:00 114 27 111/65 (79) 99 Mechanical Ventilator 25.00 07/18/22 05:00 116 22 95/55 (70) 99 Mechanical Ventilator 25.00 07/18/22 04:00 117 35 138/88 (105) 97 Mechanical Ventilator 25.00 07/18/22 04:00 97 Mechanical Ventilator 25 07/18/22 03:00 107 20 107/65 (78) 94 Mechanical Ventilator 25.00 07/18/22 02:54 105 20 99 25 9/7/22 02:01 104 112/70 07/18/22 02:00 103 16 112/70 (84) 99 Mechanical Ventilator 25.00 07/18/22 01:00 105 07/18/22 01:00 105 16 103/66 (78) 99 Mechanical Ventilator 25.00 07/18/22 00:00 98 Mechanical Ventilator 25 07/18/22 00:00 112 16 110/63 (79) 98 Mechanical Ventilator 25.00 07/17/22 23:00 112 16 101/62 (73) 98 Mechanical Ventilator 25.00 07/17/22 22:20 115 21 98 25 07/17/22 22:00 118 18 104/63 (76) 97 Mechanical Ventilator 25.00 07/17/22 21:52 37.5 07/17/22 21:22 38.8 07/17/22 21:00 121 18 121/67 (83) 94 Mechanical Ventilator 25.00 07/17/22 20:02 111 16 111/68 (81) 97 Mechanical Ventilator 25.00 07/17/22 20:00 38.8 07/17/22 20:00 94 Mechanical Ventilator 25 07/17/22 19:00 108 16 100/57 (71) 97 Mechanical Ventilator 25.00 07/17/22 19:00 108 07/17/22 18:35 108 25 96 25 07/17/22 18:00 105 21 96/60 (72) 95 Mechanical Ventilator 25.00 07/17/22 17:00 110 21 100/55 (70) 97 Mechanical Ventilator 25.00 07/17/22 16:44 96 Mechanical Ventilator 25 07/17/22 16:00 37.0 07/17/22 16:00 109 23 100/53 (69) 95 Mechanical Ventilator 25.00 07/17/22 15:00 111 25 100/61 (74) 93 Mechanical Ventilator 25.00 07/17/22 14:46 Mechanical Ventilator 25.00 07/17/22 14:30 105 27 98 25 07/17/22 14:24 36.7 07/17/22 14:00 109 13 119/69 (86) 98 Mechanical Ventilator 30.00 07/17/22 13:23 112 07/17/22 13:01 Mechanical Ventilator 30.00 07/17/22 13:00 114 24 96/80 (85) 97 Mechanical Ventilator 30.00 07/17/22 12:34 117 106/63 9/6/22 12:34 37.6 07/17/22 12:33 37.6 Mechanical Ventilator 35.00 07/17/22 12:00 39.0 07/17/22 12:00 39.0 07/17/22 12:00 98 Mechanical Ventilator 35 07/17/22 12:00 129 28 113/65 (81) 90 Mechanical Ventilator 30.00 07/17/22 11:53 135 32 92 30 07/17/22 11:47 133 34 94 07/17/22 11:00 126 22 145/68 (93) 95 Mechanical Ventilator 30.00 07/17/22 10:00 129 28 133/67 (89) 91 Mechanical Ventilator 30.00 07/17/22 09:28 Mechanical Ventilator 30.00 07/17/22 09:27 Mechanical Ventilator 25.00 07/17/22 09:10 106 34 96 21 07/17/22 09:00 108 22 101/62 (75) 96 Mechanical Ventilator 21.00 I & O 07/18/22 07:00 Intake Total 3405 ml Output Total 3000 ml Balance 405 ml Height & Weight Height: 5'6.00" Weight: 157lbs. 0.0oz. 71.012237ma; 25.51 BMI Method: General Appearance: No Apparent Distress, WD/WN, Chronically ill HEENT: PERRL/EOMI, Moist Mucous Membranes Neck: Full Range of Motion, Normal Inspection Respiratory: Crackles, Decreased Breath Sounds Cardiovascular: Regular Rate, Rhythm Capillary Refill: Less Than 3 Seconds Gastrointestinal: normal bowel sounds, non tender, soft Extremity: No Pedal Edema Neurologic/Psychiatric: Alert, Disoriented Skin: Normal Color, Warm/Dry Lymphatic: No Adenopathy Results Lab Laboratory Tests 07/17/22 04:50 07/18/22 04:10 Assessment/Plan Assessment/Plan 1 MAYANK CHILDERS MD Jul 18, 2022 08:20
[2022-07-18] MEDS ORDERED: LINEZOLID IVPB 300 ML IV SCH (09:00)
[2022-07-18] MEDS ORDERED: ANIDULAFUNGIN INJECTION 200 MG in NS (IVPB) 250 ML IV NR (09:00)
[2022-07-18] MEDS ORDERED: ANIDULAFUNGIN INJECTION 100 MG in NS (IVPB) 100 ML IV SCH (09:00)
[2022-07-18] MEDS: NOREPINEPHRINE 8 MG/250 ML 250 ML IV SCH (12:29)
--- NOTE | 2022-07-18 13:58 | Progress Note-Pre Operative ---
Pre-Operative Progress Note Date of Available H&P: Jul 18, 2022 Date H&P Reviewed: Jul 18, 2022 Time H&P Reviewed: 14:00 History & Physical: No changes noted Pre-Operative Diagnosis: respiratory failure FREEDOM ETIENNE MD Jul 18, 2022 13:58
--- NOTE | 2022-07-18 13:59 | Progress Note - Hospitalist ---
HARRISON JACQUES 07/18/22 1359: Subjective HPI/CC On Admission Date Seen by Provider: Jul 18, 2022 Time Seen by Provider: 13:54 Chief complaint: Acute decompensation HPI: This is a 47-year-old male of [facility] with past medical history of type 1 diabetes who apparently presented to the ER with altered mental status was found to be obtunded requiring intubation and aspiration of gastric contents occurred. Patient was found to be in multisystem organ failure with creatinine of 4.4 blood sugar 1100 range and sodium level 118. Patient was admitted to the ICU with aggressive IV fluid resuscitation and insulin drip orders along with eICU and girlfriend at the bedside was updated on the critical nature of his illness. Subjective/Events-last exam Patient is again intubated today. This is day 11 on ventilation. Nodding yes or no to questions. Anion gap remains at 12. ABG today: 7.42/40/52 Vent Settings: 450/16/5/25% Objective Exam Vital Signs Vital Signs Date Time Temp Pulse Resp B/P (MAP) Pulse Ox O2 Delivery O2 Flow Rate FiO2 07/18/22 13:39 112 110/67 07/18/22 11:00 17 99 Mechanical Ventilator 25.00 07/18/22 10:19 25 07/18/22 09:19 37.2 Capillary Refill : Less Than 3 Seconds General Appearance: No Apparent Distress, WD/WN Neck: Non Tender, Supple Respiratory: Wheezing Cardiovascular: No Edema, No JVD Rectal: Deferred Neurologic/Psychiatric: Motor Weakness Skin: Normal Color, Warm/Dry Lymphatic: No Adenopathy Results/Procedures Lab Laboratory Tests 07/18/22 04:10 Patient resulted labs reviewed. Assessment/Plan Assessment and Plan Assess & Plan/Chief Complaint Assessment: s/p DKA s/p intubation then extubation now intubation again Weakness Yeast pneumonitis Fungemia of central line Plan: Consult surgery for trach and PEG tube placement continue Diflucan Continue Zosyn and start Vanc 1/2 normal saline 1. DKA continue IV Fluid Start insulin Detemir Continue to monitor kidney function 2. Hypokalemia On potassium replacement. 3. Aspiration pneumonitis Completed antibiotic regimen. Repeat CXR today unchanged from previous 4. Type 1 diabetes Continue supportive care Place NG tube for enteral nutrition. PT, OT Critical Care: Ventilator Management BARBIE TORRES DO 07/18/222041: Subjective Subjective/Events-last exam Pt is about the same Trach and PEG tube will be placed by Dr. Villagomez [facility] and febrile at 39.7 noted Fungemia noted, pt was already on Diflucan Will change out the central line to a PICC line Eraxis will be changed from Diflucan Vancomycin for MRSA sputum along with the Zosyn Supervisory-Addendum Brief Verification & Attestation Participated in pt care: history, MDM, physical Personally performed: exam, history, MDM, supervision of care Care discussed with: Medical Student Procedures: n/a Results interpretation: Verified all documentation Verification and Attestation of Medical Student E/M Service A medical student performed and documented this service in my presence. I reviewed and verified all information documented by the medical student and made modifications to such information, when appropriate. I personally performed the physical exam and medical decision making. Barbie Torres Jul 18, 2022,20:42 HARRISON JACQUES Jul 18, 2022 13:59 BARBIE TORRES DO Jul 18, 2022 20:42
--- NOTE | 2022-07-18 15:51 | Cardiology Progress Note ---
Subjective Date Seen by Provider: Jul 18, 2022 Time Seen by Provider: 08:00 Subjective/Events-last exam Patient was seen at bedside, awake, still ventilator dependent. Review of Systems General: Other (Unable to provide review of system) Objective-Cardiology Exam Last Set of Vital Signs Vital Signs 07/18/22 07/18/22 07/18/22 07/18/22 07/18/22 11:00 12:00 12:30 13:39 14:26 Temp 37.2 Pulse 105 Resp 22 B/P (MAP) 110/67 Pulse Ox 99 O2 Delivery Mechanical Ventilator O2 Flow Rate 25.00 FiO2 25 I&O Intake and Output 07/18/22 00:00 Intake Total 4455 ml Output Total 3350 ml Balance 1105 ml Intake Oral 0 ml IV Total 1905 ml Tube Feeding 1350 ml Other 1200 ml Output Urine Total 3350 ml General: Other (Sedated and intubated) HEENT: Atraumatic, Mucous Memb Moist/[place] Neck: Supple, No JVD Lungs: Normal Air Movement Heart: Regular Rate, Normal S1, Normal S2 Abdomen: Normal Bowel Sounds, Soft Extremities: No Clubbing, No Cyanosis, Other (1+ pitting edema bilaterally) Skin: No Rashes Neuro: Other (Sedated and intubated) Psych/Mental Status: Other (Sedated and intubated) Results Lab Laboratory Tests 07/18/22 04:10 A/P-Cardiology Admission Diagnosis Septic shock DKA Coronary artery disease Sinus tachycardia Assessment/Plan Status post hypotensive shock, sepsis Borderline hypotensive at this time. Sinus tachycardia Receiving Lopressor IV, monitor blood pressure and heart rate. Status post acute respiratory failure, extubated on July 12, 2022 Has aspiration pneumonia Early ARDS Was reintubated on July 13, 2022. Ventilator dependent, managed by primary care team Discussed the management plan with Dr. Umanzor, patient is probably will require tracheostomy. Continue with aggressive measures at this point. Sinus tachycardia, probably secondary to sepsis Started on Lopressor 5 mg IV every 6 hours Monitor heart rate and blood pressure closely Severe DKA, Improved, managed by primary care physician Echo on 07/08/22: technically difficult study; hyperdynamic LV seen on Definity contrast injection with LVEF approx 60% CAD - History of CABG x3 done by Dr. Justin in April 2017: URRUTIA to LAD, reverse vein graft to the right PDA and reverse vein graft to the OM1, - Last cath 01/09/[address] Melgar: LMCA Ok. LAD occlude in mid portion. URRUTIA to distal LAD patent. OM1 of LCX occluede. SVG to OM patent. RCA occlude SVG to PDA patent, but PDA small and with slow distal flow - Last MPI 06/27/[address] Melgar: no ischemia or infarction, LVEF 73% H/o chronic chest wall pain with occasional feeling of numbness in his arm Hyperlipidemia for which he has been on statins COPD Diabetes mellitus, poorly controlled Nonobstructive carotid artery stenosis per carotid duplex done Dec [address] Melgar H/o recurrent headache, managed by primary care physician BREONNA MELGAR MD Jul 18, 2022 15:51
--- NOTE | 2022-07-18 17:35 | CONSULTATION REPORT ---
DATE OF SERVICE: 07/18/2022 HISTORY OF PRESENT ILLNESS: The patient is a 47-year-old male patient of [facility]. He has a history of type 1 diabetes and presented to the Emergency Department with altered mental status and obtundation requiring intubation. There was high speculation for aspiration as well. The patient was also in multisystem organ failure with elevated creatinine and blood sugar in 1100 range. The patient was admitted to the ICU and underwent aggressive medical therapy with IV hydration, insulin drip and correction of acid base imbalance. The patient was placed on broad-spectrum antibiotics and continued on medical therapy. He did slowly start to improve and he was eventually extubated. However, he soon after developed significant shortness of breath requiring reintubation. The patient was later found to have positive fungal cultures as well as from endotracheal aspirate again likely consistent with an aspiration pneumonia. The patient's blood gases lately have slowly improved; however, again he does have cut continued difficulty with attempts at extubation. The patient's endotracheal tube has been in for 2 weeks and he will not require a tracheostomy as well as a percutaneous endoscopic gastrostomy tube placement. PAST MEDICAL HISTORY: Type 1 diabetes, coronary artery disease, hypercholesterolemia, hypertension, COPD, asthma, degenerative joint disease, history of diabetic ketoacidosis. PAST SURGICAL HISTORY: Coronary artery bypass grafting, orthopedic procedures. ALLERGIES: IODINE, SHELLFISH. MEDICATIONS: Albuterol, aspirin, atorvastatin, dapagliflozin, diclofenac, dulaglutide, ezetimibe, fluticasone/vilanterol, gabapentin/enacarbil, aspartate insulin, glargine insulin, lisinopril, metformin, metoprolol, ranolazine. SOCIAL HISTORY: Positive smoke. No known alcohol. FAMILY HISTORY: Noncontributory. VITAL SIGNS: Temperature 37.8, blood pressure 116/60, pulse 113, respirations 30, pulse ox 99% on mechanical ventilator at 25% FiO2. REVIEW OF SYSTEMS: Well-nourished male who is responsive to voice commands. He was in diabetic ketoacidosis and obtunded and likely suffered from aspiration pneumonia and has had continued respiratory failure with failed extubation and extubation trials. He currently has a nasogastric tube and is tolerating tube feeds. Does have loose stools. No red blood per rectum, no dark tarry stools. No recent fever, chills, no recent inadvertent weight loss. All other review of systems negative. PHYSICAL EXAMINATION: CHEST: Scattered rales and rhonchi bilaterally. HEART: Regular, no murmurs. EXTREMITIES: +1/3 bilateral lower extremity edema, negative Homans sign. HEENT: No scleral icterus. NECK: No cervical lymphadenopathy. ABDOMEN: Soft, nontender, nondistended. SKIN: Warm, dry. LABORATORY DATA: WBC 5.0, hemoglobin 7.9, hematocrit 24, platelets 159. BUN 13, creatinine 0.79, glucose 192. Blood cultures positive for yeast. Sputum cultures positive for yeast and Staphylococcus aureus. ASSESSMENT AND PLAN: A 47-year-old male with history of type 1 diabetes and diabetic ketoacidosis, obtundation and aspiration pneumonia with respiratory failure with failed extubation and extubation weaning protocols. He has had the endotracheal tube in for 2 weeks now and now will require a tracheostomy as well as a percutaneous endoscopic gastrostomy tube placement for further management and should help with weaning off the ventilator due to the lesser resistance of and increasing functional residual capacity. Job ID: [id number] DocumentID: [id number] Dictated Date: 07/18/2022 17:09:03 [employer] Date: 07/18/2022 17:34:29 Dictated By: FREEDOM ETIENNE MD
[2022-07-18] MEDS: morphine INJ 4 MG/ML 1 ML (VIAL/SYRINGE) IVP PRN ×2 (18:49→22:39)
[2022-07-18] MEDS: VANCOMYCIN 1250 MG/NS 250 ML IVPB IV SCH ×2 (20:14)
[2022-07-18] MEDS: SULFAMETHOXAZOLE/TRIMETHO SUSP 10 ML (BACTRIM) UDC GT SCH (20:14)
[2022-07-19] VITALS (13 sets, daily range): BP systolic 95–168; BP diastolic 59–91
[2022-07-19] MEDS: NOREPINEPHRINE 8 MG/250 ML 250 ML IV SCH (01:12)
[2022-07-19] MEDS: DexMEDEtomidine 250 ML DRIP 250 ML IV SCH ×4 (01:36→23:31)
[2022-07-19] MEDS: RT-ALBUTEROL/IPRATROPIUM 3 ML (DUONEB) VIAL INH SCH ×5 (02:34→22:04)
[2022-07-19] MEDS: morphine INJ 4 MG/ML 1 ML (VIAL/SYRINGE) IVP PRN ×5 (02:51→23:53)
[2022-07-19 03:06] LABS: BASOPHILS % (AUTO) 1 % (0-10); EOSINOPHILS % (AUTO) 0 % (0-10); HEMATOCRIT 22 % (40-54); HEMOGLOBIN 7.3 g/dL (13.3-17.7); LYMPHOCYTES # (AUTO) 0.5 10^3/uL (1.0-4.0); LYMPHOCYTES % (AUTO) 13 % (12-44); MEAN CORPUSCULAR HEMOGLOBIN 33 pg (25-34); MEAN CORPUSCULAR HGB CONC 34 g/dL (32-36); MEAN CORPUSCULAR VOLUME 98 fL (80-99); MEAN PLATELET VOLUME 12.1 fL (9.0-12.2); MONOCYTES # (AUTO) 0.2 10^3/uL (0.0-1.0); MONOCYTES % (AUTO) 6 % (0-12); NEUTROPHILS # (AUTO) 3.2 10^3/uL (1.8-7.8); NEUTROPHILS % (AUTO) 79 % (42-75); PLATELET COUNT 199 10^3/uL (130-400); WHITE BLOOD COUNT 4.1 10^3/uL (4.3-11.0)
[2022-07-19 03:24] LABS: POTASSIUM 3.2 MMOL/L (3.6-5.0)
[2022-07-19 03:25] LABS: CALCIUM 7.7 MG/DL (8.5-10.1)
[2022-07-19 03:26] LABS: TOTAL PROTEIN 5.8 GM/DL (6.4-8.2)
[2022-07-19 03:28] LABS: BILIRUBIN,TOTAL 0.4 MG/DL (0.1-1.0)
[2022-07-19 03:29] LABS: PHOSPHORUS 2.3 MG/DL (2.3-4.7)
[2022-07-19 03:30] LABS: CREATININE SERUM 0.76 MG/DL (0.60-1.30)
[2022-07-19] MEDS: KCL 20 MEQ TAB (K-DUR) PO SCH (03:30)
[2022-07-19] MEDS: inSUlin ASPART (NovoLOG) 1 UNIT/0.01 ML (CHARGE PER UNIT) SC SCH ×3 (03:30→17:51)
[2022-07-19] MEDS: MAGNESIUM 1 GM/100 ML IVPB 100 ML IV SCH ×3 (03:30→04:34)
[2022-07-19] MEDS: POTASSIUM CL 10MEQ/50ML IVPB 50 ML IV SCH ×5 (03:30→06:22)
[2022-07-19 03:32] LABS: MAGNESIUM 1.7 MG/DL (1.6-2.4)
[2022-07-19] MEDS ORDERED: POTASSIUM CL 10MEQ/50ML IVPB 200 ML IV ONE (03:36)
[2022-07-19] MEDS ORDERED: MAGNESIUM 1 GM/100 ML IVPB 200 ML IV ONE (03:36)
[2022-07-19] MEDS: ACETAMINOPHEN 325 MG TABLET PO PRN (03:43)
[2022-07-19] MEDS: meTOprolol 5 MG/5 ML (LOPRESSOR) VIAL IV SCH ×3 (05:45→18:42)
[2022-07-19] MEDS: dilTIAZem DRIP PRE-MIX 125 ML IV SCH (06:41)
[2022-07-19] MEDS ORDERED: TROUGH ORDER-PHARMACY XX ONE (07:00)
--- NOTE | 2022-07-19 07:23 | Physical Therapy Progress Note ---
Therapy Progress Note Patient currently intubated. PT to continue to monitor patient status. EDENILSON CASTILLO PT Jul 19, 2022 07:23
--- NOTE | 2022-07-19 08:28 | Diagnostic Imaging Report ---
EXAMINATION: Chest 1 view HISTORY: Dyspnea COMPARISON: 07/18/2022 FINDINGS: Heart size and pulmonary vasculature are normal. Surgical changes from median sternotomy and CABG. Stable patchy airspace opacities seen throughout both lungs. No pleural effusion or pneumothorax. Interval removal of the right IJ central line. Medical support lines and tubes are otherwise unchanged. The osseous structures are intact. IMPRESSION: 1. Stable patchy airspace opacities throughout both lungs compared to 07/18/2022. Dictated by: Dictated on workstation # [id number]
--- NOTE | 2022-07-19 08:31 | Cardiology Progress Note ---
Subjective Date Seen by Provider: Jul 19, 2022 Time Seen by Provider: 08:31 Subjective/Events-last exam Patient is intubated, unable to provide any history Review of Systems General: Other (Unable to provide review of system) Objective-Cardiology Exam Last Set of Vital Signs Vital Signs 07/19/22 07/19/22 07/19/22 06:00 07:34 08:15 Temp 36.9 Pulse 99 Resp 24 B/P (MAP) 97/59 (68) Pulse Ox 99 O2 Delivery Mechanical Ventilator O2 Flow Rate 25.00 FiO2 25 I&O Intake and Output 07/19/22 00:00 Intake Total 3565 ml Output Total 3275 ml Balance 290 ml Intake Oral 0 ml IV Total 1665 ml Tube Feeding 1200 ml Other 700 ml Output Urine Total 3275 ml General: Other (Sedated and intubated) HEENT: Atraumatic, Mucous Memb Moist/[place] Neck: Supple, No JVD Lungs: Normal Air Movement Heart: Regular Rate, Normal S1, Normal S2 Abdomen: Normal Bowel Sounds, Soft Extremities: No Clubbing, No Cyanosis, Other (1+ pitting edema bilaterally) Skin: No Rashes Neuro: Other (Sedated and intubated) Psych/Mental Status: Other (Sedated and intubated) Results Lab Laboratory Tests 07/19/22 02:57 A/P-Cardiology Admission Diagnosis Septic shock DKA Coronary artery disease Sinus tachycardia Assessment/Plan Status post hypotensive shock, sepsis Borderline hypotensive at this time. Sinus tachycardia Receiving Lopressor IV, monitor blood pressure and heart rate. Status post acute respiratory failure, extubated on July 12, 2022 Has aspiration pneumonia Early ARDS Was reintubated on July 13, 2022. Ventilator dependent, managed by primary care team Discussed the management plan with Dr. Umanzor, patient is probably will require tracheostomy. Continue with aggressive measures at this point. Sinus tachycardia, probably secondary to sepsis Started on Lopressor 5 mg IV every 6 hours Monitor heart rate and blood pressure closely Severe DKA, Improved, managed by primary care physician Echo on 07/08/22: technically difficult study; hyperdynamic LV seen on Definity contrast injection with LVEF approx 60% CAD - History of CABG x3 done by Dr. Justin in April 2017: URRUTIA to LAD, reverse vein graft to the right PDA and reverse vein graft to the OM1, - Last cath 01/09/[address] Melgar: LMCA Ok. LAD occlude in mid portion. URRUTIA to distal LAD patent. OM1 of LCX occluede. SVG to OM patent. RCA occlude SVG to PDA patent, but PDA small and with slow distal flow - Last MPI 06/27/[address] Melgar: no ischemia or infarction, LVEF 73% H/o chronic chest wall pain with occasional feeling of numbness in his arm Hyperlipidemia for which he has been on statins COPD Diabetes mellitus, poorly controlled Nonobstructive carotid artery stenosis per carotid duplex done Dec [address] Melgar H/o recurrent headache, managed by primary care physician BREONNA MELGAR MD Jul 19, 2022 08:31
[2022-07-19] MEDS: ANIDULAFUNGIN INJECTION 100 MG in NS (IVPB) 100 ML IV SCH (09:09)
[2022-07-19] MEDS: VANCOMYCIN 1250 MG/NS 250 ML IVPB IV SCH ×4 (09:09→19:41)
[2022-07-19] MEDS: SULFAMETHOXAZOLE/TRIMETHO SUSP 10 ML (BACTRIM) UDC GT SCH ×2 (09:09→20:37)
[2022-07-19] MEDS: IRON SUCROSE 200 MG/10 ML (VENOFER) VIAL IV SCH (09:10)
[2022-07-19] MEDS: PANTOPRAZOLE 40 MG (PROTONIX) VIAL IV SCH (09:10)
[2022-07-19] MEDS: SENNOSIDES 8.6 MG (SENOKOT) TAB PO SCH ×2 (10:13→20:37)
[2022-07-19] MEDS: ASPIRIN 81 MG CHEW (CHILDREN'S ASA) PO SCH (10:13)
[2022-07-19] MEDS: ENOXAPARIN 40 MG/0.4 ML (LOVENOX) SYR SC SCH (10:13)
[2022-07-19] MEDS: DOCUSATE SODIUM 100 MG (COLACE) CAP PO SCH ×2 (10:13→20:38)
[2022-07-19] MEDS: EPINEPHrine 1 MG INJECTION 4 MG in NS (IVPB) 246 ML IV SCH (10:14)
--- NOTE | 2022-07-19 10:50 | Tele-ICU Progress Note ---
Subjective Date Seen by a Provider: Jul 19, 2022 Time Seen by a Provider: 10:49 Subjective/Events-last exam Tele-ICU Physician , Progress Note ) Available chart/ vitals / labs / Images reviewed Video assessment done using teleICU camera, rest of exam as per RN Discussed with RN Events overnight : FEBRILE 39.7 hemodynamically stable Respiratory -25 % I/O m= 300 Drips:pecedex 1 Pressors- off . VENT SETTINGS and ABG reviewed Sedation: RASS Not candidate for SBTContraindications : Cardiovascular Stability /Sedation Score / FI02/PEEP / ABG / CXR Consultants: gabino Hospital course: 07-08: 47 y/o M - Unresponsive at home - Not well since Saturday. ?Asp Pneumonia - DKA Hypothermic - Intubated in ER - Pressors started. 07/10 - OFF pressors 07-12: Extubated 07/13 - NG placed 07/14 - reintubated for mental status 07/16 febrile - cx done 07/18- FEBRILE 39.7, changed to Eraxis , started VANCO and Eraxis 07/19- TRACHEOSTOMY planned A/P Acute resp fail;ure =- intubated 07/08 for airway protection , 07-12: Extubated =07/14 - reintubated for mental status 07/16 persistent resp alcalosis with RR . 25 - did not tolerated SIMV , and will do CPAP for resp muscles training - tired after 30 min yesterday -++ secretions 07/19 -TRACHEOTOMY planned DKA- resolved - iSS + long acting , ON TF up to goal ID on admission - NEG covid , flu - empirically tx with abx x 6 days for PNA suspected , aspiration WORSENING PNA R>L -ZOSYN started 07/17 -yeast in sputum and blood 07/17 - - started on fluconazole 07/15- changed rto Eraxis 07/18 -> - presumed MRSA in sputum - resume MRSA coverage with vanco course07/18 -> ARIE - resolved - VO - cont diuresis Anemia - no active bleeding - slow trending Hb down - iron=8 on 07/17 - started IV Fe for 5 doses - PPI IV H/o CAD. s/p CABG 2016 - ECHO 07/08 - EF 55% ( technically difficult study; hyperdynamic LV - cards follow Tachycardia - Sinus ( confirmed in after adenosine ) - will try adress possible pain - follow - beta blockers resumed h/o COPD - cont nebs Thrombocytopenia - PLT dropped to 107 from 252- ? delutional -IMPROVING Elevc Ddimer 07/17 - US LE neg for DVT 07/17 Nutrition - cont TF now , at goal Hypernatremia -improved , decrease free water in TF Profound weakness -? CC myopaty other etiology ? Was re-intubated , but no CO2 retntion on abg - doubt respiratiry muscle weakness. Metabolic/ endoctine/ infection ? Was not on steroids . -CTH negative , looks and nodding appropriatly for days , as per RN follows commands . Can move upper extremity today - WAS able to lift agains gravity once during oral care -replacing phos , B12 was high , TSH WNL Lines : R IJ removed 07/18 with fungemia , (Central Line Necessity Reviewed) Nicholson: + OG: Nutrition: TF Analgesia: Anxiety/ delirium VTE Prophylaxis: jeff 40 Stress Ulcer Prophylaxis: ppi Plans in collaboration with bedside consultants and IM MDs. Discussed with RN to reach out if any questions or concerns A total of 35 minutes of critical care time was devoted to this patient today, required to treat and/or prevent further deterioration of critical care condition ( as above ) . Sepsis Event Evaluation Height, Weight, BMI Height: 5'6.00" Weight: 157lbs. 0.0oz. 71.668294op; 25.91 BMI Method: Exam Exam Patient acknowledged, consented, and participated in this virtual visit which was conducted using real time audio/video Vital Signs Date Time Temp Pulse Resp B/P (MAP) Pulse Ox O2 Delivery O2 Flow Rate FiO2 07/19/22 10:00 108 26 111/64 (80) 94 Mechanical Ventilator 25.00 07/19/22 09:00 103 24 120/94 (103) 98 Mechanical Ventilator 25.00 07/19/22 08:15 36.9 07/19/22 08:00 95 Mechanical Ventilator 25 07/19/22 08:00 113 21 113/69 (84) 99 Mechanical Ventilator 25.00 07/19/22 08:00 25 07/19/22 07:34 99 24 99 25 07/19/22 07:00 95 07/19/22 07:00 95 21 101/63 (76) 98 Mechanical Ventilator 25.00 07/19/22 06:00 93 20 97/59 (68) 98 Mechanical Ventilator 25.00 07/19/22 05:13 104 98/61 07/19/22 05:00 106 20 98/61 (73) 98 Mechanical Ventilator 25.00 07/19/22 04:30 37.5 07/19/22 04:18 37.5 07/19/22 04:00 116 20 111/67 (78) 96 Mechanical Ventilator 25.00 07/19/22 04:00 25 07/19/22 03:45 95 Mechanical Ventilator 25 07/19/22 03:43 38.8 07/19/22 03:43 38.8 07/19/22 03:00 130 20 136/77 (96) 96 Mechanical Ventilator 25.00 07/19/22 02:50 25 07/19/22 02:34 117 25 99 25 07/19/22 02:00 114 20 126/66 (83) 100 Mechanical Ventilator 25.00 07/19/22 01:36 113 109/64 07/19/22 01:00 112 07/19/22 01:00 112 20 105/62 (75) 99 Mechanical Ventilator 25.00 07/19/22 00:00 113 20 107/63 (78) 99 Mechanical Ventilator 25.00 07/19/22 00:00 25 07/19/22 00:00 37.9 Mechanical Ventilator 25.00 07/19/22 00:00 99 Mechanical Ventilator 25 07/18/22 23:03 120 22 97 25 07/18/22 23:00 120 20 123/69 (83) 97 Mechanical Ventilator 25.00 07/18/22 22:00 115 20 107/64 (78) 99 Mechanical Ventilator 25.00 07/18/22 21:00 114 20 107/63 (76) 98 Mechanical Ventilator 25.00 07/18/22 20:00 25 07/18/22 20:00 37.0 07/18/22 20:00 115 20 97/59 (69) 99 Mechanical Ventilator 25.00 07/18/22 19:35 99 Mechanical Ventilator 25 07/18/22 19:15 37.8 07/18/22 19:01 117 21 98 25 07/18/22 19:00 123 20 122/71 (88) 99 Mechanical Ventilator 25.00 07/18/22 19:00 118 20 122/71 (88) 97 Mechanical Ventilator 25.00 07/18/22 19:00 118 07/18/22 18:53 37.9 07/18/22 18:52 37.9 07/18/22 18:19 38.5 07/18/22 18:17 38.5 07/18/22 17:48 112 99/58 07/18/22 17:00 112 17 99/58 (72) 98 Mechanical Ventilator 25.00 07/18/22 16:00 37.8 07/18/22 16:00 113 30 116/60 (78) 99 Mechanical Ventilator 25.00 07/18/22 16:00 99 Mechanical Ventilator 25 07/18/22 15:45 112 22 121/65 (80) 99 Mechanical Ventilator 25.00 07/18/22 15:30 112 21 114/62 (78) 100 Mechanical Ventilator 25.00 07/18/22 15:15 112 23 113/68 (80) 100 Mechanical Ventilator 25.00 07/18/22 15:00 112 19 158/86 (103) 100 Mechanical Ventilator 25.00 07/18/22 14:45 109 21 112/65 (79) 100 Mechanical Ventilator 25.00 07/18/22 14:30 106 21 111/69 (79) 99 Mechanical Ventilator 25.00 07/18/22 14:26 105 22 99 25 07/18/22 14:15 101 16 95/58 (69) 99 Mechanical Ventilator 25.00 07/18/22 14:00 101 23 98/60 (69) 99 Mechanical Ventilator 25.00 07/18/22 13:45 103 24 116/71 (83) 99 Mechanical Ventilator 25.00 07/18/22 13:39 112 110/67 07/18/22 13:30 102 21 93/56 (67) 99 Mechanical Ventilator 25.00 07/18/22 13:15 101 17 100/60 (71) 99 Mechanical Ventilator 25.00 07/18/22 13:13 101 07/18/22 13:00 102 22 97/58 (71) 99 Mechanical Ventilator 25.00 07/18/22 12:45 103 17 100/63 (73) 99 Mechanical Ventilator 25.00 07/18/22 12:30 37.2 07/18/22 12:30 104 24 99/59 (70) 98 Mechanical Ventilator 25.00 07/18/22 12:15 108 36 113/97 (103) 97 Mechanical Ventilator 25.00 07/18/22 12:00 108 21 112/68 (80) 100 Mechanical Ventilator 25.00 07/18/22 12:00 Mechanical Ventilator 25 07/18/22 11:00 112 17 110/67 (81) 99 Mechanical Ventilator 25.00 I & O 07/19/22 07:00 Intake Total 3515 ml Output Total 3550 ml Balance -35 ml Height & Weight Height: 5'6.00" Weight: 157lbs. 0.0oz. 71.832826nw; 25.91 BMI Method: General Appearance: No Apparent Distress, WD/WN HEENT: PERRL/EOMI, Moist Mucous Membranes Neck: Non Tender, Supple Respiratory: Wheezing Cardiovascular: No Edema, No JVD Capillary Refill: Less Than 3 Seconds Gastrointestinal: normal bowel sounds, non tender, soft Extremity: No Pedal Edema Neurologic/Psychiatric: Motor Weakness Skin: Normal Color, Warm/Dry Lymphatic: No Adenopathy Results Lab Laboratory Tests 07/18/22 04:10 07/19/22 02:57 Assessment/Plan Assessment/Plan 1 MAYANK CHILDERS MD Jul 19, 2022 10:50
[2022-07-19] MEDS ORDERED: SEVOFLURANE (ULTANE) 15 ML INHAL SOLN ONE ×2 (13:02→14:37)
[2022-07-19] MEDS ORDERED: MIDAZOLAM 2 MG/2 ML (VERSED) VIAL ONE (13:12)
[2022-07-19] MEDS ORDERED: fentaNYL INJ 100 MCG/2 ML AMP ONE (13:40)
--- NOTE | 2022-07-19 14:49 | Progress Note-Post Operative ---
Post-Operative Progess Note Surgeon (s)/Warehouse Shipping Associate (s) Surgeon FREEDOM ETIENNE MD Warehouse Shipping Associate: luis a pino DIGITAL COORDINATOR Pre-Operative Diagnosis respiratory failure Post-Operative Diagnosis same Procedure & Operative Findings Date of Procedure 07/19/22 Procedure Performed/Findings tracheostomy. EGD and percutaneous endoscopic gastrostomy tube placement Anesthesia Type get Estimated Blood Loss Estimated blood loss (mL): minimal Specimens/Packing Specimens Removed antrum FREEDOM ETIENNE MD Jul 19, 2022 14:49
[2022-07-19] MEDS ORDERED: LIDOCAINE/EPI 2% 1:100,00 (XYLOCAINE) 20 ML VIAL IJ ONE (15:18)
[2022-07-19] MEDS ORDERED: LACTATED RINGERS 1,000 ML IV PRN (16:00)
--- NOTE | 2022-07-19 18:25 | Progress Note - Hospitalist ---
BRIANNA ADAIROR 07/19/221824: Subjective HPI/CC On Admission Date Seen by Provider: Jul 19, 2022 Time Seen by Provider: 09:05 Chief complaint: Acute decompensation HPI: This is a 47-year-old male of [facility] with past medical history of type 1 diabetes who apparently presented to the ER with altered mental status was found to be obtunded requiring intubation and aspiration of gastric contents occurred. Patient was found to be in multisystem organ failure with creatinine of 4.4 blood sugar 1100 range and sodium level 118. Patient was admitted to the ICU with aggressive IV fluid resuscitation and insulin drip orders along with eICU and girlfriend at the bedside was updated on the critical nature of his illness. Subjective/Events-last exam Pt is intubated and resting comfortable in bed. Unable to obtain ROS Objective Exam Vital Signs Vital Signs Date Time Temp Pulse Resp B/P (MAP) Pulse Ox O2 Delivery O2 Flow Rate FiO2 07/19/22 18:00 25 07/19/22 17:00 104 16 113/74 (87) 100 Mechanical Ventilator 25.00 07/19/22 15:49 36.9 Capillary Refill : Greater Than 3 SecondsLess Than 3 Seconds General Appearance: Chronically ill HEENT: Other (intubated) Neck: Normal Inspection Respiratory: Lungs Clear, No Respiratory Distress Cardiovascular: Regular Rate, Rhythm, Normal Peripheral Pulses Gastrointestinal: Normal Bowel Sounds, Soft Extremity: No Pedal Edema Neurologic/Psychiatric: Other (intubated) Skin: Normal Color, Warm/Dry Results/Procedures Lab Laboratory Tests 07/19/22 02:57 Patient resulted labs reviewed. Assessment/Plan Assessment and Plan Assess & Plan/Chief Complaint s/p Trach/PEG placement POD#1 pt handled procedure w/o any complications T1DM - DKA DKA resolved - Anion gap is WNL Continue to monitor kidney function and provide IV fluids Hypokalemia Resolved. Aspiration pneumonitis Still receiving IV abx CXR unchanged from yesterday Continue supportive care PT, OT BARBIE TORRES DO 07/20/22 0607: Subjective Subjective/Events-last exam trach and peg today Reviewed meds and labs and cultures Objective Exam General Appearance: No Apparent Distress, WD/WN, Chronically ill Respiratory: Lungs Clear, Normal Breath Sounds Cardiovascular: Regular Rate, Rhythm Supervisory-Addendum Brief Verification & Attestation Participated in pt care: history, MDM, physical Personally performed: exam, history, MDM, supervision of care Care discussed with: Medical Student Procedures: n/a Results interpretation: Verified all documentation Verification and Attestation of Medical Student E/M Service A medical student performed and documented this service in my presence. I reviewed and verified all information documented by the medical student and made modifications to such information, when appropriate. I personally performed the physical exam and medical decision making. Barbie Torres Jul 20, 2022,06:07 SONDRA ADAIR Jul 19, 2022 18:25 BARBIE TORRES DO Jul 20, 2022 06:07
--- NOTE | 2022-07-19 20:51 | OPERATIVE REPORT ---
DATE OF SERVICE: 07/19/2022 PREOPERATIVE DIAGNOSIS: Respiratory failure. POSTOPERATIVE DIAGNOSIS: Respiratory failure. PROCEDURE: Open tracheostomy placement. EGD and percutaneous endoscopic gastrostomy tube placement. SURGEON: Freedom Etienne MD LITHOSTRIPPER: Sourav Alamo APRN. ANESTHESIA: General endotracheal. ESTIMATED BLOOD LOSS: Minimal. FINDINGS: Reflux esophagitis, [place] grade B, moderate diffuse gastritis. No distal obstructions. A #8 Shiley tracheostomy placed at approximately the second tracheal ring. DISPOSITION: The patient tolerated the procedure well. INDICATIONS: The patient is a 47-year-old male patient of [facility]. He has a history of type 1 diabetes, who presented to the Emergency Department with altered mental status, obtundation and requiring intubation. There was speculation for aspiration as well. The patient was in multisystem organ failure with an elevated creatinine and blood sugar in the 1100 range. The patient was admitted to the ICU, underwent aggressive medical therapy with IV hydration, insulin drip and correction of acid base imbalance. The patient was placed on broad-spectrum antibiotics and continued on medical therapy. He did slowly improve and was eventually extubated. However, after developed significant shortness of breath requiring reintubation. The patient was later found to have positive fungal cultures as well from his endotracheal aspirate again likely consistent with an aspiration pneumonia. Patient's blood gases lately have slowly improved; however, he does continue to have difficulties with extubation attempts. The patient has had endotracheal tube in for 2 weeks now and will require a tracheostomy as well as a percutaneous endoscopic gastrostomy tube. DESCRIPTION OF PROCEDURE: The patient was brought to the operating room, laid supine on the table. After adequate IV pain and sedative medications and general anesthesia, the chest and neck were prepped and draped in standard surgical fashion. Approximately one fingerbreadth below the cricoid cartilage. The area was anesthetized using 1% lidocaine. A curvilinear skin incision was then made along the glabellar lines and the subcutaneous tissue was then dissected using electrocautery. The platysma was opened with cautery with visualization of good hemostasis. Strap muscles were identified and median raphe was then opened using cautery and the trachea was identified. We then proceeded with a blunt dissection around the cricoid cartilage as well as the trachea. A 0 silk stay suture was then placed creating a trapdoor flap and the incision was then made on three sides of the trachea with the stay suture there to hold the trachea in place. This was done using 11 blade. The endotracheal tube was then desufflated and removed under direct visualization and a #8 Shiley cuffed balloon was placed and the balloon insufflated. The skin edges were then reapproximated using 3-0 nylon interrupted sutures. The tracheostomy was then sutured to the skin using the same suture in an interrupted manner in all four corners. Good end tidal CO2 was identified. The endoscope was then placed in the mouth, visualizing the pharynx and hypopharyngeal region. Vocal cords, epiglottis and vallecula identified and appeared to be normal. The endoscope was then gently abated esophageal opening and esophagus insufflated. The endoscope was then advanced through the first, second, and third portion of esophagus at the level of the GE junction, reflux esophagitis, [place] grade B identified. No ulcers or strictures identified in this region. The endoscope was then advanced in the stomach and endoscope retroflexed visualizing no significant hiatal hernia. There was moderate diffuse gastritis. No formal ulcerations, polyps, or any neoplasms. A biopsy was taken of the antrum to rule out H. pylori with visualization of good hemostasis. The endoscope was then advanced to the pylorus and the first and second portion of the duodenum, which appeared normal with no distal obstructions. The abdomen was prepped and draped in standard surgical fashion. The anterior abdominal wall was then palpated under direct visualization, identifying the anterior wall of the stomach. The skin and subcutaneous tissue as well as the stomach were then anesthetized using 1% lidocaine. A skin incision was then made using 11 blade and the trocar and sheath were then introduced under direct visualization. The guidewire placed and looped through the endoscope and pulled out the mouth. The gastrostomy tube was then pulled through until the end rubber bolster was firmly opposing the stomach wall. The external rubber bolster was then placed on the outside before this bacitracin ointment followed by drain sponges were placed. The gastrostomy tube was then cut down to size and the rubber stopper placed on the end. The endoscope was then slowly withdrawn while taking a second look and suctioning of residual air with no additional findings. The patient tolerated the procedure well. The tracheostomy is currently functional and we will recommend keeping the sutures on for the next 2 weeks. The gastrostomy tube may be accessed and used at any time. Job ID: [id number] DocumentID: [id number] Dictated Date: 07/19/2022 14:50:27 Stencil Cutter Machine Date: 07/19/2022 20:51:13 Dictated By: FREEDOM ETIENNE MD
[2022-07-19] MEDS: D5W 1000 ML IV SOLUTION 1,000 ML IV SCH (22:03)
[2022-07-20] VITALS (14 sets, daily range): BP systolic 88–163; BP diastolic 58–95
[2022-07-20] MEDS: RT-ALBUTEROL/IPRATROPIUM 3 ML (DUONEB) VIAL INH SCH ×6 (02:27→21:21)
[2022-07-20] MEDS: meTOprolol 5 MG/5 ML (LOPRESSOR) VIAL IV SCH ×4 (02:34→17:02)
[2022-07-20] MEDS: inSUlin ASPART (NovoLOG) 1 UNIT/0.01 ML (CHARGE PER UNIT) SC SCH ×4 (02:34→17:50)
[2022-07-20 03:12] LABS: BASOPHILS % (AUTO) 0 % (0-10); EOSINOPHILS % (AUTO) 1 % (0-10); LYMPHOCYTES # (AUTO) 0.4 10^3/uL (1.0-4.0); LYMPHOCYTES % (AUTO) 12 % (12-44); MEAN CORPUSCULAR HEMOGLOBIN 32 pg (25-34); MEAN CORPUSCULAR HGB CONC 32 g/dL (32-36); MEAN CORPUSCULAR VOLUME 101 fL (80-99); MEAN PLATELET VOLUME 11.5 fL (9.0-12.2); MONOCYTES # (AUTO) 0.3 10^3/uL (0.0-1.0); MONOCYTES % (AUTO) 9 % (0-12); NEUTROPHILS # (AUTO) 2.7 10^3/uL (1.8-7.8); NEUTROPHILS % (AUTO) 77 % (42-75); PLATELET COUNT 239 10^3/uL (130-400); WHITE BLOOD COUNT 3.5 10^3/uL (4.3-11.0)
[2022-07-20 03:17] LABS: HEMOGLOBIN 6.4 g/dL (13.3-17.7)
[2022-07-20 03:18] LABS: HEMATOCRIT 20 % (40-54)
[2022-07-20 03:20] LABS: ALBUMIN 1.8 GM/DL (3.2-4.5); POTASSIUM 2.9 MMOL/L (3.6-5.0)
[2022-07-20 03:21] LABS: CALCIUM 7.6 MG/DL (8.5-10.1)
[2022-07-20 03:22] LABS: TOTAL PROTEIN 5.5 GM/DL (6.4-8.2)
[2022-07-20 03:24] LABS: BILIRUBIN,TOTAL 0.4 MG/DL (0.1-1.0)
[2022-07-20 03:26] LABS: CREATININE SERUM 0.7 MG/DL (0.60-1.30); PHOSPHORUS 3.1 MG/DL (2.3-4.7)
[2022-07-20 03:29] LABS: MAGNESIUM 1.7 MG/DL (1.6-2.4)
[2022-07-20] MEDS ORDERED: NS IV 500 ML 500 ML IV SCH ×2 (04:00)
[2022-07-20] MEDS: morphine INJ 4 MG/ML 1 ML (VIAL/SYRINGE) IVP PRN ×9 (05:06→21:54)
[2022-07-20] MEDS: HALOPERIDOL 5 MG/ML (HALDOL) VIAL IV PRN ×5 (06:07→20:18)
[2022-07-20] MEDS: POTASSIUM CL 10MEQ/50ML IVPB 50 ML IV SCH ×5 (06:17→17:02)
[2022-07-20] MEDS: MAGNESIUM 1 GM/100 ML IVPB 100 ML IV SCH (06:39)
[2022-07-20] MEDS: NOREPINEPHRINE 8 MG/250 ML 250 ML IV SCH ×2 (07:37→14:35)
[2022-07-20] MEDS: PROPOFOL DRIP (ICU) 100 ML IV SCH ×3 (07:37→20:38)
[2022-07-20] MEDS: EPINEPHrine 1 MG INJECTION 4 MG in NS (IVPB) 246 ML IV SCH ×3 (07:37→14:35)
[2022-07-20] MEDS: dilTIAZem DRIP PRE-MIX 125 ML IV SCH (07:38)
[2022-07-20] MEDS: KCL 20 MEQ TAB (K-DUR) PO SCH (07:38)
[2022-07-20] MEDS: DOCUSATE SODIUM 100 MG (COLACE) CAP PO SCH ×2 (07:39→20:31)
[2022-07-20] MEDS: SENNOSIDES 8.6 MG (SENOKOT) TAB PO SCH ×2 (07:40→20:15)
[2022-07-20] MEDS ORDERED: MAGNESIUM 1 GM/100 ML IVPB 100 ML IV ONE (07:45)
--- NOTE | 2022-07-20 08:16 | Tele-ICU Progress Note ---
Subjective Date Seen by a Provider: Jul 20, 2022 Subjective/Events-last exam This virtual visit was conducted using real time audio/video. Thank you for asking us to see this patient for DKA(resolved), resp failure, AMS, asp pna., MSOF. Recent events: PEG and trach 07/19/22 for prolonged intubation, AMS, cardiac instability. Remains very anxious, pulling on trach etc. PE: Sedated. Sinus tach. 124. O2 sat 93% on AC 16/450/25%/+5. HEENT: No obvious masses, adenopathy or JVD. Chest: coarse on auscultation. CV: RRR S1 S2 No murmur or added sounds. Abd: Non-tender. Bowel sounds Y. : Unremarkable. Nicholson Y. TOWBOAT OPERATOR/psychiatric: Grossly intact. No obvious focal findings. Extremities: 1+edema (alb 1.8). Capillary refill < 3 seconds. Skin: unremarkable. Results: Elevated BG 118. Decreased Hb 6.4, WCC 3.5, .9, alb 1.8. CXR: B infilts, CABG changes. Available chart/ vitals / labs / images reviewed. Video assessment done using teleICU camera, rest of exam as per RN. A/P: Respiratory insufficiency: Continue present management with vent. No SBT today because of poor MS, low Hb. Monitor for increasing oxygenation needs. Critical Care: critically ill patient. Cont. abx, antifungals, Kassidy., PRN pressors, metop., ASA, SSI, Levemir. Replace K, monitor WCC. Discussed with RN Geovanna. Asked RN to reach out to eICU if any questions or concerns later. Time spent with patient/coordination of care with other health professionals (mins): 30 Sepsis Event Evaluation Height, Weight, BMI Height: 5'6.00" Weight: 157lbs. 0.0oz. 71.730580oi; 26.21 BMI Method: Exam Exam Patient acknowledged, consented, and participated in this virtual visit which was conducted using real time audio/video Vital Signs Date Time Temp Pulse Resp B/P (MAP) Pulse Ox O2 Delivery O2 Flow Rate FiO2 07/20/22 07:00 115 27 147/86 (106) 90 Mechanical Ventilator 25.00 07/20/22 07:00 123 07/20/22 06:00 133 20 148/80 (102) 91 Mechanical Ventilator 25.00 07/20/22 05:00 120 20 134/83 (100) 97 Mechanical Ventilator 25.00 07/20/22 04:00 101 20 115/72 (84) 99 Mechanical Ventilator 25.00 07/20/22 04:00 25 07/20/22 04:00 95 Mechanical Ventilator 25 07/20/22 03:31 99 113/71 07/20/22 03:00 103 20 101/64 (73) 97 Mechanical Ventilator 25.00 07/20/22 02:27 106 20 98 25 07/20/22 02:00 110 20 95/55 (66) 98 Mechanical Ventilator 25.00 07/20/22 01:00 112 20 118/74 (88) 100 Mechanical Ventilator 25.00 07/20/22 01:00 112 07/20/22 00:00 112 20 108/68 (81) 97 Mechanical Ventilator 25.00 07/20/22 00:00 25 07/19/22 23:59 95 Mechanical Ventilator 25 07/19/22 23:31 113 109/68 07/19/22 23:00 112 20 110/72 (79) 97 Mechanical Ventilator 25.00 07/19/22 22:04 109 20 98 25 07/19/22 22:00 110 20 109/68 (80) 98 Mechanical Ventilator 25.00 07/19/22 21:51 111 111/64 07/19/22 21:00 113 20 111/69 (81) 98 Mechanical Ventilator 25.00 07/19/22 20:00 95 Mechanical Ventilator 25 07/19/22 20:00 25 07/19/22 20:00 115 20 120/81 (90) 97 Mechanical Ventilator 25.00 07/19/22 19:45 36.1 07/19/22 19:00 125 07/19/22 19:00 125 20 105/62 (76) 97 Mechanical Ventilator 25.00 07/19/22 18:31 93 20 100 25 07/19/22 18:00 95 18 105/65 (78) 99 Mechanical Ventilator 25.00 07/19/22 18:00 25 07/19/22 17:00 104 16 113/74 (87) 100 Mechanical Ventilator 25.00 07/19/22 16:04 92 20 100 25 07/19/22 16:00 95 Mechanical Ventilator 25 07/19/22 16:00 96 16 106/67 (80) 100 Mechanical Ventilator 25.00 07/19/22 16:00 25 07/19/22 15:49 36.9 07/19/22 15:40 36.8 20 101/64 (76) 100 Mechanical Ventilator 07/19/22 15:40 Mechanical Ventilator 2.00 07/19/22 15:30 Mechanical Ventilator 2.00 07/19/22 15:30 16 103/66 (78) 98 Mechanical Ventilator 07/19/22 15:20 20 103/66 (78) 96 Mechanical Ventilator 07/19/22 15:15 Mechanical Ventilator 2.00 07/19/22 15:10 16 99/60 (73) 94 Mechanical Ventilator 07/19/22 15:00 Mechanical Ventilator 2.00 07/19/22 15:00 16 100/60 (73) 96 Mechanical Ventilator 07/19/22 15:00 94 20 86/53 (64) 94 Mechanical Ventilator 25.00 07/19/22 14:50 16 95/59 (71) 96 Mechanical Ventilator 07/19/22 14:47 37.0 16 106/70 (82) 100 Mechanical Ventilator 07/19/22 14:47 Mechanical Ventilator 2.00 07/19/22 14:00 110 18 106/70 (82) 99 Mechanical Ventilator 25.00 07/19/22 13:00 111 21 99 Mechanical Ventilator 25.00 07/19/22 13:00 110 07/19/22 12:01 36.7 07/19/22 12:00 95 Mechanical Ventilator 25 07/19/22 12:00 25 07/19/22 12:00 114 25 113/67 (82) 99 Mechanical Ventilator 25.00 07/19/22 11:15 107 27 99 25 07/19/22 11:00 120 26 152/122 (132) 98 Mechanical Ventilator 25.00 07/19/22 10:00 108 26 111/64 (80) 94 Mechanical Ventilator 25.00 07/19/22 09:00 103 24 120/94 (103) 98 Mechanical Ventilator 25.00 07/19/22 08:15 36.9 I & O 07/20/22 07:00 Intake Total 1420 ml Output Total 2395 ml Balance -975 ml Height & Weight Height: 5'6.00" Weight: 157lbs. 0.0oz. 71.280485ch; 26.21 BMI Method: General Appearance: No Apparent Distress, WD/WN, Chronically ill HEENT: Other (intubated) Neck: Normal Inspection Respiratory: Lungs Clear, Normal Breath Sounds Cardiovascular: Regular Rate, Rhythm Capillary Refill: Less Than 3 Seconds Gastrointestinal: normal bowel sounds, non tender, soft Extremity: No Pedal Edema Neurologic/Psychiatric: Other (intubated) Skin: Normal Color, Warm/Dry Lymphatic: No Adenopathy Results Lab Laboratory Tests 07/19/22 02:57 07/20/22 03:00 Assessment/Plan Assessment/Plan See free text. Critical Care: Ventilator Management ARIELLE FREY MD Jul 20, 2022 08:16
[2022-07-20] MEDS: ENOXAPARIN 40 MG/0.4 ML (LOVENOX) SYR SC SCH (08:40)
[2022-07-20] MEDS: DexMEDEtomidine 250 ML DRIP 250 ML IV SCH ×4 (08:40→16:17)
[2022-07-20] MEDS: FUROSEMIDE 40 MG/4 ML INJ (LASIX) IVP SCH (08:40)
[2022-07-20] MEDS: VANCOMYCIN 1250 MG/NS 250 ML IVPB IV SCH ×4 (08:40→20:15)
[2022-07-20] MEDS: PANTOPRAZOLE 40 MG (PROTONIX) VIAL IV SCH (08:40)
[2022-07-20] MEDS: SULFAMETHOXAZOLE/TRIMETHO SUSP 10 ML (BACTRIM) UDC GT SCH ×2 (08:41→20:15)
--- NOTE | 2022-07-20 10:33 | Anesthesia-General Post-Op ---
General Patient Condition Mental Status/LOC: Same as Preop Cardiovascular: Satisfactory Nausea/Vomiting: Absent Respiratory: Satisfactory Pain: Controlled Complications: Absent Post Op Complications Complications None Follow Up Care/Instructions Patient Instructions None needed. Anesthesia/Patient Condition Patient Condition Patient is doing well, no complaints, stable vital signs, no apparent adverse anesthesia problems. No complications reported per nursing. ZENIA SWIFT CRNA Jul 20, 2022 10:33
[2022-07-20] MEDS: ASPIRIN 81 MG CHEW (CHILDREN'S ASA) PO SCH (10:44)
[2022-07-20] MEDS: ANIDULAFUNGIN INJECTION 100 MG in NS (IVPB) 100 ML IV SCH (11:26)
--- NOTE | 2022-07-20 12:11 | Cardiology Progress Note ---
Subjective Date Seen by Provider: Jul 20, 2022 Time Seen by Provider: 12:10 Subjective/Events-last exam Patient was seen at bedside, has tracheostomy. Ventilator dependent Review of Systems General: Other (Unable to provide review of system) Objective-Cardiology Exam Last Set of Vital Signs Vital Signs 07/20/22 07/20/22 07/20/22 10:34 11:58 12:00 Temp 36.6 Pulse 115 Resp 24 B/P (MAP) 102/67 (79) Pulse Ox 94 O2 Delivery Mechanical Ventilator O2 Flow Rate 28.00 FiO2 24 I&O Intake and Output 07/20/22 00:00 Intake Total 1800 ml Output Total 2720 ml Balance -920 ml Intake Oral 0 ml IV Total 1600 ml Tube Feeding 100 ml Other 100 ml Output Urine Total 2720 ml General: Other (Sedated and intubated) HEENT: Atraumatic, Mucous Memb Moist/[place] Neck: Supple, No JVD Lungs: Normal Air Movement Heart: Regular Rate, Normal S1, Normal S2 Abdomen: Normal Bowel Sounds, Soft Extremities: No Clubbing, No Cyanosis, Other (1+ pitting edema bilaterally) Skin: No Rashes Neuro: Other (Sedated and intubated) Psych/Mental Status: Other (Sedated and intubated) Results Lab Laboratory Tests 07/20/22 03:00 A/P-Cardiology Admission Diagnosis Septic shock DKA Coronary artery disease Sinus tachycardia Assessment/Plan Status post hypotensive shock, sepsis Borderline hypotensive at this time. Sinus tachycardia Receiving Lopressor IV, monitor blood pressure and heart rate. Status post acute respiratory failure, extubated on July 12, 2022 Has aspiration pneumonia Was reintubated on July 13, 2022. Ventilator dependent, managed by primary care team Status post tracheostomy placed on July 19, 2022 Continue to monitor Sinus tachycardia, probably secondary to sepsis Started on Lopressor 5 mg IV every 6 hours Monitor heart rate and blood pressure closely Severe DKA, Improved, managed by primary care physician Echo on 07/08/22: technically difficult study; hyperdynamic LV seen on Definity contrast injection with LVEF approx 60% CAD - History of CABG x3 done by Dr. Justin in April 2017: URRUTIA to LAD, reverse vein graft to the right PDA and reverse vein graft to the OM1, - Last cath 01/09/[address] Melgar: LMCA Ok. LAD occlude in mid portion. URRUTIA to distal LAD patent. OM1 of LCX occluede. SVG to OM patent. RCA occlude SVG to PDA patent, but PDA small and with slow distal flow - Last MPI 06/27/[address] Melgar: no ischemia or infarction, LVEF 73% H/o chronic chest wall pain with occasional feeling of numbness in his arm Hyperlipidemia for which he has been on statins COPD Diabetes mellitus, poorly controlled Nonobstructive carotid artery stenosis per carotid duplex done Dec [address] Melgar H/o recurrent headache, managed by primary care physician BREONNA MELGAR MD Jul 20, 2022 12:11
--- NOTE | 2022-07-20 12:52 | Physical Therapy Progress Note ---
Therapy Progress Note Patient is s/p tracheostomy and PEG tube placement on 07/19/2022. Patient remains intubated and on ventilator. PT will continue to follow JIA ANDERSON PT Jul 20, 2022 12:52
[2022-07-20 13:45] LABS: BASOPHILS % (AUTO) 1 % (0-10); EOSINOPHILS % (AUTO) 0 % (0-10); HEMATOCRIT 25 % (40-54); HEMOGLOBIN 8.4 g/dL (13.3-17.7); LYMPHOCYTES # (AUTO) 0.3 10^3/uL (1.0-4.0); LYMPHOCYTES % (AUTO) 8 % (12-44); MEAN CORPUSCULAR HEMOGLOBIN 32 pg (25-34); MEAN CORPUSCULAR HGB CONC 33 g/dL (32-36); MEAN CORPUSCULAR VOLUME 97 fL (80-99); MONOCYTES # (AUTO) 0.1 10^3/uL (0.0-1.0); MONOCYTES % (AUTO) 4 % (0-12); NEUTROPHILS # (AUTO) 3.2 10^3/uL (1.8-7.8); NEUTROPHILS % (AUTO) 86 % (42-75); PLATELET COUNT 293 10^3/uL (130-400); WHITE BLOOD COUNT 3.7 10^3/uL (4.3-11.0)
[2022-07-20 13:53] LABS: POTASSIUM 3.2 MMOL/L (3.6-5.0)
[2022-07-20 13:54] LABS: CALCIUM 7.4 MG/DL (8.5-10.1)
[2022-07-20 13:58] LABS: CREATININE SERUM 0.73 MG/DL (0.60-1.30)
[2022-07-20 14:01] LABS: MAGNESIUM 1.8 MG/DL (1.6-2.4)
--- NOTE | 2022-07-20 14:38 | Progress Note - Hospitalist ---
SONDRA ADAIR 07/20/22 1438: Subjective HPI/CC On Admission Date Seen by Provider: Jul 20, 2022 Time Seen by Provider: 09:45 Chief complaint: Acute decompensation HPI: This is a 47-year-old male of [facility] with past medical history of type 1 diabetes who apparently presented to the ER with altered mental status was found to be obtunded requiring intubation and aspiration of gastric contents occurred. Patient was found to be in multisystem organ failure with creatinine of 4.4 blood sugar 1100 range and sodium level 118. Patient was admitted to the ICU with aggressive IV fluid resuscitation and insulin drip orders along with eICU and girlfriend at the bedside was updated on the critical nature of his illness. Subjective/Events-last exam pt is on vent with a trach in place. somewhat responsive to verbal stimuli via eye movement Objective Exam Vital Signs Vital Signs Date Time Temp Pulse Resp B/P (MAP) Pulse Ox O2 Delivery O2 Flow Rate FiO2 07/20/22 14:00 115 22 104/64 (77) 95 Mechanical Ventilator 28.00 07/20/22 13:37 36.6 28 Capillary Refill : Greater Than 3 SecondsLess Than 3 Seconds General Appearance: Anxious, Chronically ill HEENT: Other (trach clean and patent) Neck: Supple Respiratory: Lungs Clear, No Accessory Muscle Use, No Respiratory Distress Cardiovascular: Tachycardia Gastrointestinal: Normal Bowel Sounds, Soft Extremity: Pedal Edema Neurologic/Psychiatric: Other (extremely sedated and minimally responsive) Skin: Warm/Dry Results/Procedures Lab Laboratory Tests 07/20/22 03:00 07/20/22 13:30 Patient resulted labs reviewed. Assessment/Plan Assessment and Plan Assess & Plan/Chief Complaint Acute respiratory failure w/hpoxia - s/p Trach/PEG placement Patient on ventilator and heavily sedated Albumin 1.8 this morning Started PEG tube feeding last night Anemia Transfused x1 unit this morning due to Hgb of 6.4 Hgb up to 8.4 after tx. Will continue to trend T1DM - DKA DKA resolved - Anion gap is WNL Continue to monitor kidney function and provide IV fluids Hypokalemia Supplementing Aspiration pneumonitis Still receiving IV Vanc, Bactrim, Anidulafungin Continue supportive care PT, OT Critical Care: Critically Ill Patient BARBIE TORRES DO 07/21/22 0607: Subjective Subjective/Events-last exam Pt is doing about the same PEG tube feedings are working really well Hemoglobin of 6.4, pt is getting one unit of blood Vent settings no change Review of Systems General: Fatigue, Malaise Objective Exam General Appearance: Chronically ill Respiratory: Lungs Clear, Normal Breath Sounds Cardiovascular: Regular Rate, Rhythm Supervisory-Addendum Brief Verification & Attestation Participated in pt care: history, MDM, physical Personally performed: exam, history, MDM, supervision of care Care discussed with: Medical Student Procedures: n/a Results interpretation: Verified all documentation Verification and Attestation of Medical Student E/M Service A medical student performed and documented this service in my presence. I reviewed and verified all information documented by the medical student and made modifications to such information, when appropriate. I personally performed the physical exam and medical decision making. Barbie Torres, Jul 21, 2022,06:01 SONDRA ADAIR Jul 20, 2022 14:38 BARBIE TORRES DO Jul 21, 2022 06:07
[2022-07-20 14:46] LABS: BAND NEUTROPHILS 6 %; BASOPHILS % (MANUAL) 1 %; EOSINOPHILS % (MANUAL) 0 %; LYMPHOCYTES % (MANUAL) 6 %; MONOCYTES % (MANUAL) 2 %; NEUTROPHILS % (MANUAL) 85 %
[2022-07-20 14:47] LABS: RBC MORPH NORMAL
[2022-07-20] MEDS: D5W 1000 ML IV SOLUTION 1,000 ML IV SCH (15:04)
[2022-07-20] MEDS: MIDAZOLAM 2 MG/2 ML (VERSED) VIAL IVP PRN (23:41)
[2022-07-21] MEDS: meTOprolol 5 MG/5 ML (LOPRESSOR) VIAL IV SCH ×5 (00:29→23:36)
[2022-07-21] MEDS: inSUlin ASPART (NovoLOG) 1 UNIT/0.01 ML (CHARGE PER UNIT) SC SCH ×4 (00:32→17:44)
[2022-07-21] MEDS: DexMEDEtomidine 250 ML DRIP 250 ML IV SCH ×3 (00:36→16:19)
[2022-07-21] MEDS: EPINEPHrine 1 MG INJECTION 4 MG in NS (IVPB) 246 ML IV SCH ×3 (00:47→19:49)
[2022-07-21] MEDS ORDERED: HOLD METFORMIN - RECEIVED CONTRAST 20 ML VIAL IV SCH (01:45)
[2022-07-21] MEDS ORDERED: NS 100 ML (IVPB) BAG IV ONE (01:45)
[2022-07-21] MEDS ORDERED: IOHEXOL 350 MG/ML 100 ML (OMNIPAQUE 350) VIAL IV ONE (01:45)
[2022-07-21] MEDS: RT-ALBUTEROL/IPRATROPIUM 3 ML (DUONEB) VIAL INH SCH ×6 (02:18→22:33)
[2022-07-21 02:19] VITALS: BP 105/79
[2022-07-21] MEDS: D5W 1000 ML IV SOLUTION 1,000 ML IV SCH (02:29)
[2022-07-21 04:07] LABS: BASOPHILS % (AUTO) 1 % (0-10); EOSINOPHILS % (AUTO) 0 % (0-10); HEMATOCRIT 25 % (40-54); HEMOGLOBIN 8.4 g/dL (13.3-17.7); LYMPHOCYTES # (AUTO) 0.4 10^3/uL (1.0-4.0); LYMPHOCYTES % (AUTO) 7 % (12-44); MEAN CORPUSCULAR HEMOGLOBIN 32 pg (25-34); MEAN CORPUSCULAR HGB CONC 33 g/dL (32-36); MEAN CORPUSCULAR VOLUME 98 fL (80-99); MEAN PLATELET VOLUME 11.1 fL (9.0-12.2); MONOCYTES # (AUTO) 0.4 10^3/uL (0.0-1.0); MONOCYTES % (AUTO) 6 % (0-12); NEUTROPHILS # (AUTO) 5.7 10^3/uL (1.8-7.8); NEUTROPHILS % (AUTO) 86 % (42-75); PLATELET COUNT 320 10^3/uL (130-400); WHITE BLOOD COUNT 6.6 10^3/uL (4.3-11.0)
[2022-07-21 04:10] LABS: ALBUMIN 1.9 GM/DL (3.2-4.5); POTASSIUM 3.7 MMOL/L (3.6-5.0)
[2022-07-21 04:11] LABS: CALCIUM 7.6 MG/DL (8.5-10.1)
[2022-07-21 04:12] LABS: TOTAL PROTEIN 5.8 GM/DL (6.4-8.2)
[2022-07-21 04:14] LABS: BILIRUBIN,TOTAL 0.5 MG/DL (0.1-1.0)
[2022-07-21 04:15] LABS: PHOSPHORUS 2.1 MG/DL (2.3-4.7)
[2022-07-21 04:16] LABS: CREATININE SERUM 0.76 MG/DL (0.60-1.30)
[2022-07-21 04:19] LABS: MAGNESIUM 1.7 MG/DL (1.6-2.4)
[2022-07-21] MEDS: PROPOFOL DRIP (ICU) 100 ML IV SCH (05:40)
[2022-07-21] MEDS: MAGNESIUM 1 GM/100 ML IVPB 100 ML IV SCH ×2 (05:40→06:03)
[2022-07-21] MEDS: KCL 20 MEQ TAB (K-DUR) PO SCH (05:54)
[2022-07-21] MEDS: POTASSIUM CL 10MEQ/50ML IVPB 50 ML IV SCH (05:54)
--- NOTE | 2022-07-21 06:12 | Diagnostic Imaging Report ---
PROCEDURE: CT angiography of the chest with contrast. TECHNIQUE: Multiple contiguous axial images were obtained through the chest after uneventful bolus administration of intravenous contrast. 3D reconstructed CTA MIP acquisitions were also performed. Auto Exposure Controls were utilized during the CT exam to meet ALARA standards for radiation dose reduction. INDICATION: Chest pain and shortness of breath. No relevant prior studies are available for comparison. FINDINGS: Examination is overall somewhat suboptimal for evaluation of pulmonary embolism secondary to bolus timing. No obvious filling defects appreciated to suggest pulmonary embolism. Thoracic aorta is normal in caliber without evidence of dissection. There are bilateral upper and lower lobe pulmonary parenchymal consolidations. An endotracheal tube is in place. There is no pleural effusion. There is no pneumothorax. There are coronary artery calcifications. The patient is status post left coronary artery bypass graft. The heart size is normal. There is no pericardial effusion. There is no evidence of right ventricular dysfunction. There appears to be a chronic superior endplate fracture of L2. There is some fluid in the esophagus. There is fatty infiltration of the liver. A percutaneous gastrostomy tube is in place. There is no pathologically enlarged adenopathy in the chest. IMPRESSION: No definitive evidence of pulmonary embolism although the examination is somewhat suboptimal due to bolus timing Bilateral upper lobe pulmonary consolidations more consolidated in the lung bases, right greater than left. This is concerning for atypical pneumonia. No evidence of aortic aneurysm or dissection. Coronary artery calcifications. Fatty infiltration of the liver Dictated by: Dictated on workstation # [id number]
[2022-07-21 06:30] VITALS: BP 121/74
--- NOTE | 2022-07-21 07:21 | Progress Note - Hospitalist ---
Subjective HPI/CC On Admission Date Seen by Provider: Jul 21, 2022 Time Seen by Provider: 10:00 Chief complaint: Acute decompensation HPI: This is a 47-year-old male of [facility] with past medical history of type 1 diabetes who apparently presented to the ER with altered mental status was found to be obtunded requiring intubation and aspiration of gastric contents occurred. Patient was found to be in multisystem organ failure with creatinine of 4.4 blood sugar 1100 range and sodium level 118. Patient was admitted to the ICU with aggressive IV fluid resuscitation and insulin drip orders along with eICU and girlfriend at the bedside was updated on the critical nature of his illness. Subjective/Events-last exam Patient declining Tachypneic CTA done last night reveled no PE Very debilitated acute on chronic Review of Systems General: Fatigue, Malaise Objective Exam Vital Signs Vital Signs Date Time Temp Pulse Resp B/P (MAP) Pulse Ox O2 Delivery O2 Flow Rate FiO2 07/21/22 13:00 108 21 92/59 (70) 98 Mechanical Ventilator 80.00 07/21/22 12:38 80 07/21/22 12:37 37.2 Capillary Refill : Greater Than 3 SecondsLess Than 3 Seconds General Appearance: Anxious, Chronically ill, Mild Distress, Thin Respiratory: Accessory Muscle Use, Decreased Breath Sounds, Respiratory Distress, Wheezing Cardiovascular: Tachycardia Results/Procedures Lab Laboratory Tests 07/21/22 03:51 Patient resulted labs reviewed. Assessment/Plan Assessment and Plan Assess & Plan/Chief Complaint Assessment: Acute respiratory failure requiring fci intubation and s/p trach and PEG Recent DKA initial admit diagnosis Plan: Declined status Updated family Grave prognosis Critical Care Critically Ill Patient Diagnosis/Problems Diagnosis/Problems (1) Ketoacidosis due to type 1 diabetes mellitus Status: Resolved Qualifiers: Diabetes mellitus complication detail: without coma Qualified Codes: E10 .10 - Type 1 diabetes mellitus with ketoacidosis without coma Resolution Date/Time: 07/11/22 @ 23:13 KAREN TORRES DO Jul 21, 2022 07:21
[2022-07-21] MEDS: dilTIAZem DRIP PRE-MIX 125 ML IV SCH (07:36)
[2022-07-21] MEDS: morphine INJ 4 MG/ML 1 ML (VIAL/SYRINGE) IVP PRN ×2 (07:42→21:18)
[2022-07-21] MEDS: VANCOMYCIN 1250 MG/NS 250 ML IVPB IV SCH ×4 (07:43→19:54)
[2022-07-21] MEDS: FUROSEMIDE 40 MG/4 ML INJ (LASIX) IVP SCH (08:41)
[2022-07-21] MEDS: SULFAMETHOXAZOLE/TRIMETHO SUSP 10 ML (BACTRIM) UDC GT SCH ×2 (08:41→19:54)
[2022-07-21] MEDS: ENOXAPARIN 40 MG/0.4 ML (LOVENOX) SYR SC SCH (08:41)
[2022-07-21] MEDS: SENNOSIDES 8.6 MG (SENOKOT) TAB PO SCH ×2 (08:41→19:54)
[2022-07-21] MEDS: ASPIRIN 81 MG CHEW (CHILDREN'S ASA) PO SCH (08:41)
[2022-07-21] MEDS: PANTOPRAZOLE 40 MG (PROTONIX) VIAL IV SCH (08:41)
[2022-07-21] MEDS: IRON SUCROSE 200 MG/10 ML (VENOFER) VIAL IV SCH (08:41)
[2022-07-21] MEDS: DOCUSATE SODIUM 100 MG (COLACE) CAP PO SCH ×2 (09:03→19:54)
--- NOTE | 2022-07-21 09:10 | Cardiology Progress Note ---
Subjective Date Seen by Provider: Jul 21, 2022 Time Seen by Provider: 09:09 Subjective/Events-last exam Patient is laying down in bed He became hypoxic and tachypneic last night, FiO2 was increased. Still lethargic. Review of Systems General: Other (Unable to provide review of system) Objective-Cardiology Exam Last Set of Vital Signs Vital Signs 07/21/22 07/21/22 07/21/22 07/21/22 06:00 06:30 07:44 08:00 Temp 35.7 Pulse 123 Resp 37 B/P (MAP) 111/71 Pulse Ox 94 O2 Delivery Mechanical Ventilator O2 Flow Rate 28.00 FiO2 50 I&O Intake and Output 07/21/22 00:00 Intake Total 2080 ml Output Total 4175 ml Balance -2095 ml Intake Oral 0 ml Tube Feeding 880 ml Other 1200 ml Output Urine Total 4175 ml General: Other (Ventilator dependent) HEENT: Atraumatic, Mucous Memb Moist/[place] Neck: Supple, No JVD Lungs: Normal Air Movement Heart: Regular Rate, Normal S1, Normal S2 Abdomen: Normal Bowel Sounds, Soft Extremities: No Clubbing, No Cyanosis, Other (1+ pitting edema bilaterally) Skin: No Rashes Neuro: Other (Ventilator dependent) Psych/Mental Status: Other (Ventilator dependent) Results Lab Laboratory Tests 07/20/22 13:30 07/21/22 03:51 A/P-Cardiology Admission Diagnosis Septic shock DKA Coronary artery disease Sinus tachycardia Assessment/Plan Status post hypotensive shock, sepsis Borderline hypotensive at this time. Sinus tachycardia Receiving Lopressor IV, monitor blood pressure and heart rate. Status post acute respiratory failure, extubated on July 12, 2022 Has aspiration pneumonia Was reintubated on July 13, 2022. Ventilator dependent, managed by primary care team Status post tracheostomy placed on July 19, 2022 He became hypoxic earlier this morning, FiO2 was increased. Status post feeding tube placement. Managed by medical team Sinus tachycardia, probably secondary to sepsis Started on Lopressor 5 mg IV every 6 hours Monitor heart rate and blood pressure closely Severe DKA, Improved, managed by primary care physician Echo on 07/08/22: technically difficult study; hyperdynamic LV seen on Definity contrast injection with LVEF approx 60% CAD - History of CABG x3 done by Dr. Justin in April 2017: URRUTIA to LAD, reverse vein graft to the right PDA and reverse vein graft to the OM1, - Last cath 01/09/[address] Melgar: LMCA Ok. LAD occlude in mid portion. URRUTIA to distal LAD patent. OM1 of LCX occluede. SVG to OM patent. RCA occlude SVG to PDA patent, but PDA small and with slow distal flow - Last MPI 06/27/[address] Melgar: no ischemia or infarction, LVEF 73% H/o chronic chest wall pain with occasional feeling of numbness in his arm Hyperlipidemia for which he has been on statins COPD Diabetes mellitus, poorly controlled Nonobstructive carotid artery stenosis per carotid duplex done Dec [address] Melgar H/o recurrent headache, managed by primary care physician BREONNA MELGAR MD Jul 21, 2022 09:10
[2022-07-21] MEDS: ANIDULAFUNGIN INJECTION 100 MG in NS (IVPB) 100 ML IV SCH (09:20)
[2022-07-21] MEDS: NOREPINEPHRINE 8 MG/250 ML 250 ML IV SCH (09:23)
[2022-07-21 09:30] VITALS: BP 150/85
[2022-07-21] MEDS: fentaNYL DRIP PRE-MIX 250 ML IV SCH ×3 (09:46→19:58)
[2022-07-21] MEDS ORDERED: fentaNYL INJ 100 MCG/2 ML AMP ONE (09:49)
[2022-07-21] MEDS ORDERED: fentaNYL INJ 100 MCG/2 ML AMP IVP ONE ×2 (10:00)
[2022-07-21] MEDS ORDERED: fentaNYL INJ 100 MCG/2 ML AMP IVP NR (10:00)
--- NOTE | 2022-07-21 10:30 | Tele-ICU Progress Note ---
Subjective Date Seen by a Provider: Jul 21, 2022 Time Seen by a Provider: 10:30 Subjective/Events-last exam Tele-ICU Physician , Progress Note ) Available chart/ vitals / labs / Images reviewed Video assessment done using teleICU camera, rest of exam as per RN Discussed with RN Events overnight : FEBRILE 39.7 hemodynamically stable Respiratory -25 % I/O m= 300 Drips:pecedex 1 propofol Pressors- off . VENT SETTINGS and ABG reviewed Sedation: RASS for SBTContraindications : Cardiovascular Stability /Sedation Score / FI02/PEEP / ABG / CXR Consultants: gabino Hospital course: 07-08: 47 y/o M - Unresponsive at home - Not well since Saturday. ?Asp Pneumonia - DKA Hypothermic - Intubated in ER - Pressors started. 07/10 - OFF pressors 07-12: Extubated 07/13 - NG placed 07/14 - reintubated for mental status 07/16 febrile - cx done 07/18- FEBRILE 39.7, changed to Eraxis , started VANCO and Eraxis 07/19- TRACHEOSTOMY / PEG 07/20- worsenign FIO2 - CT CHEST - NO PE , bilat infiltrates A/P Acute resp fail;ure =- intubated 07/08 for airway protection , 07-12: Extubated =07/14 - reintubated for mental status 07/19 -TRACHEOTOMY with failed SBT and copious secretons 07/20- worsenign FIO2 - CT CHEST - NO PE , bilat infiltrates 07/21 - fio2 905 - will check cxr to r/o PTX. musous plug , increase sedation - follow DKA- resolved - iSS + long acting , ON TF up to goal ID on admission - NEG covid , flu - empirically tx with abx x 6 days for PNA suspected , aspiration WORSENING PNA R>L -ZOSYN started 07/17 - presumed MRSA in sputum - resume MRSA coverage with Bactrim Suspected disseminated/ invasive fungal infection - -yeast in sputum and blood 07/17 - - started on fluconazole 07/15- changed rto Eraxis 07/18 -> -07/21 -results of blood cx 07/16 + aliza, 07/17 sputum cx - Asper . niger - DISCUSSED WITH PHARMACY ANTIFUNGAL TREATMENT - ( not enoth of voviconazole in pharmace - amphothericin ? marie cover both - CT chest 07/20 - no cavitary lesions or aspergilioma - will scan abdomen and CT head to r/o other possible site of abscess ( when stable ) - ARIE - resolved - VO - cont diuresis Anemia - no active bleeding - slow trending Hb down - iron=8 on 07/17 - started IV Fe for 5 doses - PPI IV H/o CAD. s/p CABG 2016 - ECHO 07/08 - EF 55% ( technically difficult study; hyperdynamic LV - cards follow Tachycardia - Sinus ( confirmed in after adenosine ) - will try adress possible pain - follow - beta blockers resumed h/o COPD - cont nebs Thrombocytopenia - PLT dropped to 107 from 252- ? delutional -IMPROVING Elevc Ddimer 07/17 - US LE neg for DVT 07/17 Nutrition - cont TF now , at goal Hypernatremia -improved , decrease free water in TF Profound weakness -? CC myopaty other etiology ? Was re-intubated , but no CO2 retntion on abg - doubt respiratiry muscle weakness. Metabolic/ endoctine/ infection ? Was not on steroids . -CTH negative , looks and nodding appropriatly for days , as per RN follows commands . Can move upper extremity today - WAS able to lift agains gravity once during oral care -replacing phos , B12 was high , TSH WNL Lines : R IJ removed 07/18 with fungemia , (Central Line Necessity Reviewed) Nicholson: + OG: Nutrition: TF Analgesia: Anxiety/ delirium VTE Prophylaxis: jeff 40 Stress Ulcer Prophylaxis: ppi Plans in collaboration with bedside consultants and IM MDs. Discussed with RN to reach out if any questions or concerns A total of 35 minutes of critical care time was devoted to this patient today, required to treat and/or prevent further deterioration of critical care conditi on ( as above ) . Sepsis Event Evaluation Height, Weight, BMI Height: 5'6.00" Weight: 157lbs. 0.0oz. [id number]; 26.52 BMI Method: Exam Exam Patient acknowledged, consented, and participated in this virtual visit which was conducted using real time audio/video Vital Signs Date Time Temp Pulse Resp B/P (MAP) Pulse Ox O2 Delivery O2 Flow Rate FiO2 07/21/22 10:22 Mechanical Ventilator 90.00 07/21/22 10:00 138 140/78 (98) 92 Mechanical Ventilator 90.00 07/21/22 09:46 137 183/107 07/21/22 09:00 137 183/107 (132) 91 Mechanical Ventilator 50.00 07/21/22 08:00 131 31 149/94 (112) 90 Mechanical Ventilator 50.00 07/21/22 08:00 50 07/21/22 08:00 35.7 07/21/22 07:44 123 111/71 07/21/22 07:00 119 07/21/22 07:00 118 30 114/75 (88) 94 Mechanical Ventilator 50.00 07/21/22 06:30 126 37 94 50 07/21/22 06:00 123 32 111/71 (84) 94 Mechanical Ventilator 28.00 07/21/22 05:40 133 153/97 07/21/22 05:00 130 32 122/77 (92) 92 Mechanical Ventilator 28.00 07/21/22 04:36 130 130/78 07/21/22 04:00 131 33 120/84 (96) 90 Mechanical Ventilator 28.00 07/21/22 04:00 95 Mechanical Ventilator 50 07/21/22 04:00 50 07/21/22 03:00 131 30 133/80 (97) 92 Mechanical Ventilator 28.00 07/21/22 02:19 120 32 93 50 07/21/22 02:00 121 30 130/83 (99) 93 Mechanical Ventilator 28.00 07/21/22 01:00 121 07/21/22 01:00 122 19 96/63 (74) 98 Mechanical Ventilator 28.00 07/21/22 00:37 122 129/89 07/21/22 00:36 123 129/89 07/21/22 00:00 60 07/21/22 00:00 121 34 115/74 (88) 96 Mechanical Ventilator 28.00 07/20/22 23:59 95 Mechanical Ventilator 60 07/20/22 23:00 138 28 119/78 (92) 92 Mechanical Ventilator 28.00 07/20/22 22:00 146 32 128/77 (94) 92 Mechanical Ventilator 28.00 07/20/22 21:21 133 34 93 60 07/20/22 21:00 135 37 160/93 (115) 97 Mechanical Ventilator 28.00 07/20/22 20:38 138 173/100 07/20/22 20:17 135 206/114 07/20/22 20:01 36.5 07/20/22 20:00 137 33 162/106 (124) 92 Mechanical Ventilator 28.00 07/20/22 20:00 25 07/20/22 20:00 95 Mechanical Ventilator 25 07/20/22 19:00 140 07/20/22 19:00 137 28 112/72 (85) 95 Mechanical Ventilator 28.00 07/20/22 18:23 124 27 94 32 07/20/22 18:00 125 26 124/71 (88) 93 Mechanical Ventilator 28.00 07/20/22 17:00 125 24 112/65 (81) 94 Mechanical Ventilator 28.00 07/20/22 16:59 36.0 07/20/22 16:00 25 07/20/22 16:00 135 28 137/85 (102) 91 Mechanical Ventilator 28.00 07/20/22 16:00 95 Mechanical Ventilator 25 07/20/22 15:00 124 30 165/96 (119) 95 Mechanical Ventilator 28.00 07/20/22 14:52 112 22 94 28 07/20/22 14:00 115 22 104/64 (77) 95 Mechanical Ventilator 28.00 07/20/22 13:37 36.6 120 94 28 07/20/22 13:00 120 26 116/95 (102) 94 Mechanical Ventilator 28.00 07/20/22 12:30 129 45 163/90 93 07/20/22 12:21 124 07/20/22 12:00 95 Mechanical Ventilator 25 07/20/22 12:00 115 24 102/67 (79) 94 Mechanical Ventilator 28.00 07/20/22 12:00 25 07/20/22 11:58 36.6 07/20/22 11:00 137 22 146/94 (111) 91 Mechanical Ventilator 25.00 07/20/22 11:00 137 30 146/94 92 07/20/22 10:45 118 26 107/71 94 07/20/22 10:34 109 25 94 24 I & O 07/21/22 07:00 Intake Total 1660 ml Output Total 5475 ml Balance -3815 ml Height & Weight Height: 5'6.00" Weight: 157lbs. 0.0oz. [id number]; 26.52 BMI Method: General Appearance: Chronically ill HEENT: Other (trach clean and patent) Neck: Supple Respiratory: Lungs Clear, Normal Breath Sounds Cardiovascular: Regular Rate, Rhythm Capillary Refill: Less Than 3 Seconds Gastrointestinal: normal bowel sounds, non tender, soft Extremity: Pedal Edema Neurologic/Psychiatric: Other (extremely sedated and minimally responsive) Skin: Warm/Dry Lymphatic: No Adenopathy Results Lab Laboratory Tests 07/20/22 03:00 07/20/22 13:30 07/21/22 03:51 Assessment/Plan Assessment/Plan 1 MAYANK CHILDERS MD Jul 21, 2022 10:30
--- NOTE | 2022-07-21 10:37 | Diagnostic Imaging Report ---
Indication: Hypoxia. Comparison is made with prior exam of 07/19/2022 FINDINGS: Heart size normal. There is bilateral airspace disease. Tracheostomy tube is in place. There are previous medial sternotomy and coronary bypass graft. There is no pleural effusion or pneumothorax. IMPRESSION: Diffuse bilateral airspace disease left greater than right. Some underlying central port venous congestion cannot be excluded. There has been interval placement of endotracheal tube with a tracheostomy tube. Additionally the nasogastric tube has been removed. Dictated by: Dictated on workstation # [id number]
[2022-07-21] MEDS: ACETAMINOPHEN 325 MG TABLET PO PRN ×2 (11:57→23:36)
[2022-07-21] MEDS: [UNRECOGNIZED DRUG - REMARK] IV SCH (12:02)
--- NOTE | 2022-07-21 12:22 | Physical Therapy Progress Note ---
Therapy Progress Note Patient still on vent. Will reassess when off vent. DIMA ZHANG PT Jul 21, 2022 12:22
[2022-07-21 15:30] VITALS: BP 117/70
[2022-07-21 18:27] VITALS: BP 82/51
[2022-07-21 22:34] VITALS: BP 92/57
[2022-07-22] VITALS (7 sets, daily range): BP systolic 84–106; BP diastolic 53–63
[2022-07-22] MEDS: inSUlin ASPART (NovoLOG) 1 UNIT/0.01 ML (CHARGE PER UNIT) SC SCH ×4 (00:13→17:58)
[2022-07-22] MEDS: [UNRECOGNIZED DRUG - REMARK] IV SCH (00:14)
[2022-07-22] MEDS: DexMEDEtomidine 250 ML DRIP 250 ML IV SCH ×3 (00:35→16:04)
[2022-07-22] MEDS: RT-ALBUTEROL/IPRATROPIUM 3 ML (DUONEB) VIAL INH SCH ×6 (02:31→21:29)
[2022-07-22] MEDS: NOREPINEPHRINE 8 MG/250 ML 250 ML IV SCH ×2 (02:38→05:28)
[2022-07-22] MEDS: fentaNYL DRIP PRE-MIX 250 ML IV SCH ×3 (04:14→20:02)
[2022-07-22 04:33] LABS: BASOPHILS % (AUTO) 1 % (0-10); EOSINOPHILS % (AUTO) 0 % (0-10); HEMATOCRIT 24 % (40-54); HEMOGLOBIN 7.5 g/dL (13.3-17.7); LYMPHOCYTES # (AUTO) 0.7 10^3/uL (1.0-4.0); LYMPHOCYTES % (AUTO) 10 % (12-44); MEAN CORPUSCULAR HEMOGLOBIN 32 pg (25-34); MEAN CORPUSCULAR HGB CONC 32 g/dL (32-36); MEAN CORPUSCULAR VOLUME 100 fL (80-99); MEAN PLATELET VOLUME 11.4 fL (9.0-12.2); MONOCYTES # (AUTO) 0.3 10^3/uL (0.0-1.0); MONOCYTES % (AUTO) 5 % (0-12); NEUTROPHILS # (AUTO) 5.7 10^3/uL (1.8-7.8); NEUTROPHILS % (AUTO) 78 % (42-75); PLATELET COUNT 290 10^3/uL (130-400); WHITE BLOOD COUNT 7.3 10^3/uL (4.3-11.0)
[2022-07-22 04:52] LABS: ALBUMIN 1.8 GM/DL (3.2-4.5); POTASSIUM 3.7 MMOL/L (3.6-5.0)
[2022-07-22 04:54] LABS: CALCIUM 7.3 MG/DL (8.5-10.1)
[2022-07-22] MEDS: POTASSIUM CL 10MEQ/50ML IVPB 50 ML IV SCH (04:54)
[2022-07-22] MEDS: KCL 20 MEQ TAB (K-DUR) PO SCH (04:54)
[2022-07-22 04:55] LABS: TOTAL PROTEIN 5.5 GM/DL (6.4-8.2)
[2022-07-22 04:57] LABS: BILIRUBIN,TOTAL 0.3 MG/DL (0.1-1.0)
[2022-07-22 04:58] LABS: PHOSPHORUS 3.7 MG/DL (2.3-4.7)
[2022-07-22 04:59] LABS: CREATININE SERUM 0.86 MG/DL (0.60-1.30)
[2022-07-22 05:02] LABS: MAGNESIUM 2.1 MG/DL (1.6-2.4)
[2022-07-22] MEDS: EPINEPHrine 1 MG INJECTION 4 MG in NS (IVPB) 246 ML IV SCH ×2 (05:32→14:33)
[2022-07-22] MEDS: meTOprolol 5 MG/5 ML (LOPRESSOR) VIAL IV SCH ×3 (05:43→18:20)
[2022-07-22] MEDS: dilTIAZem DRIP PRE-MIX 125 ML IV SCH (05:43)
[2022-07-22] MEDS: VANCOMYCIN 1250 MG/NS 250 ML IVPB IV SCH ×4 (07:45→19:49)
[2022-07-22] MEDS: ENOXAPARIN 40 MG/0.4 ML (LOVENOX) SYR SC SCH (07:47)
[2022-07-22] MEDS: FUROSEMIDE 40 MG/4 ML INJ (LASIX) IVP SCH (07:47)
[2022-07-22] MEDS: PANTOPRAZOLE 40 MG (PROTONIX) VIAL IV SCH (07:47)
[2022-07-22] MEDS: SULFAMETHOXAZOLE/TRIMETHO SUSP 10 ML (BACTRIM) UDC GT SCH ×2 (07:52→20:01)
[2022-07-22] MEDS: ASPIRIN 81 MG CHEW (CHILDREN'S ASA) PO SCH (07:52)
[2022-07-22] MEDS: SENNOSIDES 8.6 MG (SENOKOT) TAB PO SCH ×2 (07:53→20:01)
[2022-07-22] MEDS: DOCUSATE SODIUM 100 MG (COLACE) CAP PO SCH ×2 (07:53→20:01)
[2022-07-22] MEDS: ACETAMINOPHEN 325 MG TABLET PO PRN ×3 (07:53→22:13)
--- NOTE | 2022-07-22 07:56 | Progress Note - Hospitalist ---
Subjective HPI/CC On Admission Date Seen by Provider: Jul 22, 2022 Time Seen by Provider: 11:00 Chief complaint: Acute decompensation HPI: This is a 47-year-old male of [facility] with past medical history of type 1 diabetes who apparently presented to the ER with altered mental status was found to be obtunded requiring intubation and aspiration of gastric contents occurred. Patient was found to be in multisystem organ failure with creatinine of 4.4 blood sugar 1100 range and sodium level 118. Patient was admitted to the ICU with aggressive IV fluid resuscitation and insulin drip orders along with eICU and girlfriend at the bedside was updated on the critical nature of his illness. Subjective/Events-last exam Patient declined End of life could very well be near Labs and imaging reviewed Nothing more that we can do at this point. Objective Exam Vital Signs Vital Signs Date Time Temp Pulse Resp B/P (MAP) Pulse Ox O2 Delivery O2 Flow Rate FiO2 07/22/22 18:30 Mechanical Ventilator 60.00 07/22/22 18:18 124 21 97 65 07/22/22 18:00 91/53 (66) 07/22/22 17:58 37.8 Capillary Refill : Greater Than 3 SecondsLess Than 3 Seconds General Appearance: Chronically ill, Moderate Distress, Other (tachypneic) Respiratory: Decreased Breath Sounds Cardiovascular: Regular Rate, Rhythm Results/Procedures Lab Laboratory Tests 07/22/22 03:46 Patient resulted labs reviewed. Assessment/Plan Assessment and Plan Assess & Plan/Chief Complaint Assessment: Acute respiratory failure requiring oil heaterman intubation and s/p trach and PEG Recent DKA initial admit diagnosis Plan: Declined status Updated family Grave prognosis Critical Care Critically Ill Patient Diagnosis/Problems Diagnosis/Problems (1) Ketoacidosis due to type 1 diabetes mellitus Status: Resolved Qualifiers: Diabetes mellitus complication detail: without coma Qualified Codes: E10.10 - Type 1 diabetes mellitus with ketoacidosis without coma Resolution Date/Time: 07/11/22 @ 23:13 KAREN TORRES DO Jul 22, 2022 07:56
--- NOTE | 2022-07-22 08:39 | Tele-ICU Progress Note ---
Subjective Date Seen by a Provider: Jul 22, 2022 Subjective/Events-last exam This virtual visit was conducted using real time audio/video. Thank you for asking us to see this patient for DKA(resolved), resp failure, AMS, asp pna., MSOF. Developed fungal pna and fungemia. Recent events: PEG and trach 07/19/22 for prolonged intubation, AMS, cardiac instability. Remains very anxious, pulling on trach etc. FiO2/PEEP requirements increased. Levophed resumed this AM. PE: Sedated. Sinus tach. 128/min. O2 sat 92% on AC 16/450/60%/+8. HEENT: No obvious masses, adenopathy or JVD. Chest: coarse on auscultation. CV: RRR S1 S2 No murmur or added sounds. Abd: Non-tender. Bowel sounds Y. : Unremarkable. Nicholson Y. 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 No obvious focal findings. Extremities: 1+edema (alb 1.8). Capillary refill < 3 seconds. Skin: unremarkable. Results: Elevated BG 163. Decreased Hb 7.5, alb 1.8. CXR: B infilts. L>R, CABG changes. Available chart/ vitals / labs / images reviewed. Video assessment done using teleICU camera, rest of exam as per RN. A/P: Respiratory insufficiency: Continue present management with vent. No SBT today because of poor MS, low Hb, high FiO2/PEEP. Monitor for increasing oxygenation needs. Critical Care: critically ill patient. Cont. abx, antifungals, Kassidy., pressors, metop., ASA, SSI, Levemir, lasix, ASA. Discussed with AIXA Mcgill. Asked RN to reach out to eICU if any questions or concerns later. Time spent with patient/coordination of care with other health professionals (mins): 35 Sepsis Event Evaluation Height, Weight, BMI Height: 5'6.00" Weight: 157lbs. 0.0oz. 71.066111ag; 26.11 BMI Method: Exam Exam Patient acknowledged, consented, and participated in this virtual visit which was conducted using real time audio/video Vital Signs Date Time Temp Pulse Resp B/P (MAP) Pulse Ox O2 Delivery O2 Flow Rate FiO2 07/22/22 08:32 125 107/65 07/22/22 08:31 38.8 07/22/22 08:31 38.8 07/22/22 08:10 60 07/22/22 08:04 125 107/65 07/22/22 07:56 38.8 07/22/22 07:53 38.1 07/22/22 07:00 126 21 105/64 (78) 93 Mechanical Ventilator 60.00 07/22/22 07:00 125 07/22/22 06:15 120 19 93 60 07/22/22 06:00 120 20 107/65 (79) 93 Mechanical Ventilator 60.00 07/22/22 05:30 76/43 (54) 07/22/22 05:28 115 75/45 07/22/22 05:15 75/45 (55) 07/22/22 05:00 115 21 106/63 (77) 97 Mechanical Ventilator 60.00 07/22/22 04:14 116 92/57 07/22/22 04:14 116 92/57 07/22/22 04:00 98 Mechanical Ventilator 60 07/22/22 04:00 60 07/22/22 04:00 36.8 116 16 92/57 (69) 98 Mechanical Ventilator 60.00 07/22/22 04:00 117 15 92/57 (69) 98 Mechanical Ventilator 60.00 07/22/22 03:00 118 16 89/56 (67) 97 Mechanical Ventilator 60.00 07/22/22 02:31 112 18 97 60 07/22/22 02:00 113 18 89/56 (67) 95 Mechanical Ventilator 60.00 07/22/22 01:00 116 19 87/54 (65) 95 Mechanical Ventilator 60.00 07/22/22 01:00 116 07/22/22 00:35 116 90/68 07/22/22 00:16 38.6 07/22/22 00:14 115 85/54 07/22/22 00:00 114 19 99/61 (74) 96 Mechanical Ventilator 60.00 07/21/22 23:36 38.0 07/21/22 23:35 94 Mechanical Ventilator 60 07/21/22 23:30 60 07/21/22 23:25 38.0 123 19 92/57 (69) 94 Mechanical Ventilator 60.00 07/21/22 22:34 19 94 60 07/21/22 22:00 118 17 92/57 (69) 95 Mechanical Ventilator 60.00 07/21/22 21:00 118 20 102/63 (76) 94 Mechanical Ventilator 60.00 07/21/22 20:19 115 103/66 07/21/22 20:13 07/21/22 20:00 95 Mechanical Ventilator 60 07/21/22 20:00 123 20 103/66 (78) 98 Mechanical Ventilator 60.00 07/21/22 19:58 121 90/58 07/21/22 19:49 36.9 07/21/22 19:45 60 07/21/22 19:00 125 07/21/22 19:00 37.1 123 16 94/54 (67) 98 Mechanical Ventilator 60.00 07/21/22 18:51 37.0 07/21/22 18:27 114 20 97 60 07/21/22 18:00 112 14 92/59 (70) 96 Mechanical Ventilator 60.00 07/21/22 17:00 112 19 97/56 (70) 96 Mechanical Ventilator 60.00 07/21/22 16:27 95 Mechanical Ventilator 60 07/21/22 16:26 37.3 07/21/22 16:19 105 107/65 07/21/22 16:00 112 20 95/57 (70) 95 Mechanical Ventilator 60.00 07/21/22 15:42 60 07/21/22 15:30 105 20 95 60 07/21/22 15:11 Mechanical Ventilator 60.00 07/21/22 15:00 105 19 107/65 (79) 97 Mechanical Ventilator 70.00 07/21/22 14:57 Mechanical Ventilator 70.00 07/21/22 14:00 102 21 98/62 (74) 99 Mechanical Ventilator 80.00 07/21/22 13:00 108 21 92/59 (70) 98 Mechanical Ventilator 80.00 07/21/22 13:00 120 07/21/22 12:38 97 Mechanical Ventilator 80 07/21/22 12:37 37.2 07/21/22 12:37 37.2 07/21/22 12:00 117 31 115/76 (89) 93 Mechanical Ventilator 80.00 07/21/22 12:00 39.1 07/21/22 11:57 39.1 07/21/22 11:56 131 125/72 07/21/22 11:44 80 07/21/22 11:43 Mechanical Ventilator 80.00 07/21/22 11:00 131 28 125/72 (89) 94 Mechanical Ventilator 90.00 07/21/22 10:22 Mechanical Ventilator 90.00 07/21/22 10:00 138 140/78 (98) 92 Mechanical Ventilator 90.00 07/21/22 09:46 137 183/107 07/21/22 09:30 137 30 94 100 07/21/22 09:00 137 183/107 (132) 91 Mechanical Ventilator 50.00 I & O 07/22/22 07:00 Intake Total 4658.0 ml Output Total 3210 ml Balance 1448.0 ml Height & Weight Height: 5'6.00" Weight: 157lbs. 0.0oz. 71.576904ry; 26.11 BMI Method: General Appearance: Anxious, Chronically ill, Mild Distress, Thin HEENT: Other (trach clean and patent) Neck: Supple Respiratory: Accessory Muscle Use, Decreased Breath Sounds, Respiratory Distress, Wheezing Cardiovascular: Tachycardia Capillary Refill: Less Than 3 Seconds Gastrointestinal: normal bowel sounds, non tender, soft Extremity: Pedal Edema Neurologic/Psychiatric: Other (extremely sedated and minimally responsive) Skin: Warm/Dry Lymphatic: No Adenopathy Results Lab Laboratory Tests 07/20/22 13:30 07/21/22 03:51 07/22/22 03:46 Assessment/Plan Assessment/Plan See free text. Critical Care: Ventilator Management ARIELLE FREY MD Jul 22, 2022 08:39
[2022-07-22] MEDS ORDERED: ANIDULAFUNGIN INJECTION 100 MG in NS (IVPB) 100 ML IV SCH (09:00)
--- NOTE | 2022-07-22 09:03 | Cardiology Progress Note ---
Subjective Date Seen by Provider: Jul 22, 2022 Time Seen by Provider: 09:02 Subjective/Events-last exam Patient was seen at bedside, opening his eyes, not following commands, ventilator dependent Review of Systems General: Other (Unable to provide review of system) Objective-Cardiology Exam Last Set of Vital Signs Vital Signs 07/22/22 07/22/22 07/22/22 08:00 08:10 08:32 Pulse 125 Resp 21 B/P (MAP) 107/65 Pulse Ox 93 O2 Delivery Mechanical Ventilator O2 Flow Rate 60.00 FiO2 60 I&O Intake and Output 07/22/22 00:00 Intake Total 3163.0 ml Output Total 5070 ml Balance -1907.0 ml Intake Oral 0 ml IV Total 1845.0 ml Tube Feeding 518 ml Other 800 ml Output Urine Total 5070 ml General: Other (Ventilator dependent) HEENT: Atraumatic, Mucous Memb Moist/[place] Neck: Supple, No JVD Lungs: Normal Air Movement Heart: Regular Rate, Normal S1, Normal S2 Abdomen: Normal Bowel Sounds, Soft Extremities: No Clubbing, No Cyanosis, Other (1+ pitting edema bilaterally) Skin: No Rashes Neuro: Other (Ventilator dependent) Psych/Mental Status: Other (Ventilator dependent) Results Lab Laboratory Tests 07/22/22 03:46 A/P-Cardiology Admission Diagnosis Septic shock DKA Coronary artery disease Sinus tachycardia Assessment/Plan Status post hypotensive shock, sepsis Borderline hypotensive at this time. Sinus tachycardia Receiving Lopressor IV, monitor blood pressure and heart rate. Status post acute respiratory failure, extubated on July 12, 2022 Has aspiration pneumonia Was reintubated on July 13, 2022. Ventilator dependent, managed by primary care team Status post tracheostomy placed on July 19, 2022 Still ventilator dependent, receiving Precedex Anoxic brain injury, opening his eyes, not following commands. Status post feeding tube placement. Managed by medical team Sinus tachycardia, probably secondary to sepsis Started on Lopressor 5 mg IV every 6 hours Monitor heart rate and blood pressure closely Severe DKA, Improved, managed by primary care physician Echo on 07/08/22: technically difficult study; hyperdynamic LV seen on Definity contrast injection with LVEF approx 60% CAD - History of CABG x3 done by Dr. Justin in April 2017: URRUTIA to LAD, reverse vein graft to the right PDA and reverse vein graft to the OM1, - Last cath 01/09/[address] Melgar: LMCA Ok. LAD occlude in mid portion. URRUTIA to distal LAD patent. OM1 of LCX occluede. SVG to OM patent. RCA occlude SVG to PDA patent, but PDA small and with slow distal flow - Last MPI 06/27/[address] Melgar: no ischemia or infarction, LVEF 73% H/o chronic chest wall pain with occasional feeling of numbness in his arm Hyperlipidemia for which he has been on statins COPD Diabetes mellitus, poorly controlled Nonobstructive carotid artery stenosis per carotid duplex done Dec [address] Melgar H/o recurrent headache, managed by primary care physician BREONNA MELGAR MD Jul 22, 2022 09:03
[2022-07-22] MEDS: ANIDULAFUNGIN INJECTION 100 MG in NS (IVPB) 100 ML IV SCH (09:07)
[2022-07-22] MEDS ORDERED: VORICONAZOLE 200 MG TAB (VFEND) NON-FORMULARY PO SCH ×2 (10:00→12:00)
[2022-07-22] MEDS ORDERED: SCOPOLAMINE 1.5 MG (TRANSDERM-SCOP) PATCH TD NR (12:00)
[2022-07-22] MEDS: VORICONAZOLE 200 MG TAB (VFEND) NON-FORMULARY PO SCH (12:07)
[2022-07-22] MEDS: PROPOFOL DRIP (ICU) 100 ML IV SCH (12:25)
[2022-07-22] MEDS: MIDAZOLAM 2 MG/2 ML (VERSED) VIAL IVP PRN (16:30)
[2022-07-23] MEDS: meTOprolol 5 MG/5 ML (LOPRESSOR) VIAL IV SCH ×3 (00:07→11:24)
[2022-07-23] MEDS: inSUlin ASPART (NovoLOG) 1 UNIT/0.01 ML (CHARGE PER UNIT) SC SCH ×3 (00:14→12:36)
[2022-07-23] MEDS: VORICONAZOLE 200 MG TAB (VFEND) NON-FORMULARY PO SCH ×2 (00:14→12:36)
[2022-07-23] MEDS: EPINEPHrine 1 MG INJECTION 4 MG in NS (IVPB) 246 ML IV SCH ×2 (00:20→07:55)
[2022-07-23] MEDS: DexMEDEtomidine 250 ML DRIP 250 ML IV SCH ×2 (00:40→08:28)
[2022-07-23 02:15] VITALS: BP 94/60
[2022-07-23] MEDS: RT-ALBUTEROL/IPRATROPIUM 3 ML (DUONEB) VIAL INH SCH ×4 (02:15→15:04)
[2022-07-23] MEDS: fentaNYL DRIP PRE-MIX 250 ML IV SCH ×3 (02:17→15:05)
[2022-07-23 04:52] LABS: BASOPHILS % (AUTO) 0 % (0-10); EOSINOPHILS # (AUTO) 0.1 10^3/uL (0.0-0.3); EOSINOPHILS % (AUTO) 1 % (0-10); HEMATOCRIT 24 % (40-54); HEMOGLOBIN 7.5 g/dL (13.3-17.7); LYMPHOCYTES # (AUTO) 0.9 10^3/uL (1.0-4.0); LYMPHOCYTES % (AUTO) 9 % (12-44); MEAN CORPUSCULAR HEMOGLOBIN 32 pg (25-34); MEAN CORPUSCULAR HGB CONC 31 g/dL (32-36); MEAN CORPUSCULAR VOLUME 105 fL (80-99); MEAN PLATELET VOLUME 11.4 fL (9.0-12.2); MONOCYTES # (AUTO) 0.5 10^3/uL (0.0-1.0); MONOCYTES % (AUTO) 5 % (0-12); NEUTROPHILS # (AUTO) 8.4 10^3/uL (1.8-7.8); NEUTROPHILS % (AUTO) 84 % (42-75); PLATELET COUNT 306 10^3/uL (130-400)
[2022-07-23 05:03] LABS: ALBUMIN 1.8 GM/DL (3.2-4.5)
[2022-07-23 05:04] LABS: POTASSIUM 4.8 MMOL/L (3.6-5.0)
[2022-07-23 05:05] LABS: CALCIUM 7.3 MG/DL (8.5-10.1)
[2022-07-23 05:06] LABS: TOTAL PROTEIN 5.5 GM/DL (6.4-8.2)
[2022-07-23] MEDS: KCL 20 MEQ TAB (K-DUR) PO SCH (05:06)
[2022-07-23] MEDS: POTASSIUM CL 10MEQ/50ML IVPB 50 ML IV SCH (05:06)
[2022-07-23 05:08] LABS: BILIRUBIN,TOTAL 0.5 MG/DL (0.1-1.0)
[2022-07-23 05:09] LABS: PHOSPHORUS 5.2 MG/DL (2.3-4.7)
[2022-07-23 05:10] LABS: CREATININE SERUM 1.78 MG/DL (0.60-1.30)
[2022-07-23 05:12] LABS: MAGNESIUM 2.1 MG/DL (1.6-2.4)
[2022-07-23 05:22] LABS: ABG BASE EXCESS -0.2 MMOL/L (-2.5-2.5); ABG OXYGEN SATURATION 97 % (94-100); ABG PO2 83 MMHG (79-93)
[2022-07-23 05:27] LABS: ALLENS TEST YES-POS; INSPIRED O2 60%; VENTILATOR YES
[2022-07-23] MEDS: MAGNESIUM 1 GM/100 ML IVPB 100 ML IV SCH (05:27)
[2022-07-23 05:28] LABS: PATIENT TEMP 37.6
[2022-07-23] MEDS: dilTIAZem DRIP PRE-MIX 125 ML IV SCH (05:28)
[2022-07-23 05:29] LABS: ABG PCO2 72 MMHG (35-45)
[2022-07-23 06:45] VITALS: BP 96/60
--- NOTE | 2022-07-23 07:44 | Physical Therapy Progress Note ---
Therapy Progress Note Due to patient current status, PT to dismiss patient from services. EDENILSON CASTILLO PT Jul 23, 2022 07:44
[2022-07-23] MEDS: PROPOFOL DRIP (ICU) 100 ML IV SCH (07:54)
[2022-07-23] MEDS: ENOXAPARIN 40 MG/0.4 ML (LOVENOX) SYR SC SCH (08:26)
[2022-07-23] MEDS: SULFAMETHOXAZOLE/TRIMETHO SUSP 10 ML (BACTRIM) UDC GT SCH (08:26)
[2022-07-23] MEDS: DOCUSATE SODIUM 100 MG (COLACE) CAP PO SCH (08:26)
[2022-07-23] MEDS: PANTOPRAZOLE 40 MG (PROTONIX) VIAL IV SCH (08:26)
[2022-07-23] MEDS: FUROSEMIDE 40 MG/4 ML INJ (LASIX) IVP SCH (08:26)
[2022-07-23] MEDS: IRON SUCROSE 200 MG/10 ML (VENOFER) VIAL IV SCH (08:26)
[2022-07-23] MEDS: SENNOSIDES 8.6 MG (SENOKOT) TAB PO SCH (08:26)
[2022-07-23] MEDS: ASPIRIN 81 MG CHEW (CHILDREN'S ASA) PO SCH (08:26)
[2022-07-23] MEDS: VANCOMYCIN 1250 MG/NS 250 ML IVPB IV SCH ×2 (08:27)
[2022-07-23] MEDS: ANIDULAFUNGIN INJECTION 100 MG in NS (IVPB) 100 ML IV SCH (08:27)
[2022-07-23] MEDS: ACETAMINOPHEN 325 MG TABLET PO PRN (08:30)
--- NOTE | 2022-07-23 09:20 | Cardiology Progress Note ---
Subjective Date Seen by Provider: Jul 23, 2022 Time Seen by Provider: 09:18 Subjective/Events-last exam Patient is laying down in bed Unresponsive, ventilator dependent Review of Systems General: Other (Unable to provide review of system) Objective-Cardiology Exam Last Set of Vital Signs Vital Signs 07/23/22 07/23/22 07/23/22 07/23/22 04:00 06:00 06:45 08:29 Temp 37.6 Pulse 134 Resp 21 B/P (MAP) 88/56 Pulse Ox 97 O2 Delivery Mechanical Ventilator O2 Flow Rate 60.00 FiO2 60 I&O Intake and Output 07/23/22 00:00 Intake Total 4864.0 ml Output Total 1090 ml Balance 3774.0 ml Intake Oral 0 ml IV Total 2245.0 ml Tube Feeding 1219 ml Other 1400 ml Output Urine Total 1090 ml General: Other (Ventilator dependent) HEENT: Atraumatic, Mucous Memb Moist/[place] Neck: Supple, No JVD Lungs: Normal Air Movement Heart: Regular Rate, Normal S1, Normal S2 Abdomen: Normal Bowel Sounds, Soft Extremities: No Clubbing, No Cyanosis, Other (1+ pitting edema bilaterally) Skin: No Rashes Neuro: Other (Ventilator dependent) Psych/Mental Status: Other (Ventilator dependent) Results Lab Laboratory Tests 07/23/22 04:08 A/P-Cardiology Admission Diagnosis Septic shock DKA Coronary artery disease Sinus tachycardia Assessment/Plan Status post hypotensive shock, sepsis Maintained on pressors Sinus tachycardia Status post acute respiratory failure, extubated on July 12, 2022 Has aspiration pneumonia Was reintubated on July 13, 2022. Ventilator dependent, managed by primary care team Status post tracheostomy placed on July 19, 2022 Still ventilator dependent, receiving Precedex Anoxic brain injury, opening his eyes, not following commands. Status post feeding tube placement. Managed by medical team Sinus tachycardia, probably secondary to sepsis Acute renal failure, worsening renal function, acute tubular necrosis Severe DKA, Improved, managed by primary care physician Echo on 07/08/22: technically difficult study; hyperdynamic LV seen on Definity contrast injection with LVEF approx 60% CAD - History of CABG x3 done by Dr. Justin in April 2017: URRUTIA to LAD, reverse vein graft to the right PDA and reverse vein graft to the OM1, - Last cath 01/09/[address] Melgar: LMCA Ok. LAD occlude in mid portion. URRUTIA to distal LAD patent. OM1 of LCX occluede. SVG to OM patent. RCA occlude SVG to PDA patent, but PDA small and with slow distal flow - Last MPI 06/27/[address] Melgar: no ischemia or infarction, LVEF 73% H/o chronic chest wall pain with occasional feeling of numbness in his arm Hyperlipidemia for which he has been on statins COPD Diabetes mellitus, poorly controlled Nonobstructive carotid artery stenosis per carotid duplex done Dec [address] Melgar H/o recurrent headache, managed by primary care physician BREONNA MELGAR MD Jul 23, 2022 09:20
[2022-07-23 09:56] VITALS: BP 91/57
--- NOTE | 2022-07-23 12:19 | Tele-ICU Progress Note ---
Subjective Date Seen by a Provider: Jul 23, 2022 Time Seen by a Provider: 12:19 Subjective/Events-last exam Tele-ICU Physician , Progress Note ) Available chart/ vitals / labs / Images reviewed Video assessment done using teleICU camera, rest of exam as per RN Discussed with RN Events overnight : FEBRILE 39.7 hemodynamically stable Respiratory -25 % I/O m= 300 Drips:pecedex 1 propofol Pressors- off . VENT SETTINGS and ABG reviewed Sedation: RASS for SBTContraindications : Cardiovascular Stability /Sedation Score / FI02/PEEP / ABG / CXR Consultants: gabino Hospital course: 07-08: 47 y/o M - Unresponsive at home - Not well since Saturday. ?Asp Pneumonia - DKA Hypothermic - Intubated in ER - Pressors started. 07/10 - OFF pressors 07-12: Extubated 07/13 - NG placed 07/14 - reintubated for mental status 07/16 febrile - cx done 07/18- FEBRILE 39.7, changed to Eraxis , started VANCO and Eraxis 07/19- TRACHEOSTOMY / PEG 07/20- worsenign FIO2 - CT CHEST - NO PE , bilat infiltrates 07/23- FIO2 60% peep 8 , resp acidosis , ARIE cr 11/18 A/P Acute resp fail;ure =- intubated 07/08 for airway protection , 07-12: Extubated =07/14 - reintubated for mental status 07/19 -TRACHEOTOMY with failed SBT and copious secretons 07/20- worsenign FIO2 - CT CHEST - NO PE , bilat infiltrates 07/21 - fio2 905 - will check cxr to r/o PTX. musous plug , increase sedation - follow 07/22- shock , LEVO 07/23- FIO2 60% peep 8 , resp acidosis , ARIE cr 11/18 Shock - on levo today - will try to correct acidosis and transfuse albumin DKA- resolved - iSS + long acting , ON TF up to goal ID on admission - NEG covid , flu - empirically tx with abx x 6 days for PNA suspected , aspiration WORSENING PNA R>L -ZOSYN started 07/17 - presumed MRSA in sputum - resume MRSA coverage with Bactrim Suspected disseminated/ invasive fungal infection - -yeast in sputum and blood 07/17 - - started on fluconazole 07/15- changed rto Eraxis 07/18 -> -07/21 -results of blood cx 07/16 + aliza, 07/17 sputum cx - Asper . niger - DISCUSSED WITH PHARMACY ANTIFUNGAL TREATMENT - ( not enoth of voviconazole in pharmace - amphothericin ? marie cover both - CT chest 07/20 - no cavitary lesions or aspergilioma - will scan abdomen and CT head to r/o other possible site of abscess ( when stable ) ARIE ( on admmission - - resolved - New increased Cr to 1.8 on 07/23 ( ON BACTRIM - monitor with albumi transfusions , stop l;asix Anemia - no active bleeding - slow trending Hb down - iron=8 on 07/17 - started IV Fe for 5 doses - PPI IV H/o CAD. s/p CABG 2016 - ECHO 07/08 - EF 55% ( technically difficult study; hyperdynamic LV - cards follow Tachycardia - Sinus ( confirmed in after adenosine on admission ) - beta blockers resumed - persistent , but WORSENIGN to 130s h/o COPD - cont nebs Thrombocytopenia - PLT dropped to 107 from 252- ? delutional -IMPROVING Elevc Ddimer 07/17 - US LE neg for DVT 07/17 Nutrition - cont TF now , at goal Hypernatremia -improved , decrease free water in TF Profound weakness -? CC myopaty other etiology ? Was re-intubated , but no CO2 retntion on abg - doubt respiratiry muscle weakness. Metabolic/ endoctine/ infection ? Was not on steroids . -CTH negative , looks and nodding appropriatly for days , as per RN follows commands . Can move upper extremity today - WAS able to lift agains gravity once during oral care -replacing phos , B12 was high , TSH WNL Lines : R IJ removed 07/18 with fungemia , PICC to be placed 07/23 (Central Line Necessity Reviewed) Nicholson: + OG: Nutrition: TF Analgesia: Anxiety/ delirium VTE Prophylaxis: jeff 40 Stress Ulcer Prophylaxis: ppi Plans in collaboration with bedside consultants and IM MDs. Discussed with RN to reach out if any questions or concerns A total of 35 minutes of critical care time was devoted to this patient today, required to treat and/or prevent further deterioration of critical care condition ( as above ) . Sepsis Event Evaluation Height, Weight, BMI Height: 5'6.00" Weight: 157lbs. 0.0oz. 71.614916wd; 26.52 BMI Method: Exam Exam Patient acknowledged, consented, and participated in this virtual visit which was conducted using real time audio/video Vital Signs Date Time Temp Pulse Resp B/P (MAP) Pulse Ox O2 Delivery O2 Flow Rate FiO2 07/23/22 11:20 95 Mechanical Ventilator 60 07/23/22 11:19 60 07/23/22 11:00 135 21 98/53 (68) 95 Mechanical Ventilator 60.00 07/23/22 10:00 131 24 92/64 (73) 94 Mechanical Ventilator 60.00 07/23/22 09:56 131 24 96 60 07/23/22 09:00 134 21 87/57 (67) 96 Mechanical Ventilator 60.00 07/23/22 08:29 134 88/56 07/23/22 08:28 134 88/56 07/23/22 08:00 134 20 91/58 (69) 96 Mechanical Ventilator 60.00 07/23/22 08:00 60 07/23/22 08:00 95 Mechanical Ventilator 60 07/23/22 07:00 137 20 99/58 (72) 96 Mechanical Ventilator 60.00 07/23/22 07:00 135 07/23/22 06:45 137 21 97 60 07/23/22 06:00 133 20 96/58 (71) 96 Mechanical Ventilator 60.00 07/23/22 05:57 129 92/58 07/23/22 05:00 129 30 92/58 (69) 97 Mechanical Ventilator 60.00 07/23/22 04:40 131 103/57 07/23/22 04:00 131 19 103/57 (72) 97 Mechanical Ventilator 60.00 07/23/22 04:00 60 07/23/22 04:00 37.6 131 19 103/57 (72) 97 Mechanical Ventilator 60.00 07/23/22 04:00 97 Mechanical Ventilator 60 07/23/22 03:00 133 20 97/67 (77) 97 Mechanical Ventilator 60.00 07/23/22 02:17 124 98/59 07/23/22 02:15 128 19 95 60 07/23/22 02:00 37.4 128 17 98/59 (72) 95 Mechanical Ventilator 60.00 07/23/22 02:00 124 22 98/59 (72) 97 Mechanical Ventilator 60.00 07/23/22 01:00 123 18 92/51 (65) 97 Mechanical Ventilator 60.00 07/23/22 01:00 123 07/23/22 00:40 124 93/56 07/23/22 00:20 37.6 124 16 93/56 (68) 97 Mechanical Ventilator 60.00 07/23/22 00:14 124 102/64 07/23/22 00:00 60 07/23/22 00:00 125 23 102/64 (77) 98 Mechanical Ventilator 60.00 07/23/22 00:00 96 Mechanical Ventilator 60 07/22/22 23:10 37.8 07/22/22 23:00 128 17 109/64 (79) 97 Mechanical Ventilator 60.00 07/22/22 22:13 38.1 07/22/22 22:11 38.1 07/22/22 22:00 125 20 98/57 (71) 96 Mechanical Ventilator 60.00 07/22/22 21:36 126 18 96 60 07/22/22 21:29 126 19 96 60 07/22/22 21:00 126 17 94/51 (65) 96 Mechanical Ventilator 60.00 07/22/22 20:02 129 72/40 07/22/22 20:00 129 22 72/40 (51) 93 Mechanical Ventilator 60.00 07/22/22 19:55 93 Mechanical Ventilator 60 07/22/22 19:50 126 84/63 07/22/22 19:25 60 07/22/22 19:00 38.4 128 19 90/52 (65) 98 Mechanical Ventilator 60.00 07/22/22 19:00 129 07/22/22 18:30 Mechanical Ventilator 60.00 07/22/22 18:18 124 21 97 65 07/22/22 18:00 122 22 91/53 (66) 97 Mechanical Ventilator 65.00 07/22/22 17:58 37.8 07/22/22 17:37 38.0 07/22/22 17:01 38.0 07/22/22 17:01 38.0 07/22/22 17:00 128 21 95/56 (69) 93 Mechanical Ventilator 65.00 07/22/22 16:34 38.3 07/22/22 16:32 38.3 07/22/22 16:19 121 94/57 9/11/22 16:09 92 Mechanical Ventilator 65 07/22/22 16:04 121 94/57 07/22/22 16:00 131 22 113/75 (88) 92 Mechanical Ventilator 65.00 07/22/22 15:39 37.9 07/22/22 15:01 65 07/22/22 15:00 128 25 97/58 (71) 94 Mechanical Ventilator 65.00 07/22/22 14:43 123 23 97 65 07/22/22 14:42 Mechanical Ventilator 65.00 07/22/22 14:00 121 23 94/57 (69) 98 Mechanical Ventilator 70.00 07/22/22 13:00 110 07/22/22 13:00 120 23 85/51 (62) 96 Mechanical Ventilator 70.00 07/22/22 12:27 120 109/69 07/22/22 12:25 120 109/69 I & O 07/23/22 07:00 Intake Total 4509.0 ml Output Total 1155 ml Balance 3354.0 ml Height & Weight Height: 5'6.00" Weight: 157lbs. 0.0oz. 71.291087mx; 26.52 BMI Method: General Appearance: Chronically ill, Moderate Distress, Other (tachypneic) HEENT: Other (trach clean and patent) Neck: Supple Respiratory: Decreased Breath Sounds Cardiovascular: Regular Rate, Rhythm Capillary Refill: Less Than 3 Seconds Gastrointestinal: normal bowel sounds, non tender, soft Extremity: Pedal Edema Neurologic/Psychiatric: Other (extremely sedated and minimally responsive) Skin: Warm/Dry Lymphatic: No Adenopathy Results Lab Laboratory Tests 07/22/22 03:46 07/23/22 04:08 Assessment/Plan Assessment/Plan 1 MAYANK CHILDERS MD Jul 23, 2022 12:19
[2022-07-23] MEDS: NOREPINEPHRINE 8 MG/250 ML 250 ML IV SCH (12:42)
--- NOTE | 2022-07-23 13:34 | Progress Note ---
Subjective Subjective/Events-last exam Pt seen at 0900. Girlfriend at bedside and son on the phone on speaker. He has recurrent renal insufficiency and hypotension and is not responding meaningfully, but does grimace when pain medication is decreased. Objective Exam Last Set of Vital Signs Vital Signs Date Time Temp Pulse Resp B/P (MAP) Pulse Ox O2 Delivery O2 Flow Rate FiO2 07/23/22 12:56 131 07/23/22 12:42 85/52 07/23/22 12:00 20 95 Mechanical Ventilator 60.00 07/23/22 11:20 60 07/23/22 04:00 37.6 Capillary Refill : Greater Than 3 SecondsLess Than 3 Seconds I&O Intake and Output 07/23/22 00:00 Intake Total 4864.0 ml Output Total 1090 ml Balance 3774.0 ml Intake Oral 0 ml IV Total 2245.0 ml Tube Feeding 1219 ml Other 1400 ml Output Urine Total 1090 ml General: Other (ventilated via tracheostomy, does not move with mildly painful stimuli or respond to voice) Lungs: Other (ronchi) Heart: Other (tachycardic) Abdomen: Normal Bowel Sounds Extremities: No Edema Results/Procedures Lab Laboratory Tests 07/22/22 17:31: Glucometer 159H 07/22/22 20:07: Glucometer 196H 07/23/22 00:10: Glucometer 186H 07/23/22 04:08: White Blood Count 10.0, Red Blood Count 2.32L, Hemoglobin 7.5L, Hematocrit 24L, Mean Corpuscular Volume 105H, Mean Corpuscular Hemoglobin 32, Mean Corpuscular Hemoglobin Concent 31L, Red Cell Distribution Width 15.1H, Platelet Count 306, Mean Platelet Volume 11.4, Immature Granulocyte % (Auto) 1, Neutrophils (%) (Auto) 84H, Lymphocytes (%) (Auto) 9L, Monocytes (%) (Auto) 5, Eosinophils (%) (Auto) 1, Basophils (%) (Auto) 0, Neutrophils # (Auto) 8.4H, Lymphocytes # (Auto) 0.9L, Monocytes # (Auto) 0.5, Eosinophils # (Auto) 0.1, Basophils # (Auto) 0.0, Immature Granulocyte # (Auto) 0.1, Sodium Level 141, Potassium Level 4.8, Chloride Level 108H, Carbon Dioxide Level 21, Anion Gap 12, Blood Urea Nitrogen 32H, Creatinine 1.78H, Estimat Glomerular Filtration Rate 46, BUN/Creatinine Ratio 18, Glucose Level 177H, Calcium Level 7.3L, Corrected Calcium 9.1, Phosphorus Level 5.2H, Magnesium Level 2.1, Total Bilirubin 0.5, Aspartate Amino Transf (AST/SGOT) 28, Alanine Aminotransferase (ALT/SGPT) 16, Alkaline Phosphatase 160H, Total Protein 5.5L, Albumin 1.8L 07/23/22 05:15: Blood Gas Puncture Site RIGHT RADIAL, Blood Gas Patient Temperature 37.6, Arterial Blood pH 7.20*L, Arterial Blood Partial Pressure CO2 72*H, Arterial Blood Partial Pressure O2 83, Arterial Blood HCO3 27, Arterial Blood Total CO2 29.0, Arterial Blood Oxygen Saturation 97, Arterial Blood Base Excess -0.2, Luis Miguel Test YES-POS, Blood Gas Ventilator Setting YES, Blood Gas Inspired Oxygen 60% 07/23/22 11:04: Glucometer 260H Microbiology 07/21/22 Blood Culture - Preliminary, Resulted No growth 07/17/22 Gram Stain - Final, Complete 07/17/22 Sputum Culture - Final, Complete Mixed Bacterial Kelly Staphylococcus aureus YEAST Stenotrophomonas Maltophilia Aspergillus niger 07/08/22 Urine Culture - Final, Complete NO GROWTH Assessment/Plan Assessment/Plan (1) Acute respiratory failure with hypoxia Status: Acute Assessment & Plan: 07/09: Intubated and sedated on admit 07/23: was extubated for a brief period during stay but required reintubation within 24 hours, had trach and PEG placed last week and remains ventilator dependent. On FiO2 60% today, but has hypercapnia as well, increasing respiratory rate and repeating ABG. (2) Septic shock Status: Acute Assessment & Plan: 07/09: On admit- Aggressive IVFs, required 3 pressors 07/23: had improved, but has recently become hypotensive again requiring reinitation of norepinephrine. Is on Bactrim, Vancomycin, Voriconazole and Anidulafungan for yeast and stenotrophomonas in sputum, aliza albicans in blood cultures, MRSA and aspergillus in sputum. (3) Leukocytosis Status: Resolved Assessment & Plan: 07/10: Initially started on Zosyn. Qualifiers: Qualified Codes: D72.829 - Elevated white blood cell count, unspecified (4) Type 1 diabetes mellitus Status: Chronic Qualifiers: Qualified Codes: E10.69 - Type 1 diabetes mellitus with other specified complication (5) Ketoacidosis due to type 1 diabetes mellitus Status: Resolved Assessment & Plan: Initially requiring insulin drip and DKA protocol, resolved. Qualifiers: Qualified Codes: E10.10 - Type 1 diabetes mellitus with ketoacidosis without coma (6) PNA (pneumonia) Status: Acute Assessment & Plan: Sputum with stenotrophomonas, yeast species, aspergillus, MRSA, see antibiotics/antifungals above. Qualifiers: Qualified Codes: J69.0 - Pneumonitis due to inhalation of food and vomit (7) Acute renal failure Status: Acute Assessment & Plan: 07/09: Improved with aggressive IVFs, likely secondary to DKA and dehydration 07/23: recurrent ARIE, suspect due to hypotension, continue norepinephrine Qualifiers: Qualified Codes: N17.9 - Acute kidney failure, unspecified (8) Sinus tachycardia Status: Acute Assessment & Plan: 07/09: Cardiology consulted, appreciate recommendations, likely 2/2 to acidosis and illness severity, continue to monitor (9) CAD (coronary artery disease) Status: Chronic Qualifiers: Qualified Codes: I25.10 - Atherosclerotic heart disease of [place] coronary artery without angina pectoris (10) Altered mental status Status: Acute Assessment & Plan: Somnolent on admit thought to be due to ketoacidosis, CT head x2 this stay without acute changes. Had some small initial improvement, then unresponsive again. Currently has no meaningful responses, is on fentanyl but when decreased appears to have pain and still does not respond appropriately. Possible hypoxic encephalopathy. (11) Respiratory acidosis (12) Respiratory failure with hypercapnia (13) DVT prophylaxis Status: Acute Assessment & Plan: Enoxaparin (14) Goals of care, counseling/discussion Status: Acute Assessment & Plan: 07/23 discussed current status with girlfriend and son including recurrent renal insufficiency, hypotension, fever and persistent altered mental status and worsening respiratory failure today and they state he would not want an attempt at code, in fact had told girlfriend recently that he would not want to be on a ventilator for any prolonged period of time. At this time will continue aggressive care, but are changing status to DNR. OLMAN LYON MD Jul 23, 2022 13:34
[2022-07-23] MEDS ORDERED: ALBUMIN 25% 25 GM/100 ML 50 ML IV SCH (14:00)
[2022-07-23] MEDS ORDERED: ALBUMIN 25% 25 GM/100 ML 100 ML IV ONE (14:45)
[2022-07-23 15:05] VITALS: BP 99/63
[2022-07-23 15:12] LABS: ABG BASE EXCESS -1.4 MMOL/L (-2.5-2.5); ABG OXYGEN SATURATION 94 % (94-100); ABG PO2 76 MMHG (79-93); ABG TCO2 28.5 MMOL/L (21.0-31.0)
[2022-07-23 15:14] LABS: ABG PCO2 79 MMHG (35-45); ABG PH 7.16 (7.37-7.43)
[2022-07-23 15:15] LABS: ALLENS TEST YES-POS; PATIENT TEMP 38.1; VENTILATOR YES
[2022-07-23 15:19] LABS: POTASSIUM 5.3 MMOL/L (3.6-5.0)
[2022-07-23 15:21] LABS: CALCIUM 7.2 MG/DL (8.5-10.1)
[2022-07-23 15:25] LABS: CREATININE SERUM 2.43 MG/DL (0.60-1.30)
[2022-07-23] MEDS ORDERED: SODIUM BICARB 8.4% 50 MEQ/50 ML (ABBOTT) SYR IV NR (15:45)
[2022-07-23] MEDS ORDERED: SODIUM BICARBONATE 8.4% VIAL 100 MEQ in 1/2 NS IV SOLUTION 1,000 ML IV SCH (16:00)
[2022-07-23] MEDS ORDERED: BISACODYL 10 MG SUPP (DULCOLAX) PR PRN (17:00)
[2022-07-23] MEDS ORDERED: LORazepam 1 MG (ATIVAN) TAB SL PRN (17:00)
[2022-07-23] MEDS ORDERED: RT-ALBUTEROL/IPRATROPIUM 3 ML (DUONEB) VIAL INH PRN (17:00)
[2022-07-23] MEDS ORDERED: ACETAMINOPHEN 650 MG SUPP (TYLENOL) PR PRN (17:00)
[2022-07-23] MEDS ORDERED: SALIVA STIMULANT MOUTH SPRAY (BIOTENE) 1.5 OZ MM PRN (17:00)
[2022-07-23] MEDS ORDERED: GLYCOPYRROLATE 0.2 MG/ML (ROBINUL) 2 ML VIAL IV PRN (17:00)
[2022-07-23] MEDS ORDERED: PROMETHAZINE INJ 25 MG/ML (PHENERGAN) AMP IVP PRN (17:00)
[2022-07-23] MEDS ORDERED: ARTIFICAL TEARS 0.4 ML UNIT DOSE (REFRESH PLUS) OU PRN (17:00)
[2022-07-23] MEDS ORDERED: ONDANSETRON 4 MG/2 ML (SDV) Z0FRAN IVP PRN (17:00)
[2022-07-23] MEDS: morphine INJ 4 MG/ML 1 ML (VIAL/SYRINGE) IV PRN ×2 (17:37→17:53)
[2022-07-23] MEDS ORDERED: [UNRECOGNIZED DRUG - REMARK] IV SCH (21:00)
--- NOTE | 2022-07-24 07:52 | Discharge Summary ---
Discharge Summary Date of Admission Jul 08, 2022 at 05:30 Date of Discharge Jul 23, 2022 at 19:32 Admission Diagnosis DKA Sepsis Acute respiratory failure requiring intubation Aspiration pneumonitis Acute kidney injury creatinine 4.4 Leukocytosis bandemia Type 1 diabetes Comfort Measures/ End of Life Care: Comfort Measures Date of : Jul 23, 2022 Discharge Diagnosis (1) Ketoacidosis due to type 1 diabetes mellitus Status: Resolved Assessment & Plan: Initially requiring insulin drip and DKA protocol, resolved. Qualifiers: Qualified Codes: E10.10 - Type 1 diabetes mellitus with ketoacidosis without coma (2) Septic shock Status: Acute Assessment & Plan: 07/09: On admit- Aggressive IVFs, required 3 pressors 07/23: had improved during stay, but then became hypotensive again requiring reinitation of norepinephrine. Was on Bactrim, Vancomycin, Voriconazole and Anidulafungan for yeast and stenotrophomonas in sputum, aliza albicans in blood cultures, MRSA and aspergillus in sputum at the time that family felt he would prefer to move to comfort measures and these were discontinued. (3) Acute renal failure Status: Acute Assessment & Plan: 07/09: Improved with aggressive IVFs, likely secondary to DKA and dehydration 07/23: recurrent ARIE, suspect due to hypotension, resumed norepinephrine, however renal function continued to worsen rapidly and family proceeded with comfort care measures. Qualifiers: Qualified Codes: N17.9 - Acute kidney failure, unspecified (4) PNA (pneumonia) Status: Acute Assessment & Plan: Sputum with stenotrophomonas, yeast species, aspergillus, MRSA, see antibiotics/antifungals in septic shock diagnosis. Qualifiers: Qualified Codes: J15.211 - Pneumonia due to methicillin susceptible Staphylococcus aureus (5) CAD (coronary artery disease) Status: Chronic Qualifiers: Qualified Codes: I25.10 - Atherosclerotic heart disease of [place] coronary artery without angina pectoris (6) Acute respiratory failure with hypoxia Status: Acute Assessment & Plan: 07/09: Intubated on admit 07/23: was extubated for a brief period during stay but required reintubation within 24 hours, had trach and PEG placed last week and remains ventilator dependent. On FiO2 60%, but has hypercapnia as well, increased respiratory rate but he had still worsening hypercapnia and respiratory acidosis and family felt he would want to proceed with comfort care which was initiated and he shortly after. (7) Respiratory failure with hypercapnia (8) Respiratory acidosis (9) Altered mental status Status: Acute Assessment & Plan: Somnolent on admit thought to be due to ketoacidosis, CT head x2 this stay without acute changes. Had some small initial improvement, then unresponsive again. On final day had no meaningful responses, was on fentanyl but when decreased appeared to have pain and still did not respond appropriately. Possible hypoxic encephalopathy. Family felt he would want comfort care measures given his persistent ventilator dependence and rapidly worsening respiratory failure while on ventilator as well as renal failure and shock. OLMAN LYON MD Jul 24, 2022 07:52
== END 2022-07-23 19:32 | disposition expired | DRG 4 ==
LOC: EDUNIT# 02:45 → ER 02:46 → ICU 05:30
PROVIDERS: ADMIT Internal Medicine; ATTEND Family Medicine
PROC: 0BH17EZ Insertion of Endotracheal Airway into Trachea, Via Natural or Artificial Opening (ICD-10-PCS; 2022-07-08)
PROC: 5A1955Z Respiratory Ventilation, Greater than 96 Consecutive Hours (ICD-10-PCS; 2022-07-08)
PROC: 5A0945A Assistance with Respiratory Ventilation, 24-96 Consecutive Hours, High Flow/Velocity Cannula (ICD-10-PCS; 2022-07-13)
PROC: 0DH63UZ Insertion of Feeding Device into Stomach, Percutaneous Approach (ICD-10-PCS; 2022-07-19)
PROC: 0DB78ZX Excision of Stomach, Pylorus, Via Natural or Artificial Opening Endoscopic, Diagnostic (ICD-10-PCS; 2022-07-19)
PROC: 0B110F4 Bypass Trachea to Cutaneous with Tracheostomy Device, Open Approach (ICD-10-PCS; principal; 2022-07-19 13:30)
DX: B37.7 Candidal sepsis (principal); T80.211A Bloodstream infection due to central venous catheter, initial encounter; E10.10 Type 1 diabetes mellitus with ketoacidosis without coma; R65.21 Severe sepsis with septic shock; J80 Acute respiratory distress syndrome; J69.0 Pneumonitis due to inhalation of food and vomit; Z66 Do not resuscitate; Z51.5 Encounter for palliative care; Z20.822 Contact with and (suspected) exposure to COVID-19; J15.212 Pneumonia due to Methicillin resistant Staphylococcus aureus; J15.6 Pneumonia due to other Gram-negative bacteria; N17.0 Acute kidney failure with tubular necrosis; B44.9 Aspergillosis, unspecified; G93.1 Anoxic brain damage, not elsewhere classified; E87.0 Hyperosmolality and hypernatremia; E87.3 Alkalosis; I48.92 Unspecified atrial flutter; E87.2 Acidosis; A41.02 Sepsis due to Methicillin resistant Staphylococcus aureus; A41.59 Other Gram-negative sepsis; B37.1 Pulmonary candidiasis; I25.10 Atherosclerotic heart disease of native coronary artery without angina pectoris; J44.9 Chronic obstructive pulmonary disease, unspecified; G72.9 Myopathy, unspecified; E87.6 Hypokalemia; D69.6 Thrombocytopenia, unspecified; I48.91 Unspecified atrial fibrillation; R00.0 Tachycardia, unspecified; G40.909 Epilepsy, unspecified, not intractable, without status epilepticus; I10 Essential (primary) hypertension; E78.00 Pure hypercholesterolemia, unspecified; K29.70 Gastritis, unspecified, without bleeding; Z95.1 Presence of aortocoronary bypass graft; Z79.899 Other long term (current) drug therapy; Z79.84 Long term (current) use of oral hypoglycemic drugs; Z79.82 Long term (current) use of aspirin; Z79.4 Long term (current) use of insulin; Z88.8 Allergy status to other drugs, medicaments and biological substances; Z91.013 Allergy to seafood
CPT/HCPCS: 31500; 36410; 36415; 36569; 51702; 70450; 71045; 71275; 76937; 80048; 80053; 80202; 80306; 80320; 81000; 82010; 82607; 82805; 82947; 83036; 83540; 83550; 83605; 83735; 84100; 84132; 84145; 84443; 84478; 84484; 85007; 85025; 85027; 85379; 85610; 85730; 86850; 86900; 86901; 86920; 87040; 87070; 87077; 87081; 87088; 87106; 87186; 87205; 87636; 88305; 93005; 93306; 93970; 94002; 94003; 94640; 94799; 96361; 96365; 96366; 96367; 96368; 96375; 99291; 99292